=== PATIENT | female | born 1935 | race Caucasian/White ===

== ENCOUNTER 2023-03-06 16:57 | Emergency (ER) | payer MEDICARE, BC, SELFPAY ==
[2023-03-06 17:00] VITALS: BP 155/81; BMI 30.3
[2023-03-06 17:31] LABS: COVID-19 Antigen Negative (Negative)
--- NOTE | 2023-03-06 18:42 | EDRN ---
the pt called for this RN and this RN came to the pts bedside, the pt stated to this RN, 'I need a breathing treatment, i am due every 4 hours and it will help me breathe, also if i stay here i will need a CPAP machine', pt [id number] on 2L NC 98%, still
waiting for provider to see the pt, charge nurse made aware
[2023-03-06] MEDS: DECADRON 8 MG IV (19:23)
[2023-03-06] MEDS: DUONEB 3 ML INH (19:24)
[2023-03-06] MEDS: TYLENOL 1000 MG PO (20:30)
--- NOTE | 2023-03-06 21:29 | ED.GENMED ---
History of Present Illness
General
Chief Complaint: Fall
Time Seen by Provider: 03/06/23 18:43
Travel History
Have you had any contact with someone who has COVID-19?: No
Do you have any symptoms of coronavirus? Fever > 100 degrees, chills, cough, shortness of breath, sore throat, loss of taste or smell, muscle aches, or headache?: No
History of Present Illness
History of Present Illness:
88-year-old female with history of asthma, COPD, chronic oxygen dependence, A-fib, hypertension, hyperlipidemia, and laryngeal dysmotility presents to the emergency department for multiple complaints. She was apparently and route to urgent care due
to shortness of breath when she had a fall in the vestibule of the urgent care prompting her to call 911. She arrives complaining of bilateral knee pain. She is not currently on any anticoagulants. She notes she is felt short of breath for the
past week. She is requesting viral panel swabs.
Past History
Past History
ED Past Medical History: Arrthythmia (Atrial fib), Asthma, COPD, GERD, HTN, Hypercholesterolemia, IDDM, Psychiatric (Anxiety) and Other (Chronic back pain, Diverticulitis, Hiatal hernia,, carotid stenosis,sleep apnea , dysphagia, glaucoma,
cataracts,Vertigo, PNA, esophageal restrictions)
ED Past Surgical History: Appendectomy, Cardiac (Left carotid stent), Gynecological (hysterectomy), Orthopedic (Right carpal tunnel surgery), Urological (Bladder surgery) and Other (Cyst on Pancreas with fluid removed, bladder repair, Breast cyst
removed)
Social History
Tobacco: Non-smoker
Alcohol: None
Drug: None
Personal:
Living: with family
Employment: Retired
Family History
Family History: Other (Brother with a stroke, sister with ovarian cancer, sister with colon cancer)
Review of Systems
Review of Systems
Allergies reviewed?: Yes
All Other Systems: ROS reviewed and negative except as documented in HPI and ROS
Phy Exam
Physical Exam
Physical Exam:
GEN: Well appearing, NAD, WDWN
Eyes: PERRLA, EOMs intact, no scleral icterus
HENT: NCAT, oral mucosa moist, no JVD, no cervical adenopathy.
Lungs: Normal respiratory effort however audible expiratory wheezes heard throughout all lung herron, no conversational dyspnea
Cardiac: RRR
Neuro: AO x 3, no focal deficits to BUE/BLE, normal sensation throughout
MSK: No gross deformity or ecchymosis. Bilateral knees appear atraumatic with no ecchymosis or swelling
Skin: No rashes, petechiae. Normal color, no pallor or jaundice.
Psych: Calm, cooperative, proper hygiene
Course
Orders/Labs/Results
Orders:
Orders
03/06/23 16:59
CXR2 [CR Chest - 2 Views ] Urgent
Comment:
Reason For Exam: cough
03/06/23 17:09
COVID-19 Antigen Urgent
Source: Nasal Swab
Influenza A+B Rapid Molecular Urgent
MIKI Source: Nasal Swab
Specimen Description:
RSV [Respiratory Syncytial Virus] Urgent
MIKI Source: Nasal Swab
Specimen Description:
Date Specimen was Collected: 03/06/23
Time Specimen was Collected: 17:08
03/06/23 18:52
Dexamethasone Sod Phosphate [Decadron] 8 mg IV NOW STA
Ipratropium/Albuterol Sulfate [Duoneb] 3 ml INH R NOW ONE
CR Knee - Left 4 Or More View* Urgent
Comment:
Reason For Exam: fall
CR Knee- Right 4 Or More View* Urgent
Comment:
Reason For Exam: fall
03/06/23 20:26
Acetaminophen [Tylenol] 1,000 mg .ROUTE .STK-MED ONE
03/06/23 20:30
Acetaminophen [Tylenol] 1,000 mg PO NOW STA
Vital Signs
Initial and Last Documented VS:
Initial Vital Signs
Temp Pulse Resp BP Pulse Ox
97.7 F 71 16 155/81 100
03/06/23 17:00 03/06/23 17:00 03/06/23 17:00 03/06/23 17:00 03/06/23 17:00
Last Documented Vital Signs
Temp Pulse Resp BP Pulse Ox
97.7 F 71 16 155/81 100
03/06/23 17:00 03/06/23 17:00 03/06/23 17:00 03/06/23 17:00 03/06/23 17:00
MDM/Problems Addressed
MDM/Problems Addressed:
Patient's symptoms of shortness of breath resolved after a DuoNeb treatment. X-rays of bilateral knees are negative for acute fracture. The patient reporting severe pain and being unable to walk, given Tylenol and eventually Toradol. I did offer
her admission for consideration of inpatient rehab however she declines that she has adequate outpatient therapy services and the ability to live in first-floor living as well as assistive ambulatory devices. Will be discharged to the care of her
*Critical Care Note
Total Time (30-74mins, 75-104mins- exclusive of procedures): Not Applicable
ED Attending Note
-
Portions of this chart may have been created with voice recognition software.� Occasional wrong word or��sound alike� substitutions may have occurred due to the inherent limitations of voice recognition software.
Discharge Plan
Departure
Patient Disposition: Home (Routine Discharge)
Date of Disposition: 03/06/23
Time of Disposition: 21:37
Patient with high blood pressure during this ER visit?: No
Discharge Problem:
Bilateral wheezing, Contusion of knee, right, Contusion of left knee
Instructions: Wheezing
Prescriptions:
New
methylprednisolone [Medrol ([place])] 4 mg tablets,dose pack
See Rx Instructions .ROUTE .COMPLEX Qty: 21 0RF
Rx Instructions:
orally per package directions
No Action
torsemide 20 MG tablet
20 mg PO MOFR
clopidogrel 75 MG tablet
75 mg PO DAILY 30 Days Qty: 30 0RF
citalopram 20 MG tablet
20 mg PO HS
montelukast 10 MG tablet
10 mg PO HS
cholecalciferol (vitamin D3) 2,000 UNITS tablet
2,000 units PO DAILY
primidone 50 MG tablet
50 mg PO DAILY
pantoprazole 40 MG tablet,delayed release (DR/EC)
40 mg PO DAILY
rosuvastatin 5 mg Tablet
5 mg PO Q48H
travoprost [Travatan Z] 0.004 % Drops
1 drp RIGHT EYE HS
diltiazem HCl 120 mg Capsule,Extended Release 24 Hr
120 mg PO Q48H
gabapentin 100 mg capsule
200 mg PO HS
Refresh Classic (PF) 1.4-0.6 % Dropperette
1 drp LEFT EYE QIDPRN PRN (Reason: DRY EYES)
acetaminophen [Tylenol] 325 mg Tablet
650 mg PO Q4HPRN PRN (Reason: mild pain)
polyethylene glycol 3350 [Miralax] 17 gram Powder In Packet
17 g PO DAILY
nystatin 100,000 unit/gram Cream
1 applic topical DAILYPRN PRN (Reason: ext vaginal)
cinnamon bark [Cinnamon] 500 mg Capsule
500 mg PO DAILY
guaifenesin 600 mg Tablet Extended Release 12hr
1,200 mg PO [id number] PRN (Reason: cough) Qty: 30 0RF
benzonatate 100 mg Capsule
100 mg PO TIDPRN PRN (Reason: Cough) Qty: 20 0RF
ipratropium-albuterol 0.5 mg-3 mg(2.5 mg base)/3 mL Solution For Nebulization
3 ml INHALATION R Q4HPRN PRN (Reason: sob)
Rx Instructions:
10/25/22 patient that her solution has two drugs in it but patient recently picked up the levalbuterol 1.25 solution
potassium chloride 20 mEq Packet
20 meq PO MOFR
lidocaine 5 % Adhesive Patch,Medicated
1 patch TOPICAL DAILYPRN PRN (Reason: right shoulder and right hip)
estradiol 0.01 % (0.1 mg/gram) Cream
1 applic VAGINAL DAILY
coQ10 (ubiquinol) 100 mg Capsule
100 mg PO DAILY
levalbuterol tartrate 45 mcg/actuation HFA aerosol inhaler
2 inh inhalation R Q6HPRN PRN (Reason: shortness of breath or wheezing)
benzonatate 100 mg capsule
100 mg PO BID PRN (Reason: Cough) Qty: 20 0RF
Referrals:
Carrie Nuñez, [Family Provider] -
Activity Restrictions/Additional Instructions:
Continue to use your albuterol nebulizer every 4 hours as needed for wheezing. I prescribed the steroids which you may start tomorrow
In regards to your knee pain take Tylenol 1000 mg every 6-8 hours and ice the knees often. Discussed the specific therapy exercises with your physical therapist tomorrow
Interventions
Interventions:
*Risk Screen - Suicide Last Done: 03/06/23 17:00
*General Assessment Last Done: 03/06/23 17:00
*Neglect/Abuse Screening Last Done: 03/06/23 17:00
ED- Fall Risk Assessment Last Done: 03/06/23 17:00
*ED COVID-19 Vaccine History Last Done: 03/06/23 17:00
ED-Musculoskeletal Assessment Last Done: 03/06/23 17:00
ED- Neurological Assessment Last Done: 03/06/23 17:00
ED-Skin Assessment Last Done: 03/06/23 17:00
[2023-03-06] MEDS: TORADOL 15 MG IV (22:04)
[2023-03-06 22:27] VITALS: BP 141/66
[2023-03-06 22:29] VITALS: BP 141/66
== END 2023-03-06 22:30 | disposition home or self-care (01) ==
LOC: EMR 16:57
PROVIDERS: Emergency Medicine; EMERGENCY PHYSICIAN Emergency Medicine; FAMILY PHYSICIAN Family Medicine
DX: S80.01XA Contusion of right knee, initial encounter (principal); S80.02XA Contusion of left knee, initial encounter; W19.XXXA Unspecified fall, initial encounter; R06.2 Wheezing; J44.89 Other specified chronic obstructive pulmonary disease; I48.91 Unspecified atrial fibrillation; I10 Essential (primary) hypertension; E78.00 Pure hypercholesterolemia, unspecified
CPT/HCPCS: 99284; 96374; 96375; 94640; 71046; 73564; 87502; 87807; 87811

== ENCOUNTER → 2023-05-24 11:07 | Outpatient (REF) | payer MEDICARE, BC, SELFPAY ==
[2023-05-24 16:13] LABS: % Basophils 0.4 % (0-2); % Eosinophils 3.4 % (0-6); % Immature Granulocytes 0.3 % (0-0.5); % Lymphocytes 19.6 % (20.5-51.1); % Monocytes 11.5 % (1.7-9.3); % Neutrophils 64.8 % (42.2-75.2); Absolute Eosinophils 0.2 10^3/uL (0-0.7); Absolute Lymphocytes 1.4 10^3/uL (1.2-3.4); Absolute Monocytes 0.8 10^3/uL (0.1-0.6); Absolute Neutrophils 4.6 10^3/uL (1.4-6.5); Hemoglobin 10.5 g/dL (12.0-16.0); Mean Corp Hgb Conc. 31.8 g/dL (33.0-37.0); Mean Corpuscular Hgb 28.8 pg (27.0-31.0); Mean Corpuscular Volume 90.4 fL (81.0-99.0); Nucleated Red Blood Cells % 0 %; Platelet Count 200 10^3/uL (130-400); Red Blood Cell Count 3.65 10^6/uL (4.20-5.40); Red Cell Dist. Width 14.4 % (11.5-14.5)
[2023-05-24 16:19] LABS: HDL Cholesterol 78 mg/dl; Iron 69 ug/dl (37-170); LDL Cholesterol, Calculated 59 mg/dl; Total Cholesterol 154 mg/dl (50-199); Triglyceride 86 mg/dl (10-149); Very Low Density Lipoprotein 17 mg/dl (0-30)
[2023-05-24 16:27] LABS: Percent Saturation 17 % (20-50); Total Iron Binding Capacity 388 ug/dl (265-497)
[2023-05-24 16:47] LABS: Microalbumin, Random Urine 1.1 mg/dl (0.6-1.7); Microalbumin/creatinine Ratio 10.3 mg/g
[2023-05-24 16:55] LABS: Ferritin 8.6 ng/ml (11.1-264.0)
[2023-05-25 08:37] LABS: Glycohemoglobin (HgbA1c) 7.3 % (4.0-5.6)
== END ==
LOC: HWLAB 11:07
PROVIDERS: ATTENDING PHYSICIAN Family Medicine; REFERRING PHYSICIAN Internal Medicine Cardiovascular Disease
DX: I65.29 Occlusion and stenosis of unspecified carotid artery (principal); E11.40 Type 2 diabetes mellitus with diabetic neuropathy, unspecified; D50.9 Iron deficiency anemia, unspecified; L43.9 Lichen planus, unspecified
CPT/HCPCS: 36415; 80061; 82043; 82570; 82728; 83036; 83540; 83550; 85025

== ENCOUNTER → 2023-06-26 06:24 | Day surgery (SDC) | payer MEDICARE, BC, SELFPAY ==
[2023-06-26] MEDS: NEO-SYNEPHRINE 2.5% OPH SOL. 1 DROP OPHTH (07:31)
[2023-06-26] MEDS: PRED FORTE 1% EYE DROPS 1 DROP OPHTH (07:31)
[2023-06-26] MEDS: ALCAINE 0.5% EYE DROPS 1 DROP OPHTH (07:31)
[2023-06-26] MEDS: POLYTRIM OPHTHALMIC SOLUTION 1 DROP OPHTH (07:31)
[2023-06-26] MEDS: MYDRIACYL 1 DROP OPHTH (07:32)
[2023-06-26] MEDS: CYCLOGYL 1% EYE DROPS 1 DROP OPHTH (07:32)
[2023-06-26] MEDS: ACUVAIL 10 DROPS OPHTH (07:32)
[2023-06-26 07:34] VITALS: BMI 28.4
[2023-06-26 07:35] VITALS: BMI 28.4
[2023-06-26 07:38] VITALS: BP 144/77
[2023-06-26 07:56] LABS: Glucose - Point of Care 134 mg/dl (70-99)
[2023-06-26] MEDS: AKTEN OPHTHALMIC GEL 1 ML OPHTH (08:03)
[2023-06-26] MEDS: NORMOSOL-R 1000 IV (08:03)
[2023-06-26 09:03] VITALS: BP 141/59
[2023-06-26 09:18] VITALS: BP 133/65
== END ==
LOC: SDS 06:24
PROVIDERS: ATTENDING PHYSICIAN Ophthalmology
DX: [UNRECOGNIZED DIAGNOSIS CODE]
CPT/HCPCS: 66984; 82962

== ENCOUNTER 2023-06-26 17:46 | Inpatient (IN) | payer MEDICARE, BC, SELFPAY ==
[2023-06-26] VITALS (8 sets, daily range): BP systolic 107–138; BP diastolic 41–72; BMI 30.6; BMI 29.5
[2023-06-26 12:34] LABS: % Basophils 0.2 % (0-2); % Eosinophils 0.6 % (0-6); % Immature Granulocytes 1.3 % (0-0.5); % Lymphocytes 8.3 % (20.5-51.1); % Monocytes 8.2 % (1.7-9.3); % Neutrophils 81.4 % (42.2-75.2); Absolute Eosinophils 0.1 10^3/uL (0-0.7); Absolute Immature Granulocytes 0.1 10^3/uL (0-0.05); Absolute Lymphocytes 0.7 10^3/uL (1.2-3.4); Absolute Monocytes 0.7 10^3/uL (0.1-0.6); Absolute Neutrophils 6.9 10^3/uL (1.4-6.5); Hematocrit 31.8 % (37.0-47.0); Hemoglobin 10.2 g/dL (12.0-16.0); Mean Corp Hgb Conc. 32.1 g/dL (33.0-37.0); Mean Corpuscular Hgb 28.8 pg (27.0-31.0); Mean Corpuscular Volume 89.8 fL (81.0-99.0); Mean Platelet Volume 9.6 fL (7.4-10.4); Nucleated Red Blood Cells % 0 %; Platelet Count 186 10^3/uL (130-400); Red Blood Cell Count 3.54 10^6/uL (4.20-5.40); Red Cell Dist. Width 13.6 % (11.5-14.5); White Blood Cell Count 8.5 10^3/uL (4.8-10.8)
[2023-06-26 12:58] LABS: ALT (SGPT) 16 U/L (0-35); AST (SGOT) 27 U/L (14-36); Albumin 3.7 g/dl (3.5-5.0); Alkaline Phosphatase 61 U/L (38-126); Blood Urea Nitrogen 23 mg/dl (7-17); Calcium 9.3 mg/dl (8.4-10.2); Carbon Dioxide 28 mmol/L (22-30); Chloride 102 mmol/L (98-107); Estimated Creatinine Clearance 58 ml/min; Glucose 239 mg/dl (70-99); Potassium 4.5 mmol/L (3.5-5.1); Sodium 136 mmol/L (135-145); Total Bilirubin 0.4 mg/dl (0.2-1.3); Total Protein 6.1 g/dl (6.3-8.2); eGFR > 60.00
[2023-06-26] MEDS: MORPHINE SULFATE 2 MG IV ×2 (13:24→20:36)
--- NOTE | 2023-06-26 14:25 | ED.GENMED ---
History of Present Illness
General
Chief Complaint: Fall
Source: patient
Exam Limitations: none
Time Seen by Provider: 06/26/23 12:24
Nursing documentation reviewed up to this point in time: agreed with
Travel History
Have you had any contact with someone who has COVID-19?: No
Do you have any symptoms of coronavirus? Fever > 100 degrees, chills, cough, shortness of breath, sore throat, loss of taste or smell, muscle aches, or headache?: No
History of Present Illness
History of Present Illness:
pt is a 88 y/o F with h/o copd on o2
had cataract surgery this morning by dr. kline
she went home and was reaching for her 's hand to help her to the chair and she missed it, falling and landing backwards onto her buttocks and then hit her head
she is on plavix but it has been held for a few days pre-op
pt had no LOC
she has alump to back of scalp but also pain in her left hip and was unable to get up
her called 911
no change in mental status
has pain with any movement of her left hip
no weakness, numbness, cp, sob, headache, vomiting, confusion
Past History
Past History
ED Past Medical History: Arrthythmia (Atrial fib), Asthma, COPD, GERD, HTN, Hypercholesterolemia, IDDM, Psychiatric (Anxiety) and Other (Chronic back pain, Diverticulitis, Hiatal hernia,, carotid stenosis,sleep apnea , dysphagia, glaucoma,
cataracts,Vertigo, PNA, esophageal restrictions)
ED Past Surgical History: Appendectomy, Cardiac (Left carotid stent), Gynecological (hysterectomy), Orthopedic (Right carpal tunnel surgery), Urological (Bladder surgery) and Other (Cyst on Pancreas with fluid removed, bladder repair, Breast cyst
removed)
Social History
Tobacco: Non-smoker
Alcohol: None
Drug: None
Personal:
Living: with family
Employment: Retired
Family History
Family History: Other (Brother with a stroke, sister with ovarian cancer, sister with colon cancer)
Review of Systems
Review of Systems
Allergies reviewed?: Yes
All Other Systems: Not applicable
Phy Exam
Physical Exam
Physical Exam:
GENERAL: Alert , in no apparent distress
HEAD: hematoma posterior scalp, mild tendneress, no bleeding
NECK: no midline tenderness, active ROM intact, no paraspinal muscle tenderness;
EYE: pupils equal and reactive, EOMs intact.
ENT: o/p clr, mmm. no hemotympanum
CARDIAC: Regular rate and rhythm, no edema
LUNGS: Clear breath sounds bilaterally, no acute respiratory distress, no wheezes/rales/rhonchi
ABDOMEN: Soft, without focal tenderness, no r/g, no cvat
NEUROLOGICAL: Alert and oriented, no focal neuro deficits, CN intact, 5/5 strength, sensation intact
SKIN: Warm and dry, hematoma
MUSCULOSKELETAL:left hip normal inspection pain with any ROM, gabi flexion and rotation
PSIS tenderness
no dislocation
lower leg looks normal
mild lumbar spine tenderness sacrum
sensation intact
PSYCH: Normal and appropriate interaction.
Course
Orders/Labs/Results
Orders:
Orders
06/26/23 12:14
Hip, Left 2-3 Views [CR Hip - LT w/wo Pel 2-3 Vw*] Urgent
Comment:
Reason For Exam: fall
Include a pelvis x-ray?: Yes
06/26/23 12:25
Complete Blood Count/With Diff Urgent
Comprehensive Metabolic Panel Urgent
06/26/23 13:13
Morphine Sulfate 2 mg IV NOW STA
06/26/23 13:[address] Cervical Spine W/o Iv Contr Urgent
Comment:
Reason For Exam: fall backwards
CT Head W/o Iv Contrast Urgent
Comment:
Reason For Exam: fall backwards
CT Pelvis W/o Iv Contrast Urgent
Comment:
Reason For Exam: fall, confirm L hip fracture per ortho
06/26/23 14:35
Ipratropium/Albuterol Sulfate [Duoneb] 3 ml INH R NOW ONE
06/26/23 Dinner
IDDSI 5 - Minced & Moist
At Your Request: Limited Participation
06/26/23 16:40
Ipratropium/Albuterol Sulfate [Duoneb] 3 ml INH R NOW STA
06/26/23 16:41
Acetaminophen [Tylenol] 650 mg PO NOW STA
06/26/23 17:10
Admit/Transfer Patient As Directed
Co-Sign Provider:
Level of Care: Inpatient admission
Assign to:: Medical/Surgical
Physician / Group: sylvia
Diagnosis: hip fracture
Reason for Hospitalization: hip fracture
Expected length of stay greater than two midnights?: Yes
ELOS- Estimated Length of Stay in days: 2
I certify the patient meets the requirements for IP care: Yes
Code Status As Directed
Resuscitation Status: Full Code
06/26/23 17:12
CR Chest Portable - 1 View Urgent
Comment:
Reason For Exam: wheeezing,
Reason Study Needs to be Portable: Unable to Transport
06/26/23 17:21
ORTHOPEDIC CONSULT Routine
Consulting Provider: Zenon Blount
Was physician already notified: Yes
06/26/23 19:31
Acetaminophen [Tylenol] 650 mg PO Q4HPRN PRN
Artificial Tears (Pf) [Refresh Eye Drops (Pf)] 1 drops LEFT EYE QIDPRN PRN
Guaifenesin [Mucinex] 1,200 mg PO [id number] PRN
Morphine Sulfate 2 mg IV Q4HPRN PRN
06/26/23 19:31
EKG [Electrocardiogram (*1)] Routine
Reason for Study: PreOp
Activity As Directed
Activity Level: As Tolerated
Vital Signs As Directed
Frequency: Per unit guidelines
DX Deep Vein Thrombosis Video Routine
06/26/23 19:42
Lidocaine [Lidocaine 4% Patch] 1 patch TOPICAL DAILYPRN PRN
06/26/23 20:00
Budesonide [Pulmicort] 0.5 mg INH R TID
Dexamethasone Sod Phosphate [Decadron] 4 mg IV Q12H
Heparin 5,000 units SC Q12
Ipratropium/Albuterol Sulfate [Duoneb] 3 ml INH R QID
06/26/23 22:00
Gabapentin [Neurontin] 200 mg PO HS
Montelukast Sodium [Singulair] 10 mg PO HS
Nystatin Suspension [Mycostatin Oral Suspension] 5 ml PO QID
06/27/23 Breakfast
NPO
Allow oral meds: Yes
Allow clear liquids: Sips of Clears
Complete Blood Count/With Diff IN AM
Comprehensive Metabolic Panel IN AM
06/27/23 08:00
Cholecalciferol (Vitamin D3) [VITAMIN D3 (cholecalciferol)] 50 mcg PO DAILY
Cyanocobalamin [Vitamin B-12] 1,000 mcg PO DAILY
Diltiazem Extended Release [Cardizem Cd] 120 mg PO DAILY
Pantoprazole [Protonix] 40 mg PO DAILY
Polyethylene Glycol Powder [Miralax] 17 grams PO DAILY
Potassium Chloride Powder [Klor-Con] 20 meq PO TuFr@0800
Primidone [Mysoline] 50 mg PO DAILY
Rosuvastatin Calcium [Crestor] 5 mg PO DAILY
Torsemide [Demadex] 10 mg PO TuFr@0800
Abnormal Lab Results
06/26/23
12:25
RBC 3.54 L 10^6/uL
(4.20-5.40)
Hgb 10.2 L g/dL
(12.0-16.0)
Hct 31.8 L %
(37.0-47.0)
MCHC 32.1 L g/dL
(33.0-37.0)
Abs Immat Gran (auto) 0.1 H 10^3/uL
(0-0.05)
Absolute Neuts (auto) 6.9 H 10^3/uL
(1.4-6.5)
Absolute Lymphs (auto) 0.7 L 10^3/uL
(1.2-3.4)
Absolute Monos (auto) 0.7 H 10^3/uL
(0.1-0.6)
Immature Gran % 1.3 H %
(0-0.5)
Neutrophils % 81.4 H %
(42.2-75.2)
Lymphocytes % 8.3 L %
(20.5-51.1)
BUN 23 H mg/dl
(7-17)
Glucose 239 H mg/dl
(70-99)
Total Protein 6.1 L g/dl
(6.3-8.2)
06/26/23 12:25
06/26/23 12:25
Vital Signs
Initial and Last Documented VS:
Initial Vital Signs
Temp Pulse Resp BP Pulse Ox
97.6 F 74 16 107/65 93
06/26/23 11:52 06/26/23 11:52 06/26/23 11:52 06/26/23 11:52 06/26/23 11:52
Last Documented Vital Signs
Temp Pulse Resp BP Pulse Ox
98.1 F 80 13 114/47 96
06/26/23 19:27 06/26/23 20:01 06/26/23 20:01 06/26/23 19:27 06/26/23 20:01
MDM/Problems Addressed
Differential Diagnosis Includes:
hip fracture, hip contusion, pelvic fracture, lumbar fracutre, head injury
MDM/Problems Addressed:
88 y/o F with recent eye surgery s/p fall backwards and htitting head and buttockst
unable to get up due to hip pain
no anticoagulants
on exam uncomfortable with any movement of L hip
not shortened or rotated
small posterior scalp hematoma
neuro intact
xrays indep reviewed, suspcious for fracture
ortho dr. blount would prefer ct for confirmation
ordered cts of head/neck/and pelvis
anticipate admission
ct confiemd fracture
initially intertrochanteric but revised after speakign with dr. blount from ortho
greater troch and will be nonop
doneb given for COPD exac
*Critical Care Note
Total Time (30-74mins, 75-104mins- exclusive of procedures): Not Applicable
ED Attending Note
-
Portions of this chart may have been created with voice recognition software.� Occasional wrong word or��sound alike� substitutions may have occurred due to the inherent limitations of voice recognition software.
Discharge Plan
Departure
Patient Disposition: Admit
Date of Disposition: 06/26/23
Time of Disposition: 16:12
Admit to: Med/Surg
Presentation/result/management discussed w/ accepting MD/DO: Hospitalist
Condition: Fair
Covid-19: Not Applicable
Discharge Problem:
Closed hip fracture
Interventions
Interventions:
*Risk Screen - Suicide Last Done: 06/26/23 11:52
*General Assessment Last Done: 06/26/23 11:52
*Neglect/Abuse Screening Last Done: 06/26/23 11:52
ED- Fall Risk Assessment Last Done: 06/26/23 19:27
*ED COVID-19 Vaccine History Last Done: 06/26/23 11:52
*Nursing Disposition Last Done: 06/26/23 19:27
ED-Musculoskeletal Assessment Last Done: 06/26/23 11:52
ED- Neurological Assessment Last Done: 06/26/23 11:52
ED-Skin Assessment Last Done: 06/26/23 11:52
Discharge Date and Time
Discharge Date/Time: 06/26/23 19:27
[2023-06-26] MEDS: DUONEB 3 ML INH ×3 (14:48→19:53)
[2023-06-26] MEDS: TYLENOL 650 MG PO (16:46)
--- NOTE | 2023-06-26 17:15 | HPS.HSE ---
Addendum entered and electronically signed by Ammy Odell MD 06/26/23 18:34:
Dr. Burciaga recommended eye drops which have been ordered.
Original Note:
Family Physician
-
Family Physician: Carrie Nuñez
Chief Complaint
-
fall
History of Present Illness
88-year-old female past medical history of asthma,, anxiety, vocal cord disease, chronic aspiration on 2 L baseline and CPAP at night, obstructive sleep apnea, chronic rhinitis, esophageal stricture, dysphagia, GERD, essential hypertension,
hyperlipidemia, type 2 diabetes, left carotid stent, cataracts, osteoporosis/compression fracture, pancreatic cyst, depression, obesity, presenting after a fall earlier this afternoon after right eye cataract surgery. She was at home and still felt
loopy after anesthesia fell backwards and struck her head. No loss of consciousness or dizziness.
She complains of pain on her posterior head and left hip pain.
She has also been having increased shortness of breath, cough and wheezing worsening over the past several weeks. She was started on prednisone by her office helper a month ago. Denies any fevers but complains of chills. Complains of chest pain
with breathing. Denies any nausea vomiting or diarrhea.
Denies current smoking or alcohol use.
Medical History
Past Medical History
Past Medical History: Reports Other (asthma,, anxiety, vocal cord disease, chronic aspiration on 2 L baseline and CPAP at night, obstructive sleep apnea, chronic rhinitis, esophageal stricture, dysphagia, GERD, essential hypertension,
hyperlipidemia, type 2 diabetes, left carotid stent, cataracts, osteoporosis/compression fracture, sin)
Past Surgical History: Reports Other (Appendectomy, Cardiac (Left carotid stent), Gynecological (hysterectomy), Orthopedic (Right carpal tunnel surgery), Urological (Bladder surgery) and Other (Cyst on Pancreas with fluid removed, bladder repair,
Breast cyst removed))
Social History
Tobacco: Non-smoker
Alcohol: None
Drug: None
Family History
Family History: Not pertinent
Allergies / Home Medications
Allergies reflects when Allergies were last updated in [employer].
Home Medications with original date entered in [employer]
Allergy/Medication List:
Allergies
Allergy/AdvReac Type Severity Reaction Status Date / Time
abacavir sulfate Allergy Unknown Verified 06/26/23 07:37
[From Ziagen]
amoxicillin [Amoxicillin] Allergy Rash, Verified 06/26/23 07:37
tolerates
cephalosporins
aspartame Allergy asthma Verified 06/26/23 07:37
attack -
artifical
sweeteners
banana Allergy ASTHMA Verified 06/26/23 07:37
ATTACK
Beta-Adrenergic Agents Allergy Unknown Verified 06/26/23 07:37
bimatoprost Allergy Palpitation Verified 06/26/23 07:37
s
bupropion Allergy STOMACH Verified 06/26/23 07:37
UPSET
cat dander Allergy CAN'T Verified 06/26/23 07:37
BREATHE
clavulanic acid Allergy unknown - Verified 06/26/23 07:37
beta
lactamase
inhibitors
colesevelam Allergy CRAMPS Verified 06/26/23 07:37
dog dander Allergy CAN'T Verified 06/26/23 07:37
BREATHE
house dust Allergy Unknown Verified 06/26/23 07:37
house dust mite Allergy Unknown Verified 06/26/23 07:37
latanoprost Allergy Palpitation Verified 06/26/23 07:37
s
metformin HCl Allergy spasms in Verified 06/26/23 07:37
[From Glucophage] back/HEART
PROBLEM
mold Allergy Unknown Verified 06/26/23 07:37
monosodium glutamate Allergy DIARRHEA Verified 06/26/23 07:37
pollen extracts Allergy Unknown Verified 06/26/23 07:37
quinapril HCl [From Accupril] Allergy UPSET Verified 06/26/23 07:37
STOMACH
ramipril Allergy Upset Verified 06/26/23 07:37
Stomach
simvastatin [Simvastatin] Allergy feet Verified 06/26/23 07:37
swelled/CAN'T
WALK
Sulfa (Sulfonamide Allergy EYE Verified 06/26/23 07:37
Antibiotics) Swelling
valsartan Allergy BACKACHE/ST Verified 06/26/23 07:37
OMACHACHE
Home Medications
clopidogrel 75 mg tablet 75 mg PO DAILY Blood clot prevention/tx 30 days #30 tabs 08/11/20
montelukast 10 mg tablet 10 mg PO HS Allergies 10/26/20
primidone 50 mg tablet 50 mg PO DAILY Neurological Condition 02/27/21
pantoprazole 40 mg tablet,delayed release 40 mg PO DAILY Gastrointestinal issue 05/27/21
rosuvastatin 5 mg tablet 5 mg PO DAILY High cholesterol 08/25/21
diltiazem HCl 120 mg capsule,24 hr,extended release 120 mg PO DAILY Arrhythmia 02/27/22
gabapentin 100 mg capsule 200 mg PO HS Neurological Condition 07/20/22
polyvinyl alcohol-povidone (PF) 1.4 %-0.6 % eye drops in a dropperette (Refresh Classic (PF)) 1 drp LEFT EYE QIDPRN PRN DRY EYES 07/20/22
acetaminophen 325 mg tablet (Tylenol) 650 mg PO Q4HPRN PRN mild pain 08/08/22
cinnamon bark 500 mg capsule (Cinnamon) 500 mg PO DAILY Supplement 08/08/22
polyethylene glycol 3350 17 gram oral powder packet (Miralax) 17 g PO DAILY Gastrointestinal Issue 08/08/22
guaifenesin 600 mg tablet, extended release 12 hr 1,200 mg (2 x 600 mg) PO [id number] PRN cough #30 tabs 09/11/22
coQ10 (ubiquinol) 100 mg capsule 100 mg PO DAILY 10/25/22
estradiol 0.01% (0.1 mg/gram) vaginal cream 1 applic vaginal BID 10/25/22
lidocaine 5 % topical patch 1 patch topical DAILYPRN PRN right shoulder and right hip 10/25/22
potassium chloride 20 mEq oral packet 20 meq PO TUFR 10/25/22
albuterol sulfate 90 mcg/actuation aerosol inhaler (ProAir HFA) 2 puff inhalation R Q4 PRN sob/wheezing 06/20/23
budesonide 0.5 mg/2 mL suspension for nebulization 0.5 mg inhalation R TID 06/20/23
mecobalamin (vitamin B12) 1,000 mcg chewable tablet (B12 Active) 1,000 mcg PO DAILY 06/20/23
nystatin 100,000 unit/mL oral suspension 100,000 unit PO PRN PRN thrush 06/20/23
prednisone 5 mg tablet 5 mg PO DAILY 06/20/23
torsemide 10 mg tablet 10 mg PO TUFR 06/20/23
cholecalciferol (vitamin D3) 50 mcg (2,000 unit) tablet (Vitamin D3) 50 mcg PO DAILY 06/26/23
ipratropium bromide 0.02 % solution for inhalation 1 ml inhalation R Q4 PRN sob/wheezing 06/26/23
Review of Systems
-
History Source: Patient
A 12 point ROS was completed and negative except as noted: Yes
Constitutional: Reports No Symptoms
EENT: Reports No Symptoms
Respiratory: Reports See HPI
Cardiac: Reports No Symptoms
Abdomen/GI: Reports No Symptoms
: Reports No Symptoms
Musculoskeletal: Reports No Symptoms
Skin: Reports No Symptoms
Neurological: Reports No Symptoms
Endocrine: Reports No Symptoms
Hematologic/Lymphatic: Reports No Symptoms
Psych: Reports No Symptoms
Physical Exam
Vital Signs
Vital Signs
Temp Pulse Resp BP Pulse Ox
97.6 F 77 20 107/71 96
06/26/23 11:52 06/26/23 16:30 06/26/23 16:30 06/26/23 15:00 06/26/23 15:00
Physical Exam
General: Well Developed, Well Nourished and No Apparent Distress
HEENT: NormoCephalic, Moist mucous membranes and Atraumatic
Respiratory: Wheezes
Cardiac: S1/S2 and Regular Rhythm; No Murmur or Rub
GI: Soft, Non Tender, Non Distended and Normal Bowel Sounds; No Organomegaly
Rectal: Deferred by Provider
Musculoskeletal: No Clubbing, No Cyanosis and No Edema
Skin: No Rash
Neuro: Nonfocal/grossly intact
Laboratory Results
-
06/26/23 12:25
06/26/23 12:25
Laboratory Results
Total Bilirubin 0.4 mg/dl (0.2-1.3) 06/26/23 12:25
AST 27 U/L (14-36) 06/26/23 12:25
ALT 16 U/L (0-35) 06/26/23 12:25
Alkaline Phosphatase 61 U/L (38-126) 06/26/23 12:25
Data Reviewed
-
Lab Data: Labs Reviewed by me
Old Records: Reviewed
Impression/Plan
-
IMPRESSION:
PLAN:
# Left intertrochanteric hip fracture
# Fall secondary to lethargy post anesthesia after right eye cataract surgery today
-CT head shows no acute abnormality
-Orthopedic consulted
-Tylenol, morphine for pain
-Optimize breathing prior to surgery
-N.p.o. postmidnight
# Possible asthma exacerbation/recurrent bronchitis, questionable asthma diagnosis history
-In the past pulmonary has apparently indicated the patient has without history of asthma or COPD
-Patient currently on 3 L, bilateral wheezing on examination,
-Check chest x-ray
-DuoNebs every 6 hours
-Dexamethasone 4 mg every 12
-Continue montelukast
History of chronic aspiration
History of vocal cord dysfunction
Obstructive sleep apnea
-On CPAP at night
Chronic rhinitis
Esophageal stricture
History of dysphagia
GERD
-Continue Protonix
Essential hypertension
-Continue diltiazem
Hyperlipidemia
Type 2 diabetes
History of left carotid artery stenosis
-Hold Plavix
-Continue statin
Cataracts
Osteoporosis/compression fracture
-Continue gabapentin
History of pancreatic cyst
Anxiety/depression
Obesity
History of tremor
-Continue primidone
History of lower extremity edema
-Continue torsemide twice weekly
Full code
DVT prophylaxis�heparin
dysphagia 2 diet, n.p.o. past midnight
[2023-06-26] MEDS: PULMICORT 0.5 MG INH (19:53)
[2023-06-26] MEDS: HEPARIN 5000 UNITS SC (20:36)
[2023-06-26] MEDS: DECADRON 4 MG IV (20:36)
[2023-06-26 22:14] LABS: Glucose - Point of Care 203 mg/dl (70-99)
[2023-06-26] MEDS: PRED FORTE 1% EYE DROPS 2 DROP OPHTH (22:52)
[2023-06-26] MEDS: MYCOSTATIN ORAL SUSPENSION 5 ML PO (22:52)
[2023-06-26] MEDS: NEURONTIN 200 MG PO (22:52)
[2023-06-26] MEDS: SINGULAIR 10 MG PO (22:52)
[2023-06-26] MEDS: POLYTRIM OPHTHALMIC SOLUTION 2 DROP OPHTH (23:02)
--- NOTE | 2023-06-27 00:46 | PTCARENOTE ---
Rec'd pt at 1930. transferred over to the bed by staff. Oriented pt to room. Right eye with shield as pt had cataract surgery earlier in the day. has abrasion to back of head. Pt on 2L02 which is baseline at home. Kalina ROSALES entered accu check
orders as pt states she checks her sugar at meals. She complained of pain in her left hip. Morphine given per prn orders. placed on contact precautions for hx of ESBL. call cali in reach.
[2023-06-27 06:00] VITALS: BMI 29.5
[2023-06-27 06:23] LABS: Glucose - Point of Care 211 mg/dl (70-99)
[2023-06-27 06:33] LABS: % Basophils 0.1 % (0-2); % Immature Granulocytes 0.5 % (0-0.5); % Lymphocytes 5.3 % (20.5-51.1); % Monocytes 3.3 % (1.7-9.3); % Neutrophils 90.8 % (42.2-75.2); Absolute Lymphocytes 0.4 10^3/uL (1.2-3.4); Absolute Monocytes 0.3 10^3/uL (0.1-0.6); Absolute Neutrophils 7.5 10^3/uL (1.4-6.5); Hematocrit 31.2 % (37.0-47.0); Hemoglobin 9.8 g/dL (12.0-16.0); Mean Corp Hgb Conc. 31.4 g/dL (33.0-37.0); Mean Corpuscular Hgb 28.8 pg (27.0-31.0); Mean Corpuscular Volume 91.8 fL (81.0-99.0); Mean Platelet Volume 10.3 fL (7.4-10.4); Nucleated Red Blood Cells % 0 %; Platelet Count 163 10^3/uL (130-400); Red Cell Dist. Width 13.7 % (11.5-14.5); White Blood Cell Count 8.3 10^3/uL (4.8-10.8)
[2023-06-27 06:56] LABS: ALT (SGPT) 15 U/L (0-35); AST (SGOT) 20 U/L (14-36); Albumin 3.6 g/dl (3.5-5.0); Alkaline Phosphatase 72 U/L (38-126); Blood Urea Nitrogen 20 mg/dl (7-17); Calcium 8.9 mg/dl (8.4-10.2); Carbon Dioxide 28 mmol/L (22-30); Chloride 100 mmol/L (98-107); Estimated Creatinine Clearance 57 ml/min; Glucose 211 mg/dl (70-99); Potassium 4.7 mmol/L (3.5-5.1); Sodium 136 mmol/L (135-145); Total Bilirubin 0.4 mg/dl (0.2-1.3); Total Protein 5.9 g/dl (6.3-8.2); eGFR > 60.00
[2023-06-27 07:35] VITALS: BP 125/64
[2023-06-27] MEDS: DUONEB 3 ML INH ×4 (07:44→20:20)
[2023-06-27] MEDS: PULMICORT 0.5 MG INH ×3 (07:44→20:20)
[2023-06-27 08:15] VITALS: BMI 29.5
--- NOTE | 2023-06-27 08:17 | CON.ORTHO ---
Consultation
-
Date/Time Consultation Requested: 06/26/23
Date/Time Consultation Performed: 06/27/23 @8:00am
Performing Provider: Debbie Da Silva PA-C for Timmy Blount MD
Reason for Consultation: left greater trochanter fracture
Consultation - Orthopedics
History
HPI: 88yo female admitted to [facility] following a fall yesterday. She states that she had eye surgery yesterday and after she got home, she was still feeling the effects of the anesthesia. Her was helping her to sit down and she
missed his hand, causing her to fall backwards, landing on her buttock. She was unable to get up following the fall. She states that she did bump her head. She called EMS to bring her to the ER for evaluation. Xrays performed showed possible hip
fracture. Ct Pelvis obtained revealed left greater trochanter fracture. This morning, she states that she does have pain in the left hip that improves with pain medications.
PAST MEDICAL HISTORY: asthma, anxiety, vocal cord disease, chronic aspiration on 2 L baseline and CPAP at night, obstructive sleep apnea, chronic rhinitis, esophageal stricture, dysphagia, GERD, essential hypertension, hyperlipidemia, type 2
diabetes, left carotid stent, cataracts, osteoporosis/compression fracture, pancreatic cyst, depression, obesity
PAST SURGICAL HISTORY: right eye cataract 06/26/23, Appendectomy, Left carotid stent, hysterectomy, Right carpal tunnel surgery, Bladder surgery, Cyst on Pancreas with fluid removed, bladder repair, Breast cyst removed
SOCIAL HISTORY: denies tobacco, alcohol
FAMILY HISTORY: Noncontributory
REVIEW OF SYSTEMS: 12 point review of systems obtained and negative except those mentioned in the HPI
Allergies / Home Medications
Allergy/AdvReac Type Severity Reaction Status Date / Time
abacavir sulfate Allergy Unknown Verified 06/26/23 07:37
[From Ziagen]
amoxicillin [Amoxicillin] Allergy Rash, Verified 06/26/23 07:37
tolerates
cephalosporins
aspartame Allergy asthma Verified 06/26/23 07:37
attack -
artifical
sweeteners
banana Allergy ASTHMA Verified 06/26/23 07:37
ATTACK
Beta-Adrenergic Agents Allergy Unknown Verified 06/26/23 07:37
bimatoprost Allergy Palpitation Verified 06/26/23 07:37
s
bupropion Allergy STOMACH Verified 06/26/23 07:37
UPSET
cat dander Allergy CAN'T Verified 06/26/23 07:37
BREATHE
clavulanic acid Allergy unknown - Verified 06/26/23 07:37
beta
lactamase
inhibitors
colesevelam Allergy CRAMPS Verified 06/26/23 07:37
dog dander Allergy CAN'T Verified 06/26/23 07:37
BREATHE
house dust Allergy Unknown Verified 06/26/23 07:37
house dust mite Allergy Unknown Verified 06/26/23 07:37
latanoprost Allergy Palpitation Verified 06/26/23 07:37
s
metformin HCl Allergy spasms in Verified 06/26/23 07:37
[From Glucophage] back/HEART
PROBLEM
mold Allergy Unknown Verified 06/26/23 07:37
monosodium glutamate Allergy DIARRHEA Verified 06/26/23 07:37
pollen extracts Allergy Unknown Verified 06/26/23 07:37
quinapril HCl [From Accupril] Allergy UPSET Verified 06/26/23 07:37
STOMACH
ramipril Allergy Upset Verified 06/26/23 07:37
Stomach
simvastatin [Simvastatin] Allergy feet Verified 06/26/23 07:37
swelled/CAN'T
WALK
Sulfa (Sulfonamide Allergy EYE Verified 06/26/23 07:37
Antibiotics) Swelling
valsartan Allergy BACKACHE/ST Verified 06/26/23 07:37
OMACHACHE
�Medication �Instructions �Recorded
clopidogrel 75 mg tablet 75 mg PO DAILY Blood clot 08/11/20
prevention/tx 30 days #30 tabs
montelukast 10 mg tablet 10 mg PO HS Allergies 10/26/20
primidone 50 mg tablet 50 mg PO DAILY Neurological 02/27/21
Condition
pantoprazole 40 mg tablet,delayed 40 mg PO DAILY Gastrointestinal 05/27/21
release issue
rosuvastatin 5 mg tablet 5 mg PO DAILY High cholesterol 08/25/21
diltiazem HCl 120 mg capsule,24 120 mg PO DAILY Arrhythmia 02/27/22
hr,extended release
gabapentin 100 mg capsule 200 mg PO HS Neurological Condition 07/20/22
polyvinyl alcohol-povidone (PF) 1 drp LEFT EYE QIDPRN PRN DRY EYES 07/20/22
1.4 %-0.6 % eye drops in a
dropperette (Refresh Classic (PF))
acetaminophen 325 mg tablet 650 mg PO Q4HPRN PRN mild pain 08/08/22
(Tylenol)
cinnamon bark 500 mg capsule 500 mg PO DAILY Supplement 08/08/22
(Cinnamon)
polyethylene glycol 3350 17 gram 17 g PO DAILY Gastrointestinal 08/08/22
oral powder packet (Miralax) Issue
guaifenesin 600 mg tablet, 1,200 mg (2 x 600 mg) PO [id number] 09/11/22
extended release 12 hr PRN cough #30 tabs
coQ10 (ubiquinol) 100 mg capsule 100 mg PO DAILY 10/25/22
estradiol 0.01% (0.1 mg/gram) 1 applic vaginal BID 10/25/22
vaginal cream
lidocaine 5 % topical patch 1 patch topical DAILYPRN PRN right 10/25/22
shoulder and right hip
potassium chloride 20 mEq oral 20 meq PO TUFR 10/25/22
packet
albuterol sulfate 90 mcg/actuation 2 puff inhalation R Q4 PRN 06/20/23
aerosol inhaler (ProAir HFA) sob/wheezing
budesonide 0.5 mg/2 mL suspension 0.5 mg inhalation R TID 06/20/23
for nebulization
mecobalamin (vitamin B12) 1,000 1,000 mcg PO DAILY 06/20/23
mcg chewable tablet (B12 Active)
nystatin 100,000 unit/mL oral 100,000 unit PO PRN PRN thrush 06/20/23
suspension
prednisone 5 mg tablet 5 mg PO DAILY 06/20/23
torsemide 10 mg tablet 10 mg PO TUFR 06/20/23
cholecalciferol (vitamin D3) 50 50 mcg PO DAILY 06/26/23
mcg (2,000 unit) tablet (Vitamin
D3)
ipratropium bromide 0.02 % 1 ml inhalation R Q4 PRN 06/26/23
solution for inhalation sob/wheezing
Vital Signs / Lab Results
Temp Pulse Resp BP Pulse Ox
97.5 F 76 16 127/65 96
06/26/23 23:00 06/27/23 07:51 06/27/23 07:51 06/26/23 23:00 06/27/23 07:51
06/27/23 05:42
06/27/23 05:42
RADIOGRAPHIC FINDINGS:
Xrays left hip findings suspicious for left hip intertrochanteric fracture.
CT Pelvis shows left trochanteric fracture is involving the greater trochanter only, extending posteriorly, and does not represent an intertrochanteric fracture. There is no cortical disruption of the lesser trochanter.
PHYSICAL EXAM:
General: AAOx3, well developed, well nourished female
HEENT: NCAT, sclera anicteric, dressing to right eye, normal hearing
Heart: No JVD
Lungs: Normal work of breathing. Currently receiving breathing treatment
MSK: Focused exam of left lower extremity reveals skin intact. +TTP over greater trochanter. ROM deferred due to pain. Able to flex/extend the knee, plantarflex/dorsiflex the ankle. Calf soft and nontender. NVI distally.
Assessment / Plan
ASSESSMENT: 88yo female admitted to [facility] following a fall resulting in left greater trochanter fracture
PLAN: Unfortunately, Mrs. Dukes sustained a left greater trochanter fracture following a mechanical fall at home yesterday. This fracture can be treated non-operatively. She is to be partial weight bearing to the left leg. Ambulate with a
walker at all times. Recommend PT/OT evaluation. Continue with pain management as needed. Can use ice to the hip to help with pain and swelling. Encourage range of motion of ankle and knee as tolerated. Follow up outpatient in 4 weeks for repeat
xrays. Orthopedics will sign off for now. Please reach out with any other questions or concerns.
[2023-06-27] MEDS: MYCOSTATIN ORAL SUSPENSION 5 ML PO ×4 (08:18→21:35)
[2023-06-27] MEDS: DEMADEX 10 MG PO (08:18)
[2023-06-27] MEDS: CRESTOR 5 MG PO (08:18)
[2023-06-27] MEDS: MYSOLINE 50 MG PO (08:19)
[2023-06-27] MEDS: PROTONIX 40 MG PO (08:19)
[2023-06-27] MEDS: VITAMIN D3 (cholecalciferol) 50 MCG PO (08:28)
[2023-06-27] MEDS: KLOR-CON 20 MEQ PO (08:28)
[2023-06-27] MEDS: CARDIZEM CD 120 MG PO (08:28)
[2023-06-27] MEDS: VITAMIN B-12 1000 MCG PO (08:28)
[2023-06-27] MEDS: HEPARIN 5000 UNITS SC ×2 (08:29→20:31)
[2023-06-27] MEDS: DECADRON 4 MG IV ×2 (08:31→20:30)
[2023-06-27] MEDS: MIRALAX PO (08:32)
[2023-06-27] MEDS: PRED FORTE 1% EYE DROPS 2 DROP OPHTH ×3 (08:33→21:35)
[2023-06-27] MEDS: POLYTRIM OPHTHALMIC SOLUTION 2 DROP OPHTH ×3 (08:34→21:35)
[2023-06-27 12:21] LABS: Glucose - Point of Care 226 mg/dl (70-99)
[2023-06-27 13:53] VITALS: BMI 29.5
[2023-06-27 15:16] VITALS: BP 110/62
--- NOTE | 2023-06-27 15:22 | W.PN.HOSP.TC ---
Today's Communication/Plan
-
DC planning after PT eval
Assessment / Plan
Assessment / Plan
# Left intertrochanteric hip fracture
# Fall secondary to lethargy post anesthesia after right eye cataract surgery today
-CT head shows no acute abnormality
-Orthopedic input noted-recommend nonoperative approach.
Weight-bear as tolerated with walker. Continue the pain medication. PT OT eval.
# Possible asthma exacerbation/recurrent bronchitis, questionable asthma diagnosis history
-In the past pulmonary has apparently indicated the patient has without history of asthma or COPD
-Patient currently on 3 L
-chest x-ray noted
-cw DuoNebs every 6 hours
-cw Dexamethasone 4 mg every 12
-Continue montelukast
History of chronic aspiration
History of vocal cord dysfunction
Obstructive sleep apnea
-On CPAP at night
Chronic rhinitis
Esophageal stricture
History of dysphagia
GERD
-Continue Protonix
Essential hypertension
-Continue diltiazem
Hyperlipidemia
Type 2 diabetes
History of left carotid artery stenosis
-Hold Plavix
-Continue statin
Cataracts
Osteoporosis/compression fracture
-Continue gabapentin
History of pancreatic cyst
Anxiety/depression
Obesity
History of tremor
-Continue primidone
History of lower extremity edema
-Continue torsemide twice weekly
Full code
DVT prophylaxis�heparin
Anticipated Discharge: Within 24 hours
Subjective/Interval History
-
Date of Service: June 27, 2023
Pain in the left hip with movement. No new symptoms.
Breathing is okay today. She wears oxygen chronically day and night.
Objective Data
-
Labs:
Laboratory Results
06/27/23
05:42
WBC 8.3
Hgb 9.8 L
Hct 31.2 L
Plt Count 163
Sodium 136
Potassium 4.7
Chloride 100
Carbon Dioxide 28
BUN 20 H
Creatinine 0.6
Glucose 211 H
Calcium 8.9
Total Bilirubin 0.4
AST 20
ALT 15
Alkaline Phosphatase 72
Vital Signs:
Vital Signs
Temp Pulse Resp BP Pulse Ox
97.8 F 83 16 125/64 98
06/27/23 07:35 06/27/23 11:45 06/27/23 11:45 06/27/23 07:35 06/27/23 11:45
I&O
06/26/23 06/27/23 06/28/23
06:59 06:59 06:59
Intake Total 240 / 240
Output Total 50 / 50
Balance 190 / 190
Review of Systems
-
Respiratory: Denies Trouble Breathing
Cardiac: Denies Chest Pain
Abdomen/GI: Denies Abdominal Pain, Nausea or Vomiting
Neuro: Denies Dizzy
Physical Exam
-
General: No Apparent Distress
HEENT: Moist Mucous Membranes
Respiratory: Clear to Auscultation
Cardiac: Regular Rhythm and S1/S2
GI: Soft
Neuro: AO x 3
Data Reviewed
-
Labs: Labs Reviewed by me
--- NOTE | 2023-06-27 16:37 | CM ---
Patient seen bedside with spouse.
Dx hip fx.
Patient independent with ADLs, spouse helps her get around however he had a recent hip fx.
Patient does not drive.
Has WC, walker and cane, stair glide.
Patient has been in skilled in the past. would prefe [facility] or [facility].
Patient had [facility] home care and [facility].
PT/OT (P).
patient would prefer home with services, however rfeferrals placed for skilled rehab.
PCP: Dr Solis
Pharmacy: [facility]
Plan: probable skilled rehab, referrals placed.
[2023-06-27] MEDS: NOVOLOG FLEXPEN-LOW RESISTANCE 4 UNITS SC (18:01)
[2023-06-27 18:03] LABS: Glucose - Point of Care 311 mg/dl (70-99)
[2023-06-27 21:24] LABS: Glucose - Point of Care 267 mg/dl (70-99)
[2023-06-27] MEDS: NEURONTIN 200 MG PO (21:35)
[2023-06-27] MEDS: SINGULAIR 10 MG PO (21:35)
[2023-06-27] MEDS: MORPHINE SULFATE 2 MG IV (21:36)
[2023-06-27] MEDS: REFRESH EYE DROPS (PF) 1 DROPS LEFT EYE (21:52)
[2023-06-27 23:26] VITALS: BP 126/59
[2023-06-27] MEDS: TYLENOL 650 MG PO (23:47)
[2023-06-27] MEDS: BENADRYL 25 MG PO (23:48)
[2023-06-28 07:30] VITALS: BP 126/58
[2023-06-28] MEDS: DUONEB 3 ML INH ×4 (07:33→19:04)
[2023-06-28] MEDS: PULMICORT 0.5 MG INH ×3 (07:33→19:04)
[2023-06-28 07:55] LABS: Glucose - Point of Care 239 mg/dl (70-99)
[2023-06-28] MEDS: NOVOLOG FLEXPEN-LOW RESISTANCE 2 UNITS SC ×2 (08:46→16:33)
[2023-06-28] MEDS: MYSOLINE 50 MG PO (08:47)
[2023-06-28] MEDS: MYCOSTATIN ORAL SUSPENSION 5 ML PO ×4 (08:47→21:55)
[2023-06-28] MEDS: CARDIZEM CD 120 MG PO (08:47)
[2023-06-28] MEDS: DECADRON 4 MG IV ×2 (08:47→19:26)
[2023-06-28] MEDS: VITAMIN B-12 1000 MCG PO (08:47)
[2023-06-28] MEDS: VITAMIN D3 (cholecalciferol) 50 MCG PO (08:47)
[2023-06-28] MEDS: POLYTRIM OPHTHALMIC SOLUTION 2 DROP OPHTH ×3 (08:48→21:56)
[2023-06-28] MEDS: PRED FORTE 1% EYE DROPS 2 DROP OPHTH ×3 (08:49→21:56)
[2023-06-28] MEDS: MIRALAX 17 GRAMS PO (08:50)
[2023-06-28] MEDS: PROTONIX 40 MG PO (08:53)
[2023-06-28] MEDS: CRESTOR 5 MG PO (08:53)
[2023-06-28] MEDS: TYLENOL 650 MG PO ×2 (08:54→21:57)
[2023-06-28] MEDS: HEPARIN 5000 UNITS SC ×2 (08:54→19:26)
--- NOTE | 2023-06-28 09:05 | PN.CDI ---
CDI
- -
CDI:
Physician Documentation Request
Admit Date: 06/26/23 17:46
Dear Doctor Ken,
Clinical Indicators:
Patient admitted with left intertrochanteric hip fracture.
PMH includes osteoporosis.
06/25 ED report, 'she went home and was reaching for her 's hand to help her to the chair and she missed it, falling and landing backwards onto her buttocks'.
Please clarify the etiology of the left intertrochanteric hip fracture:
Due to fall and osteoporosis
Due to fall only
Other, please specify
Use of terms such as suspected, likely, concern for, or probable (associated with a specific diagnosis that is being evaluated, monitored, or treated as if it exists) are acceptable and can be coded in the inpatient setting, when documented at the
time of discharge.
Thank you,
MILAD Roman RN
CDI Specialist
available via tiger text
Please use your independent medical judgment in providing your response.
--- NOTE | 2023-06-28 09:12 | PN.CDI ---
CDI
- -
CDI:
Physician Documentation Request
Admit Date: 06/26/23 17:46
Dear Doctor Ken,
Clinical Indicators:
Patient admitted with left intertrochanteric hip fracture.
O2 requirements: 2 L NC
06/26 PN, 'She wears oxygen chronically day and night.'
Please clarify which accurately represents the patient's respiratory status:
Chronic hypoxic respiratory failure requiring continuous home 02 use
Chronic hypoxic respiratory insufficiency requiring intermittent home 02 use
Other, please specify
Use of terms such as suspected, likely, concern for, or probable (associated with a specific diagnosis that is being evaluated, monitored, or treated as if it exists) are acceptable and can be coded in the inpatient setting, when documented at the
time of discharge.
Thank you,
MILAD Roman RN
CDI Specialist
available via tiger text
Please use your independent medical judgment in providing your response.
[2023-06-28 09:36] LABS: Glycohemoglobin (HgbA1c) 7.2 % (4.0-5.6)
[2023-06-28 11:45] LABS: Glucose - Point of Care 267 mg/dl (70-99)
[2023-06-28] MEDS: NOVOLOG FLEXPEN-LOW RESISTANCE 3 UNITS SC (11:56)
[2023-06-28] MEDS: REFRESH EYE DROPS (PF) 1 DROPS LEFT EYE ×2 (11:59→21:57)
[2023-06-28 12:05] VITALS: BMI 29.3
[2023-06-28 14:43] LABS: Glucose - Point of Care 221 mg/dl (70-99)
--- NOTE | 2023-06-28 14:45 | W.PN.HOSP.TC ---
Addendum entered and electronically signed by Adrien Rogers MD 06/30/23 16:01:
Chronic hypoxic respiratory failure requiring continuous home 02 use
Left hip greater trochanteric fracture sec to fall only
Original Note:
Today's Communication/Plan
-
PT eval
Add doxycycline
CW steroids IV today
Speech eval
Assessment / Plan
Assessment / Plan
# Left intertrochanteric hip fracture
# Fall secondary to lethargy post anesthesia after right eye cataract surgery 06/25
-CT head shows no acute abnormality
-Orthopedic input noted-recommend nonoperative approach.
Weight-bear as tolerated with walker. Continue the pain medication.CW PT OT eval.
# Possible asthma exacerbation/recurrent bronchitis, questionable asthma diagnosis history
-In the past pulmonary has apparently indicated the patient has without history of asthma or COPD
-Patient currently on 3 L
-chest x-ray noted
-cw DuoNebs every 6 hours
-cw Dexamethasone 4 mg every 12
- Add doxycycline
-Continue montelukast
History of chronic aspiration
speech eval
History of vocal cord dysfunction
Obstructive sleep apnea
-On CPAP at night
Chronic rhinitis
Esophageal stricture
History of dysphagia
GERD
-Continue Protonix
Essential hypertension
-Continue diltiazem
Hyperlipidemia
Type 2 diabetes
History of left carotid artery stenosis
-Hold Plavix
-Continue statin
Cataracts
Osteoporosis/compression fracture
-Continue gabapentin
History of pancreatic cyst
Anxiety/depression
Obesity
History of tremor
-Continue primidone
History of lower extremity edema
-Continue torsemide twice weekly
Full code
DVT prophylaxis�heparin
Anticipated Discharge: Within 24 hours
Subjective/Interval History
-
Date of Service: June 28, 2023
Pain from left hip is ok
Breathing is ok but has cough and phlegm.
Pt says she has hx of dysphagia and on modified diet . Denies aspirating recent but prior coming into hospital she choked a bit on water.
Objective Data
-
Vital Signs:
Vital Signs
Temp Pulse Resp BP Pulse Ox
97.4 F 74 16 126/58 94
06/28/23 07:30 06/28/23 11:24 06/28/23 11:24 06/28/23 07:30 06/28/23 11:24
I&O
06/27/23 06/28/23 06/29/23
06:59 06:59 06:59
Intake Total 240 / 240 890 / 890
Output Total 50 / 50 100 / 100
Balance 190 / 190 790 / 790
Review of Systems
-
Respiratory: Denies Trouble Breathing
Cardiac: Denies Chest Pain
Abdomen/GI: Denies Abdominal Pain, Nausea or Vomiting
Neuro: Denies Dizzy
Physical Exam
-
General: No Apparent Distress
HEENT: Moist Mucous Membranes
Respiratory: Wheezes (bl) and Non Labored Respirations; Negative Accessory Resp Muscle Use
Cardiac: Regular Rhythm and S1/S2
Neuro: AO x 3
Data Reviewed
-
Labs: Labs Reviewed by me
[2023-06-28 15:34] VITALS: BP 112/62; PULSE 78; O2SAT 94
[2023-06-28 15:35] VITALS: BP 112/52; BP 132/57; O2SAT 93
[2023-06-28] MEDS: LIDOCAINE 4% PATCH 1 PATCH TOPICAL (16:28)
--- NOTE | 2023-06-28 17:50 | PTCARENOTE ---
Patient with repetitive questions and requests, is forgetful . Able to make her known.
[2023-06-28] MEDS: VIBRAMYCIN 100 MG PO (19:27)
[2023-06-28 21:18] LABS: Glucose - Point of Care 249 mg/dl (70-99)
[2023-06-28] MEDS: NEURONTIN 200 MG PO (21:56)
[2023-06-28] MEDS: MORPHINE SULFATE 2 MG IV (21:57)
[2023-06-28] MEDS: SINGULAIR 10 MG PO (21:57)
[2023-06-28 23:15] VITALS: BP 142/54
[2023-06-29 07:30] VITALS: BP 127/60
[2023-06-29 07:36] LABS: Glucose - Point of Care 213 mg/dl (70-99)
[2023-06-29] MEDS: PULMICORT 0.5 MG INH ×2 (08:34→15:35)
[2023-06-29] MEDS: DUONEB 3 ML INH ×3 (08:34→15:35)
--- NOTE | 2023-06-29 09:51 | PTOTSP ---
ST Acute Care Evaluation
Pt with known mild oropharyngeal and esophageal dysphagia as confirmed by multiple previous VFSS. Pt presents with functional oral, pharyngeal, and esophageal phases for her baseline diet consistencies of mildly thick liquids and minced and moist
solids.
Recommendations:
- DOWNGRADE liquids back to her baseline of MILDLY THICK LIQUIDS and CONTINUE with minced and moist solids.
- Continue with meds in applesauce.
- ARHP - Ice and small sips of water, sparingly with supervision.
- Continue with general aspiration precautions: HOB upright for all PO intake and for at least 60 minutes afterwards; small bites/sips; alternate bites/sips; eat/drink slowly; no straws.
- DIRECTOR OF [employer] will continue to follow while inhouse.
[2023-06-29] MEDS: NOVOLOG FLEXPEN-LOW RESISTANCE 2 UNITS SC ×2 (10:03→13:58)
[2023-06-29] MEDS: LIDOCAINE 4% PATCH 1 PATCH TOPICAL ×2 (10:04)
[2023-06-29] MEDS: CRESTOR 5 MG PO (10:05)
[2023-06-29] MEDS: HEPARIN 5000 UNITS SC (10:05)
[2023-06-29] MEDS: CARDIZEM CD 120 MG PO (10:05)
[2023-06-29] MEDS: DECADRON 4 MG IV (10:05)
[2023-06-29] MEDS: VIBRAMYCIN 100 MG PO (10:05)
[2023-06-29] MEDS: PROTONIX 40 MG PO (10:06)
[2023-06-29] MEDS: MYSOLINE 50 MG PO (10:06)
[2023-06-29] MEDS: MIRALAX 17 GRAMS PO (10:06)
[2023-06-29] MEDS: VITAMIN B-12 1000 MCG PO (10:06)
[2023-06-29] MEDS: VITAMIN D3 (cholecalciferol) 50 MCG PO (10:06)
[2023-06-29] MEDS: MYCOSTATIN ORAL SUSPENSION 5 ML PO ×3 (10:06→15:52)
[2023-06-29] MEDS: POLYTRIM OPHTHALMIC SOLUTION 2 DROP OPHTH ×2 (10:07→15:51)
[2023-06-29] MEDS: PRED FORTE 1% EYE DROPS 2 DROP OPHTH ×2 (10:07→15:51)
[2023-06-29] MEDS: TYLENOL 650 MG PO ×2 (10:12→15:53)
[2023-06-29] MEDS: MORPHINE SULFATE 2 MG IV (11:56)
[2023-06-29 12:03] LABS: COVID-19 Antigen Negative (Negative)
--- NOTE | 2023-06-29 12:24 | CM ---
Addendum entered by Nadira Brooke 06/29/23 15:04:
Daughter and spouse updated that CPAP will need to be brought in.
IMM compeleted.
[facility]
report# [phone]
fax# [phone]
Addendum entered by Nadira Brooke 06/29/23 14:21:
Ambulance transport 5 pm.
Addendum entered by Nadira Brooke 06/29/23 12:26:
Daughter updated bedside.
Original Note:
Patient seen bedside.
IMM given to patient and reviewed.
Oxygen via [place].
Per MD medically cleared for d/c.
Covid test completed.
[facility] has bed today, will call back with report numbers.
Patient will require ambulance transport.
Plan: [facility] today via ambulance.
[2023-06-29 12:39] VITALS: BP 136/62; PULSE 98; O2SAT 97
[2023-06-29 12:41] VITALS: BP 136/62; PULSE 98; O2SAT 97
[2023-06-29 12:54] LABS: Glucose - Point of Care 233 mg/dl (70-99)
--- NOTE | 2023-06-29 13:03 | W.PN.HOSP.TC ---
Today's Communication/Plan
-
Discharge today
Assessment / Plan
Assessment / Plan
Physical Exam
General: No Apparent Distress
HEENT: Moist Mucous Membranes
Respiratory: Wheezes (bl - expiratory) and Non Labored Respirations; Negative Accessory Resp Muscle Use
Cardiac: Regular Rhythm and S1/S2
Neuro: AO x 3

Assessment/Plan
# Left intertrochanteric hip fracture
# Fall secondary to lethargy post anesthesia after right eye cataract surgery 06/25
-CT head showed no acute abnormality
-Orthopedic input noted-recommend nonoperative approach.
Partial weight bearing to the left leg. Ambulate with a walker at all times. Encourage range of motion of ankle and knee as tolerated. Can use ice to the hip to help with pain and swelling. Continue the pain medication. CW PT OT eval. Follow up
outpatient in 4 weeks (with Dr. Blount ortho office) for repeat xrays.
# Possible asthma exacerbation/recurrent bronchitis, questionable asthma diagnosis history
-In the past pulmonary has apparently indicated the patient has without history of asthma or COPD
-Patient currently on 2 L
-chest x-ray noted
-cw DuoNebs every 6 hours
-cw prednisone taper
-Continue doxycycline for another 8 doses.
-Continue montelukast
History of chronic aspiration
speech eval
History of vocal cord dysfunction
Obstructive sleep apnea
-On CPAP at night
Chronic rhinitis
Esophageal stricture
History of dysphagia
GERD
-Continue Protonix
Essential hypertension
-Continue diltiazem
Hyperlipidemia
Type 2 diabetes
History of left carotid artery stenosis
-Continue Plavix
-Continue statin
Cataracts
Osteoporosis/compression fracture
-Continue gabapentin
History of pancreatic cyst
Anxiety/depression
Obesity
History of tremor
-Continue primidone
History of lower extremity edema
-Continue torsemide twice weekly
Full code
DVT prophylaxis�heparin
More than 30 minutes spent in discharge including
Final examination of the patient
Summarizing hospital stay
Instructions for continuing care to all relevant caregivers
Preparation of discharge records, prescriptions, and referral forms
Total time spent (in minutes): 38
Anticipated Discharge: Today
Subjective/Interval History
-
Date of Service: June 29, 2023
Patient was seen and examined. She reported some expiratory wheezing but otherwise denied any other new significant symptoms or complaints.
Objective Data
-
Vital Signs:
Vital Signs
Temp Pulse Resp BP Pulse Ox
97.5 F 73 16 127/60 99
06/29/23 07:30 06/29/23 11:55 06/29/23 11:55 06/29/23 07:30 06/29/23 11:55
I&O
06/28/23 06/29/23 06/30/23
06:59 06:59 06:59
Intake Total 890 / 890 660 / 660
Output Total 100 / 100 500 / 500
Balance 790 / 790 160 / 160
[2023-06-29] MEDS: DELTASONE 50 MG PO (13:58)
[2023-06-29] MEDS: MYCOSTATIN ORAL SUSPENSION PO (14:13)
--- NOTE | 2023-06-29 14:14 | W.DS.TRANS ---
DC Summary - Mat Maker
-
Discharge Instructions:
Discharge Diagnosis/Procedures #Left intertrochanteric hip fracture
#Fall secondary to lethargy post anesthesia
after right eye cataract surgery 06/26/23
#Possible asthma exacerbation/recurrent
bronchitis, questionable asthma diagnosis
history
#History of chronic aspiration
#History of vocal cord dysfunction
#Obstructive sleep apnea
#Chronic rhinitis
#Esophageal stricture
#History of dysphagia
#GERD
#Essential hypertension
#Hyperlipidemia
#Type 2 diabetes
#History of left carotid artery stenosis
#Cataracts
#Osteoporosis/compression fracture
#History of pancreatic cyst
#Anxiety/depression
#Obesity
#History of tremor
#History of lower extremity edema
Diet Other diet
Additional Diets - Continue MILDLY THICK LIQUIDS and CONTINUE
with minced and moist solids.
- Continue with meds in applesauce.
- ARHP - Ice and small sips of water, sparingly
with supervision.
- Continue with general aspiration precautions:
head of bed upright for all PO intake and for at
least 60 minutes afterwards; small bites/sips;
alternate bites/sips; eat/drink slowly; no
straws.
Activity As tolerated
Driving Restrictions No driving
Other Services PT,OT
Instructions:
Stand-Alone Forms:
Changes to Home Medications: Yes
Discharge Medications:
DC Medications w/original date entered in [facility]
clopidogrel 75 mg tablet 75 mg PO DAILY Blood clot prevention/tx 30 days #30 tabs 08/11/20
montelukast 10 mg tablet 10 mg PO HS Allergies 10/26/20
primidone 50 mg tablet 50 mg PO DAILY Neurological Condition 02/27/21
pantoprazole 40 mg tablet,delayed release 40 mg PO DAILY Gastrointestinal issue 05/27/21
rosuvastatin 5 mg tablet 5 mg PO DAILY High cholesterol 08/25/21
diltiazem HCl 120 mg capsule,24 hr,extended release 120 mg PO DAILY Arrhythmia 02/27/22
gabapentin 100 mg capsule 200 mg PO HS Neurological Condition 07/20/22
polyvinyl alcohol-povidone (PF) 1.4 %-0.6 % eye drops in a dropperette (Refresh Classic (PF)) 1 drp LEFT EYE QIDPRN PRN DRY EYES 07/20/22
acetaminophen 325 mg tablet (Tylenol) 650 mg PO Q4HPRN PRN mild pain 08/08/22
cinnamon bark 500 mg capsule (Cinnamon) 500 mg PO DAILY Supplement 08/08/22
polyethylene glycol 3350 17 gram oral powder packet (Miralax) 17 g PO DAILY Gastrointestinal Issue 08/08/22
guaifenesin 600 mg tablet, extended release 12 hr 1,200 mg (2 x 600 mg) PO [id number] PRN cough #30 tabs 09/11/22
coQ10 (ubiquinol) 100 mg capsule 100 mg PO DAILY Supplement 10/25/22
estradiol 0.01% (0.1 mg/gram) vaginal cream 1 applic vaginal BID Hormonal Agent 10/25/22
lidocaine 5 % topical patch 1 patch topical DAILYPRN PRN right shoulder and right hip 10/25/22
potassium chloride 20 mEq oral packet 20 meq PO TUFR Electrolyte Repletion 10/25/22
albuterol sulfate 90 mcg/actuation aerosol inhaler (ProAir HFA) 2 puff inhalation R Q4 PRN sob/wheezing 06/20/23
budesonide 0.5 mg/2 mL suspension for nebulization 0.5 mg inhalation R TID Lung/Breathing Issues 06/20/23
mecobalamin (vitamin B12) 1,000 mcg chewable tablet (B12 Active) 1,000 mcg PO DAILY Supplement 06/20/23
nystatin 100,000 unit/mL oral suspension 100,000 unit PO PRN PRN thrush 06/20/23
prednisone 5 mg tablet 5 mg PO DAILY Anti-Inflammatory 06/20/23
torsemide 10 mg tablet 10 mg PO TUFR Fluid Retention/Swelling 06/20/23
cholecalciferol (vitamin D3) 50 mcg (2,000 unit) tablet (Vitamin D3) 50 mcg PO DAILY Supplement 06/26/23
ipratropium bromide 0.02 % solution for inhalation 1 ml inhalation R Q4 PRN sob/wheezing 06/26/23
doxycycline hyclate 100 mg capsule 100 mg PO Q12 4 days #8 caps 06/29/23
polymyxin B sulfate 10,000 unit-trimethoprim 1 mg/mL eye drops 1 drp ophthalmic (eye) TID #10 mL 06/29/23
prednisolone acetate 1 % eye drops,suspension 1 drp ophthalmic (eye) TID #15 mL 06/29/23
prednisone 10 mg tablet 10 mg PO DIRECTED #40 tabs 06/29/23
Home Medication Changes
Doxycycline and Tapering Dose of Prednisone are new.
Continue Polymyxin and Prednisolone eyedrops.
Pending Results: No
Total time spent discharging patient (in min): 38
--- NOTE | 2023-06-29 14:16 | W.PN.UPDATE ---
Update Note
Progress Note Update
Patient seen with family at bedside. Explained that CT scan revealed a greater trochanteric fracture which does not require surgical fixation. have recommended PWB for ambulation and WBAT for transfers. Will follow in office. I did let the
patient and her family know that these fractures can propagate to become an IT fracture which may require surgery in the future but no surgical indications at this time.
[2023-06-29 15:30] VITALS: BP 130/63
[2023-06-29 15:47] LABS: Glucose - Point of Care 252 mg/dl (70-99)
[2023-06-29] MEDS: NOVOLOG FLEXPEN-LOW RESISTANCE 3 UNITS SC (15:51)
== END 2023-06-29 17:37 | DRG 536 ==
LOC: 4 WEST ACU 17:46
PROVIDERS: Internal Medicine; ADMITTING PHYSICIAN Hospitalist; ATTENDING PHYSICIAN Hospitalist; CONSULT PHYSICIAN Orthopaedic Surgery; EMERGENCY PHYSICIAN Emergency Medicine; FAMILY PHYSICIAN Family Medicine
DX: S72.112A Displaced fracture of greater trochanter of left femur, initial encounter for closed fracture (principal); J96.11 Chronic respiratory failure with hypoxia; G47.33 Obstructive sleep apnea (adult) (pediatric); J31.0 Chronic rhinitis; K22.2 Esophageal obstruction; K21.9 Gastro-esophageal reflux disease without esophagitis; I10 Essential (primary) hypertension; E78.00 Pure hypercholesterolemia, unspecified; E11.36 Type 2 diabetes mellitus with diabetic cataract; M81.0 Age-related osteoporosis without current pathological fracture; F41.9 Anxiety disorder, unspecified; F32.A Depression, unspecified; E66.9 Obesity, unspecified; Z79.02 Long term (current) use of antithrombotics/antiplatelets; Z68.29 Body mass index [BMI] 29.0-29.9, adult; Z11.52 Encounter for screening for COVID-19
CPT/HCPCS: 70450; 71045; 72125; 72192; 73502; 80053; 82962; 83036; 85025; 87811; 92610; 94640; 96374; 97163; 97167; 97530; 97535; 99285

== ENCOUNTER 2023-09-06 18:38 | Inpatient (IN) | payer MEDICARE, BC, SELFPAY ==
[2023-09-05] VITALS (10 sets, daily range): BP systolic 116–135; BP diastolic 53–102; PULSE 74–77; O2SAT 93; BMI 27.5
--- NOTE | 2023-09-05 14:06 | ED.MUSCINJ ---
HPI-Injury
General
Chief Complaint: Fall
Source: patient
Exam Limitations: none
Time Seen by Provider: 09/05/23 12:52
History of Present Illness-Injury
Initial Injury comments:
88-year-old female on Pradip presents after a fall. She fell backwards landing on her back her left hip and complains of right knee right shoulder neck and headache. This happened at home after she got home from the doctor's office. She lives
independently with her . No other complaints at this time
Past History
Past History
ED Past Medical History: Arrthythmia (Atrial fib), Asthma, COPD, GERD, HTN, Hypercholesterolemia, IDDM, Psychiatric (Anxiety) and Other (Chronic back pain, Diverticulitis, Hiatal hernia,, carotid stenosis,sleep apnea , dysphagia, glaucoma,
cataracts,Vertigo, PNA, esophageal restrictions)
ED Past Surgical History: Appendectomy, Cardiac (Left carotid stent), Gynecological (hysterectomy), Orthopedic (Right carpal tunnel surgery), Urological (Bladder surgery) and Other (Cyst on Pancreas with fluid removed, bladder repair, Breast cyst
removed)
Social History
Tobacco: Non-smoker
Alcohol: None
Drug: None
Personal:
Living: with family
Employment: Retired
Family History
Family History: Other (Brother with a stroke, sister with ovarian cancer, sister with colon cancer)
Phy Exam
Physical Exam
Physical Exam:
General: Well-appearing female no acute respiratory distress
HEENT: Normocephalic atraumatic neck is supple
Heart: Regular rate and rhythm no murmurs
Lungs: Clear no wheeze or rales
Musculoskeletal exam: The lower lumbar spine is slightly tender. She is mildly tender about paraspinous area of the cervical spine. Left hip is tender laterally no deformities. Right knee is tender anteriorly. Right shoulder is tender.
Neurologic: Alert and oriented no facial asymmetry
Injury Course
Orders/Labs/Results
Orders:
Orders
09/05/23 13:15
CT Cervical Spine W/o Iv Contr Urgent
Comment:
Reason For Exam: fall
CT Head W/o Iv Contrast Urgent
Comment:
Reason For Exam: fall
CR Hip - LT w/wo Pel 2-3 Vw* Urgent
Comment:
Reason For Exam: fall
Include a pelvis x-ray?: Yes
CR Knee- Right 4 Or More View* Urgent
Comment:
Reason For Exam: fall
CR Lumbar Spine 2 Or 3 Views Urgent
Comment:
Reason For Exam: fall
09/05/23 13:50
CR Shoulder, Trauma - Right Urgent
Comment:
Reason For Exam: fall
MDM/Problems Addressed
Differential Diagnosis Includes:
Mechanical fall. Multiple areas of tenderness will order x-rays of the left hip right knee right shoulder and lumbar spine. CT of the head and cervical spine pending given her advanced age and anticoagulated state
*Critical Care Note
Total Time (30-74mins, 75-104mins- exclusive of procedures): Not Applicable
Update Note
Update Note:
X-rays right knee negative left hip show subacute fracture of the greater trochanteric flare. There is also healing fracture of the right greater tuberosity of the shoulder. Cervical spine and head negative. X-ray lumbar spine shows
age-indeterminate compression fracture. Spoke with the patient's , Carrie over the phone who states that these are old findings. Patient and family comfortable with patient going home. Stable for discharge
ED Attending Note
-
Portions of this chart may have been created with voice recognition software.� Occasional wrong word or��sound alike� substitutions may have occurred due to the inherent limitations of voice recognition software.
Discharge Plan
Departure
Patient Disposition: Home (Routine Discharge)
Date of Disposition: 09/05/23
Time of Disposition: 15:41
Patient with high blood pressure during this ER visit?: No
Discharge Problem:
Fall
Instructions: Preventing falls in adults
Prescriptions:
No Action
clopidogrel 75 MG tablet
75 mg PO DAILY 30 Days Qty: 30 0RF
montelukast 10 MG tablet
10 mg PO HS
primidone 50 MG tablet
50 mg PO DAILY
pantoprazole 40 MG tablet,delayed release (DR/EC)
40 mg PO DAILY
rosuvastatin 5 mg Tablet
5 mg PO DAILY
diltiazem HCl 120 mg Capsule,Extended Release 24 Hr
120 mg PO DAILY
gabapentin 100 mg capsule
200 mg PO HS
Refresh Classic (PF) 1.4-0.6 % Dropperette
1 drp LEFT EYE QIDPRN PRN (Reason: DRY EYES)
acetaminophen [Tylenol] 325 mg Tablet
650 mg PO Q4HPRN PRN (Reason: mild pain)
polyethylene glycol 3350 [Miralax] 17 gram Powder In Packet
17 g PO DAILY
cinnamon bark [Cinnamon] 500 mg Capsule
500 mg PO DAILY
guaifenesin 600 mg Tablet Extended Release 12hr
1,200 mg PO [id number] PRN (Reason: cough) Qty: 30 0RF
potassium chloride 20 mEq Packet
20 meq PO TUFR
lidocaine 5 % Adhesive Patch,Medicated
1 patch TOPICAL DAILYPRN PRN (Reason: right shoulder and right hip)
estradiol 0.01 % (0.1 mg/gram) Cream
1 applic VAGINAL BID
coQ10 (ubiquinol) 100 mg Capsule
100 mg PO DAILY
nystatin 100,000 unit/mL Suspension
100,000 unit PO PRN PRN (Reason: thrush)
prednisone 5 mg Tablet
5 mg PO DAILY
torsemide 10 mg Tablet
10 mg PO TUFR
budesonide 0.5 mg/2 mL Suspension For Nebulization
0.5 mg INHALATION R TID
albuterol sulfate [ProAir HFA] 90 mcg/actuation Hfa Aerosol Inhaler
2 puff INHALATION R Q4 PRN (Reason: sob/wheezing)
mecobalamin (vitamin B12) [B12 Active] 1,000 mcg Tablet,Chewable
1,000 mcg PO DAILY
ipratropium bromide 0.02 % solution
1 ml inhalation R Q4 PRN (Reason: sob/wheezing)
cholecalciferol (vitamin D3) [Vitamin D3] 50 mcg (2,000 unit) Tablet
50 mcg PO DAILY
prednisone 10 mg tablet
10 mg PO DIRECTED Qty: 40 0RF
Rx Instructions:
50 mg/day x4 days; then 40 mg/day x4 days; then 30 mg/day x4 days; then 20 mg/day x4 days; then 10 mg/day x4 days
polymyxin B sulf-trimethoprim 10,000 unit- 1 mg/mL Drops
1 drp ophthalmic (eye) TID Qty: 10 2RF
prednisolone acetate 1 % Drops,Suspension
1 drp ophthalmic (eye) TID Qty: 15 2RF
doxycycline hyclate 100 mg Capsule
100 mg PO Q12 4 Days Qty: 8 0RF
Referrals:
Carrie Nuñez DO [Family Provider] -
Activity Restrictions/Additional Instructions:
As discussed, there is a compression fracture in your lumbar spine but this may be an old injury. Continue with Tylenol for pain. Use your walker. Continue to exercise. Return if needed otherwise follow-up with your family doctor
Interventions
Interventions:
*Risk Screen - Suicide Last Done: 09/05/23 12:33
*Neglect/Abuse Screening Last Done: 09/05/23 12:33
ED- Fall Risk Assessment Last Done: 09/05/23 12:57
*ED COVID-19 Vaccine History Last Done: 09/05/23 12:33
ED-Musculoskeletal Assessment Last Done: 09/05/23 13:04
ED- Neurological Assessment Last Done: 09/05/23 12:57
ED-Skin Assessment Last Done: 09/05/23 13:05
Discharge Date and Time
Print Language: SPANISH
[2023-09-05 17:58] LABS: % Basophils 0.4 % (0-2); % Eosinophils 6.9 % (0-6); % Immature Granulocytes 0.2 % (0-0.5); % Monocytes 12.6 % (1.7-9.3); % Neutrophils 61.9 % (42.2-75.2); Absolute Eosinophils 0.6 10^3/uL (0-0.7); Absolute Lymphocytes 1.5 10^3/uL (1.2-3.4); Absolute Neutrophils 5.1 10^3/uL (1.4-6.5); Hemoglobin 10.5 g/dL (12.0-16.0); Mean Corp Hgb Conc. 32.8 g/dL (33.0-37.0); Mean Corpuscular Hgb 29.3 pg (27.0-31.0); Mean Corpuscular Volume 89.4 fL (81.0-99.0); Mean Platelet Volume 9.5 fL (7.4-10.4); Nucleated Red Blood Cells % 0 %; Platelet Count 214 10^3/uL (130-400); Red Blood Cell Count 3.58 10^6/uL (4.20-5.40); White Blood Cell Count 8.3 10^3/uL (4.8-10.8)
[2023-09-05 18:20] LABS: ALT (SGPT) < 10 U/L (0-35); AST (SGOT) 21 U/L (14-36); Albumin 3.6 g/dl (3.5-5.0); Alkaline Phosphatase 80 U/L (38-126); Blood Urea Nitrogen 18 mg/dl (7-17); Calcium 9.3 mg/dl (8.4-10.2); Carbon Dioxide 31 mmol/L (22-30); Chloride 102 mmol/L (98-107); Glucose 110 mg/dl (70-99); Potassium 4.1 mmol/L (3.5-5.1); Sodium 136 mmol/L (135-145); Total Bilirubin 0.4 mg/dl (0.2-1.3); Total Protein 5.8 g/dl (6.3-8.2); eGFR > 60.00
--- NOTE | 2023-09-05 20:01 | HPS.HSE ---
Family Physician
-
Family Physician: Carrie Nuñez
Chief Complaint
-
Back Pain s/p Fall
History of Present Illness
Patient is an 88y F with PMH significant for asthma, DM-II, TANI on CPAP and GERD / esophageal stricture who presents to ED complaining of back pain s/p fall. Patient states that she was transferring to chair today when she fell backwards and
landed on her backside. She fell onto her buttocks, R side and then struck her head. She did not lose consciousness. Patient denies any prodrome of lightheadedness, dizziness, chest pain, etc.
Patient has baseline ambulatory dysfunction. She primarily uses a wheelchair / transport chair for locomotion. She walks short distances / transfers at home with a walker and assistance from her family.
Patient denies any recent illness / complaints including cough, fevers / chills, dyspnea, GI or symptoms.
Patient presented to the ED complaining primarily of low back pain. Work-up done in the ED reveals new L2 compression fracture. Patient is unable to stand / ambulate without significant pain.
Medical History
Past Medical History
Past Medical History: Reports Other
Additional Past Medical History:
COPD / Asthma
Vocal Cord Spasm
Esophageal Spasm
GERD
Hypertension
DM-II
TANI on CPAP
ASCVD / Carotid Stenosis
Osteoporosis
Past Surgical History: Reports Other
Additional Past Surgical History:
Appendectomy
Left Carotid Stent
JOSE MARTIN
Carpal Tunnel Surgery
Bladder Repair
Lumpectomy (Benign)
Social History
Tobacco: Non-smoker
Alcohol: None
Drug: None
Living: With Family
Family History
Family History: Other (Mother: Asthma / COPD)
Allergies / Home Medications
Allergies reflects when Allergies were last updated in [employer].
Home Medications with original date entered in [employer]
Allergy/Medication List:
Allergies
Allergy/AdvReac Type Severity Reaction Status Date / Time
abacavir sulfate Allergy Unknown Verified 09/05/23 12:33
[From Ziagen]
amoxicillin [Amoxicillin] Allergy Rash, Verified 09/05/23 12:33
tolerates
cephalosporins
aspartame Allergy asthma Verified 09/05/23 12:33
attack -
artifical
sweeteners
banana Allergy ASTHMA Verified 09/05/23 12:33
ATTACK
Beta-Adrenergic Agents Allergy Unknown Verified 09/05/23 12:33
bimatoprost Allergy Palpitation Verified 09/05/23 12:33
s
bupropion Allergy STOMACH Verified 09/05/23 12:33
UPSET
cat dander Allergy CAN'T Verified 09/05/23 12:33
BREATHE
clavulanic acid Allergy unknown - Verified 09/05/23 12:33
beta
lactamase
inhibitors
colesevelam Allergy CRAMPS Verified 09/05/23 12:33
dog dander Allergy CAN'T Verified 09/05/23 12:33
BREATHE
house dust Allergy Unknown Verified 09/05/23 12:33
house dust mite Allergy Unknown Verified 09/05/23 12:33
latanoprost Allergy Palpitation Verified 09/05/23 12:33
s
metformin HCl Allergy spasms in Verified 09/05/23 12:33
[From Glucophage] back/HEART
PROBLEM
mold Allergy Unknown Verified 09/05/23 12:33
monosodium glutamate Allergy DIARRHEA Verified 09/05/23 12:33
pollen extracts Allergy Unknown Verified 09/05/23 12:33
quinapril HCl [From Accupril] Allergy UPSET Verified 09/05/23 12:33
STOMACH
ramipril Allergy Upset Verified 09/05/23 12:33
Stomach
simvastatin [Simvastatin] Allergy feet Verified 09/05/23 12:33
swelled/CAN'T
WALK
Sulfa (Sulfonamide Allergy EYE Verified 09/05/23 12:33
Antibiotics) Swelling
valsartan Allergy BACKACHE/ST Verified 09/05/23 12:33
OMACHACHE
Home Medications
clopidogrel 75 mg tablet 75 mg PO DAILY Blood clot prevention/tx 30 days #30 tabs 08/11/20
montelukast 10 mg tablet 10 mg PO HS Allergies 10/26/20
primidone 50 mg tablet 50 mg PO DAILY Neurological Condition 02/27/21
pantoprazole 40 mg tablet,delayed release 40 mg PO DAILY Gastrointestinal issue 05/27/21
rosuvastatin 5 mg tablet 5 mg PO DAILY High cholesterol 08/25/21
diltiazem HCl 120 mg capsule,24 hr,extended release 120 mg PO DAILY Arrhythmia 02/27/22
gabapentin 100 mg capsule 200 mg PO HS Neurological Condition 07/20/22
polyvinyl alcohol-povidone (PF) 1.4 %-0.6 % eye drops in a dropperette (Refresh Classic (PF)) 1 drp LEFT EYE QIDPRN PRN DRY EYES 07/20/22
cinnamon bark 500 mg capsule (Cinnamon) 500 mg PO DAILY Supplement 08/08/22
polyethylene glycol 3350 17 gram oral powder packet (Miralax) 17 g PO DAILY Gastrointestinal Issue 08/08/22
guaifenesin 600 mg tablet, extended release 12 hr 1,200 mg (2 x 600 mg) PO [id number] PRN cough #30 tabs 09/11/22
coQ10 (ubiquinol) 100 mg capsule 100 mg PO DAILY Supplement 10/25/22
lidocaine 5 % topical patch 1 patch topical DAILYPRN PRN back, right shoulder and right hip 10/25/22
potassium chloride 20 mEq oral packet 20 meq PO TUFR Electrolyte Repletion 10/25/22
mecobalamin (vitamin B12) 1,000 mcg chewable tablet (B12 Active) 1,000 mcg PO DAILY Supplement 06/20/23
prednisone 5 mg tablet 5 mg PO DAILY Anti-Inflammatory 06/20/23
torsemide 10 mg tablet 10 mg PO TUFR Fluid Retention/Swelling 06/20/23
cholecalciferol (vitamin D3) 50 mcg (2,000 unit) tablet (Vitamin D3) 50 mcg PO DAILY Supplement 06/26/23
ipratropium bromide 0.02 % solution for inhalation 2.5 ml inhalation R Q4HPRN PRN sob/wheezing 06/26/23
albuterol sulfate 90 mcg/actuation aerosol inhaler 1 puff inhalation R Q4HPRN PRN sob/wheezing 09/05/23
insulin aspart U-100 100 unit/mL (3 mL) subcutaneous pen (Novolog FlexPen U-100 Insulin aspart) 0 sliding scale dose SC AC 09/05/23
Review of Systems
-
History Source: Patient
A 12 point ROS was completed and negative except as noted: Yes
Constitutional: Denies Fever or Chills
Respiratory: Denies Cough or Trouble Breathing
Cardiac: Denies Chest Pain or Palpitations
Abdomen/GI: Denies Abdominal Pain, Nausea, Vomiting or Diarrhea
: Denies Dysuria, Frequency or Flank Pain
Musculoskeletal: Reports Edema and Other (Low Back pain); Denies Joint Pain
Neurological: Denies Dizzy or Headache
Psych: Denies Depression or Anxiety
Physical Exam
Vital Signs
Vital Signs
Temp Pulse Resp BP Pulse Ox
98.3 F 84 19 127/53 93
09/05/23 12:32 09/05/23 15:44 09/05/23 15:44 09/05/23 16:30 09/05/23 16:31
Physical Exam
General: Other (88y F in no acute distress.)
HEENT: Moist mucous membranes and PERRLA
Respiratory: Other (Scattered expiratory wheezing. Decreased BS throughout.)
Cardiac: S1/S2 and Regular Rhythm; No Murmur
GI: Soft, Non Tender, Non Distended and Normal Bowel Sounds
Musculoskeletal: No Clubbing, No Cyanosis and Other (Trace - 1+ edema at the ankles bilaterally.)
Neuro: AO x 3 and Nonfocal/grossly intact
Psych: No Anxious or Depressed
Laboratory Results
-
09/05/23 17:51
09/05/23 17:51
Laboratory Results
Total Bilirubin 0.4 mg/dl (0.2-1.3) 09/05/23 17:51
AST 21 U/L (14-36) 09/05/23 17:51
ALT < 10 U/L (0-35) 09/05/23 17:51
Alkaline Phosphatase 80 U/L (38-126) 09/05/23 17:51
Impression/Plan
-
A/P: Patient is an 88y F with PMH significant for COPD, HTN and DM-II who presents to ED complaining of low back pain s/p fall.
L2 Compression Fracture
Fall at Home
Chronic Ambulatory Dysfunction
- Monitor overnight for symptom control.
- Pain control efforts and adjust med regimen as needed.
- PT / OT evaluations.
- Consider MRI / IR eval for possible vertebroplasty if pain cannot be well controlled.
- Patient is very limited in mobility at baseline - ambulating with assistance only as a means of transfer.
COPD without Acute Exacerbation
- Some mild wheezing noted on exam, but no hypoxemia and no complaints of dyspnea.
- Continue daily prednisone - increase to 10mg daily for a few days.
- Continue Singulair.
- Continue nebs ATC and PRN.
- Follow for any new / worsening symptoms.
GERD
Vocal Cord Dysfunction
Esophageal Spasm
- Stable. Continue PPI daily.
Benign Hypertension
- Stable. Continue Cardizem with holding parameters.
DM-II
- Stable. Follow glucose and cover with SSI as needed.
- Update A1C.
LE Edema
- On twice weekly torsemide at home for control of edema.
- Hold diuretics for now. Patient in general appears to have some polypharmacy going on.
- TEDs stockings / compression and elevation.
- Follow for any changes.
ASCVD / Carotid Stenosis
- Stable. No chest pain or focal neurologic symptoms.
- Continue daily Plavix, statin, etc.
DVT Prophylaxis: Subcut Heparin
Code Status: Full
[2023-09-05] MEDS: DUONEB 3 ML INH (22:07)
[2023-09-05] MEDS: SINGULAIR 10 MG PO (22:08)
[2023-09-05] MEDS: SENOKOT 17.2 MG PO (22:08)
[2023-09-05] MEDS: HEPARIN 5000 UNITS SC (22:08)
[2023-09-05] MEDS: NEURONTIN 200 MG PO (22:08)
[2023-09-05] MEDS: TYLENOL 650 MG PO (22:15)
[2023-09-05] MEDS: TYLENOL PO (22:29)
[2023-09-06 07:12] LABS: Blood Urea Nitrogen 18 mg/dl (7-17); Calcium 8.7 mg/dl (8.4-10.2); Carbon Dioxide 28 mmol/L (22-30); Chloride 107 mmol/L (98-107); Estimated Creatinine Clearance 49 ml/min; Glucose 131 mg/dl (70-99); Potassium 3.8 mmol/L (3.5-5.1); Sodium 137 mmol/L (135-145); eGFR > 60.00
[2023-09-06] MEDS: DUONEB 3 ML INH ×2 (07:16→10:54)
[2023-09-06 09:00] LABS: Glycohemoglobin (HgbA1c) 7.4 % (4.0-5.6)
[2023-09-06 09:05] VITALS: BP 115/63
[2023-09-06 09:25] LABS: Glucose - Point of Care 151 mg/dl (70-99)
[2023-09-06] MEDS: MIRALAX 17 GRAMS PO (09:31)
[2023-09-06] MEDS: NOVOLOG FLEXPEN-LOW RESISTANCE 1 UNITS SC (09:31)
[2023-09-06] MEDS: PROTONIX 40 MG PO (09:34)
[2023-09-06] MEDS: MYSOLINE 50 MG PO (09:42)
[2023-09-06] MEDS: TYLENOL 1000 MG PO ×3 (09:43→22:03)
[2023-09-06] MEDS: PLAVIX 75 MG PO (09:43)
[2023-09-06] MEDS: CRESTOR 5 MG PO (09:44)
[2023-09-06] MEDS: CARDIZEM CD 120 MG PO (09:44)
[2023-09-06] MEDS: DELTASONE 10 MG PO (09:44)
[2023-09-06] MEDS: HEPARIN 5000 UNITS SC ×2 (09:46→20:51)
[2023-09-06] MEDS: LIDOCAINE 4% PATCH 3 PATCH TOPICAL (09:49)
--- NOTE | 2023-09-06 10:12 | CM ---
Addendum entered by Aide Dietrich 09/06/23 14:12:
Referrals for STR sent to 9 facilities in the area:
[facility] [place]
[facility] [place].
Also awaiting for Clau from [facility] to confirm whether patient is/is not a [facility] patient.
Attending physician made aware.
Addendum entered by Aide Dietrich 09/06/23 11:33:
Patient shared that currently has [facility] on home. CM sent a referral to [facility] today to notify them patient is in the hospital.
Original Note:
CM reviewed patient's chart. CM introduced self and role. Spoke with patient at bedside.
CM explained to patient that she is Observation status and had her sign BERUMEN. Copy given to patient.
Lesly lives at home with her and son. She enters her home through the garage so that she does not have to walk up steps.
She shared she lives in a 2L home. She also shared that when she walks, her son is in front of her and her is behind her, while she uses the walker. She needs assistance with ambulation.
Her is 89 years old. They have been for 62 years.
DME: Walker, cane, wheelchair and stairglide
She is able to afford her monthly expenses.
She does not drive. Her or son provide Lesly with transportation.
PCP: Dr. Solis
Pharmacy: [facility] in [place]
TENTATIVE DISCHARGE DISPOSITION:
Home with VN or SNF, depending on PT/OT evaluation.
--- NOTE | 2023-09-06 11:28 | W.PN.HOSP.TC ---
Today's Communication/Plan
-
Pain control
Assess mobility
Rehab evaluation
Monitor oxygenation and respiratory status
Assessment / Plan
Assessment / Plan
A/P: Patient is an 88y F with PMH significant for COPD, HTN and DM-II who presents to ED complaining of low back pain s/p fall.
L2 Compression Fracture
Fall at Home
Chronic Ambulatory Dysfunction
- Monitor overnight for symptom control.
- Pain control efforts and adjust med regimen as needed.
- PT / OT evaluations.
- Patient is very limited in mobility at baseline - ambulating with assistance only as a means of transfer.
COPD without Acute Exacerbation
Chronic hypoxic respiratory insufficiency on 2 L at baseline
TANI on CPAP
- Some mild wheezing noted on exam, but no hypoxemia and no complaints of dyspnea.
- Continue daily prednisone - increase to 10mg daily for a few days.
- Continue Singulair.
- Continue nebs ATC and PRN.
- Follow for any new / worsening symptoms.
GERD
Vocal Cord Dysfunction
Esophageal Spasm
- Stable. Continue PPI daily.
Benign Hypertension
- Stable. Continue Cardizem with holding parameters.
DM-II
- Stable. Follow glucose and cover with SSI as needed.
- Update A1C.
LE Edema
- On twice weekly torsemide at home for control of edema.
- Hold diuretics for now. Patient in general appears to have some polypharmacy going on.
- TEDs stockings / compression and elevation.
- Follow for any changes.
ASCVD / Carotid Stenosis
- Stable. No chest pain or focal neurologic symptoms.
- Continue daily Plavix, statin, etc.
A-fib unknown chronicity
-Per patient she has history of A-fib and intermittently goes back and forth into atrial fibrillation.
DVT Prophylaxis: Subcut Heparin
Code Status: Full
Anticipated Discharge: 24 - 48 hours
Subjective/Interval History
-
Date of Service: September 06, 2023
states of severe back pain
states lido patch helping
Objective Data
-
Labs:
Laboratory Results
09/06/23
06:52
WBC Pending
Hgb Pending
Hct Pending
Plt Count Pending
Sodium 137
Potassium 3.8
Chloride 107
Carbon Dioxide 28
BUN 18 H
Creatinine 0.7
Glucose 131 H
Calcium 8.7
Vital Signs:
Vital Signs
Temp Pulse Resp BP Pulse Ox
98.3 F 68 14 115/63 96
09/05/23 12:32 09/06/23 10:58 09/06/23 10:58 09/06/23 09:44 09/06/23 10:58
Physical Exam
-
General: Well Developed and No Apparent Distress
HEENT: Normocephalic, Atraumatic, Moist Mucous Membranes and Oxygen (2L )
Respiratory: Wheezes (mild )
Cardiac: Regular Rhythm and S1/S2; Negative Murmur, Rub or Gallop
GI: Soft, Nontender, Nondistended and Normal Bowel Sounds; Negative Organomegaly
Rectal: Deferred by Provider
Musculoskeletal: No Clubbing, No Cyanosis and No Edema
Skin: Negative Rash
Neuro: Awake and Nonfocal/Grossly Intact
Data Reviewed
-
Total Time Spent with Patient (in minutes): 56
--- NOTE | 2023-09-06 11:38 | EDRN ---
Medicated per APR. Provided menu to order lunch. Transferred to hospital bed. Sheets and depend changed. No complaints offered at this time. Does not appear in any acute distress.
[2023-09-06 11:49] LABS: Hematocrit 29.5 % (37.0-47.0); Hemoglobin 9.6 g/dL (12.0-16.0); Mean Corp Hgb Conc. 32.5 g/dL (33.0-37.0); Mean Corpuscular Hgb 29.6 pg (27.0-31.0); Mean Platelet Volume 10.1 fL (7.4-10.4); Platelet Count 190 10^3/uL (130-400); Red Blood Cell Count 3.24 10^6/uL (4.20-5.40); Red Cell Dist. Width 14.5 % (11.5-14.5); White Blood Cell Count 6.4 10^3/uL (4.8-10.8)
[2023-09-06] MEDS: VENTOLIN NEBULES INH (12:34)
[2023-09-06 13:57] LABS: Glucose - Point of Care 230 mg/dl (70-99)
[2023-09-06] MEDS: NOVOLOG FLEXPEN-LOW RESISTANCE 2 UNITS SC (13:57)
[2023-09-06 14:52] VITALS: BP 127/53; PULSE 77; O2SAT 93
[2023-09-06] MEDS: VENTOLIN NEBULES 2.5 MG INH ×2 (15:06→21:03)
--- NOTE | 2023-09-06 15:16 | CM ---
Addendum entered by Yumiko Red RN 09/06/23 15:55:
CM confirmed that patient is now inpatient. CM spoke with patient's who stated that they now do not want her going to SNF despite it being funded by Medicare. CM will continue to follow.
Patient's is agreeable to [facility] for home services . CM sent referral to [facility].
Original Note:
Cm spoke with Clau at [facility]. Patient is [facility] eligible; however, [facility] Clau will call PCP and see if they can offer assistance with placement. CM will continue to follow.
[2023-09-06 16:13] VITALS: BMI 27.5
[2023-09-06 16:20] VITALS: BP 131/65; BMI 27.2
[2023-09-06 16:24] LABS: Glucose - Point of Care 350 mg/dl (70-99)
--- NOTE | 2023-09-06 18:10 | PTCARENOTE ---
Received call from son Emigdio, upset that they were told to wait for a call as patient would be discharged today. Reviewed chart and discussed that patient was not for discharge today and that per MD note it would be 24-48 hours. Son states that
patient is adamant that she will not go to [facility] as she had a bad experience there before. She wants to come home with home rehab. Reviewed PT notes with son and discussed that she was max assist of 2 to get OOB and was only able to go 3
feet. Discussed at home that this means that she could go from bed to a BSC and she would need someone to be with her 24/7 and 2 people to get up. We also discussed that home therapy through VN services may only be 3 times a wk vs a skilled
facility where she would get therapy almost everyday. Son stated that he and his father are worn out from caring for the patient at home. We discussed that it can be difficult to make hard decisions to have his mother go to a facility for rehab
but that they also need to take care of themselves so they don't get injured. The son asked if there were other facilities where his mother could go for rehab. I reviewed the caseworker protective services notes and read the list of facilities that they had sent
referrals to. We also discussed 24/7 caregivers in the home setting but the son relayed that they do not have the finances for that. Will ask the case management social worker and physician to call the son tomorrow as he is the POA for the patient. His cell phone
is [phone].
[2023-09-06 18:20] LABS: Glucose - Point of Care 310 mg/dl (70-99)
[2023-09-06 18:24] VITALS: BMI 27.2
[2023-09-06] MEDS: NOVOLOG FLEXPEN-LOW RESISTANCE 4 UNITS SC (18:31)
[2023-09-06 19:40] VITALS: BP 121/58
[2023-09-06 21:39] LABS: Glucose - Point of Care 212 mg/dl (70-99)
[2023-09-06] MEDS: SENOKOT 17.2 MG PO (22:02)
[2023-09-06] MEDS: SINGULAIR 10 MG PO (22:03)
[2023-09-06] MEDS: NEURONTIN 200 MG PO (22:03)
[2023-09-06 22:48] VITALS: PULSE 76
[2023-09-06 23:21] VITALS: BP 107/62
[2023-09-07 03:06] VITALS: BP 117/54
[2023-09-07 07:29] LABS: Glucose - Point of Care 128 mg/dl (70-99)
[2023-09-07 07:40] VITALS: BP 124/54
[2023-09-07] MEDS: VENTOLIN NEBULES 2.5 MG INH ×4 (08:13→20:21)
[2023-09-07 09:33] VITALS: BMI 27.2
[2023-09-07] MEDS: MIRALAX 17 GRAMS PO (09:45)
[2023-09-07] MEDS: DELTASONE 10 MG PO (09:45)
[2023-09-07] MEDS: CARDIZEM CD 120 MG PO (09:45)
[2023-09-07] MEDS: TYLENOL 1000 MG PO ×3 (09:45→21:59)
[2023-09-07] MEDS: HEPARIN 5000 UNITS SC ×2 (09:45→19:40)
[2023-09-07] MEDS: CRESTOR 5 MG PO (09:45)
[2023-09-07] MEDS: MYSOLINE 50 MG PO (09:45)
[2023-09-07] MEDS: PROTONIX 40 MG PO (09:45)
[2023-09-07] MEDS: PLAVIX 75 MG PO (09:45)
[2023-09-07] MEDS: NOVOLOG FLEXPEN-LOW RESISTANCE SC (10:08)
[2023-09-07] MEDS: LIDOCAINE 4% PATCH 3 PATCH TOPICAL (10:14)
[2023-09-07 11:15] VITALS: BP 125/52
[2023-09-07 12:05] VITALS: BP 125/52; PULSE 70; O2SAT 100
--- NOTE | 2023-09-07 12:12 | W.PN.HOSP.TC ---
Today's Communication/Plan
-
oob/pt
home in am
Assessment / Plan
Assessment / Plan
A/P: Patient is an 88y F with PMH significant for COPD, HTN and DM-II who presents to ED complaining of low back pain s/p fall.
L2 Compression Fracture
Fall at Home
Chronic Ambulatory Dysfunction
- Pain control efforts and adjust med regimen as needed.
- PT / OT evaluations -SNF. Patient refusing. This was discussed with patient and family who agreed with patient choice and would like patient to come home and would like to continue with home visiting therapy.
- Patient is very limited in mobility at baseline - ambulating with assistance only as a means of transfer.
COPD without Acute Exacerbation
Chronic hypoxic respiratory insufficiency on 2 L at baseline
TANI on CPAP
- Continue daily prednisone - increase to 10mg daily for a few days and transition back to 5 mg on discharge.
- Continue Singulair.
- Continue nebs ATC and PRN.
- Follow for any new / worsening symptoms.
GERD
Vocal Cord Dysfunction
Esophageal Spasm
- Stable. Continue PPI daily.
Benign Hypertension
- Stable. Continue Cardizem with holding parameters.
DM-II
- Stable. Follow glucose and cover with SSI as needed.
- Update A1C.
LE Edema
- On twice weekly torsemide at home for control of edema.
- Restart diuretics. Patient in general appears to have some polypharmacy going on.
- TEDs stockings / compression and elevation.
- Follow for any changes.
ASCVD / Carotid Stenosis
- Stable. No chest pain or focal neurologic symptoms.
- Continue daily Plavix, statin, etc.
A-fib unknown chronicity
-Per patient she has history of A-fib and intermittently goes back and forth into atrial fibrillation.
DVT Prophylaxis: Subcut Heparin
Code Status: Full
PT OT/SNF. Patient refusing. Home VN tomorrow. OOB/PT eval if possible today
Anticipated Discharge: Within 24 hours
Subjective/Interval History
-
Date of Service: September 07, 2023
Patient continues to refuse for SNF
Also worked with PT
Tolerating diet
Objective Data
-
Vital Signs:
Vital Signs
Temp Pulse Resp BP Pulse Ox
97.9 F 77 16 124/54 95
09/07/23 07:40 09/07/23 09:45 09/07/23 08:16 09/07/23 09:45 09/07/23 08:16
I&O
09/06/23 09/07/23 09/08/23
06:59 06:59 06:59
Intake Total 480 / 480
Balance 480 / 480
[2023-09-07 12:35] LABS: Glucose - Point of Care 153 mg/dl (70-99)
[2023-09-07] MEDS: NOVOLOG FLEXPEN-LOW RESISTANCE 1 UNITS SC (13:00)
--- NOTE | 2023-09-07 13:58 | PN.CDI ---
CDI
- -
CDI:
Physician Documentation Request
Admit Date: 09/06/23 18:38
Dear Doctor Karly,
Please review the following and provide your response in the progress notes.
Clinical Indicators:
Pt admitted with fall and L2 compression fracture.
09/06 progress notes: 'COPD without Acute Exacerbation...Chronic hypoxic respiratory insufficiency on 2 L at baseline..TANI on CPAP'
Clarify which of the following accurately represents the patient's respiratory status:
Chronic hypoxic respiratory failure
Hypoxia only
Other
Use of terms such as suspected, likely, concern for, or probable (associated with a specific diagnosis that is being evaluated, monitored, or treated as if it exists) are acceptable and can be coded in the inpatient setting, when documented at the
time of discharge.
Thank you,
Magalis Gutierrez RN, BSN
CDI Specialist
Available via [employer]
Please use your independent medical judgment in providing your response.
--- NOTE | 2023-09-07 15:08 | CM ---
Reviewed the chart notes and spoke with the patient at the bedside. IMM reviewed. The patient anticipates going home with [facility]. CM continues to be available to patient/family and is monitoring medical plan for needs at discharge.
Plan: Discharge to home on [facility]. Fax is [phone]
[2023-09-07 15:25] VITALS: BP 128/65
[2023-09-07 16:58] LABS: Glucose - Point of Care 243 mg/dl (70-99)
[2023-09-07] MEDS: NOVOLOG FLEXPEN-LOW RESISTANCE 2 UNITS SC (17:04)
[2023-09-07] MEDS: SENOKOT PO (19:54)
[2023-09-07 21:30] LABS: Glucose - Point of Care 205 mg/dl (70-99)
[2023-09-07] MEDS: REFRESH EYE DROPS (PF) 1 DROPS LEFT EYE (21:59)
[2023-09-07] MEDS: SINGULAIR 10 MG PO (21:59)
[2023-09-07] MEDS: NEURONTIN 200 MG PO (21:59)
[2023-09-07] MEDS: DESENEX/MITRAZOL/ZEASORB 1 APPLIC TOPICAL (21:59)
[2023-09-07 23:03] VITALS: BP 120/67
[2023-09-08 00:08] VITALS: PULSE 76
[2023-09-08 03:33] VITALS: BP 131/56
[2023-09-08] MEDS: VENTOLIN NEBULES 2.5 MG INH ×3 (07:18→15:15)
[2023-09-08 07:38] LABS: Glucose - Point of Care 107 mg/dl (70-99)
[2023-09-08 07:39] VITALS: BP 123/60
[2023-09-08] MEDS: NOVOLOG FLEXPEN-LOW RESISTANCE SC (07:57)
[2023-09-08] MEDS: PLAVIX 75 MG PO (08:40)
[2023-09-08] MEDS: DELTASONE 10 MG PO (08:40)
[2023-09-08] MEDS: MYSOLINE 50 MG PO (08:40)
[2023-09-08] MEDS: TYLENOL 1000 MG PO (08:40)
[2023-09-08] MEDS: CRESTOR 5 MG PO (08:40)
[2023-09-08] MEDS: MIRALAX 17 GRAMS PO (08:41)
[2023-09-08] MEDS: LIDOCAINE 4% PATCH 3 PATCH TOPICAL (08:41)
[2023-09-08] MEDS: CARDIZEM CD 120 MG PO (08:41)
[2023-09-08] MEDS: HEPARIN 5000 UNITS SC (08:42)
[2023-09-08] MEDS: PROTONIX 40 MG PO (08:43)
[2023-09-08] MEDS: DESENEX/MITRAZOL/ZEASORB 1 APPLIC TOPICAL (08:43)
[2023-09-08] MEDS: REFRESH EYE DROPS (PF) 1 DROPS LEFT EYE (08:50)
--- NOTE | 2023-09-08 10:33 | W.PN.HOSP.TC ---
Today's Communication/Plan
-
DC home
Assessment / Plan
Assessment / Plan
A/P: Patient is an 88y F with PMH significant for COPD, HTN and DM-II who presents to ED complaining of low back pain s/p fall.
L2 Compression Fracture
Fall at Home
Chronic Ambulatory Dysfunction
- Pain control efforts and adjust med regimen as needed.
- PT / OT evaluations -SNF. Patient refusing. This was discussed with patient and family who agreed with patient choice and would like patient to come home and would like to continue with home visiting therapy.
- Patient is very limited in mobility at baseline - ambulating with assistance only as a means of transfer.
COPD with mild Acute Exacerbation
Chronic hypoxic respiratory insufficiency on 2 L at baseline at home
TANI on CPAP
- Continue daily prednisone - increase to 10mg daily for a few days and transition back to 5 mg on discharge.
- Continue Singulair.
- Continue nebs ATC and PRN.
- Follow for any new / worsening symptoms.
GERD
Vocal Cord Dysfunction
Esophageal Spasm
- Stable. Continue PPI daily.
Benign Hypertension
- Stable. Continue Cardizem with holding parameters.
DM-II
- Stable. Follow glucose and cover with SSI as needed.
LE Edema
- On twice weekly torsemide at home for control of edema.
- Restart diuretics.
- TEDs stockings / compression and elevation.
- Follow for any changes.
ASCVD / Carotid Stenosis
- Stable. No chest pain or focal neurologic symptoms.
- Continue daily Plavix, statin, etc.
A-fib unknown chronicity
-Per patient she has history of A-fib and intermittently goes back and forth into atrial fibrillation.
DVT Prophylaxis: Subcut Heparin
Code Status: Full
d/w with son on 09/06-agreed with DC planning to home with VN.
PT OT/SNF. Patient refusing SNF-d/w on daily basis. Home VN today.
More than 30 minutes spent in discharge including
Final examination of the patient
Summarizing hospital stay
Instructions for continuing care to all relevant caregivers
Preparation of discharge records, prescriptions, and referral forms
Total time spent (in minutes): 52
Anticipated Discharge: Today
Subjective/Interval History
-
Date of Service: September 08, 2023
feeling better
pain is controlled
wants to go home
refusing rehab
Objective Data
-
Vital Signs:
Vital Signs
Temp Pulse Resp BP Pulse Ox
97.9 F 66 18 123/60 98
09/08/23 07:39 09/08/23 08:41 09/08/23 07:39 09/08/23 08:41 09/08/23 07:39
I&O
09/07/23 09/08/23 09/09/23
06:59 06:59 06:59
Intake Total 480 / 480 1680 / 1680
Balance 480 / 480 1680 / 1680
Physical Exam
-
General: Well Developed and No Apparent Distress
HEENT: Normocephalic, Atraumatic, Moist Mucous Membranes and Oxygen (2L )
Respiratory: Clear to Auscultation
Cardiac: Regular Rhythm and S1/S2; Negative Murmur, Rub or Gallop
GI: Soft, Nontender, Nondistended and Normal Bowel Sounds; Negative Organomegaly
Rectal: Deferred by Provider
Musculoskeletal: No Clubbing, No Cyanosis, Edema, Right Lower Extrem (chronic ) and Edema, Left Lower Extrem (chronic )
Skin: Negative Rash
Neuro: Awake and Nonfocal/Grossly Intact
Psych: Calm
--- NOTE | 2023-09-08 10:37 | W.DCSUMMARY ---
Discharge Summary
Discharge Data
Date of Admission: 09/06/23
Date of Discharge: 09/08/23
-
Pending Results: No
Hospital Course
88-year-old female past medical history of COPD, prior hypertension, diabetes mellitus, GERD, chronic lower extremity edema, carotid stenosis presenting from home with low back pain after having a mechanical fall. Patient was found to have L2
compression fracture. Patient was also found to be in mild acute COPD exacerbation. Prednisone briefly was increased to 10 mg compared to 5 mg chronic dose. Patient wheezing and shortness of breath significantly improved and further prednisone
was down titrated to home dose. Patient at baseline uses 2 L of oxygen. Patient was eval by PT and OT recommend [facility] facility. Patient refused to go to rehab. This was also discussed with patient son who agreed with patient wishes and
want patient to return home with visiting nurses. Patient be discharged home with VNA.
Discharge Plan
-
Patient Disposition: Home with Home Care
Discharge Diagnosis/Procedures: Mechanical fall
L2 compression fracture
Mild acute on chronic COPD exacerbation
Condition: Fair
Diet: As tolerated
Activity: With assistance and As tolerated
Driving Restrictions: Not until seen by your Dr
Referrals:
Carrie Nuñez, [Family Provider] - in less than 1 week
Prescriptions:
Continued
clopidogrel 75 MG tablet
75 mg PO DAILY 30 Days Qty: 30 0RF
montelukast 10 MG tablet
10 mg PO HS
primidone 50 MG tablet
50 mg PO DAILY
pantoprazole 40 MG tablet,delayed release (DR/EC)
40 mg PO DAILY
rosuvastatin 5 mg Tablet
5 mg PO DAILY
diltiazem HCl 120 mg Capsule,Extended Release 24 Hr
120 mg PO DAILY
gabapentin 100 mg capsule
200 mg PO HS
Refresh Classic (PF) 1.4-0.6 % Dropperette
1 drp LEFT EYE QIDPRN PRN (Reason: DRY EYES)
polyethylene glycol 3350 [Miralax] 17 gram Powder In Packet
17 g PO DAILY
cinnamon bark [Cinnamon] 500 mg Capsule
500 mg PO DAILY
guaifenesin 600 mg Tablet Extended Release 12hr
1,200 mg PO [id number] PRN (Reason: cough) Qty: 30 0RF
potassium chloride 20 mEq Packet
20 meq PO TUFR
lidocaine 5 % Adhesive Patch,Medicated
1 patch TOPICAL DAILYPRN PRN (Reason: back, right shoulder and right hip)
coQ10 (ubiquinol) 100 mg Capsule
100 mg PO DAILY
prednisone 5 mg Tablet
5 mg PO DAILY
torsemide 10 mg Tablet
10 mg PO TUFR
mecobalamin (vitamin B12) [B12 Active] 1,000 mcg Tablet,Chewable
1,000 mcg PO DAILY
ipratropium bromide 0.02 % solution
2.5 ml inhalation R Q4HPRN PRN (Reason: sob/wheezing)
cholecalciferol (vitamin D3) [Vitamin D3] 50 mcg (2,000 unit) Tablet
50 mcg PO DAILY
albuterol sulfate 90 mcg/actuation Hfa Aerosol Inhaler
1 puff INHALATION R Q4HPRN PRN (Reason: sob/wheezing)
insulin aspart U-100 [Novolog FlexPen U-100 Insulin] 100 unit/mL (3 mL) insulin pen
0 sliding scale dose SC AC
Discharge Orders:
Discharge Patient (As Directed); Ordered 09/08/23
Ordered By: Ed Brandt
Discharge Date and Time
Print Language: SENEGALESE
[2023-09-08 11:35] VITALS: BP 116/53
[2023-09-08 11:47] LABS: Glucose - Point of Care 203 mg/dl (70-99)
[2023-09-08] MEDS: NOVOLOG FLEXPEN-LOW RESISTANCE 2 UNITS SC (12:54)
--- NOTE | 2023-09-08 12:56 | CM ---
Reviewed chart. Received notification from patient's RN that patient is being discharged. Placed a call to [facility] and spoke with a administrative representative named, [place] in intake, who confirmed that they have patient's updated information and will be
able to reach out to patient when she returns home.
Spoke with patient who is agreeable to VN services and will await their outreach to schedule a visit. She was current with them.
IMM reviewed.
RN updated.
Plan: Case management will continue to follow and assist with discharge planning. Home with VN services.
[2023-09-08 14:50] VITALS: PULSE 77; O2SAT 97
[2023-09-08 15:33] VITALS: BP 115/68
== END 2023-09-08 16:23 | disposition home health service (06) | DRG 552 ==
LOC: 2 NORTH 18:38
PROVIDERS: Physician Assistant; ADMITTING PHYSICIAN Hospitalist; ATTENDING PHYSICIAN Hospitalist; EMERGENCY PHYSICIAN Emergency Medicine; FAMILY PHYSICIAN Family Medicine
PROC: 5A09357 Assistance with Respiratory Ventilation, Less than 24 Consecutive Hours, Continuous Positive Airway Pressure (ICD-10-PCS; 2023-09-06)
DX: S32.020A Wedge compression fracture of second lumbar vertebra, initial encounter for closed fracture (principal); J44.1 Chronic obstructive pulmonary disease with (acute) exacerbation; I10 Essential (primary) hypertension; E11.9 Type 2 diabetes mellitus without complications; I65.22 Occlusion and stenosis of left carotid artery; Z95.828 Presence of other vascular implants and grafts; K22.2 Esophageal obstruction; Z99.81 Dependence on supplemental oxygen; K21.9 Gastro-esophageal reflux disease without esophagitis; W07.XXXA Fall from chair, initial encounter; Y92.009 Unspecified place in unspecified non-institutional (private) residence as the place of occurrence of the external cause; K22.4 Dyskinesia of esophagus; J38.3 Other diseases of vocal cords; R60.0 Localized edema; I25.10 Atherosclerotic heart disease of native coronary artery without angina pectoris; E78.00 Pure hypercholesterolemia, unspecified; M81.0 Age-related osteoporosis without current pathological fracture; F41.9 Anxiety disorder, unspecified; I48.91 Unspecified atrial fibrillation; G47.33 Obstructive sleep apnea (adult) (pediatric); R26.89 Other abnormalities of gait and mobility; Z99.3 Dependence on wheelchair; Z99.89 Dependence on other enabling machines and devices; Z79.02 Long term (current) use of antithrombotics/antiplatelets; Z79.4 Long term (current) use of insulin; Z79.52 Long term (current) use of systemic steroids; Z79.899 Other long term (current) drug therapy; Z88.0 Allergy status to penicillin; Z88.2 Allergy status to sulfonamides; Z88.8 Allergy status to other drugs, medicaments and biological substances; Z87.19 Personal history of other diseases of the digestive system; Z90.89 Acquired absence of other organs; Z90.710 Acquired absence of both cervix and uterus
CPT/HCPCS: 70450; 72100; 72125; 73030; 73502; 73564; 80048; 80053; 82962; 83036; 85025; 85027; 94640; 94660; 97167; 97530; 97535

== ENCOUNTER 2024-03-30 00:41 | Inpatient (IN) | payer MEDICARE, BC, SELFPAY ==
[2024-03-29] VITALS (7 sets, daily range): BP systolic 98–150; BP diastolic 49–126
[2024-03-29 20:08] LABS: % Basophils 0.3 % (0-2); % Immature Granulocytes 0.3 % (0-0.5); % Lymphocytes 17.9 % (20.5-51.1); % Monocytes 13.4 % (1.7-9.3); % Neutrophils 65.1 % (42.2-75.2); Absolute Eosinophils 0.2 10^3/uL (0-0.7); Absolute Lymphocytes 1.4 10^3/uL (1.2-3.4); Hematocrit 39.1 % (37.0-47.0); Hemoglobin 12.5 g/dL (12.0-16.0); Mean Corpuscular Hgb 30.1 pg (27.0-31.0); Mean Corpuscular Volume 94.2 fL (81.0-99.0); Mean Platelet Volume 9.3 fL (7.4-10.4); Nucleated Red Blood Cells % 0 %; Platelet Count 180 10^3/uL (130-400); Red Blood Cell Count 4.15 10^6/uL (4.20-5.40); Red Cell Dist. Width 13.4 % (11.5-14.5); Urine Albumin Negative (Neg - Trace); Urine Bilirubin Negative (Negative); Urine Character Clear (Clear); Urine Color Yellow; Urine Glucose Negative (Negative); Urine Ketone Negative (Negative); Urine Leukocyte Negative (Negative); Urine Nitrite Negative (Negative); Urine Occult Blood Negative (Negative); Urine Urobilinogen Negative (Neg - 1+); White Blood Cell Count 7.6 10^3/uL (4.8-10.8)
[2024-03-29 20:18] LABS: Lactic Acid 0.9 mmol/L (0.7-2.0)
--- NOTE | 2024-03-29 20:22 | ED.GENMED ---
History of Present Illness
General
Chief Complaint: Urinary Symptoms
Source: patient and records
Time Seen by Provider: 03/29/24 20:06
History of Present Illness
History of Present Illness:
This patient is an 89-year-old female presents emergency department after suffering an episode of shaking uncontrollably/rigors associated with pain in the suprapubic area described as 'bladder pain', and incontinence. This happened just prior to
presentation. Symptoms are markedly better at this time. Patient denies recent fever, chest pain, new shortness of breath, abdominal pain, new back pain, headache, dizziness, leg swelling, dysuria, hematuria, flank pain. Of note, patient states
that she fell out of her chair 2 days ago onto her knees and was on the ground for about 20 minutes before her son was able to boost her back up into the wheelchair. She says her knees were little sore but no other complaints after that event.
Today she does feel like her neck is uncomfortable in the posterior aspect, no associated numbness, tingling, new weakness.
Past History
Past History
ED Past Medical History: Arrthythmia (Atrial fib), Asthma, COPD, GERD, HTN, Hypercholesterolemia, IDDM, Psychiatric (Anxiety) and Other (Chronic back pain, Diverticulitis, Hiatal hernia,, carotid stenosis,sleep apnea , dysphagia, glaucoma,
cataracts,Vertigo, PNA, esophageal restrictions)
ED Past Surgical History: Appendectomy, Cardiac (Left carotid stent), Gynecological (hysterectomy), Orthopedic (Right carpal tunnel surgery), Urological (Bladder surgery) and Other (Cyst on Pancreas with fluid removed, bladder repair, Breast cyst
removed)
Social History
Tobacco: Non-smoker
Alcohol: None
Drug: None
Personal:
Living: with family
Employment: Retired
Family History
Family History: Other (Brother with a stroke, sister with ovarian cancer, sister with colon cancer)
Phy Exam
Physical Exam
Physical Exam:
GENERAL: Alert , in no apparent distress
EYE: pupils equal and reactive
NECK: Supple, no significant adenopathy. trachea midline, no redness/trauma noted. no ttp noted post cervical spine.
ENT: o/p clr, mmm.
CARDIAC: Regular rate and rhythm, systolic murmur noted.
LUNGS: Equal breath sounds bilaterally, no acute respiratory distress, no rales or rhonchi, slight wheezing noted
ABDOMEN: Soft, without focal tenderness, no r/g
NEUROLOGICAL: Alert and oriented, no focal neuro deficits
SKIN: Warm and dry, skin intact.
MUSCULOSKELETAL: Trace bilateral lower extremity edema, well perfused.
PSYCH: Normal and appropriate interaction.
Course
Orders/Labs/Results
Orders:
Orders
03/29/24 19:44
Electrocardiogram (*1) Urgent
Reason for Study: Other
Other Reason for Exam: Possible Sepsis
Cardiac Monitoring- Treatment ONCE
EKG- Treatment ONCE
Straight cath- Treatment ONCE
CR Chest - 2 Views Urgent
Comment:
Reason For Exam: suspected infection
O2 Therapy [RESP] Urgent
Titrate/Wean O2 to maintain O2 sat greater than (%): 93
Special Instructions: TO MAINTAIN CONTINUOUS O2 SATS > OR = 93%
Pulse Ox/cont/shift [RESP] Urgent
Quantity: 1
Special Instructions: CONTINUOUS
03/29/24 19:58
Complete Blood Count/With Diff Urgent
Comprehensive Metabolic Panel Urgent
Lactic Acid Q4H
Comment: ON ICE, CANCEL 2ND ORDER IF FIRST LACTIC ACID LEVEL <2
Urinalysis Reflex To Culture Urgent
Date Specimen was Collected: 03/29/24
Time Specimen was Collected: 19:44
03/29/24 20:19
CT Cervical Spine W/o Iv Contr Urgent
Comment:
Reason For Exam: fall, neck pain
Cervical Collar- Treatment ONCE
Collar Type: Hard Cervical Collar
03/29/24 20:26
Levalbuterol [Xopenex 1.25 mg Inhalant Solution] 1.25 mg INH R NOW STA
03/29/24 21:09
CT Head W/o Iv Contrast Urgent
Comment:
Reason For Exam: shaking episode
Abnormal Lab Results
03/29/24
19:58
RBC 4.15 L 10^6/uL
(4.20-5.40)
MCHC 32.0 L g/dL
(33.0-37.0)
Absolute Monos (auto) 1.0 H 10^3/uL
(0.1-0.6)
Lymphocytes % 17.9 L %
(20.5-51.1)
Monocytes % 13.4 H %
(1.7-9.3)
Chloride 97 L mmol/L
(98-107)
Carbon Dioxide 35 H mmol/L
(22-30)
BUN 24 H mg/dl
(7-17)
Glucose 124 H mg/dl
(70-99)
03/29/24 19:58
03/29/24 19:58
Vital Signs
Initial and Last Documented VS:
Initial Vital Signs
Temp Pulse Resp BP Pulse Ox
98.3 F 89 17 118/61 98
03/29/24 19:20 03/29/24 19:20 03/29/24 19:20 03/29/24 19:20 03/29/24 19:20
Last Documented Vital Signs
Temp Pulse Resp BP Pulse Ox
98.3 F 86 17 122/81 95
03/29/24 19:20 03/29/24 22:05 03/29/24 22:05 03/29/24 21:15 03/29/24 21:30
Update Note
Update Note:
patient presents to the Emergency Department with rigors and bladder pain
Number and Complexity of Problems Addressed at the Encounter
� Chronic conditions affecting care:
� Acute Exacerbation and/or Progression of Chronic Illness:
� Differential Diagnosis includes: But not limited to bladder spasticity, UTI, bacteremia, etc. etc.
Amount and/or Complexity of Data to be Reviewed and Analyzed
� I performed an independent evaluation of and my interpretation is:
EKG:
CT:No CT evidence for acute intracranial hemorrhage or transcortical infarct.
2. Mild to moderate bilateral frontal and parietal lobe volume loss.
3. Moderate white matter leukoaraiosis in the frontal and parietal lobes.
4. Severe bilateral hyperostosis frontalis interna.
5. Severe diffuse calvarial thickening (possibly a chronic myeloproliferative disease).
6. Moderate right sphenoid sinusitis.
New superior endplate fracture of C7 with mild loss of vertebral body height and mild sclerosis in the superior endplate which is new from 09/05/2023 (most likely an acute to subacute fracture - more likely subacute given the absence of prevertebral
soft tissue swelling).
2. Large disc-osteophyte complexes at C5/C6 and C6/C7 causing mild spinal cord compression and central canal stenosis.
3. Severe discogenic degenerative disease at C5/C6.
4. Moderate discogenic degenerative disease at C6/C7.
5. Severe right-sided facet joint arthrosis and severe right neural foraminal narrowing at C3/C4.
6. Mild spinal cord compression at C1/C2 and C3/C4.
Xrays:No radiographic evidence for pneumonia.
2. Mildly decreased bilateral lung volumes.
3. Multilevel chronic vertebral body endplate osteoporotic insufficiency fractures in the thoracic spine. Severe multilevel thoracic discogenic degenerative disease.
Laboratory Studies:
Other:
� Review of other/old records reveals: Multiple admissions noted including COPD exacerbation, her diagnosis of asthma is questionable
� Clinical information was obtained by an independent historian:case d/w via phone...vn did some med changes...he went to call her for dinner, she is shaking and c/o bladder hurting her (not sz like--able to talk
'normal' during the shaking), couldn't get her off the chair...she couldn't move her feet to get up even though him and son were holding her on each side. Temp was 97.6. She was able to respond to questions properly, but just didn't have any
strength to move. He suspects related to medication changes. At baseline, has bowel incont, needs help with adl's re:change clothes, feed her, etc.
� Prescriptions/Medications Considered but not given:
� Further testing considered but not performed:
Risk of Complications and/or Morbidity or Mortality of Patient Management
� Social determinants of health affecting care:
� Discussion with other providers (PCP, Hospitalists, Consultants, etc):
� Escalation of care including admission/observation vs risk of discharge considered:C7 fx noted, case d/w Dr Dewitt (NS), I reported hx, physical, ct report and she in turn reviewed case...recommends soft cervical collar. Son
pudated regarding. Pt unable to stand/walk, lives at home with /son, will need PT/case management/possible placement.
ED Attending Note
-
Portions of this chart may have been created with voice recognition software.� Occasional wrong word or��sound alike� substitutions may have occurred due to the inherent limitations of voice recognition software.
Discharge Plan
Departure
Patient Disposition: Admit
Date of Disposition: 03/29/24
Time of Disposition: 23:33
Admit to: Med/Surg
Admit to doctor: [email or web address]
Presentation/result/management discussed w/ accepting MD/DO: Hospitalist
Condition: Good
Discharge Problem:
C7 cervical fracture, Ambulatory dysfunction
Prescriptions:
No Action
clopidogrel 75 MG tablet
75 mg PO DAILY 30 Days Qty: 30 0RF
montelukast 10 MG tablet
10 mg PO HS
primidone 50 MG tablet
50 mg PO DAILY
pantoprazole 40 MG tablet,delayed release (DR/EC)
40 mg PO DAILY
rosuvastatin 5 mg Tablet
5 mg PO DAILY
diltiazem HCl 120 mg Capsule,Extended Release 24 Hr
120 mg PO DAILY
gabapentin 100 mg capsule
200 mg PO HS
Refresh Classic (PF) 1.4-0.6 % Dropperette
1 drp LEFT EYE QIDPRN PRN (Reason: DRY EYES)
polyethylene glycol 3350 [Miralax] 17 gram Powder In Packet
17 g PO DAILY
cinnamon bark [Cinnamon] 500 mg Capsule
500 mg PO DAILY
guaifenesin 600 mg Tablet Extended Release 12hr
1,200 mg PO [id number] PRN (Reason: cough) Qty: 30 0RF
potassium chloride 20 mEq Packet
20 meq PO TUFR
lidocaine 5 % Adhesive Patch,Medicated
1 patch TOPICAL DAILYPRN PRN (Reason: back, right shoulder and right hip)
coQ10 (ubiquinol) 100 mg Capsule
100 mg PO DAILY
prednisone 5 mg Tablet
5 mg PO DAILY
torsemide 10 mg Tablet
10 mg PO TUFR
mecobalamin (vitamin B12) [B12 Active] 1,000 mcg Tablet,Chewable
1,000 mcg PO DAILY
ipratropium bromide 0.02 % solution
2.5 ml inhalation R Q4HPRN PRN (Reason: sob/wheezing)
cholecalciferol (vitamin D3) [Vitamin D3] 50 mcg (2,000 unit) Tablet
50 mcg PO DAILY
albuterol sulfate 90 mcg/actuation Hfa Aerosol Inhaler
1 puff INHALATION R Q4HPRN PRN (Reason: sob/wheezing)
insulin aspart U-100 [Novolog FlexPen U-100 Insulin] 100 unit/mL (3 mL) insulin pen
0 sliding scale dose SC AC
Referrals:
UNKNOWN - PT DOES,NOT KNOW [Family Provider] -
Interventions
Interventions:
*Risk Screen - Suicide Last Done: 03/29/24 19:20
*General Assessment Last Done: 03/29/24 19:20
*Neglect/Abuse Screening Last Done: 03/29/24 19:20
ED- Fall Risk Assessment Last Done: 03/29/24 20:31
*ED COVID-19 Vaccine History Last Done: 03/29/24 19:20
ED-Female Genitourinary Assessment Last Done: 03/29/24 19:20
Discharge Date and Time
Print Language: CHINESE
[2024-03-29 20:23] LABS: ALT (SGPT) 16 U/L (0-35); AST (SGOT) 34 U/L (14-36); Albumin 4.4 g/dl (3.5-5.0); Alkaline Phosphatase 66 U/L (38-126); Blood Urea Nitrogen 24 mg/dl (7-17); Calcium 9.1 mg/dl (8.4-10.2); Carbon Dioxide 35 mmol/L (22-30); Chloride 97 mmol/L (98-107); Estimated Creatinine Clearance 47 ml/min; Glucose 124 mg/dl (70-99); Potassium 4.7 mmol/L (3.5-5.1); Sodium 136 mmol/L (135-145); Total Bilirubin 0.7 mg/dl (0.2-1.3); Total Protein 6.8 g/dl (6.3-8.2); eGFR > 60.00
[2024-03-29] MEDS: XOPENEX 1.25 MG INHALANT SOLUTION INH (21:16)
[2024-03-30] VITALS (16 sets, daily range): BP systolic 100–136; BP diastolic 41–108; PULSE 70–85; O2SAT 99
--- NOTE | 2024-03-30 00:27 | HPS.HSE ---
Family Physician
-
Family Physician: NOT KNOW UNKNOWN - PT DOES
Chief Complaint
-
Weakness
History of Present Illness
Patient is an 89y F with PMH significant for asthma, DM-II, TANI on CPAP and GERD / esophageal stricture who presents to ED complaining of weakness and 'shakes'. History obtained from patient and family at the bedside. Patient states that she
woke from a nap this afternoon / evening. She was extremely weak and unable to get up. She began 'shaking uncontrollably' and reports pain 'in my bladder'. She was unable to stand or ambulate - even with assistance from family.
Patient denies any fevers, cough, dyspnea, etc. She denies any recent N/V/D. She complains of urinary frequency and occasional dysuria.
Family reports incontinence - mostly due to gait dysfunction / weakness making it difficult for her to get to the bathroom in time.
Patient has apparent waxing and waning LE weakness and gait dysfunction. Symptoms have been ongoing for many months - but seem worse of late.
Patient notes that she fell forward from her wheelchair 2 days ago. She landed on her knees and denies any head injury / trauma. She was unable to get up unassisted and remained on the floor for 10-15 minutes before help arrived.
She states that she has had some neck pain since that fall.
In the ED, patient states that the bladder pain and shaking has resolved.
She complains of very dry mouth - which is a chronic complaint - and LE weakness.
Medical History
Past Medical History
Past Medical History: Reports Other
Additional Past Medical History:
COPD / Asthma
Vocal Cord Spasm
Esophageal Spasm
GERD
Hypertension
DM-II
TANI on CPAP
ASCVD / Carotid Stenosis
Osteoporosis
Past Surgical History: Reports Other
Additional Past Surgical History:
Appendectomy
Left Carotid Stent
JOSE MARTIN
Carpal Tunnel Surgery
Bladder Repair
Lumpectomy (Benign)
Social History
Tobacco: Non-smoker
Alcohol: None
Drug: None
Living: With Family
Family History
Family History: Other (Mother: Asthma / COPD)
Allergies / Home Medications
Allergies reflects when Allergies were last updated in [facility].
Home Medications with original date entered in [facility]
Allergy/Medication List:
Allergies
Allergy/AdvReac Type Severity Reaction Status Date / Time
abacavir sulfate Allergy Unknown Verified 09/05/23 12:33
[From [facility]]
amoxicillin [Amoxicillin] Allergy Rash, Verified 09/05/23 12:33
tolerates
cephalosporins
aspartame Allergy asthma Verified 09/05/23 12:33
attack -
artifical
sweeteners
banana Allergy ASTHMA Verified 09/05/23 12:33
ATTACK
Beta-Adrenergic Agents Allergy Unknown Verified 09/05/23 12:33
bimatoprost Allergy Palpitation Verified 09/05/23 12:33
s
bupropion Allergy STOMACH Verified 09/05/23 12:33
UPSET
cat dander Allergy CAN'T Verified 09/05/23 12:33
BREATHE
clavulanic acid Allergy unknown - Verified 09/05/23 12:33
beta
lactamase
inhibitors
colesevelam Allergy CRAMPS Verified 09/05/23 12:33
dog dander Allergy CAN'T Verified 09/05/23 12:33
BREATHE
house dust Allergy Unknown Verified 09/05/23 12:33
house dust mite Allergy Unknown Verified 09/05/23 12:33
latanoprost Allergy Palpitation Verified 09/05/23 12:33
s
metformin HCl Allergy spasms in Verified 09/05/23 12:33
[From Glucophage] back/HEART
PROBLEM
mold Allergy Unknown Verified 09/05/23 12:33
monosodium glutamate Allergy DIARRHEA Verified 09/05/23 12:33
pollen extracts Allergy Unknown Verified 09/05/23 12:33
quinapril HCl [From Accupril] Allergy UPSET Verified 09/05/23 12:33
STOMACH
ramipril Allergy Upset Verified 09/05/23 12:33
Stomach
simvastatin [Simvastatin] Allergy feet Verified 09/05/23 12:33
swelled/CAN'T
WALK
Sulfa (Sulfonamide Allergy EYE Verified 09/05/23 12:33
Antibiotics) Swelling
valsartan Allergy BACKACHE/ST Verified 09/05/23 12:33
OMACHACHE
Home Medications
clopidogrel 75 mg tablet 75 mg PO DAILY Blood clot prevention/tx 30 days #30 tabs 08/11/20
montelukast 10 mg tablet 10 mg PO HS Allergies 10/26/20
primidone 50 mg tablet 50 mg PO DAILY Neurological Condition 02/27/21
pantoprazole 40 mg tablet,delayed release 40 mg PO DAILY Gastrointestinal issue 05/27/21
rosuvastatin 5 mg tablet 5 mg PO DAILY High cholesterol 08/25/21
diltiazem HCl 120 mg capsule,24 hr,extended release 120 mg PO DAILY Arrhythmia 02/27/22
gabapentin 100 mg capsule 200 mg PO HS Neurological Condition 07/20/22
polyvinyl alcohol-povidone (PF) 1.4 %-0.6 % eye drops in a dropperette (Refresh Classic (PF)) 1 drp LEFT EYE QIDPRN PRN DRY EYES 07/20/22
cinnamon bark 500 mg capsule (Cinnamon) 500 mg PO DAILY Supplement 08/08/22
polyethylene glycol 3350 17 gram oral powder packet (Miralax) 17 g PO DAILY Gastrointestinal Issue 08/08/22
guaifenesin 600 mg tablet, extended release 12 hr 1,200 mg (2 x 600 mg) PO [id number] PRN cough #30 tabs 09/11/22
coQ10 (ubiquinol) 100 mg capsule 100 mg PO DAILY Supplement 10/25/22
lidocaine 5 % topical patch 1 patch topical DAILYPRN PRN back, right shoulder and right hip 10/25/22
potassium chloride 20 mEq oral packet 20 meq PO TUFR Electrolyte Repletion 10/25/22
mecobalamin (vitamin B12) 1,000 mcg chewable tablet (B12 Active) 1,000 mcg PO DAILY Supplement 06/20/23
prednisone 5 mg tablet 5 mg PO DAILY Anti-Inflammatory 06/20/23
torsemide 10 mg tablet 10 mg PO TUFR Fluid Retention/Swelling 06/20/23
cholecalciferol (vitamin D3) 50 mcg (2,000 unit) tablet (Vitamin D3) 50 mcg PO DAILY Supplement 06/26/23
ipratropium bromide 0.02 % solution for inhalation 2.5 ml inhalation R Q4HPRN PRN sob/wheezing 06/26/23
albuterol sulfate 90 mcg/actuation aerosol inhaler 1 puff inhalation R Q4HPRN PRN sob/wheezing 09/05/23
insulin aspart U-100 100 unit/mL (3 mL) subcutaneous pen (Novolog FlexPen U-100 Insulin aspart) 0 sliding scale dose SC AC Diabetes 09/05/23
Review of Systems
-
History Source: Patient
A 12 point ROS was completed and negative except as noted: Yes
Constitutional: Reports Fatigue and Chills; Denies Fever
EENT: Reports Other (Dry mouth)
Respiratory: Denies Cough or Trouble Breathing
Cardiac: Denies Chest Pain or Palpitations
Abdomen/GI: Denies Abdominal Pain, Nausea, Vomiting or Diarrhea
: Reports Frequency and Incontinence; Denies Dysuria, Flank Pain or Bleeding
Musculoskeletal: Reports Joint Pain (knees (chronic)) and Edema
Neurological: Reports Weakness; Denies Dizzy or Headache
Psych: Denies Depression or Anxiety
Physical Exam
Vital Signs
Vital Signs
Temp Pulse Resp BP Pulse Ox
98.3 F 90 14 98/49 98
03/29/24 19:20 03/29/24 23:30 03/29/24 23:30 03/29/24 23:00 03/29/24 23:30
Physical Exam
General: Other (89y F in no acute distress.)
HEENT: Other (Dry MM. No tongue coating / thrush. Neck supple.)
Respiratory: Clear; No Wheezes, Rales or Rhonchi
Cardiac: S1/S2, Regular Rhythm and Murmur (II/ DIETER)
GI: Soft, Non Tender, Non Distended and Normal Bowel Sounds
Musculoskeletal: No Clubbing, No Cyanosis and Other (2+ pitting edema at the ankles bilaterally.)
Neuro: AO x 3 and Other (Weakness in the LE > UE. Symmetric / bilateral. No evident sensory deficits.)
Laboratory Results
-
03/29/24 19:58
03/29/24 19:58
Laboratory Results
Lactic Acid Cancelled 03/29/24 23:45
Total Bilirubin 0.7 mg/dl (0.2-1.3) 03/29/24 19:58
AST 34 U/L (14-36) 03/29/24 19:58
ALT 16 U/L (0-35) 03/29/24 19:58
Alkaline Phosphatase 66 U/L (38-126) 03/29/24 19:58
Impression/Plan
-
A/P: Patient is an 89y F with PMH significant for COPD, hypertension and DM-II who presents to ED complaining of shaking, bladder pain and weakness.
Fall at Home
C7 Compression Fracture
Cervical DDD
Ambulatory Dysfunction
Lower Extremity Weakness
- Admit for further evaluation and treatment.
- CT done in the ED shows C7 compression fracture - new from 08/2023 - suspect occurred during recent fall (2 days ago).
- Multilevel disc changes with areas of cord compression - most notable at C5-6 and C6-7.
- Check MRI for further evaluation.
- Soft cervical collar for now.
- PT / OT evaluations.
- Follow for any new neurologic changes / symptoms.
- Consider further spinal imaging if no culprit lesion noted in C-spine. Patient with multiple prior compression fractures / multilevel degeneration.
- That said, weakness / gait issues seem rather longstanding and doubt that any spinal involvement - if present - would be reversible at this point.
Rigors
- Unclear etiology of shaking / bladder pain.
- UA with no evidence of active infection.
- Bladder scan now to rule out retention - straight cath if necessary.
- Follow temperature curve, monitor for any new symptoms, etc.
- Observe off of any abx for now.
GERD
Vocal Cord Dysfunction
Esophageal Spasm
- Stable. Continue daily PPI.
Benign Hypertension
- BP on the lower side in the ED.
- Hold diltiazem for now. Monitor BP and resume if needed.
DM-II
- Stable. Follow glucose and cover with SSI as needed.
- Update A1C.
ASCVD
Carotid Stenosis
- Stable. No prior ID, CVA, etc.
- Continue Plavix, statin, etc.
LE Edema
Chronic HFpEF
- Stable. LE edema - likely due to immobility - but markedly dry MM, low BP, etc.
- Hold / discontinue diuretic regimen.
- Follow I/Os, daily weights, etc.
Dry Mouth
Polypharmacy
- Stop non-essential medications / try to minimize med burden overall.
- Holding diuretic as noted above.
DVT Prophylaxis: SCDs
Code Status: Full
[2024-03-30 05:25] LABS: Hemoglobin 11.7 g/dL (12.0-16.0); Mean Corp Hgb Conc. 31.6 g/dL (33.0-37.0); Mean Corpuscular Hgb 29.9 pg (27.0-31.0); Mean Corpuscular Volume 94.6 fL (81.0-99.0); Mean Platelet Volume 9.4 fL (7.4-10.4); Platelet Count 163 10^3/uL (130-400); Red Blood Cell Count 3.91 10^6/uL (4.20-5.40); Red Cell Dist. Width 13.2 % (11.5-14.5); White Blood Cell Count 6.9 10^3/uL (4.8-10.8)
[2024-03-30 05:45] LABS: Blood Urea Nitrogen 23 mg/dl (7-17); Calcium 8.8 mg/dl (8.4-10.2); Carbon Dioxide 36 mmol/L (22-30); Chloride 99 mmol/L (98-107); Estimated Creatinine Clearance 47 ml/min; Glucose 118 mg/dl (70-99); Potassium 3.9 mmol/L (3.5-5.1); Sodium 138 mmol/L (135-145); eGFR > 60.00
[2024-03-30 08:06] LABS: Glucose - Point of Care 110 mg/dl (70-99)
--- NOTE | 2024-03-30 08:08 | W.PN.HOSP.TC ---
Today's Communication/Plan
-
MRI c-spine
CT abd
Ceftriaxone empiric
hematology consult
PT/OT
Assessment / Plan
Assessment / Plan
89yo F with neuropathy, asthma on daily prednisone and chronic hypoxic respiratory failure on 2L home O2, DM, HTN, GERD, chronic LE edema, carotid stenosis s/p stent, Hx of falls with L2 compression Fx brought to the hospital with episode of shaking
uncontrollably and lower abdominal pain, more pronounced on urination. UA negative. Also found new C7 compression Fx and mild spinal cord compression at the levels C5-C6, C6-C7, C1-C2, C2-C3 due to osteophyte complexes and disk herniation
A/P:
#Tremors, urinary bladder pain - dysuria
UA neg for UTI
CT and/pelvis
Ceftriaxone and cefuroxime empiric (sulfa allergy - no Bactrim, 89yo - nitrofuranoin not recommended as per warning in EMR)
#mild spinal cord compression at the levels C5-C6, C6-C7, C1-C2, C2-C3
#Hx of L2 compression Fx
#C7 compression Fx without propultion of fragments
#Frequent falls without LOC
Chronic b/l LE weakness
2/2 osteoporosis - outpatient treatment advised
due to osteophyte complexes and disk herniation - therefore chronic
MRI cervical spine
PT/OT
#DM type 2 with neuropathy
Accuchekcs
#TANI
#HLD
#Asthma/COPD not in exacerbation
#HLD
#CAD
#Essential HTN
#Chronic b/l LE swelling
#Carotid stenosis s/p stent
#Hx of vocal cord dysfunction
#Anxiety/depression d/o
cont home meds
cont CPAP
#Severe diffuse calvarial thickening
radiologist concerned for chronic myeloproliferative disease
get Hematology eval
DVT ppx lovenox
FUll code
I have spent at least 55min reviewing chart, test results and providing direct patient care
Anticipated Discharge: 24 - 48 hours
Subjective/Interval History
-
Date of Service: March 30, 2024
Objective Data
-
Labs:
Laboratory Results
03/29/24 03/30/24
19:58 05:03
WBC 7.6 6.9
Hgb 12.5 11.7 L
Hct 39.1 37.0
Plt Count 180 163
Sodium 136 138
Potassium 4.7 3.9
Chloride 97 L 99
Carbon Dioxide 35 H 36 H
BUN 24 H 23 H
Creatinine 0.7 0.7
Glucose 124 H 118 H
Calcium 9.1 8.8
Total Bilirubin 0.7
AST 34
ALT 16
Alkaline Phosphatase 66
Vital Signs:
Vital Signs
Temp Pulse Resp BP Pulse Ox
98.3 F 85 14 124/51 98
03/29/24 19:20 03/30/24 07:00 03/30/24 07:00 03/30/24 07:00 03/30/24 07:35
Review of Systems
-
History Source: Patient
All other systems: Reviewed and negative
Abdomen/GI: Reports Abdominal Pain (RLQ)
Genitourinary: Reports Dysuria
Physical Exam
-
General: No Apparent Distress
HEENT: Normocephalic
Respiratory: Clear to Auscultation
Cardiac: Regular Rhythm
GI: Soft, Nondistended and Tender (RLQ)
Musculoskeletal: No Clubbing, No Cyanosis and No Edema
Neuro: Awake, Alert, Oriented and AO x 3
Psych: Calm
[2024-03-30] MEDS: NOVOLOG FLEXPEN-LOW RESISTANCE SC ×2 (08:12→12:37)
[2024-03-30] MEDS: NSS 1000 IV ×2 (08:13→20:36)
[2024-03-30] MEDS: PROTONIX 40 MG PO (08:13)
[2024-03-30] MEDS: NSS 500 IV (08:13)
[2024-03-30] MEDS: CRESTOR 5 MG PO (08:14)
[2024-03-30] MEDS: PLAVIX 75 MG PO (08:14)
[2024-03-30] MEDS: DELTASONE 5 MG PO (08:14)
[2024-03-30] MEDS: CARDIZEM CD 120 MG PO (08:14)
[2024-03-30 08:21] LABS: COVID-19 Antigen Negative (Negative)
[2024-03-30] MEDS: OMNIPAQUE 50 ML PO (08:26)
[2024-03-30 08:56] LABS: TSH Reflex To Free T4 1.36 uIU/ml (0.47-4.68)
[2024-03-30 08:59] LABS: Glycohemoglobin (HgbA1c) 7.1 % (4.0-5.6)
--- NOTE | 2024-03-30 09:04 | CON.ONC ---
Impression
Impression
Calvarial thickening of unclear significance
C7 fracture
COPD / Asthma
Vocal Cord Spasm
Esophageal Spasm
GERD
Hypertension
DM-II
TANI on CPAP
ASCVD / Carotid Stenosis
Osteoporosis
Plan
Plan
No evidence of marked hematologic abnormalities on CBC would refute typical MPN
Obtain serum protein electrophoresis and kappa lambda light chain
History of chronic IgE elevation
Monitor CBC
Patient History
History of Present Illness
89yo F with neuropathy, asthma on daily prednisone and chronic hypoxic respiratory failure on 2L home O2, DM, HTN, GERD, chronic LE edema, carotid stenosis s/p stent, Hx of falls with L2 compression Fx brought to the hospital with episode of shaking
uncontrollably and lower abdominal pain, more pronounced on urination. UA negative. Also found new C7 compression Fx and mild spinal cord compression at the levels C5-C6, C6-C7, C1-C2, C2-C3 due to osteophyte complexes and disk herniation. Patient
inadvertently noted to have diffuse calvarial thickening with a differential diagnosis of myeloproliferative disease Comparison CTs dating back available for review previously showing normal skull.
Past-Medical/Surgical History
Past Medical History:
COPD / Asthma
Vocal Cord Spasm
Esophageal Spasm
GERD
Hypertension
DM-II
TANI on CPAP
ASCVD / Carotid Stenosis
Osteoporosis
Surgical History:
Appendectomy
Left Carotid Stent
JOSE MARTIN
Carpal Tunnel Surgery
Bladder Repair
Lumpectomy (Benign)
Social History
Tobacco: Non-smoker
Alcohol: None
Drug: None
Living: With Family
Family History
Family History: Other (Mother: Asthma / COPD)
Patient Medication
�Medication �Instructions �Recorded �Confirmed �Last Taken �Type
clopidogrel 75 mg tablet 75 mg PO DAILY Blood clot 08/11/20 09/05/23 09/05/23 Rx
prevention/tx 30 days #30 tabs
montelukast 10 mg tablet 10 mg PO HS Allergies 10/26/20 09/05/23 09/04/23 History
primidone 50 mg tablet 50 mg PO DAILY Neurological 02/27/21 09/05/23 09/05/23 History
Condition
pantoprazole 40 mg tablet,delayed 40 mg PO DAILY Gastrointestinal 05/27/21 09/05/23 09/05/23 History
release issue
rosuvastatin 5 mg tablet 5 mg PO DAILY High cholesterol 08/25/21 09/05/23 09/05/23 History
diltiazem HCl 120 mg capsule,24 120 mg PO DAILY Arrhythmia 02/27/22 09/05/23 09/05/23 History
hr,extended release
gabapentin 100 mg capsule 200 mg PO HS Neurological Condition 07/20/22 09/05/23 09/04/23 History
polyvinyl alcohol-povidone (PF) 1 drp LEFT EYE QIDPRN PRN DRY EYES 07/20/22 09/05/23 01/23/23 History
1.4 %-0.6 % eye drops in a
dropperette (Refresh Classic (PF))
cinnamon bark 500 mg capsule 500 mg PO DAILY Supplement 08/08/22 09/05/23 09/05/23 History
(Cinnamon)
polyethylene glycol 3350 17 gram 17 g PO DAILY Gastrointestinal 08/08/22 09/05/23 09/05/23 History
oral powder packet (Miralax) Issue
guaifenesin 600 mg tablet, 1,200 mg (2 x 600 mg) PO [id number] 09/11/22 09/05/23 01/23/23 Rx
extended release 12 hr PRN cough #30 tabs
coQ10 (ubiquinol) 100 mg capsule 100 mg PO DAILY Supplement 10/25/22 09/05/23 09/05/23 History
lidocaine 5 % topical patch 1 patch topical DAILYPRN PRN back, 10/25/22 09/05/23 06/25/23 History
right shoulder and right hip
potassium chloride 20 mEq oral 20 meq PO TUFR Electrolyte 10/25/22 09/05/23 09/05/23 History
packet Repletion
mecobalamin (vitamin B12) 1,000 1,000 mcg PO DAILY Supplement 06/20/23 09/05/23 09/05/23 History
mcg chewable tablet (B12 Active)
prednisone 5 mg tablet 5 mg PO DAILY Anti-Inflammatory 06/20/23 09/05/23 09/05/23 History
torsemide 10 mg tablet 10 mg PO TUFR Fluid 06/20/23 09/05/23 09/05/23 History
Retention/Swelling
cholecalciferol (vitamin D3) 50 50 mcg PO DAILY Supplement 06/26/23 09/05/23 09/05/23 History
mcg (2,000 unit) tablet (Vitamin
D3)
ipratropium bromide 0.02 % 2.5 ml inhalation R Q4HPRN PRN 06/26/23 09/05/23 Unknown History
solution for inhalation sob/wheezing
albuterol sulfate 90 mcg/actuation 1 puff inhalation R Q4HPRN PRN 09/05/23 09/05/23 Unknown History
aerosol inhaler sob/wheezing
insulin aspart U-100 100 unit/mL 0 sliding scale dose SC AC Diabetes 09/05/23 09/05/23 Unknown History
(3 mL) subcutaneous pen (Novolog
FlexPen U-100 Insulin aspart)
Active Medications
Generic Name Dose Route Start Last Admin
Trade Name Freq PRN Reason Stop Dose Admin
Acetaminophen 650 mg 03/30/24 04:22
Acetaminophen 325 Mg Tablet PO 04/27/24 04:21
Q4HPRN PRN
Mild Pain / Temp > 101
Ceftriaxone Sodium 1,000 mg 03/30/24 10:00
Ceftriaxone 1000 Mg / 10 Ml Vial IV
Q24H SLAVA
Clopidogrel Bisulfate 75 mg 03/30/24 08:00 03/30/24 08:14
Clopidogrel 75 Mg Tablet PO 04/27/24 07:59 75 mg
DAILY SLAVA Administration
Dextrose 12.5 grams 03/30/24 06:49
Dextrose 50% (0.5 Grams/Ml) 50 Ml Syringe IV 04/27/24 06:48
[id number] PRN
hypoglycemia
Protocol
Diltiazem HCl 120 mg 03/30/24 08:00 03/30/24 08:14
Diltiazem 120 Mg Extended Release (24 H) Capsule PO 04/27/24 07:59 120 mg
DAILY SLAVA Administration
Enoxaparin Sodium 40 mg 03/30/24 18:00
Enoxaparin Sodium 40 Mg/0.4 Ml Syringe SC 04/27/24 17:59
QPM SLAVA
Gabapentin 100 mg 03/30/24 22:00
Gabapentin 100 Mg Capsule PO 04/27/24 21:59
HS SLAVA
Glucagon 1 mg 03/30/24 06:49
Glucagon 1 Mg Vial IM 04/27/24 06:48
PRN PRN
hypoglycemia
Protocol
Sodium Chloride 1,000 mls @ 80 mls/hr 03/30/24 06:49 03/30/24 08:13
Nss IV 1,000 mls
[id number] SLAVA Administration
Sodium Chloride 500 mls @ 100 mls/hr 03/30/24 07:49 03/30/24 08:13
Nss IV 03/30/24 12:48 500 mls
BOLUS ONE Administration
Insulin Aspart 0 units 03/30/24 07:30 03/30/24 08:12
Insulin Aspart Low Resistance 300 Units/3 Ml Pen.Injctr SC 04/27/24 07:29 Not Given
AC SLAVA
Protocol
Levalbuterol HCl 0.63 mg 03/30/24 06:49
Levalbuterol 0.63 Mg/3 Ml Ampul INH
R Q6HPRN PRN
SOB
Protocol
Montelukast Sodium 10 mg 03/30/24 22:00
Montelukast Sodium 10 Mg Tablet PO 04/27/24 21:59
HS SLAVA
Pantoprazole Sodium 40 mg 03/30/24 08:00 03/30/24 08:13
Pantoprazole 40 Mg Delayed Release Tablet PO 04/27/24 07:59 40 mg
DAILY SLAVA Administration
Prednisone 5 mg 03/30/24 08:00 03/30/24 08:14
Prednisone 5 Mg Tablet PO 04/27/24 07:59 5 mg
DAILY SLAVA Administration
Rosuvastatin Calcium 5 mg 03/30/24 08:00 03/30/24 08:14
Rosuvastatin (Crestor) 5 Mg Tablet PO 04/27/24 07:59 5 mg
DAILY SLAVA Administration
Sodium Chloride 0 flush 03/30/24 07:00
Sodium Chloride 0.9% (Flush) Syringe IV 04/27/24 06:59
PER PROTOCOL SLAVA
Sterile Water 10 ml 03/30/24 10:00
Sterile Water For Injection 10 Ml Vial IV 04/27/24 09:59
Q24H SLAVA
Physical Exam
-
Physical Exam
General: In a cervical collar no distress
HEENT: EOMI no scleral icterus
Respiratory: Clear; No Wheezes, Rales or Rhonchi
Cardiac: S1/S2, Regular Rhythm and Murmur (II/ DIETER)
GI: Soft, Non Tender, Non Distended and Normal Bowel Sounds
Musculoskeletal: No Clubbing, No Cyanosis and Other (2+ pitting edema at the ankles bilaterally.)
Neuro: AO x 3 and Other (Weakness in the LE > UE. Symmetric / bilateral. No evident sensory deficits.)
Labs
Lab Results
WBC 6.9 10^3/uL (4.8-10.8) 03/30/24 05:03
RBC 3.91 10^6/uL (4.20-5.40) L 03/30/24 05:03
Hgb 11.7 g/dL (12.0-16.0) L 03/30/24 05:03
Hct 37.0 % (37.0-47.0) 03/30/24 05:03
MCV 94.6 fL (81.0-99.0) 03/30/24 05:03
MCH 29.9 pg (27.0-31.0) 03/30/24 05:03
MCHC 31.6 g/dL (33.0-37.0) L 03/30/24 05:03
RDW 13.2 % (11.5-14.5) 03/30/24 05:03
Plt Count 163 10^3/uL (130-400) 03/30/24 05:03
MPV 9.4 fL (7.4-10.4) 03/30/24 05:03
Abs Immat Gran (auto) 0.0 10^3/uL (0-0.05) 03/29/24 19:58
Absolute Neuts (auto) 5.0 10^3/uL (1.4-6.5) 03/29/24 19:58
Absolute Lymphs (auto) 1.4 10^3/uL (1.2-3.4) 03/29/24 19:58
Absolute Monos (auto) 1.0 10^3/uL (0.1-0.6) H 03/29/24 19:58
Absolute Eos (auto) 0.2 10^3/uL (0-0.7) 03/29/24 19:58
Absolute Basos (auto) 0.0 10^3/uL (0-0.2) 03/29/24 19:58
Immature Gran % 0.3 % (0-0.5) 03/29/24:58
Neutrophils % 65.1 % (42.2-75.2) 03/29/24 19:58
Lymphocytes % 17.9 % (20.5-51.1) L 03/29/24 19:58
Monocytes % 13.4 % (1.7-9.3) H 03/29/24 19:58
Eosinophils % 3.0 % (0-6) 03/29/24 19:58
Basophils % 0.3 % (0-2) 03/29/24 19:
Creatinine 0.7 mg/dL (0.6-1.0) 03/30/24 05:03
Vital Signs
Vital Signs
Temp Pulse Resp BP Pulse Ox
98.3 F 80 14 105/60 98
03/29/24 19:20 03/30/24 08:14 03/30/24 07:00 03/30/24 08:14 03/30/24 08:40
[2024-03-30] MEDS: XOPENEX 0.63 MG INHALANT SOLUTION INH ×2 (09:10→22:20)
[2024-03-30] MEDS: STERILE WATER FOR INJECTION 10 ML IV (09:24)
[2024-03-30] MEDS: ROCEPHIN 1000 MG IV (09:24)
[2024-03-30 12:37] LABS: Glucose - Point of Care 105 mg/dl (70-99)
[2024-03-30] MEDS: REFRESH EYE DROPS (PF) 1 DROPS OPHTH (12:53)
--- NOTE | 2024-03-30 13:23 | PTOTSP ---
SPEECH THERAPY SWALLOW EVALUATION:
Patient exhibits clinical signs of mild oropharyngeal dysphagia, in patient with known chronic oropharyngeal dysphagia and esophageal dysphagia and documented on multiple prior VSEs. CXR currently clear for signs of pneumonia. WBC WNL. Patient
tolerating soft/chopped diet and Mildly-thick liquids at home. Recommend continue baseline diet of IDDSI Level 5 Minced/Moist diet, Mildly-thick liquids. Medications crushed in puree. Aspiration precautions: Upright positioning; Small single
sips/bites; Slow rate of intake; Remain upright 30-60 minutes after eating/drinking; Intersperse liquids and alternate textures; 100% supervision and partial assistance as needed with meals; Oral care 3x/day; Monitor for signs of aspiration and d/c
oral diet if any decline in mental/respiratory status. Consider repeat VSE should patient exhibit any signs concerning for aspiration or change in baseline dysphagia. ST to follow at the acute care level to assess diet tolerance, modify as
appropriate, and determine indication for VSE as appropriate.
RECOMMEND:
1) IDDSI Level 5 Minced/Moist diet, Mildly-thick liquids
2) Medications crushed in puree
3) Aspiration precautions: Upright positioning; Small single sips/bites; Slow rate of intake; Remain upright 30-60 minutes after eating/drinking; Intersperse liquids and alternate textures; 100% supervision and partial assistance as needed with
meals; Oral care 3x/day; Monitor for signs of aspiration and d/c oral diet if any decline in mental/respiratory status
4) Consider repeat VSE should patient exhibit any signs concerning for aspiration or change in baseline dysphagia
5) ST to follow
--- NOTE | 2024-03-30 16:47 | CON.NS ---
Consultation
-
Date/Time Consultation Performed: 03/30/2024; 1650
Performing Provider: Esdras
Chief Complaint
History of Present Illness
This is a neurosurgical consultation or an 89-year-old female with active medical issues including asthma, diabetes type 2, GERD, who presented with weakness and shakes. It was reported from the family, the patient was extremely weak and unable to
get up, shaking control be, and dysuria. It is reported the patient has had waxing waning lower extremity and gait dysfunction for many months but has been progressively worse, recently. Patient also endorsed neck pain, which prompted CT of the
cervical spine P CT of the cervical spine demonstrates C7 compression deformity, new from August 2023. MRI of the cervical spine was performed, which demonstrated STIR signal hyperintensity within the C7 vertebral body, suspicious for acute
compression fracture.
Review of Systems
-
10 point review of systems was performed, including constitutional, ENT, cardiovascular, respiratory, GI, , hematologic, neurologic, musculoskeletal, neurologic, and was negative except for as stated in HPI.
Medication and Allergies
Home Medications
Home Medications
�Medication �Instructions �Recorded
clopidogrel 75 mg tablet 75 mg PO DAILY Blood clot 08/11/20
prevention/tx 30 days #30 tabs
montelukast 10 mg tablet 10 mg PO HS Allergies 10/26/20
primidone 50 mg tablet 50 mg PO DAILY Neurological 02/27/21
Condition
pantoprazole 40 mg tablet,delayed 40 mg PO DAILY Gastrointestinal 05/27/21
release issue
rosuvastatin 5 mg tablet 5 mg PO DAILY High cholesterol 08/25/21
diltiazem HCl 120 mg capsule,24 120 mg PO DAILY Arrhythmia 02/27/22
hr,extended release
gabapentin 100 mg capsule 200 mg PO HS Neurological Condition 07/20/22
polyvinyl alcohol-povidone (PF) 1 drp LEFT EYE QIDPRN PRN DRY EYES 07/20/22
1.4 %-0.6 % eye drops in a
dropperette (Refresh Classic (PF))
cinnamon bark 500 mg capsule 500 mg PO DAILY Supplement 08/08/22
(Cinnamon)
polyethylene glycol 3350 17 gram 17 g PO DAILY Gastrointestinal 08/08/22
oral powder packet (Miralax) Issue
guaifenesin 600 mg tablet, 1,200 mg (2 x 600 mg) PO [id number] 09/11/22
extended release 12 hr PRN cough #30 tabs
coQ10 (ubiquinol) 100 mg capsule 100 mg PO DAILY Supplement 10/25/22
lidocaine 5 % topical patch 1 patch topical DAILYPRN PRN back, 10/25/22
right shoulder and right hip
potassium chloride 20 mEq oral 20 meq PO TUFR Electrolyte 10/25/22
packet Repletion
mecobalamin (vitamin B12) 1,000 1,000 mcg PO DAILY Supplement 06/20/23
mcg chewable tablet (B12 Active)
prednisone 5 mg tablet 5 mg PO DAILY Anti-Inflammatory 06/20/23
torsemide 10 mg tablet 10 mg PO TUFR Fluid 06/20/23
Retention/Swelling
cholecalciferol (vitamin D3) 50 50 mcg PO DAILY Supplement 06/26/23
mcg (2,000 unit) tablet (Vitamin
D3)
ipratropium bromide 0.02 % 2.5 ml inhalation R Q4HPRN PRN 06/26/23
solution for inhalation sob/wheezing
albuterol sulfate 90 mcg/actuation 1 puff inhalation R Q4HPRN PRN 09/05/23
aerosol inhaler sob/wheezing
insulin aspart U-100 100 unit/mL 0 sliding scale dose SC AC Diabetes 09/05/23
(3 mL) subcutaneous pen (Novolog
FlexPen U-100 Insulin aspart)
Allergies
Allergies
Allergy/AdvReac Type Severity Reaction Status Date / Time
abacavir sulfate Allergy Unknown Verified 09/05/23 12:33
[From Ziagen]
amoxicillin [Amoxicillin] Allergy Rash, Verified 09/05/23 12:33
tolerates
cephalosporins
aspartame Allergy asthma Verified 09/05/23 12:33
attack -
artifical
sweeteners
banana Allergy ASTHMA Verified 09/05/23 12:33
ATTACK
Beta-Adrenergic Agents Allergy Unknown Verified 09/05/23 12:33
bimatoprost Allergy Palpitation Verified 09/05/23 12:33
s
bupropion Allergy STOMACH Verified 09/05/23 12:33
UPSET
cat dander Allergy CAN'T Verified 09/05/23 12:33
BREATHE
clavulanic acid Allergy unknown - Verified 09/05/23 12:33
beta
lactamase
inhibitors
colesevelam Allergy CRAMPS Verified 09/05/23 12:33
dog dander Allergy CAN'T Verified 09/05/23 12:33
BREATHE
house dust Allergy Unknown Verified 09/05/23 12:33
house dust mite Allergy Unknown Verified 09/05/23 12:33
latanoprost Allergy Palpitation Verified 09/05/23 12:33
s
metformin HCl Allergy spasms in Verified 09/05/23 12:33
[From Glucophage] back/HEART
PROBLEM
mold Allergy Unknown Verified 09/05/23 12:33
monosodium glutamate Allergy DIARRHEA Verified 09/05/23 12:33
pollen extracts Allergy Unknown Verified 09/05/23 12:33
quinapril HCl [From Accupril] Allergy UPSET Verified 09/05/23 12:33
STOMACH
ramipril Allergy Upset Verified 09/05/23 12:33
Stomach
simvastatin [Simvastatin] Allergy feet Verified 09/05/23 12:33
swelled/CAN'T
WALK
Sulfa (Sulfonamide Allergy EYE Verified 09/05/23 12:33
Antibiotics) Swelling
valsartan Allergy BACKACHE/ST Verified 09/05/23 12:33
OMACHACHE
Physical Exam
-
Exam:
Awake, alert, no apparent distress.
Family is at bedside.
Cranial nerves II through XII are grossly intact.
Motor: 5/5 strength bilaterally in upper extremities. Lower extremities, able to lift bilateral lower extremities antigravity.
Sensation to light touch is intact bilaterally in upper and lower extremities
Bilateral upper extremity tremors.
Head is normocephalic atraumatic
Neck is supple
Abdomen is soft
Cardiac regular rate
Extremities are warm
Breathing nonlabored
MRI of the cervical spine performed on 03/30/2024 at approximately 11:14 AM demonstrates multilevel cervical spondylosis. There is very subtle STIR signal hyperintensity within the anterior superior endplate of C7, suspicious for likely acute
compression fracture. There is no obvious evidence of severe cord compression, or cord signal change noted. There is expected, age-appropriate degenerative changes noted throughout the subaxial cervical spine.
CT of the abdomen/pelvis was also reviewed. Imaging is available for review to T9, inferior aspect. I see no obvious evidence of retropulsion to suggest spinal canal compromise.
Problems
-
Problem Status Onset Code
Ambulatory dysfunction R26.2
C7 cervical fracture S12.600A
Assessment / Plan
-
This is an 89-year-old female who has had progressive gait dysfunction, with increased falls. She sustained a fall 2 days prior to admission. She had complaints of neck pain, and therefore underwent a CT, as well as MRI of the cervical spine,
which confirms subtle anterior superior endplate fracture at C7.
Given that this fracture does not extend through all 3 columns, and I see no obvious evidence of ligamentous injury on MRI, okay to treat this, with a soft collar as needed.
Should the patient develop increased neck pain, please call back neurosurgery.
Continue workup per medicine.
Patient can go home per my specialty: Today
[2024-03-30 17:27] LABS: Glucose - Point of Care 229 mg/dl (70-99)
[2024-03-30] MEDS: LOVENOX 40 MG SC (18:00)
[2024-03-30] MEDS: NOVOLOG FLEXPEN-LOW RESISTANCE 2 UNITS SC (18:01)
[2024-03-30] MEDS: NEURONTIN 100 MG PO (20:34)
[2024-03-30] MEDS: SINGULAIR 10 MG PO (20:34)
[2024-03-30 21:23] LABS: Glucose - Point of Care 153 mg/dl (70-99)
[2024-03-30] MEDS: ATROVENT NEBULES 0.5 MG INH (22:20)
[2024-03-30] MEDS: TYLENOL 650 MG PO (22:49)
[2024-03-31 07:30] VITALS: BP 120/53; BP 121/49; PULSE 63; PULSE 68
[2024-03-31 07:37] LABS: Glucose - Point of Care 124 mg/dl (70-99)
[2024-03-31] MEDS: NOVOLOG FLEXPEN-LOW RESISTANCE SC (08:55)
[2024-03-31] MEDS: DELTASONE 5 MG PO (08:58)
[2024-03-31] MEDS: PROTONIX 40 MG PO (08:58)
[2024-03-31] MEDS: PLAVIX 75 MG PO (08:58)
[2024-03-31] MEDS: NSS 1000 IV (09:00)
[2024-03-31] MEDS: CARDIZEM CD 120 MG PO (09:08)
[2024-03-31] MEDS: CRESTOR 5 MG PO (09:09)
[2024-03-31] MEDS: STERILE WATER FOR INJECTION 10 ML IV (09:09)
[2024-03-31] MEDS: XOPENEX 0.63 MG INHALANT SOLUTION INH (09:09)
[2024-03-31] MEDS: ATROVENT NEBULES 0.5 MG INH (09:09)
[2024-03-31] MEDS: ROCEPHIN 1000 MG IV (09:09)
[2024-03-31] MEDS: TYLENOL 650 MG PO ×2 (09:10→20:22)
--- NOTE | 2024-03-31 11:50 | W.PN.HOSP.TC ---
Today's Communication/Plan
-
MRI thoracic and lumbar since progressive LE weakness
NeuroSx consult pending
Stop Ceftriaxone after 3 doses for empiric treatment
Prednisone taper since patient wheezing today
Assessment / Plan
Assessment / Plan
89yo F with neuropathy, asthma on daily prednisone and chronic hypoxic respiratory failure on 2L home O2, DM, HTN, GERD, chronic LE edema, carotid stenosis s/p stent, Hx of falls with L2 compression Fx brought to the hospital with episode of shaking
uncontrollably and lower abdominal pain, more pronounced on urination. UA negative. Also found new C7 compression Fx and mild spinal cord compression at the levels C5-C6, C6-C7, C1-C2, C2-C3 due to osteophyte complexes and disk herniation
A/P:
#Tremors, urinary bladder pain - dysuria
UA neg for UTI
CT and/pelvis: without acute intraabd pathology
Ceftriaxone and cefuroxime empiric (sulfa allergy - no Bactrim, 89yo - nitrofurantoin not recommended as per warning in EMR)
#Chronic ambulatory deficiency
#mild spinal cord compression at the levels C5-C6, C6-C7, C1-C2, C2-C3
#Compression Fx T10, T11, T12, L1, L2
#Hx of L2 compression Fx
#C7 compression Fx without propulsion of fragments
#Frequent falls without LOC
Chronic b/l LE weakness
2/2 osteoporosis - outpatient treatment advised
due to osteophyte complexes and disk herniation - therefore chronic
MRI cervical spine done. Reviewed with neuroSx - soft collar recommended
MRI Thoracic and Lumbar pending
PT/OT: will need rehab
#Asthma/COPD with mild exacerbation with chronic hypoxic respiratory failure on 2L home O2
COnt bronchodilators
Taper steroids
Patient steroid-dependent on 5mg daily at home
#DM type 2 with neuropathy
Accuchekcs
#Stable pancreatic cysts
#Small hepatic cyst
seen on MRI abd in 2020 and stable
#TANI
#HLD
#HLD
#CAD
#Essential HTN
#Chronic b/l LE swelling
#Carotid stenosis s/p stent
#Hx of vocal cord dysfunction
#Anxiety/depression d/o
cont home meds
cont CPAP
#Severe diffuse calvarial thickening
radiologist concerned for chronic myeloproliferative disease
Hematology eval - added SPAP workup, will need outpatient referral
DVT ppx lovenox
FUll code
I have spent at least 35min reviewing chart, test results and providing direct patient care. DIscussed with son over the phone in details
Anticipated Discharge: 24 - 48 hours
Subjective/Interval History
-
Date of Service: March 31, 2024
Objective Data
-
Vital Signs:
Vital Signs
Temp Pulse Resp BP Pulse Ox
97.5 F 75 14 121/49 98
03/31/24 07:30 03/31/24 09:18 03/31/24 09:18 03/31/24 07:30 03/31/24 09:18
I&O
03/30/24 03/31/24 04/01/24
06:59 06:59 06:59
Output Total 700 / 700
Balance -700 / -700
Review of Systems
-
History Source: Patient
All other systems: Reviewed and negative
Physical Exam
-
General: No Apparent Distress
HEENT: Normocephalic
Respiratory: Wheezes
Cardiac: Regular Rhythm
GI: Soft, Nontender and Nondistended
Skin: Warm
Neuro: Awake, Alert and Oriented
[2024-03-31 11:58] LABS: Glucose - Point of Care 245 mg/dl (70-99)
[2024-03-31] MEDS: DELTASONE 60 MG PO (12:23)
--- NOTE | 2024-03-31 12:30 | W.PN.UPDATE ---
Update Note
Progress Note Update
As per son: long Hx of recurrent episodes of�inability to move her legs, that are transient
[2024-03-31] MEDS: NOVOLOG FLEXPEN-LOW RESISTANCE 2 UNITS SC ×2 (13:02→17:26)
--- NOTE | 2024-03-31 14:39 | CM ---
Initial assessment completed
IMM benefit explained to son/caregiver; form signed @ 1415
Pharmacy verified: [facility] @ [address] [facility]
Primary contact and caregiver is sonEmgidio #[phone]
Patient lives in a multilevel home with and son; per son mother sleeps in recliner in the living room; bathroom with tub/hand held shower, shower chair on 2nd floor; home has stair glides
Patient ambulates with Rollator or Wheelchair; unable to manage personal care without assistance; ADLs supported by and son
SNF stay at [facility] 2; states that she is receiving home health VN, PT from [facility]; referral sent to confirm
and son will transport home
PT recommended SNF; and patient not agreeable with that DC plan
Plan: Discharge to home with resumption of home health
[2024-03-31 15:55] VITALS: BP 139/61
[2024-03-31 16:57] LABS: Glucose - Point of Care 248 mg/dl (70-99)
[2024-03-31] MEDS: LOVENOX 40 MG SC (17:27)
[2024-03-31] MEDS: SINGULAIR 10 MG PO (20:22)
[2024-03-31] MEDS: NEURONTIN 100 MG PO (20:22)
[2024-03-31 20:59] LABS: Glucose - Point of Care 257 mg/dl (70-99)
[2024-03-31 23:40] VITALS: BP 124/87
[2024-04-01 07:28] LABS: Glucose - Point of Care 116 mg/dl (70-99)
[2024-04-01 07:41] VITALS: BP 144/84
[2024-04-01 08:11] VITALS: BP 119/55; BP 129/60; PULSE 77; PULSE 79
[2024-04-01] MEDS: NOVOLOG FLEXPEN-LOW RESISTANCE SC (08:33)
[2024-04-01] MEDS: CRESTOR 5 MG PO (08:38)
[2024-04-01] MEDS: DELTASONE 60 MG PO (08:38)
[2024-04-01] MEDS: PROTONIX 40 MG PO (08:39)
[2024-04-01] MEDS: CARDIZEM CD 120 MG PO (08:39)
[2024-04-01] MEDS: PLAVIX 75 MG PO (08:39)
[2024-04-01] MEDS: REFRESH EYE DROPS (PF) 1 DROPS OPHTH (08:40)
--- NOTE | 2024-04-01 10:19 | W.PN.HOSP.TC ---
Addendum entered and electronically signed by Chuck Reich MD 04/04/24 17:35:
Compression fracture, unclear as to etilogy
Original Note:
Today's Communication/Plan
-
cxr ordered
speech consutl
mri t/l spine pending
Assessment / Plan
Assessment / Plan
NAD, clearing her throat
Scleral Anicteric
MMM
No JVD
CTABL
RRR, S1/S2
Soft, NT, ND, BS+
Warm, Dry
C7 compression fracture
Evaluated by neurosurgery. Recommended soft collar as does not extend through all 3 columns and there is no obvious evidence of ligamentous injury
Ambulatory dysfunction with frequent falls MRI thoracic and lumbar spine pending
PT OT recommending SNF
Asthma COPD with mild exacerbation now improved continue bronchodilators Taper steroids to 5 mg daily for which she takes chronically, continue montelukast
Diabetes type 2 with neuropathy A1c 7.1. Continue Accu-Chek sliding scale
TANI continue cpap
HLD continue statin
Severe diffuse calvarial thickening
radiologist concerned for chronic myeloproliferative disease
Hematology eval - added SPAP workup, will need outpatient referral
Anticipated Discharge: 24 - 48 hours
Subjective/Interval History
-
Date of Service: April 01, 2024
seen and examnied
clearing thrat, coughing after eating, diet is mashed/pureed
Objective Data
-
Vital Signs:
Vital Signs
Temp Pulse Resp BP Pulse Ox
97.6 F 75 18 144/84 96
04/01/24 07:41 04/01/24 07:41 04/01/24 07:41 04/01/24 07:41 04/01/24 07:41
I&O
03/31/24 04/01/24 04/02/24
06:59 06:59 06:59
Intake Total 1800 / 1800
Output Total 700 / 700 825 / 825
Balance -700 / -700 975 / 975
[2024-04-01] MEDS: STERILE WATER FOR INJECTION 10 ML IV (10:59)
[2024-04-01] MEDS: ROCEPHIN 1000 MG IV (10:59)
[2024-04-01 11:28] LABS: Glucose - Point of Care 155 mg/dl (70-99)
--- NOTE | 2024-04-01 11:33 | CM ---
CM reviewed chart, patient seen bedside, discussed PT recommendation of SNF. Patient reports she is current with [facility], her is 89 years old but her son Emigdio is in the home and provides care. Patient reports she does have a stair
glide, walker, and wheel chair, has had a few falls within the past two months. Patient agreeable to call to son Emigdio. CM spoke with son, Emigdio reports now patient is agreeable to go to [facility]. Son reports patient has been there in the past.
CM discussed sending additional referrals ask back up option, patient only agreeable to [facility]. CM discussed if no beds at [facility] will need to explore other options. CM will continue to follow for all discharge planning needs.
Plan; referral to [facility], no auth needed.
[2024-04-01] MEDS: NOVOLOG FLEXPEN-LOW RESISTANCE 1 UNITS SC (12:19)
[2024-04-01 16:16] VITALS: BP 91/54
[2024-04-01 16:22] LABS: Glucose - Point of Care 243 mg/dl (70-99)
[2024-04-01] MEDS: NOVOLOG FLEXPEN-LOW RESISTANCE 2 UNITS SC (17:32)
[2024-04-01] MEDS: LOVENOX 40 MG SC (17:34)
[2024-04-01] MEDS: SINGULAIR 10 MG PO (20:39)
[2024-04-01] MEDS: NEURONTIN 100 MG PO (20:39)
[2024-04-01] MEDS: XOPENEX 0.63 MG INHALANT SOLUTION INH (20:48)
[2024-04-01] MEDS: ATROVENT NEBULES 0.5 MG INH (20:49)
[2024-04-01 21:43] LABS: Glucose - Point of Care 207 mg/dl (70-99)
[2024-04-01 22:40] VITALS: PULSE 88
[2024-04-01 23:43] VITALS: BP 129/67
[2024-04-02 07:22] LABS: Hematocrit 34.7 % (37.0-47.0); Hemoglobin 11.3 g/dL (12.0-16.0); Mean Corp Hgb Conc. 32.6 g/dL (33.0-37.0); Mean Platelet Volume 9.9 fL (7.4-10.4); Platelet Count 157 10^3/uL (130-400); Red Blood Cell Count 3.77 10^6/uL (4.20-5.40); Red Cell Dist. Width 13.3 % (11.5-14.5); White Blood Cell Count 8.5 10^3/uL (4.8-10.8)
[2024-04-02 07:30] VITALS: BP 130/62
[2024-04-02 07:37] LABS: Blood Urea Nitrogen 22 mg/dl (7-17); Calcium 9.1 mg/dl (8.4-10.2); Carbon Dioxide 27 mmol/L (22-30); Chloride 106 mmol/L (98-107); Estimated Creatinine Clearance 55 ml/min; Glucose 117 mg/dl (70-99); Potassium 3.8 mmol/L (3.5-5.1); Sodium 139 mmol/L (135-145); eGFR > 60.00
[2024-04-02 07:47] LABS: Glucose - Point of Care 109 mg/dl (70-99)
[2024-04-02] MEDS: NOVOLOG FLEXPEN-LOW RESISTANCE SC (08:01)
[2024-04-02] MEDS: CRESTOR 5 MG PO (09:09)
[2024-04-02] MEDS: PROTONIX 40 MG PO (09:09)
[2024-04-02] MEDS: DELTASONE 50 MG PO (09:09)
[2024-04-02] MEDS: PLAVIX 75 MG PO (09:09)
[2024-04-02] MEDS: CARDIZEM CD 120 MG PO (09:09)
[2024-04-02] MEDS: STERILE WATER FOR INJECTION IV (09:11)
--- NOTE | 2024-04-02 09:32 | PN.CDI ---
CDI
- -
CDI:
Physician Documentation Request
Admit Date: 03/30/24 00:41
Dear Doctor Damir,
Patient presented to ED after 'suffering an episode of shaking. Patient reported she fell out of her chair 2 days (prior) onto her knees and was on ground for 20 minutes...'
CT of cervical spine found new endplate fracture of C7. Cervical MRI states subacute superior endplate fracture of C7 and reports Diffuse bone demineralization (suggesting osteoporotic insufficiency fractures).
Please provide further specificity regarding the diagnosis of fracture:
Etiology
Traumatic
Pathologic due to osteoporosis
Due to a combination of trauma and a pathological process
but the trauma alone would not likely have been sufficient
to cause the fracture
Other
Use of terms such as suspected, likely, concern for, or probable (associated with a specific diagnosis that is being evaluated, monitored, or treated as if it exists) are acceptable and can be coded in the inpatient setting, when documented at the
time of discharge.
Thank you,
Violet Ochoa RN, BSN
CDI Specialist
tiger text
Please use your independent medical judgment in providing your response.
--- NOTE | 2024-04-02 10:54 | CM ---
Addendum entered by Mary Gibbs 04/02/24 14:51:
transport scheduled for 4:30 p.m.
Original Note:
CM reviewed chart, discussed with [facility], able to offer patient a bed today after 4:00 p.m. TT to Hospitalist with update, will require Covid test prior to discharge. Call to patients son, spouse Finesse answered phone, discussed 4:00 p.m.
transport time. IMM verbally reviewed with spouse, familiar with form, placed in chart. CM will continue to follow for all discharge planning needs.
Plan; discharge to [facility], 4:00 p.m. ambulance transport
[facility]:
Report: [phone]
[2024-04-02 11:50] VITALS: BP 139/64; PULSE 70; O2SAT 97
[2024-04-02 12:02] VITALS: BP 139/64; PULSE 72; O2SAT 98
[2024-04-02 12:07] LABS: Glucose - Point of Care 262 mg/dl (70-99)
[2024-04-02 13:02] LABS: COVID-19 Antigen Negative (Negative)
[2024-04-02] MEDS: NOVOLOG FLEXPEN-LOW RESISTANCE 3 UNITS SC (13:40)
--- NOTE | 2024-04-02 13:46 | W.DCSUMMARY ---
Discharge Summary
Discharge Data
Date of Admission: 03/30/24
Date of Discharge: 04/02/24
-
Pending Results: No
Hospital Course
89y F with PMH significant for asthma, DM-II, TANI on CPAP and GERD / esophageal stricture
Presented with weakness and shakes. And bladder.. Presented with shaking uncontrollably, lower abdominal pain, that was worse with urination and was also found to have a C7 compression fracture and mild spinal cord compression at level C5-C6,
C6-C7, C1-C2, C2-C3 due to an disc herniation. Evaluated by neurosurgery recommended soft collar. Due to the chronic ambulatory dysfunction MRI thoracic lumbar spine was obtained which again demonstrated findings as report as below. CT did
demonstrate concerning findings for diffuse Valvular thickening with differential diagnosis of myeloproliferative disease. Therefore oncology was consulted blood work was obtained and sent out. Will need outpatient oncology PCP neurosurgery
orthopedic spine surgery follow-up.
Additionally, should be noted that COPD was treated with*during steroids now on tapering dose until 04/15/2024 on which day will start taking chronic home dose 5 mg daily
Concern for aspiration therefore evaluated by speech recommending minced moist diet. Aspiration precautions.
TSpine MRI
IMPRESSION:
There is extensive mild and moderate compression deformities throughout the thoracic spine which appear chronic. There is trace associated retropulsion at the T5 and T12 levels.
There is extensive degenerative changes within the thoracic spine with pronounced at, T5-T6 T8-T9 and T12-L1 there is resultant mild/moderate canal stenosis. There is additional high-grade neuroforaminal narrowing bilaterally at the T9-T11 levels.
LSpine MRI
IMPRESSION:
There is a moderate chronic compression deformity of the L1 vertebral body.
There is a mild compression deformity of the L2 vertebral body with trace edema along the anterior aspect of the superior endplate which is likely degenerative in nature, less likely related to an acute fracture.
There is extensive degenerative changes of the lumbar spine with resultant multifocal spinal canal and neuroforaminal narrowing most pronounced at L4-L5 where there is resultant mild/moderate canal stenosis, moderate right-sided neuroforaminal
narrowing and mild left-sided neuroforaminal narrowing.
On the day of discharge of 04/02/2024
Seen and examined. No new complaints. No acute overnight events.
NAD
Scleral Anicteric
No JVD
CTABL
RRR, S1/S2
Soft, NT, ND, BS+
Warm, Dry
Discharge Plan
-
Patient Disposition: Snf/SNF
Discharge Diagnosis/Procedures: fall
asthma/copd exacerbation
Activity Restrictions/Additional Instructions:
Presented with weakness and shakes. And bladder.. Presented with shaking uncontrollably, lower abdominal pain, that was worse with urination and was also found to have a C7 compression fracture and mild spinal cord compression at level C5-C6,
C6-C7, C1-C2, C2-C3 due to an disc herniation. Evaluated by neurosurgery recommended soft collar. Due to the chronic ambulatory dysfunction MRI thoracic lumbar spine was obtained which again demonstrated findings as report as below. CT did
demonstrate concerning findings for diffuse Valvular thickening with differential diagnosis of myeloproliferative disease. Therefore oncology was consulted blood work was obtained and sent out. Will need outpatient oncology PCP neurosurgery
orthopedic spine surgery follow-up.
Additionally, should be noted that COPD was treated with*during steroids now on tapering dose until 04/15/2024 on which day will start taking chronic home dose 5 mg daily
Concern for aspiration therefore evaluated by speech recommending minced moist diet. Aspiration precautions.
TSpine MRI
IMPRESSION:
There is extensive mild and moderate compression deformities throughout the thoracic spine which appear chronic. There is trace associated retropulsion at the T5 and T12 levels.
There is extensive degenerative changes within the thoracic spine with pronounced at, T5-T6 T8-T9 and T12-L1 there is resultant mild/moderate canal stenosis. There is additional high-grade neuroforaminal narrowing bilaterally at the T9-T11 levels.
LSpine MRI
IMPRESSION:
There is a moderate chronic compression deformity of the L1 vertebral body.
There is a mild compression deformity of the L2 vertebral body with trace edema along the anterior aspect of the superior endplate which is likely degenerative in nature, less likely related to an acute fracture.
There is extensive degenerative changes of the lumbar spine with resultant multifocal spinal canal and neuroforaminal narrowing most pronounced at L4-L5 where there is resultant mild/moderate canal stenosis, moderate right-sided neuroforaminal
narrowing and mild left-sided neuroforaminal narrowing.
Referrals:
UNKNOWN - PT DOES,NOT KNOW [Family Provider] -
Additional Discharge Medication Instructions: Prednisone taper
40 mg daily for 3 days
30 mg daily 3 days
20 mg daily 3 days
10 mg daily 3 days
5 mg indefinitely as this is chronic home dose (to resume on 04/15/2024)
Prescriptions:
New
prednisone 10 mg tablet
See Taper PO DIRECTED Qty: 30 0RF
Taper: Prednisone DC Starting at 40 mg daily
40 mg Daily for 3 Days and 0 Hour
30 mg Daily for 3 Days and 0 Hour
20 mg Daily for 3 Days and 0 Hour
10 mg Daily for 3 Days and 0 Hour
Continued
clopidogrel 75 MG tablet
75 mg PO DAILY 30 Days Qty: 30 0RF
montelukast 10 MG tablet
10 mg PO HS
primidone 50 MG tablet
50 mg PO DAILY
pantoprazole 40 MG tablet,delayed release (DR/EC)
40 mg PO DAILY
rosuvastatin 5 mg Tablet
5 mg PO DAILY
diltiazem HCl 120 mg Capsule,Extended Release 24 Hr
120 mg PO DAILY
gabapentin 100 mg capsule
200 mg PO HS
Refresh Classic (PF) 1.4-0.6 % [place]rette
1 drp LEFT EYE QIDPRN PRN (Reason: DRY EYES)
polyethylene glycol 3350 [Miralax] 17 gram Powder In Packet
17 g PO DAILY
cinnamon bark [Cinnamon] 500 mg Capsule
500 mg PO DAILY
guaifenesin 600 mg Tablet Extended Release 12hr
1,200 mg PO [id number] PRN (Reason: cough) Qty: 30 0RF
potassium chloride 20 mEq Packet
20 meq PO TUFR
lidocaine 5 % Adhesive Patch,Medicated
1 patch TOPICAL DAILYPRN PRN (Reason: back, right shoulder and right hip)
coQ10 (ubiquinol) 100 mg Capsule
100 mg PO DAILY
torsemide 10 mg Tablet
10 mg PO TUFR
mecobalamin (vitamin B12) [B12 Active] 1,000 mcg Tablet,Chewable
1,000 mcg PO DAILY
ipratropium bromide 0.02 % solution
2.5 ml inhalation R Q4HPRN PRN (Reason: sob/wheezing)
cholecalciferol (vitamin D3) [Vitamin D3] 50 mcg (2,000 unit) Tablet
50 mcg PO DAILY
albuterol sulfate 90 mcg/actuation Hfa Aerosol Inhaler
1 puff INHALATION R Q4HPRN PRN (Reason: sob/wheezing)
insulin aspart U-100 [Novolog FlexPen U-100 Insulin] 100 unit/mL (3 mL) insulin pen
0 sliding scale dose SC AC
Held
prednisone 5 mg Tablet
5 mg PO DAILY
Hold Instructions: Resume on 04/15/24.
Discharge Orders:
Discharge Patient (As Directed); Ordered 04/02/24
Ordered By: Chuck Reich
Discharge Date and Time
Print Language: SETSWANA
--- NOTE | 2024-04-02 14:09 | PTCARENOTE ---
attempted to call report to: Report: [phone] number provided by CM. no answer. VM left requesting CB.
[2024-04-02 15:58] VITALS: BP 158/72
[2024-04-02 16:17] VITALS: BP 137/71; BP 153/80; BP 158/72; PULSE 77; PULSE 78; PULSE 86
[2024-04-02 22:24] LABS: Alpha 1 Globulin 0.28 g/dL (0.19-0.46); Alpha 2 Globulin 0.99 g/dL (0.48-1.05); Free Kappa Light Chains,Quant 18.17 mg/L (3.30-19.40); Free Lambda Light Chains,Quant 14.94 mg/L (5.71-26.30); IgA 175 mg/dL (68-408); IgG 647 mg/dL (768-1632); IgM 56 mg/dL (35-263); Immunofixation Electrophoresis IFE Done; Kappa/Lambda Fr Light Ratio 1.22 (0.26-1.65); Total Protein-Electrophoresis 5.9 g/dL (6.3-8.2)
== END 2024-04-02 16:39 | DRG 552 ==
LOC: 4 WEST ACU 00:41
PROVIDERS: Emergency Medicine; Internal Medicine; ADMITTING PHYSICIAN Hospitalist; ATTENDING PHYSICIAN Hospitalist; CONSULT PHYSICIAN Internal Medicine Hematology & Oncology; EMERGENCY PHYSICIAN Emergency Medicine; OTHER PHYSICIAN Neurological Surgery
DX: S12.601A Unspecified nondisplaced fracture of seventh cervical vertebra, initial encounter for closed fracture (principal); D47.1 Chronic myeloproliferative disease; I50.32 Chronic diastolic (congestive) heart failure; J44.1 Chronic obstructive pulmonary disease with (acute) exacerbation; J96.11 Chronic respiratory failure with hypoxia; M50.01 Cervical disc disorder with myelopathy, high cervical region; M50.022 Cervical disc disorder at C5-C6 level with myelopathy; M50.023 Cervical disc disorder at C6-C7 level with myelopathy; J45.901 Unspecified asthma with (acute) exacerbation; K21.9 Gastro-esophageal reflux disease without esophagitis; I11.0 Hypertensive heart disease with heart failure; I25.10 Atherosclerotic heart disease of native coronary artery without angina pectoris; E11.40 Type 2 diabetes mellitus with diabetic neuropathy, unspecified; G47.33 Obstructive sleep apnea (adult) (pediatric); J38.3 Other diseases of vocal cords; F41.9 Anxiety disorder, unspecified; F32.A Depression, unspecified; K22.4 Dyskinesia of esophagus; R26.89 Other abnormalities of gait and mobility; R29.6 Repeated falls; R30.0 Dysuria; R25.1 Tremor, unspecified; M81.0 Age-related osteoporosis without current pathological fracture; E78.00 Pure hypercholesterolemia, unspecified; W07.XXXA Fall from chair, initial encounter; Z88.8 Allergy status to other drugs, medicaments and biological substances; Z95.828 Presence of other vascular implants and grafts; Z88.0 Allergy status to penicillin; Z88.2 Allergy status to sulfonamides; Z79.02 Long term (current) use of antithrombotics/antiplatelets; Z79.4 Long term (current) use of insulin; Z79.52 Long term (current) use of systemic steroids; Z79.899 Other long term (current) drug therapy; Z11.52 Encounter for screening for COVID-19; Z99.81 Dependence on supplemental oxygen
CPT/HCPCS: 70450; 71045; 71046; 72125; 72156; 72157; 72158; 74177; 80048; 80053; 81003; 82784; 82962; 83036; 83521; 83605; 84155; 84165; 84443; 85025; 85027; 86334; 87811; 92526; 92610; 93005; 94640; 94760; 97167; 97530; 99285; A9575; Q9967

== ENCOUNTER 2024-05-20 15:12 | Inpatient (IN) | payer MEDICARE, BC, SELFPAY ==
[2024-05-17 16:08] VITALS: BP 105/54
[2024-05-17 16:09] VITALS: BP 105/54
[2024-05-17 16:10] VITALS: BP 105/54; BMI 26.9
[2024-05-17 17:00] VITALS: BP 124/66
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
[2024-05-17] MEDS: NSS 500 IV (17:22)
[2024-05-17] MEDS: LIDOCAINE 4% PATCH 1 PATCH TOPICAL (17:22)
[2024-05-17 17:42] LABS: Hematocrit 34.6 % (37.0-47.0); Hemoglobin 11.4 g/dL (12.0-16.0); Mean Corp Hgb Conc. 32.9 g/dL (33.0-37.0); Mean Corpuscular Hgb 30.7 pg (27.0-31.0); Mean Corpuscular Volume 93.3 fL (81.0-99.0); Mean Platelet Volume 9.4 fL (7.4-10.4); Platelet Count 197 10^3/uL (130-400); Red Blood Cell Count 3.71 10^6/uL (4.20-5.40); Red Cell Dist. Width 14.1 % (11.5-14.5); White Blood Cell Count 11.2 10^3/uL (4.8-10.8)
[2024-05-17 17:53] LABS: ALT (SGPT) 12 U/L (0-35); AST (SGOT) 21 U/L (14-36); Albumin 3.5 g/dl (3.5-5.0); Alkaline Phosphatase 80 U/L (38-126); Blood Urea Nitrogen 27 mg/dl (7-17); Calcium 9.3 mg/dl (8.4-10.2); Carbon Dioxide 33 mmol/L (22-30); Chloride 101 mmol/L (98-107); Creatine Phosphokinase 118 U/L (30-135); Estimated Creatinine Clearance 56 ml/min; Glucose 115 mg/dl (70-99); Sodium 139 mmol/L (135-145); Total Bilirubin 0.5 mg/dl (0.2-1.3); eGFR > 60.00
[2024-05-17 19:00] VITALS: BP 126/44
[2024-05-17] MEDS: TORADOL 15 MG IV (19:19)
--- NOTE | 2024-05-17 20:09 | HPS.HSE ---
Family Physician
-
Family Physician: Carrie Nuñez
Chief Complaint
-
Back Pain
History of Present Illness
Patient is an 89 y/o female past medical history of COPD on chronic prednisone and home oxygen, ASCVD s/p left carotid stent, diabetes mellitus and osteoporosis with history of multiple fracture who presents with ambulatory dysfunction. Patient
notes she was discharged from [facility] about 2 weeks ago. Since that time she reports a few falls, most recently two night ago. She reports her was helping he get back into her recliner chair when her hand slipped. She reports she
lands hard in the chair and since that time has been having increased low back. She reports pain is much worse with movement. She has been taking Tylenol with only partial relief.
Medical History
Past Medical History
Past Medical History: Reports Other
Additional Past Medical History:
COPD / Asthma
Vocal Cord Spasm
Esophageal Spasm
GERD
Hypertension
DM-II
TANI on CPAP
ASCVD / Carotid Stenosis
Osteoporosis
Chronic Lower Extremity Edema
Past Surgical History: Reports Other
Additional Past Surgical History:
Appendectomy
Left Carotid Stent
JOSE MARTIN
Carpal Tunnel Surgery
Bladder Repair
Lumpectomy (Benign)
Social History
Tobacco: Non-smoker
Alcohol: None
Drug: None
Living: With Family
Family History
Family History: Other (Mother: Asthma / COPD)
Allergies / Home Medications
Allergies reflects when Allergies were last updated in [facility].
Home Medications with original date entered in [facility]
Allergy/Medication List:
Medications on admission are unable to be verified or confirmed at this time.
If medication reconciliation has not been performed, why?: Medication List N/A
Review of Systems
-
A 12 point ROS was completed and negative except as noted: Yes
Constitutional: Denies Fever or Chills
Respiratory: Denies Cough or Trouble Breathing
Cardiac: Denies Chest Pain or Palpitations
Abdomen/GI: Reports Constipated
Physical Exam
Vital Signs
Vital Signs
Temp Pulse Resp BP Pulse Ox
97.6 F 65 17 126/44 98
05/17/24 16:10 05/17/24 19:00 05/17/24 19:00 05/17/24 19:00 05/17/24 19:00
Physical Exam
General: Comfortable and Conversant
HEENT: Anicteric and Moist mucous membranes
Respiratory: Clear and Non Labored Respirations
Cardiac: S1/S2, Regular Rhythm and Murmur (II/ Systolic)
GI: Soft and Non Tender
Rectal: Deferred by Provider
Musculoskeletal: No Clubbing, No Cyanosis and Other (+2 pitting edema bilaterally)
Skin: Warm and Dry
Neuro: Awake, Alert, Oriented and Other (Difficult to perform neurologic evaluation as mobility is limited due to pain)
Psych: Calm
Laboratory Results
-
05/17/24 17:21
05/17/24 17:21
Laboratory Results
Total Bilirubin 0.5 mg/dl (0.2-1.3) 05/17/24 17:21
AST 21 U/L (14-36) 05/17/24 17:21
ALT 12 U/L (0-35) 05/17/24 17:21
Alkaline Phosphatase 80 U/L (38-126) 05/17/24 17:21
Data Reviewed
-
Lab Data: Labs Reviewed by me
Old Records: Reviewed
Impression/Plan
-
Acute Back Pain, likely related to new L4 Compression Fracture
-Add Lidocaine Patch
-Continue Tylenol 1000mg TID
-Continue Toradol 15mg q6h prn
-Continue gabapentin as prior to admission
Ambulatory Dysfunction
-Consult PT/OT
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
-Continue supplemental oxygen
COPD / Asthma, no acute exacerbation
-Continue prednisone
-Continue montelukast
ASCVD / Carotid Stenosis s/p Left Carotid Stent
-Continue Plavix
Hypertension
-Continue diltiazem
DM-II
-Monitor sugars and continue coverage insulin
Chronic Lower Extremity Edema
-Continue Torsemide
GERD
Vocal Cord Spasm
Esophageal Spasm
-Continue Protonix
Obstructive Sleep Apnea
-Continue CPAP
DVT proph: SCDs
Code Status: Full Code
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
[2024-05-17 20:40] LABS: Glucose - Point of Care 122 mg/dl (70-99)
[2024-05-17 22:25] VITALS: BP 105/69
[2024-05-17] MEDS: NEURONTIN 200 MG PO (22:48)
[2024-05-17] MEDS: TYLENOL 1000 MG PO (22:48)
--- NOTE | 2024-05-17 23:00 | PTCARENOTE ---
Received patient from ED. Patient was transferred directly from stretcher to bed. Patient assessed. VSS. WOC consult placed for potential DTI on buttocks. Patient oriented to the unit. Per admission protocol, patient made NPO since she stated she
'needs thickened liquids or she chokes'. Speech consulted. Patient verbalized an understanding to ring for any transfers. Bed alarm placed for safety.
[2024-05-18] VITALS: PULSE 89
[2024-05-18 04:39] VITALS: PULSE 85
[2024-05-18 04:51] VITALS: BMI 26.6
[2024-05-18 07:00] VITALS: BP 133/60
[2024-05-18 07:59] LABS: Blood Urea Nitrogen 25 mg/dl (7-17); Calcium 8.6 mg/dl (8.4-10.2); Carbon Dioxide 31 mmol/L (22-30); Chloride 104 mmol/L (98-107); Estimated Creatinine Clearance 55 ml/min; Glucose 110 mg/dl (70-99); Sodium 140 mmol/L (135-145); eGFR > 60.00
[2024-05-18 08:10] LABS: Glucose - Point of Care 119 mg/dl (70-99)
[2024-05-18] MEDS: LIDOCAINE 4% PATCH 1 PATCH TOPICAL (08:24)
[2024-05-18] MEDS: NOVOLOG FLEXPEN-LOW RESISTANCE SC (08:24)
[2024-05-18] MEDS: CARDIZEM CD 120 MG PO (08:25)
[2024-05-18] MEDS: DELTASONE 5 MG PO (08:25)
[2024-05-18] MEDS: CRESTOR 5 MG PO (08:25)
[2024-05-18] MEDS: PLAVIX 75 MG PO (08:25)
[2024-05-18] MEDS: PROTONIX 40 MG PO (08:25)
[2024-05-18] MEDS: MIRALAX 17 GRAMS PO (08:25)
[2024-05-18] MEDS: MYSOLINE 50 MG PO (08:25)
[2024-05-18] MEDS: TYLENOL 1000 MG PO ×3 (08:25→21:35)
[2024-05-18] MEDS: DEMADEX 10 MG PO (08:26)
--- NOTE | 2024-05-18 09:53 | PTCARENOTE ---
Removed briefs to help prevent UTI, and promote patient comfort. Extra chucks provided, and placed.
[2024-05-18 11:00] VITALS: BP 125/64
[2024-05-18 11:35] LABS: Glucose - Point of Care 159 mg/dl (70-99)
[2024-05-18 12:58] VITALS: BMI 26.6
--- NOTE | 2024-05-18 13:06 | W.PN.HOSP.TC ---
Today's Communication/Plan
-
see outlined plan below
Assessment / Plan
Assessment / Plan
Acute Back Pain, likely related to new L4 Compression Fracture
- obtain MRI L and T spine - can review with IR for any procedures
- pain control continue Tylenol TID, Toradol prn, continue Gabapentin
- add Tramadol
- continue Lido patch
- PT/OT - SNF at discharge
Ambulatory Dysfunction
- PT/OT - SNF at discharge
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
- continue supplemental oxygen
COPD / Asthma, no acute exacerbation
- continue prednisone
- continue montelukast
ASCVD / Carotid Stenosis s/p Left Carotid Stent
- continue Plavix
Hypertension
- continue diltiazem
DM-II
- monitor sugars and continue coverage insulin
Chronic Lower Extremity Edema
- continue Torsemide
GERD
Vocal Cord Spasm
Esophageal Spasm
- continue Protonix
Obstructive Sleep Apnea
- continue CPAP
DVT proph: SCDs
Code Status: Full Code
Anticipated Discharge: > 48 hours
Subjective/Interval History
-
Date of Service: May 18, 2024
reports pain in lower back
Objective Data
-
Labs:
Laboratory Results
05/18/24
06:36
Sodium 140
Potassium 4.0
Chloride 104
Carbon Dioxide 31 H
BUN 25 H
Creatinine 0.6
Glucose 110 H
Calcium 8.6
Vital Signs:
Vital Signs
Temp Pulse Resp BP Pulse Ox
98.2 F 70 16 133/60 94
05/18/24 07:00 05/18/24 07:00 05/18/24 07:00 05/18/24 07:00 05/18/24 07:00
Physical Exam
-
General: No Apparent Distress and Appears Chronically Ill
HEENT: Normocephalic and Atraumatic
Cardiac: Regular Rhythm and S1/S2
GI: Soft
Neuro: AO x 3
Psych: Calm
Data Reviewed
-
Total Time Spent with Patient (in minutes): 42
Labs: Labs Reviewed by me
[2024-05-18] MEDS: NOVOLOG FLEXPEN-LOW RESISTANCE 1 UNITS SC (13:23)
[2024-05-18 15:00] VITALS: BP 130/52
--- NOTE | 2024-05-18 15:37 | PTOTSP ---
Speech therapy
Presentation: Patient's speech and language appeared to be WNL during conversation. Patient denied any communicative defiicts.
Swallowing Hx: Patient expressed she is on thickened liquids at home but is unable to recall the consistency. Patient showed BUSINESS TRANSFORMATION CONSULTANT cup of honey thick liquid from meal tray and stated this is thicker than her drinks at home. Patient recalled using 1
medicine cup of thickener to every drink at home.
05/28/21 VSE: NDD Level 2 and nectar thick liquids
04/01/24 ST: IDDSI 5 and mildly thick liquids
Swallowing Function: BUSINESS TRANSFORMATION CONSULTANT observed patient with several sips of honey thick and nectar thick (cup sips) and bites of puree solids in which patient appeared to tolerate as she did not exhibit any overt clinical s/sx of aspiration. Patient stated she
is not interested in harder solids as she prefers puree solids and is afraid of choking.
Recommendations:
1) IDDSI Level 4; puree and mildly thick (nectar)
2) Aspiration precautions
3) Medications as tolerated
Plan: BUSINESS TRANSFORMATION CONSULTANT will continue to follow to ensure tolerance; pending hospitalization.
--- NOTE | 2024-05-18 16:11 | CM ---
Addendum entered by Jia Crockett 05/19/24 08:08:
Afters hour message from son
Confirming dc from [facility] 04/30/24
Pt has qualifying stay until 05/29/24
Come 05/30/24, no qualifying stay based on prior SNF stay
Original Note:
CM met with pt, spouse and son/POAin a 2SH with 4+4 HEATHER
Pt has astairglides 2x, one to main living area and another to 2nd floor
She typically sleeps in a recline and ambulates with a rollator in the home
She has a transport chair for the community
Pt is current with [facility]
She is on home O2 2L baseline, provider unknown
PCP- Carrie Nuñez
Pt is OBS- BERUMEN verbally reviewed
Pt currently does not meet inpt criteria per Dr Beltran
Remains OBS appropriate
Pt may have qualifying stay as she was recently discharged frome [facility]
Son will prpvide dc date to CM, pt noted she believes was discharged from SNF on 04/30/24
Plan to follow up on SNF dc date
Anticipate need for SNF on dc
Pt is hopeful for [facility]
No funds intact for private payment
If no qualifying stay, will need [facility] SNF
Discharge Disposition- anticipate SNF
[2024-05-18 17:30] LABS: Glucose - Point of Care 251 mg/dl (70-99)
[2024-05-18] MEDS: NOVOLOG FLEXPEN-LOW RESISTANCE 3 UNITS SC (17:39)
[2024-05-18] MEDS: MIRALAX PO (19:56)
[2024-05-18] MEDS: NEURONTIN 200 MG PO (21:38)
[2024-05-18 21:40] LABS: Glucose - Point of Care 160 mg/dl (70-99)
[2024-05-18 22:10] VITALS: PULSE 74
[2024-05-18] MEDS: REFRESH EYE DROPS (PF) 1 DROPS OPHTH (23:22)
[2024-05-19 03:46] VITALS: PULSE 77
[2024-05-19 05:06] LABS: Hematocrit 31.8 % (37.0-47.0); Hemoglobin 10.3 g/dL (12.0-16.0); Mean Corp Hgb Conc. 32.4 g/dL (33.0-37.0); Mean Corpuscular Hgb 30.3 pg (27.0-31.0); Mean Corpuscular Volume 93.5 fL (81.0-99.0); Mean Platelet Volume 9.6 fL (7.4-10.4); Platelet Count 181 10^3/uL (130-400); Red Cell Dist. Width 14.2 % (11.5-14.5); White Blood Cell Count 8.1 10^3/uL (4.8-10.8)
[2024-05-19 05:33] LABS: Blood Urea Nitrogen 25 mg/dl (7-17); Calcium 8.7 mg/dl (8.4-10.2); Carbon Dioxide 32 mmol/L (22-30); Chloride 101 mmol/L (98-107); Estimated Creatinine Clearance 48 ml/min; Glucose 135 mg/dl (70-99); Sodium 139 mmol/L (135-145); eGFR > 60.00
[2024-05-19 06:00] VITALS: BMI 26.1
[2024-05-19 07:00] VITALS: BP 123/50
[2024-05-19] MEDS: TYLENOL 1000 MG PO ×3 (08:41→21:10)
[2024-05-19] MEDS: LIDOCAINE 4% PATCH 1 PATCH TOPICAL (08:41)
[2024-05-19] MEDS: CRESTOR 5 MG PO (08:41)
[2024-05-19] MEDS: MIRALAX 17 GRAMS PO ×2 (08:41→21:10)
[2024-05-19] MEDS: MYSOLINE 50 MG PO (08:42)
[2024-05-19] MEDS: CARDIZEM CD 120 MG PO (08:42)
[2024-05-19] MEDS: PLAVIX 75 MG PO (08:42)
[2024-05-19] MEDS: DELTASONE 5 MG PO (08:42)
[2024-05-19] MEDS: PROTONIX 40 MG PO (08:42)
[2024-05-19 08:47] LABS: Glucose - Point of Care 143 mg/dl (70-99)
[2024-05-19] MEDS: NOVOLOG FLEXPEN-LOW RESISTANCE SC (08:55)
--- NOTE | 2024-05-19 11:44 | W.PN.HOSP.TC ---
Today's Communication/Plan
-
PT/OT
await MRI reads; can d/w IR about any interventions
Assessment / Plan
Assessment / Plan
Acute Back Pain, likely related to new L4 Compression Fracture
- obtain MRI L and T spine - can review with IR for any procedures
- pain control continue Tylenol TID, Toradol prn, continue Gabapentin
- continue Tramadol
- continue Lido patch
- PT/OT - SNF at discharge
Ambulatory Dysfunction
- PT/OT - SNF at discharge
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
- continue supplemental oxygen
COPD / Asthma, no acute exacerbation
- continue prednisone
- continue montelukast
ASCVD / Carotid Stenosis s/p Left Carotid Stent
- continue Plavix
Hypertension
- continue diltiazem
DM-II
- monitor sugars and continue coverage insulin
Chronic Lower Extremity Edema
- continue Torsemide
GERD
Vocal Cord Spasm
Esophageal Spasm
- continue Protonix
Obstructive Sleep Apnea
- continue CPAP
DVT proph: SCDs
Code Status: Full Code
Anticipated Discharge: 24 - 48 hours
Subjective/Interval History
-
Date of Service: May 19, 2024
pain reasonably controlled
working with therapy currently
MRI pending
Objective Data
-
Labs:
Laboratory Results
05/19/24
04:35
WBC 8.1
Hgb 10.3 L
Hct 31.8 L
Plt Count 181
Sodium 139
Potassium 4.0
Chloride 101
Carbon Dioxide 32 H
BUN 25 H
Creatinine 0.7
Glucose 135 H
Calcium 8.7
Vital Signs:
Vital Signs
Temp Pulse Resp BP Pulse Ox
97.6 F 61 16 123/50 94
05/19/24 07:00 05/19/24 07:00 05/19/24 07:00 05/19/24 07:00 05/19/24 07:00
I&O
05/18/24 05/19/24 05/20/24
06:59 06:59 06:59
Intake Total 500 / 500
Balance 500 / 500
Physical Exam
-
General: No Apparent Distress
HEENT: Normocephalic and Atraumatic
Respiratory: Negative Wheezes
Cardiac: Regular Rhythm and S1/S2
GI: Soft
Genito-urinary: No Costovertebral Tender
Neuro: AO x 3
Psych: Calm
Data Reviewed
-
Total Time Spent with Patient (in minutes): 45
Labs: Labs Reviewed by me
[2024-05-19 11:59] LABS: Glucose - Point of Care 219 mg/dl (70-99)
[2024-05-19 12:10] VITALS: BP 140/65
[2024-05-19] MEDS: NOVOLOG FLEXPEN-LOW RESISTANCE 2 UNITS SC (13:32)
[2024-05-19 15:35] VITALS: BP 136/72
[2024-05-19 16:51] LABS: Glucose - Point of Care 175 mg/dl (70-99)
[2024-05-19] MEDS: NOVOLOG FLEXPEN-LOW RESISTANCE 1 UNITS SC (17:31)
[2024-05-19] MEDS: NEURONTIN 200 MG PO (21:10)
[2024-05-19 21:36] LABS: Glucose - Point of Care 216 mg/dl (70-99)
[2024-05-19] MEDS: TORADOL 15 MG IV (23:14)
[2024-05-19] MEDS: REFRESH EYE DROPS (PF) 1 DROPS OPHTH (23:14)
[2024-05-19 23:29] VITALS: BP 136/73
[2024-05-20 06:00] VITALS: BMI 26.5
[2024-05-20 06:26] LABS: Hematocrit 32.8 % (37.0-47.0); Hemoglobin 10.6 g/dL (12.0-16.0); Mean Corp Hgb Conc. 32.3 g/dL (33.0-37.0); Mean Corpuscular Hgb 30.3 pg (27.0-31.0); Mean Corpuscular Volume 93.7 fL (81.0-99.0); Mean Platelet Volume 9.4 fL (7.4-10.4); Platelet Count 190 10^3/uL (130-400); White Blood Cell Count 7.8 10^3/uL (4.8-10.8)
[2024-05-20 07:30] LABS: Blood Urea Nitrogen 18 mg/dl (7-17); Calcium 8.7 mg/dl (8.4-10.2); Carbon Dioxide 27 mmol/L (22-30); Chloride 104 mmol/L (98-107); Estimated Creatinine Clearance 55 ml/min; Glucose 126 mg/dl (70-99); Potassium 4.5 mmol/L (3.5-5.1); Sodium 138 mmol/L (135-145); eGFR > 60.00
[2024-05-20 07:42] VITALS: BP 131/61
[2024-05-20 08:04] LABS: Glucose - Point of Care 114 mg/dl (70-99)
[2024-05-20] MEDS: NOVOLOG FLEXPEN-LOW RESISTANCE SC (08:09)
[2024-05-20] MEDS: TYLENOL 1000 MG PO ×3 (08:29→22:39)
[2024-05-20] MEDS: MIRALAX 17 GRAMS PO ×2 (08:32→22:39)
[2024-05-20] MEDS: CARDIZEM CD 120 MG PO (08:32)
[2024-05-20] MEDS: PROTONIX 40 MG PO (08:32)
[2024-05-20] MEDS: CRESTOR 5 MG PO (08:32)
[2024-05-20] MEDS: LIDOCAINE 4% PATCH 1 PATCH TOPICAL (08:33)
[2024-05-20] MEDS: MYSOLINE 50 MG PO (08:33)
[2024-05-20] MEDS: DELTASONE 5 MG PO (08:34)
[2024-05-20] MEDS: PLAVIX 75 MG PO (08:34)
[2024-05-20] MEDS: REFRESH EYE DROPS (PF) 1 DROPS OPHTH (08:44)
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
[2024-05-20 11:10] VITALS: BP 136/68; PULSE 68; O2SAT 98
[2024-05-20 12:19] LABS: Glucose - Point of Care 198 mg/dl (70-99)
--- NOTE | 2024-05-20 12:41 | W.PN.HOSP.TC ---
Today's Communication/Plan
-
DC
Assessment / Plan
Assessment / Plan
Acute Back Pain, likely related to new t12 Compression Fracture
- MRI L and T spine noted
- pain control continue Tylenol TID, Toradol prn, continue Gabapentin
- ALENA brace
- continue Tramadol
- continue Lido patch
- cw PT/OT - SNF at discharge
- Not using much of pain med. No radiculopathy .There is trace retropulsion which is overall similar appearance to prior. No indication for Kyphoplasty at the current time
- Pt on chronic steroids and has evidence of prior vertebral fx - advised a OA eval and treatment through his PCP
Ambulatory Dysfunction
- PT/OT - SNF at discharge
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
- continue supplemental oxygen
- no exacerbation
COPD / Asthma, no acute exacerbation
- continue prednisone
- continue montelukast
ASCVD / Carotid Stenosis s/p Left Carotid Stent
- continue Plavix
Hypertension
- continue diltiazem
DM-II
- monitor sugars and continue coverage insulin
Chronic Lower Extremity Edema
- continue Torsemide
GERD
Vocal Cord Spasm
Esophageal Spasm
- continue Protonix
Obstructive Sleep Apnea
- continue CPAP
DVT proph: SCDs
Code Status: Full Code
Medically stable for DC to rehab
Anticipated Discharge: Today
Subjective/Interval History
-
Date of Service: May 20, 2024
Persistent mid back pain. No radiculopathy. Did not use much of pain medication so far today. Used Tylenol.
No nausea vomiting.
Objective Data
-
Labs:
Laboratory Results
05/20/24
06:08
WBC 7.8
Hgb 10.6 L
Hct 32.8 L
Plt Count 190
Sodium 138
Potassium 4.5
Chloride 104
Carbon Dioxide 27
BUN 18 H
Creatinine 0.6
Glucose 126 H
Calcium 8.7
Vital Signs:
Vital Signs
Temp Pulse Resp BP Pulse Ox
97.5 F 61 18 131/61 98
05/20/24 07:42 05/20/24 07:42 05/20/24 07:42 05/20/24 08:32 05/20/24 11:34
I&O
05/19/24 05/20/24 05/21/24
06:59 06:59 06:59
Intake Total 500 / 500 780 / 780
Balance 500 / 500 780 / 780
Review of Systems
-
Constitutional: Denies Fever
Respiratory: Denies Trouble Breathing
Cardiac: Denies Chest Pain
Abdomen/GI: Denies Abdominal Pain
Neuro: Denies Dizzy
Physical Exam
-
General: Comfortable
Respiratory: Clear to Auscultation and Non Labored Respirations; Negative Accessory Resp Muscle Use
Cardiac: Regular Rhythm and S1/S2; Negative Tachycardic
GI: Soft
Neuro: AO x 3 and No Motor Deficits
Psych: Calm; Negative Confused
Data Reviewed
-
Labs: Labs Reviewed by me
--- NOTE | 2024-05-20 12:44 | WOUNDNOTE ---
[facility] RN note: Patient admitted with compression fracture. Patient to go to SNF when discharged.
See H&P for complete history.
PMH: chronic LE edema, COPD, on o2, ASCVD, L carotid stent, DM, compression fractures, esophageal spasm, ambulation dysfunction, HTN, TANI (CPAP), appendectomy, JOSE MARTIN, bladder repair.
Wound Location and type/assessment: Patient admitted with: sacral/buttocks discolored dull red skin stage 1 pressure injury (mostly blanchable) with few small dermal openings stage 2 pressure injury vs skin tears.
Appetite: good.
Pressure redistribution devices in place: [employer] Accumax. AP Perez plans to apply a static air overlay. Air chair cushion. Patient stood with walker and assist to assess sacrum.
Plan: Sacral shaped silicone border foam maintained. Heel foams maintained (AP Monreal applied today and stated heels are blanchable red and intact). Patient sitting in chair with an air chair cushion. Instructed patient to take air chair cushion
home.
Will confirm orders with Dr. Rogers.
Care plan to be updated and will follow as needed.
Note to case management of equipment requested for discharge: Air mattress at SNF.
Recommend follow up at wound care center upon discharge if needed.
[2024-05-20] MEDS: NOVOLOG FLEXPEN-LOW RESISTANCE 1 UNITS SC ×2 (12:45→17:41)
[2024-05-20] MEDS: TORADOL 15 MG IV ×2 (13:19→22:39)
[2024-05-20 15:07] VITALS: BP 136/70
--- NOTE | 2024-05-20 15:15 | WOUNDNOTE ---
WOC RN note: Issac Fu re: recommend an air mattress for patient. She has stage 1 and 2 sacral/buttocks pressure injury.
[2024-05-20 16:52] LABS: Glucose - Point of Care 164 mg/dl (70-99)
[2024-05-20 21:20] LABS: Glucose - Point of Care 224 mg/dl (70-99)
[2024-05-20 22:11] VITALS: PULSE 79
[2024-05-20] MEDS: NEURONTIN 200 MG PO (22:38)
[2024-05-20 23:31] VITALS: BP 134/64
[2024-05-21 03:40] VITALS: PULSE 77
[2024-05-21 05:12] VITALS: BMI 27.2
[2024-05-21 07:34] VITALS: BMI 27.2
[2024-05-21 07:55] VITALS: BP 156/67
[2024-05-21 07:59] LABS: Glucose - Point of Care 115 mg/dl (70-99)
[2024-05-21] MEDS: NOVOLOG FLEXPEN-LOW RESISTANCE SC (09:04)
[2024-05-21] MEDS: PROTONIX 40 MG PO (09:11)
[2024-05-21] MEDS: CRESTOR 5 MG PO (09:11)
[2024-05-21] MEDS: TYLENOL 1000 MG PO (09:12)
[2024-05-21] MEDS: MYSOLINE 50 MG PO (09:12)
[2024-05-21] MEDS: DELTASONE 5 MG PO (09:12)
[2024-05-21] MEDS: PLAVIX 75 MG PO (09:12)
[2024-05-21] MEDS: LIDOCAINE 4% PATCH 1 PATCH TOPICAL (09:13)
[2024-05-21] MEDS: CARDIZEM CD 120 MG PO (09:13)
[2024-05-21] MEDS: MIRALAX 17 GRAMS PO (09:14)
--- NOTE | 2024-05-21 10:19 | CM ---
Addendum entered by Michaelle Fu 05/21/24 10:57:
Rcd call from Lindsay at - can accept today after 3PM
Will need covid
Dr Rogers notified via TT
Will need air mattress - Lindsay made aware
Transport forms on chart
kR solorio agrees with plan
Pt given IMM
Plan - [facility] today
R - [phone]
- [phone]
Original Note:
Medically ready for d/c
Called [facility] to check on bed availability - LM on for Lindsay requesting return call
[2024-05-21 12:10] LABS: Glucose - Point of Care 175 mg/dl (70-99)
[2024-05-21] MEDS: NOVOLOG FLEXPEN-LOW RESISTANCE 1 UNITS SC (12:33)
[2024-05-21 12:47] LABS: COVID-19 Antigen Negative (Negative)
--- NOTE | 2024-05-21 13:58 | W.PN.HOSP.TC ---
Addendum entered and electronically signed by Adrien Rogers MD 05/22/24 18:20:
sacral/buttock discolored dull red skin stage 1 pressure injury(mostly blanchable) with few small dermal openings stage 2 pressure injury vs skin tear....She has stage 1 and 2 sacral/buttocks pressure injury
Vertebral fracture suspected sec to osteoporosis
Original Note:
Today's Communication/Plan
-
DC
Assessment / Plan
Assessment / Plan
Acute Back Pain, likely related to new t12 Compression Fracture
- MRI L and T spine noted
- pain control continue Tylenol TID, Toradol prn, continue Gabapentin
- TECHNICAL ENGINEER brace
- continue Tramadol
- continue Lido patch
- cw PT/OT - SNF at discharge
- Not using much of pain med. No radiculopathy .There is trace retropulsion which is overall similar appearance to prior. No indication for Kyphoplasty at the current time
- Pt on chronic steroids and has evidence of prior vertebral fx - advised a OA eval and treatment through his PCP
Ambulatory Dysfunction
- PT/OT - SNF at discharge
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
- continue supplemental oxygen
- no exacerbation
COPD / Asthma, no acute exacerbation
- continue prednisone
- continue montelukast
ASCVD / Carotid Stenosis s/p Left Carotid Stent
- continue Plavix
Hypertension
- continue diltiazem
DM-II
- monitor sugars and continue coverage insulin
Chronic Lower Extremity Edema
- continue Torsemide
GERD
Vocal Cord Spasm
Esophageal Spasm
- continue Protonix
Obstructive Sleep Apnea
- continue CPAP
DVT proph: SCDs
Code Status: Full Code
Medically stable for DC to rehab
Had discussed with son Emigdio yestereday about dx.,tx and follow up plan.
DW CM today -has bed at [facility].
Total time of dc 32 min
Anticipated Discharge: Today
Subjective/Interval History
-
Date of Service: May 21, 2024
Persistent back pain but no worse. No radiculopathy.
No fever chills.
Still having difficulty with ambulation due to pain.
Objective Data
-
Vital Signs:
Vital Signs
Temp Pulse Resp BP Pulse Ox
97.7 F 68 16 156/67 94
05/21/24 07:55 05/21/24 07:55 05/21/24 07:55 05/21/24 07:55 05/21/24 07:55
I&O
05/20/24 05/21/24 05/22/24
06:59 06:59 06:59
Intake Total 780 / 780 1260 / 1260 240 / 240
Balance 780 / 780 1260 / 1260 240 / 240
Review of Systems
-
Constitutional: Denies Fever
Respiratory: Denies Trouble Breathing
Cardiac: Denies Chest Pain
Abdomen/GI: Denies Nausea or Vomiting
Neuro: Denies Dizzy
Physical Exam
-
General: Comfortable
Respiratory: Non Labored Respirations; Negative Accessory Resp Muscle Use
Cardiac: Regular Rhythm and S1/S2; Negative Tachycardic
Neuro: AO x 3 and No Motor Deficits
Psych: Calm
--- NOTE | 2024-05-21 16:12 | PN.CDI ---
CDI
- -
CDI:
Physician Documentation Request
Admit Date: 05/20/24 15:12
Dear Doctor Ken,
Patient presents for back pain. History of falls and osteoporosis. She reports she landed hard in the chair and since that time has been having increased low back.
Patient found to have new T12 compression fracture
Please provide further specificity regarding the diagnosis of fracture:
Etiology
Traumatic
Pathologic due to osteoporosis
Pathologic due to other disease (please specify)
Due to a combination of trauma and a pathological process
but the trauma alone would not likely have been sufficient
to cause the fracture
Use of terms such as suspected, likely, concern for, or probable (associated with a specific diagnosis that is being evaluated, monitored, or treated as if it exists) are acceptable and can be coded in the inpatient setting, when documented at the
time of discharge.
Thank you,
Violet Ochoa RN, BSN
CDI Specialist
tiger text
Please use your independent medical judgment in providing your response.
--- NOTE | 2024-05-21 16:16 | PN.CDI ---
CDI
- -
CDI:
Physician Documentation Request
Admit Date: 05/20/24 15:12
Dear Doctor Ken
05/20 WOCN notes ' Patient admitted with: sacral/buttock discolored dull red skin stage 1 pressure injury(mostly blanchable) with few small dermal openings stage 2 pressure injury vs skin tear....She has stage 1 and 2 sacral/buttocks pressure injury
Physician documentation of the type and location of wounds is required for compliant documentation. Based on the above clinical findings and your assessment, please provide the following in your progress note:
1. Location of the ulcer/wound, including laterality.
2. Type (etiology) of ulcer/wound:
- Diabetic ulcer
- Traumatic wound
- Pressure (decubitus) ulcer
- Other
Use of terms such as suspected, likely, concern for, or probable (associated with a specific diagnosis that is being evaluated, monitored, or treated as if it exists) are acceptable and can be coded in the inpatient setting, when documented at the
time of discharge.
Thank you,
Violet Ochoa RN BSN
CDI Specialist
tiger text
Please use your independent medical judgment in providing your response.
*Source: National Pressure Ulcer Advisory Panel (NPUAP)
--- NOTE | 2024-05-21 17:19 | W.DCSUMMARY ---
Discharge Summary
Discharge Data
Date of Admission: 05/20/24
Date of Discharge: 05/21/24
-
Pending Results: No
Hospital Course
Primary diagnosis:
Acute Back Pain, related to new T12 Compression Fracture
Secondary diagnosis:
Chronic vertebral fractures
Osteoporosis
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
Chronic maintenance steroids for COPD
Atherosclerotic cardiovascular disease
Carotid stenosis status post left carotid stent
Hypertension
Diabetes mellitus type 2 on insulin
Hospital course:
Patient was in a rehab facility was discharged 2 weeks ago. Since that time she had few falls most recently was 2 nights before the admission. Apparently her was helping her get back to her recliner chair where her hand slipped and fell.
She landed hard in the chair and subsequently developed increased low back pain. It was worse with the movement.
Further evaluation including lumbar and thoracic spine MRI showed new acute and chronic T12 compression fracture. There was trace retropulsion which is overall similar appearance to the prior. There was extensive chronic compression deformities
throughout the thoracic spine with multilevel mild to moderate degenerative changes, not significantly changed from prior.There is a moderate compression deformity of the L1 vertebral body with mild compression deformities of the L2 and L4 vertebral
bodies which are unchanged from prior.
No radiculopathy.
She did poorly with physical therapy my recommendation for rehab. Once a bed was available she was discharged to rehab.
Discussed with patient and the son about osteoporosis and vertebral fractures and also risk of increased fractures on chronic steroids for COPD. Advised that she get bone density scan and consider possible treatments as outpatient.
Discharge Plan
-
Patient Disposition: Shelter/SNF
Discharge Diagnosis/Procedures: Acute T12 compression fracture
Diet: Diabetic, Carb Controlled
Activity: As tolerated
Driving Restrictions: No driving
Other Services: PT and OT
Activity Restrictions/Additional Instructions:
Wound Care Instructions
Sacral/buttocks-clean with saline, sacral shaped silicone border foam, change q 3 days and prn loosened dressing.
Air mattress
Pressure redistributing chair cushion (i.e. Air, Roho)
Elevate heels off bed with pillow/s.
Follow up at wound care center if needed, call for an appointment.
Referrals:
Carrie Nuñez, [Family Provider] -
Prescriptions:
New
tramadol 50 mg Tablet
25 mg PO Q6HPRN PRN (Reason: moderate to severe pain) Qty: 12 0RF
Continued
clopidogrel 75 MG tablet
75 mg PO DAILY 30 Days Qty: 30 0RF
montelukast 10 MG tablet
10 mg PO HS
primidone 50 MG tablet
50 mg PO DAILY
pantoprazole 40 MG tablet,delayed release (DR/EC)
40 mg PO DAILY
rosuvastatin 5 mg Tablet
5 mg PO DAILY
diltiazem HCl 120 mg Capsule,Extended Release 24 Hr
120 mg PO DAILY
gabapentin 100 mg capsule
200 mg PO HS
Refresh Classic (PF) 1.4-0.6 % Dropperette
1 drp LEFT EYE QIDPRN PRN (Reason: DRY EYES)
polyethylene glycol 3350 [Miralax] 17 gram Powder In Packet
17 g PO DAILY
cinnamon bark [Cinnamon] 500 mg Capsule
500 mg PO DAILY
guaifenesin 600 mg Tablet Extended Release 12hr
1,200 mg PO [id number] PRN (Reason: cough) Qty: 30 0RF
potassium chloride 20 mEq Packet
20 meq PO TUFR
lidocaine 5 % Adhesive Patch,Medicated
1 patch TOPICAL DAILYPRN PRN (Reason: back, right shoulder and right hip)
coQ10 (ubiquinol) 100 mg Capsule
100 mg PO DAILY
prednisone 5 mg Tablet
5 mg PO DAILY
torsemide 10 mg Tablet
10 mg PO TUFR
mecobalamin (vitamin B12) [B12 Active] 1,000 mcg Tablet,Chewable
1,000 mcg PO DAILY
ipratropium bromide 0.02 % solution
2.5 ml inhalation R Q4HPRN PRN (Reason: sob/wheezing)
cholecalciferol (vitamin D3) [Vitamin D3] 50 mcg (2,000 unit) Tablet
50 mcg PO DAILY
albuterol sulfate 90 mcg/actuation Hfa Aerosol Inhaler
1 puff INHALATION R Q4HPRN PRN (Reason: sob/wheezing)
insulin aspart U-100 [Novolog FlexPen U-100 Insulin] 100 unit/mL (3 mL) insulin pen
0 sliding scale dose SC AC
prednisone 10 mg tablet
See Taper PO DIRECTED Qty: 30 0RF
Taper: Prednisone DC Starting at 40 mg daily
40 mg Daily for 3 Days and 0 Hour
30 mg Daily for 3 Days and 0 Hour
20 mg Daily for 3 Days and 0 Hour
10 mg Daily for 3 Days and 0 Hour
Patient Comments:
she states that she only takes 5 MG dose not more then that
Discharge Orders:
Discharge Patient (As Directed); Ordered 05/21/24
Ordered By: Adrien Rogers
Discharge Date and Time
Discharge Date/Time: 05/21/24 15:25
Print Language: SERBIAN
== END 2024-05-21 15:25 | DRG 543 ==
LOC: 2 NORTH 15:12
PROVIDERS: Internal Medicine; Physician Assistant Medical; ADMITTING PHYSICIAN Internal Medicine; ATTENDING PHYSICIAN Internal Medicine; EMERGENCY PHYSICIAN Emergency Medicine; FAMILY PHYSICIAN Family Medicine
PROC: 5A09357 Assistance with Respiratory Ventilation, Less than 24 Consecutive Hours, Continuous Positive Airway Pressure (ICD-10-PCS; 2024-05-18)
DX: M80.08XA Age-related osteoporosis with current pathological fracture, vertebra(e), initial encounter for fracture (principal); J96.11 Chronic respiratory failure with hypoxia; M47.816 Spondylosis without myelopathy or radiculopathy, lumbar region; J44.9 Chronic obstructive pulmonary disease, unspecified; I25.10 Atherosclerotic heart disease of native coronary artery without angina pectoris; I10 Essential (primary) hypertension; E11.9 Type 2 diabetes mellitus without complications; Z79.4 Long term (current) use of insulin; W01.0XXA Fall on same level from slipping, tripping and stumbling without subsequent striking against object, initial encounter; Z79.52 Long term (current) use of systemic steroids; K21.9 Gastro-esophageal reflux disease without esophagitis; G47.33 Obstructive sleep apnea (adult) (pediatric); E78.00 Pure hypercholesterolemia, unspecified; K59.00 Constipation, unspecified; Z79.02 Long term (current) use of antithrombotics/antiplatelets; F41.9 Anxiety disorder, unspecified; G89.29 Other chronic pain; I48.91 Unspecified atrial fibrillation; M48.04 Spinal stenosis, thoracic region; Z79.899 Other long term (current) drug therapy; Z80.0 Family history of malignant neoplasm of digestive organs; Z80.41 Family history of malignant neoplasm of ovary; Z82.3 Family history of stroke; Z90.710 Acquired absence of both cervix and uterus; Z11.52 Encounter for screening for COVID-19; L89.152 Pressure ulcer of sacral region, stage 2
CPT/HCPCS: 72110; 72146; 72148; 80048; 80053; 82550; 82962; 85027; 87811; 92526; 92610; 94660; 96361; 96374; 97116; 97163; 97167; 97530; 97535; 99284

== ENCOUNTER 2024-06-15 22:16 | Inpatient (IN) | payer MEDICARE, BC, SELFPAY ==
[2024-06-15] VITALS (12 sets, daily range): BP systolic 117–157; BP diastolic 53–103; PULSE 33–115; BMI 30.6
[2024-06-15 10:24] LABS: % Basophils 0.3 % (0-2); % Eosinophils 1.2 % (0-6); % Immature Granulocytes 0.8 % (0-0.5); % Lymphocytes 8.3 % (20.5-51.1); % Neutrophils 77.4 % (42.2-75.2); Absolute Eosinophils 0.1 10^3/uL (0-0.7); Absolute Immature Granulocytes 0.1 10^3/uL (0-0.05); Absolute Lymphocytes 0.8 10^3/uL (1.2-3.4); Absolute Monocytes 1.1 10^3/uL (0.1-0.6); Absolute Neutrophils 7.3 10^3/uL (1.4-6.5); Hematocrit 37.8 % (37.0-47.0); Hemoglobin 12.4 g/dL (12.0-16.0); Mean Corp Hgb Conc. 32.8 g/dL (33.0-37.0); Mean Corpuscular Hgb 31.3 pg (27.0-31.0); Mean Corpuscular Volume 95.5 fL (81.0-99.0); Mean Platelet Volume 9.8 fL (7.4-10.4); Nucleated Red Blood Cells % 0 %; Platelet Count 165 10^3/uL (130-400); Red Blood Cell Count 3.96 10^6/uL (4.20-5.40); Red Cell Dist. Width 14.4 % (11.5-14.5); White Blood Cell Count 9.5 10^3/uL (4.8-10.8)
[2024-06-15 10:45] LABS: COVID-19 Antigen Negative (Negative)
--- NOTE | 2024-06-15 11:00 | ED.GENMED ---
History of Present Illness
<DO Brian Shahid Filed: 06/16/24 08:37>
General
Chief Complaint: Weakness
Source: patient and family (son)
Time Seen by Provider: 06/15/24 10:41
History of Present Illness
History of Present Illness:
89-year-old female presents to the emergency room with her son for generalized weakness, increased shortness of breath and right thorax pain. Patient has a history of COPD as well as evidently having history of laryngeal dyskinesis. She does use 2
L of oxygen on a routine basis. Patient has had several falls recently due to weakness which has resulted in a hip fracture as well as lumbar and cervical vertebral fractures. She is currently in a brace. She is supposed to wear a cervical brace
but does not wear it.
Past History
<DO Brian Shahid Last Filed: 06/16/24 08:37>
Past History
ED Past Medical History: Arrthythmia (Atrial fib), Asthma, COPD, GERD, HTN, Hypercholesterolemia, IDDM, Psychiatric (Anxiety) and Other (Chronic back pain, Diverticulitis, Hiatal hernia,, carotid stenosis,sleep apnea , dysphagia, glaucoma,
cataracts,Vertigo, PNA, esophageal restrictions)
ED Past Surgical History: Appendectomy, Cardiac (Left carotid stent), Gynecological (hysterectomy), Orthopedic (Right carpal tunnel surgery), Urological (Bladder surgery) and Other (Cyst on Pancreas with fluid removed, bladder repair, Breast cyst
removed)
Social History
Tobacco: Non-smoker
Alcohol: None
Drug: None
Personal:
Living: with family
Employment: Retired
Family History
Family History: Other (Brother with a stroke, sister with ovarian cancer, sister with colon cancer)
Phy Exam
<DO Brian Shahid Last Filed: 06/16/24 08:37>
Physical Exam
Physical Exam:
General: Awake, Alert, Oriented X3. Audible wheezing which seems to baseline for her. Mild increased work of breathing
Vitals: Tachycardic, febrile
Head: Atraumatic
Eyes: Pupils equal, EOMI
Throat: Airway intact, no exudates
Neck: Trachea midline
Lungs: Transmitted upper airway sounds along with some true expiratory wheezing
Heart: Regular rate, no murmurs
Abd: Soft, Nontender, No pulsatile mass
Neuro: Nonfocal
Skin: Warm, dry, no rash
Extremities: pulses equal b/l, 1+ edema
Course
<Gus Cintron, DO - Last Filed: 06/16/24 08:37>
Orders/Labs/Results
Orders:
Orders
06/15/24 09:47
EKG [Electrocardiogram (*1)] Urgent
Reason for Study: Shortness of Breath
EKG- Treatment ONCE
06/15/24 10:13
COVID-19 Antigen Urgent
Source: Nasal Swab
Complete Blood Count/With Diff Urgent
Influenza A+B Rapid Molecular Urgent
MIKI Source: Nasal Swab
Specimen Description:
06/15/24 10:55
Comprehensive Metabolic Panel Urgent
06/15/24 10:59
Ipratropium/Albuterol Sulfate [Duoneb] 3 ml INH R NOW ONE
06/15/24 11:03
Venous Blood Gas Urgent
%Oxygen/Room Air: 28
06/15/24 11:11
Straight cath- Treatment ONCE
CR Chest - 2 Views Urgent
Comment:
Reason For Exam: chest pain, fever
06/15/24 11:13
Acetaminophen [Tylenol] 650 mg PO NOW STA
06/15/24 11:39
Lactic Acid Q4H
Comment: CANCEL 2nd LACTIC ACID IF 1st LACTIC ACID IS LESS THAN 2
Blood Culture Q30M
MIKI Source: Blood/Venous
Specimen Description:
Blood Culture Q30M
MIKI Source: Blood/Venous
Specimen Description:
06/15/24 11:42
Urinalysis Reflex To Culture Urgent
Date Specimen was Collected: 06/15/24
Time Specimen was Collected: 11:16
06/15/24 12:40
CT Chest PE Study Urgent
Comment:
Reason For Exam: pleuritic chest pain, sob, fever eval for PE
06/15/24 21:27
Admit/Transfer Patient As Directed
Co-Sign Provider:
Level of Care: Inpatient admission
Assign to:: Telemetry
Physician / Group: hoda clemente
Diagnosis: SIRS unclear, chronic hypercarbia nc dept
Reason for Telemetry: Arrhythmia
Date to Stop Telemetry: 06/18/24
Time to Stop Telemetry: 11:00
Reason for Hospitalization: acute febrile illness unclear, chronic hypercarbia nc dept
Expected length of stay greater than two midnights?: Yes
ELOS- Estimated Length of Stay in days: 4
I certify the patient meets the requirements for IP care: Yes
Code Status As Directed
Resuscitation Status: Full Code
06/15/24 21:31
PRN Pain Medication Management As Directed
May give lesser potent ordered pain med per pt: Yes
preference::
Protocol:: Medication orders for pain may be administered in a
manner that supports deferring to patient preference
when the pt is:
- Requesting an ordered lesser potent pain medication.
Least to most potent pain medications are defined
as: acetaminophen < NSAID < tramadol < opioids
(morphine, oxycodone, hydromorphone).
- Requesting a lesser dose of the same medication IF
ORDERED.
- Requesting a less intrusive route of administration
if both routes are prescribed by the provider (PO <
IV).
06/15/24 21:42
Albuterol [ProAIR HFA INHALER] 1 puff INH R Q4HPRN PRN
Artificial Tears (Pf) [Refresh Eye Drops (Pf)] 1 drops LEFT EYE QIDPRN PRN
Guaifenesin [Mucinex] 1,200 mg PO [id number] PRN
Ipratropium Nebs [Atrovent Nebules] 0.5 mg INH R Q4HPRN PRN
Lidocaine [Lidocaine 4% Patch] 1 patch TOPICAL DAILYPRN PRN
Apply Lidocaine patch(s) to:: back right shouklder or right hip
Tramadol HCl [Ultram] 25 mg PO Q6HPRN PRN
06/15/24 21:44
Dextrose 50%-Water [Dextrose 50% Syringe] 12.5 grams IV [id number] PRN
Glucagon [GlucaGen] 1 mg IM PRN PRN
Bedside Glucose Monitoring As Directed
Frequency: AC&HS
Additional Instructions:: Change to q6h if pt on TPN, tube feeding or not eating
06/15/24 22:00
Gabapentin [Neurontin] 200 mg PO HS
Montelukast Sodium [Singulair] 10 mg PO HS
06/15/24 22:20
Acetaminophen [Tylenol/Feverall] 650 mg RECTAL Q4HPRN PRN
Acetaminophen [Tylenol] 650 mg PO Q4HPRN PRN
06/15/24 22:20
Activity As Directed
Activity Level: With Assistance
Intake/ Output As Directed
Frequency: Per unit guidelines
Vital Signs As Directed
Frequency: Per unit guidelines
Weight As Directed
Frequency: Daily
Cpap [RESP] Routine
Patient to use own unit?: No
Set Pressure (cm H2O): 5
Oxygen Liter Flow: 2
O2 Therapy [RESP] Routine
Nasal Cannula Liter Flow: 2 LPM
Titrate/Wean O2 to maintain O2 sat greater than (%): 92
Pulse Ox/spot Check [RESP] Routine
Quantity: 1
Pt Eval And Treat Routine
Activity Level: With Assistance
Speech Therapy Eval & Treat Routine
DX Deep Vein Thrombosis Video Routine
06/16/24 00:00
Piperacillin/Tazo 3.375 Gram [Zosyn] 3.375 gram in 50 ml IV Q6H
06/16/24 05:28
Complete Blood Count/With Diff IN AM
Comprehensive Metabolic Panel IN AM
06/16/24 07:30
Insulin Aspart Corrective Low [Novolog Flexpen-Low Resistance] See Protocol SC AC
06/16/24 08:00
Cholecalciferol (Vitamin D3) [VITAMIN D3 (cholecalciferol)] 50 mcg PO DAILY
Clopidogrel Bisulfate [Plavix] 75 mg PO DAILY
Diltiazem Extended Release [Cardizem Cd] 120 mg PO DAILY
Heparin 5,000 units SC Q12
Pantoprazole [Protonix] 40 mg PO DAILY
Polyethylene Glycol Powder [Miralax] 17 grams PO DAILY
Primidone [Mysoline] 50 mg PO DAILY
Rosuvastatin Calcium [Crestor] 5 mg PO DAILY
06/17/24 06:00
Complete Blood Count/With Diff IN AM
Comprehensive Metabolic Panel IN AM
06/18/24 06:00
Complete Blood Count/With Diff IN AM
Comprehensive Metabolic Panel IN AM
06/18/24 11:00
DC Protocol for Telemetry ONCE
Abnormal Lab Results
06/15/24 06/15/24 06/15/24
10:13 10:55 11:03
RBC 3.96 L 10^6/uL
(4.20-5.40)
MCH 31.3 H pg
(27.0-31.0)
MCHC 32.8 L g/dL
(33.0-37.0)
Abs Immat Gran (auto) 0.1 H 10^3/uL
(0-0.05)
Absolute Neuts (auto) 7.3 H 10^3/uL
(1.4-6.5)
Absolute Lymphs (auto) 0.8 L 10^3/uL
(1.2-3.4)
Absolute Monos (auto) 1.1 H 10^3/uL
(0.1-0.6)
Immature Gran % 0.8 H %
(0-0.5)
Neutrophils % 77.4 H %
(42.2-75.2)
Lymphocytes % 8.3 L %
(20.5-51.1)
Monocytes % 12.0 H %
(1.7-9.3)
VBG pCO2 54 H mmHg
(35-48)
VBG HCO3 30.5 H mmol/L
(22-27)
Carbon Dioxide 31 H mmol/L
(22-30)
BUN 18 H mg/dl
(7-17)
Glucose 189 H mg/dl
(70-99)
Urine Ketones
06/15/24
11:42
RBC
MCH
MCHC
Abs Immat Gran (auto)
Absolute Neuts (auto)
Absolute Lymphs (auto)
Absolute Monos (auto)
Immature Gran %
Neutrophils %
Lymphocytes %
Monocytes %
VBG pCO2
VBG HCO3
Carbon Dioxide
BUN
Glucose
Urine Ketones 1+ A
(Negative)
06/15/24 10:13
06/15/24 10:55
Vital Signs
Initial and Last Documented VS:
Initial Vital Signs
Temp Pulse Resp BP Pulse Ox
99.5 F 112 16 139/61 99
06/15/24 09:44 06/15/24 09:44 06/15/24 09:44 06/15/24 09:44 06/15/24 09:44
Last Documented Vital Signs
Temp Pulse Resp BP Pulse Ox
98.2 F 107 22 134/78 97
06/16/24 04:00 06/16/24 08:14 06/16/24 08:14 06/16/24 08:00 06/16/24 08:14
<Nicholas Pollard, DO - Last Filed: 06/15/24 22:41>
Orders/Labs/Results
Orders:
Orders
06/15/24 09:47
EKG [Electrocardiogram (*1)] Urgent
Reason for Study: Shortness of Breath
EKG- Treatment ONCE
06/15/24 10:13
COVID-19 Antigen Urgent
Source: Nasal Swab
Complete Blood Count/With Diff Urgent
Influenza A+B Rapid Molecular Urgent
MIKI Source: Nasal Swab
Specimen Description:
06/15/24 10:55
Comprehensive Metabolic Panel Urgent
06/15/24 10:59
Ipratropium/Albuterol Sulfate [Duoneb] 3 ml INH R NOW ONE
06/15/24 11:03
Venous Blood Gas Urgent
%Oxygen/Room Air: 28
06/15/24 11:11
Straight cath- Treatment ONCE
CR Chest - 2 Views Urgent
Comment:
Reason For Exam: chest pain, fever
06/15/24 11:13
Acetaminophen [Tylenol] 650 mg PO NOW STA
06/15/24 11:39
Lactic Acid Q4H
Comment: CANCEL 2nd LACTIC ACID IF 1st LACTIC ACID IS LESS THAN 2
Blood Culture Q30M
MIKI Source: Blood/Venous
Specimen Description:
Blood Culture Q30M
MIKI Source: Blood/Venous
Specimen Description:
06/15/24 11:42
Urinalysis Reflex To Culture Urgent
Date Specimen was Collected: 06/15/24
Time Specimen was Collected: 11:16
06/15/24 12:40
CT Chest PE Study Urgent
Comment:
Reason For Exam: pleuritic chest pain, sob, fever eval for PE
06/15/24 21:27
Admit/Transfer Patient As Directed
Co-Sign Provider:
Level of Care: Inpatient admission
Assign to:: Telemetry
Physician / Group: hoad clemente
Diagnosis: SIRS unclear, chronic hypercarbia nc dept
Reason for Telemetry: Arrhythmia
Date to Stop Telemetry: 06/18/24
Time to Stop Telemetry: 11:00
Reason for Hospitalization: acute febrile illness unclear, chronic hypercarbia nc dept
Expected length of stay greater than two midnights?: Yes
ELOS- Estimated Length of Stay in days: 4
I certify the patient meets the requirements for IP care: Yes
Code Status As Directed
Resuscitation Status: Full Code
06/15/24 21:31
PRN Pain Medication Management As Directed
May give lesser potent ordered pain med per pt: Yes
preference::
Protocol:: Medication orders for pain may be administered in a
manner that supports deferring to patient preference
when the pt is:
- Requesting an ordered lesser potent pain medication.
Least to most potent pain medications are defined
as: acetaminophen < NSAID < tramadol < opioids
(morphine, oxycodone, hydromorphone).
- Requesting a lesser dose of the same medication IF
ORDERED.
- Requesting a less intrusive route of administration
if both routes are prescribed by the provider (PO <
IV).
06/15/24 21:42
Albuterol [ProAIR HFA INHALER] 1 puff INH R Q4HPRN PRN
Artificial Tears (Pf) [Refresh Eye Drops (Pf)] 1 drops LEFT EYE QIDPRN PRN
Guaifenesin [Mucinex] 1,200 mg PO [id number] PRN
Ipratropium Nebs [Atrovent Nebules] 0.5 mg INH R Q4HPRN PRN
Lidocaine [Lidocaine 4% Patch] 1 patch TOPICAL DAILYPRN PRN
Apply Lidocaine patch(s) to:: back right shouklder or right hip
Tramadol HCl [Ultram] 25 mg PO Q6HPRN PRN
06/15/24 21:44
Dextrose 50%-Water [Dextrose 50% Syringe] 12.5 grams IV [id number] PRN
Glucagon [GlucaGen] 1 mg IM PRN PRN
Bedside Glucose Monitoring As Directed
Frequency: AC&HS
Additional Instructions:: Change to q6h if pt on TPN, tube feeding or not eating
06/15/24 22:00
Gabapentin [Neurontin] 200 mg PO HS
Montelukast Sodium [Singulair] 10 mg PO HS
06/15/24 22:20
Acetaminophen [Tylenol/Feverall] 650 mg RECTAL Q4HPRN PRN
Acetaminophen [Tylenol] 650 mg PO Q4HPRN PRN
06/15/24 22:20
Activity As Directed
Activity Level: With Assistance
Intake/ Output As Directed
Frequency: Per unit guidelines
Vital Signs As Directed
Frequency: Per unit guidelines
Weight As Directed
Frequency: Daily
Cpap [RESP] Routine
Patient to use own unit?: No
Set Pressure (cm H2O): 5
Oxygen Liter Flow: 2
O2 Therapy [RESP] Routine
Nasal Cannula Liter Flow: 2 LPM
Titrate/Wean O2 to maintain O2 sat greater than (%): 92
Pulse Ox/spot Check [RESP] Routine
Quantity: 1
Pt Eval And Treat Routine
Activity Level: With Assistance
Speech Therapy Eval & Treat Routine
DX Deep Vein Thrombosis Video Routine
06/16/24 00:00
Piperacillin/Tazo 3.375 Gram [Zosyn] 3.375 gram in 50 ml IV Q6H
06/16/24 05:28
Complete Blood Count/With Diff IN AM
Comprehensive Metabolic Panel IN AM
06/16/24 07:30
Insulin Aspart Corrective Low [Novolog Flexpen-Low Resistance] See Protocol SC AC
06/16/24 08:00
Cholecalciferol (Vitamin D3) [VITAMIN D3 (cholecalciferol)] 50 mcg PO DAILY
Clopidogrel Bisulfate [Plavix] 75 mg PO DAILY
Diltiazem Extended Release [Cardizem Cd] 120 mg PO DAILY
Heparin 5,000 units SC Q12
Pantoprazole [Protonix] 40 mg PO DAILY
Polyethylene Glycol Powder [Miralax] 17 grams PO DAILY
Primidone [Mysoline] 50 mg PO DAILY
Rosuvastatin Calcium [Crestor] 5 mg PO DAILY
06/17/24 06:00
Complete Blood Count/With Diff IN AM
Comprehensive Metabolic Panel IN AM
06/18/24 06:00
Complete Blood Count/With Diff IN AM
Comprehensive Metabolic Panel IN AM
06/18/24 11:00
DC Protocol for Telemetry ONCE
Abnormal Lab Results
06/15/24 06/15/24 06/15/24
10:13 10:55 11:03
RBC 3.96 L 10^6/uL
(4.20-5.40)
MCH 31.3 H pg
(27.0-31.0)
MCHC 32.8 L g/dL
(33.0-37.0)
Abs Immat Gran (auto) 0.1 H 10^3/uL
(0-0.05)
Absolute Neuts (auto) 7.3 H 10^3/uL
(1.4-6.5)
Absolute Lymphs (auto) 0.8 L 10^3/uL
(1.2-3.4)
Absolute Monos (auto) 1.1 H 10^3/uL
(0.1-0.6)
Immature Gran % 0.8 H %
(0-0.5)
Neutrophils % 77.4 H %
(42.2-75.2)
Lymphocytes % 8.3 L %
(20.5-51.1)
Monocytes % 12.0 H %
(1.7-9.3)
VBG pCO2 54 H mmHg
(35-48)
VBG HCO3 30.5 H mmol/L
(22-27)
Carbon Dioxide 31 H mmol/L
(22-30)
BUN 18 H mg/dl
(7-17)
Glucose 189 H mg/dl
(70-99)
Urine Ketones
06/15/24
11:42
RBC
MCH
MCHC
Abs Immat Gran (auto)
Absolute Neuts (auto)
Absolute Lymphs (auto)
Absolute Monos (auto)
Immature Gran %
Neutrophils %
Lymphocytes %
Monocytes %
VBG pCO2
VBG HCO3
Carbon Dioxide
BUN
Glucose
Urine Ketones 1+ A
(Negative)
06/15/24 10:13
06/15/24 10:55
Vital Signs
Initial and Last Documented VS:
Initial Vital Signs
Temp Pulse Resp BP Pulse Ox
99.5 F 112 16 139/61 99
06/15/24 09:44 06/15/24 09:44 06/15/24 09:44 06/15/24 09:44 06/15/24 09:44
Last Documented Vital Signs
Temp Pulse Resp BP Pulse Ox
98.2 F 107 22 134/78 97
06/16/24 04:00 06/16/24 08:14 06/16/24 08:14 06/16/24 08:00 06/16/24 08:14
<Gus Cintron, DO - Last Filed: 06/16/24 08:37>
MDM/Problems Addressed
Differential Diagnosis Includes:
pneumonia, uti, pe,
MDM/Problems Addressed:
Patient presents with weakness at home. She is unable to ambulate. She is found to be febrile here with a rectal temperature of 102. Urinalysis not consistent with UTI. Influenza and COVID test are negative. Chest x-ray did not reveal a source
for fever. Given her recent hospitalizations I was concerned that she may have a pulmonary embolism with her side pain and fever. CT of the chest was obtained. Result was pending at the time of disposition but ultimately appeared to be negative.
Patient was admitted for further evaluation of fever and weakness.
<Gus Cintron, DO - Last Filed: 06/16/24 08:37>
*Radiology
Radiology exam reviewed: radiology read reviewed
*Pulse Oximetry
Patient hypoxic: no
*EKG
Heart Rate: 110
Rate: tachycardiac
Rhythm: PVC's and sinus tachycardia
QRS Pattern: right bundle branch block
Ischemia: non-specific ST changes
*Show Card Writer Interpretation
Rate: tachycardiac
Interpretation: abnormal
Rhythm: sinus tachycardia
<Nicholas Pollard, DO - Last Filed: 06/15/24 22:41>
*Critical Care Note
Total Time (30-74mins, 75-104mins- exclusive of procedures): Not Applicable
<Nicholas Pollard, DO - Last Filed: 06/15/24 22:41>
Update Note
Update Note:
Patient with fevers of unclear etiology. CT chest and chest x-ray no signs of pneumonia. Admit to hospitalist.
ED Attending Note
<Gus Cintron, DO - Last Filed: 06/16/24 08:37>
-
Portions of this chart may have been created with voice recognition software.� Occasional wrong word or��sound alike� substitutions may have occurred due to the inherent limitations of voice recognition software.
Discharge Plan
Departure
Patient Disposition: Admit
Date of Disposition: 06/15/24
Time of Disposition: 17:37
Admit to: Telemetry
Presentation/result/management discussed w/ accepting MD/DO: Hospitalist
Patient with high blood pressure during this ER visit?: Yes
Condition: Fair
Discharge Problem:
Fever, Weakness
Interventions
Interventions:
*Risk Screen - Suicide Last Done: 06/15/24 09:43
*General Assessment Last Done: 06/15/24 09:41
*Neglect/Abuse Screening Last Done: 06/15/24 09:43
*ED- Fall Risk Assessment Last Done: 06/15/24 09:41
*ED COVID-19 Vaccine History Last Done: 06/15/24 09:41
ED- Cardiac Assessment Last Done: 06/15/24 10:16
ED- Neurological Assessment Last Done: 06/15/24 09:43
ED- Pulmonary Assessment Last Done: 06/15/24 10:16
[2024-06-15] MEDS: DUONEB 3 ML INH (11:04)
[2024-06-15 11:16] LABS: ALT (SGPT) 16 U/L (0-35); AST (SGOT) 23 U/L (14-36); Albumin 4.1 g/dl (3.5-5.0); Alkaline Phosphatase 104 U/L (38-126); Blood Urea Nitrogen 18 mg/dl (7-17); Calcium 8.8 mg/dl (8.4-10.2); Carbon Dioxide 31 mmol/L (22-30); Chloride 100 mmol/L (98-107); Estimated Creatinine Clearance 55 ml/min; Glucose 189 mg/dl (70-99); Potassium 4.1 mmol/L (3.5-5.1); Sodium 139 mmol/L (135-145); Total Bilirubin 0.6 mg/dl (0.2-1.3); Total Protein 6.3 g/dl (6.3-8.2); eGFR > 60.00
[2024-06-15 11:27] LABS: Venous Blood Gas B.E. 3.9 mmol/L (-4 to +4); Venous Blood Gas HCO3 30.5 mmol/L (22-27); Venous Blood Gas O2 Sat % 76.6 %; Venous Blood Gas pCO2 54 mmHg (35-48); Venous Blood Gas pH 7.36 (7.32-7.43); Venous Blood Gas pO2 46 mmHg (30-50)
[2024-06-15 11:36] LABS: Venous Blood Gas O2 Therapy 28
[2024-06-15] MEDS: TYLENOL 650 MG PO ×2 (11:40→22:35)
[2024-06-15 12:04] LABS: Urine Albumin Negative (Neg - Trace); Urine Bilirubin Negative (Negative); Urine Character Clear (Clear); Urine Color Yellow; Urine Glucose Negative (Negative); Urine Ketone 1+ (Negative); Urine Leukocyte Negative (Negative); Urine Nitrite Negative (Negative); Urine Occult Blood Negative (Negative); Urine Urobilinogen Negative (Neg - 1+)
[2024-06-15 12:22] LABS: Lactic Acid 1.8 mmol/L (0.7-2.0)
--- NOTE | 2024-06-15 21:44 | HPS.HSE ---
Family Physician
-
Family Physician: Carrie Nuñez
Chief Complaint
-
generalized weakness, increased shortness of breath and right thorax pain
History of Present Illness
HPI
89F HX home O2 dependent COPD, laryngeal dyskinesis sen at ER :
- presented with son
- generalized weakness, increased shortness of breath and right thorax pain.
- Currently wearing brace
- report several falls recently due to weakness which has resulted in a hip fracture as well as lumbar and cervical vertebral fractures.
- supposed to wear a cervical brace but does not wear it.
Medical History
Past Medical History
Past Medical History: Reports Other
Additional Past Medical History:
COPD / Asthma
Vocal Cord Spasm
Esophageal Spasm
GERD
Hypertension
DM-II
TANI on CPAP
ASCVD / Carotid Stenosis
Osteoporosis
Chronic Lower Extremity Edema
Past Surgical History: Reports Other
Additional Past Surgical History:
Appendectomy
Left Carotid Stent
JOSE MARTIN
Carpal Tunnel Surgery
Bladder Repair
Lumpectomy (Benign)
Social History
Tobacco: Non-smoker
Alcohol: None
Drug: None
Living: With Family
Family History
Family History: Other (Mother: Asthma / COPD)
Allergies / Home Medications
Allergies reflects when Allergies were last updated in [facility].
Home Medications with original date entered in [facility]
Allergy/Medication List:
Medications on admission are unable to be verified or confirmed at this time.
If medication reconciliation has not been performed, why?: Other (Pending Rx reconciliation)
Review of Systems
-
Constitutional: Reports See HPI, Fever and Fatigue
EENT: Reports No Symptoms
Cardiac: Reports No Symptoms
Abdomen/GI: Reports No Symptoms
: Reports No Symptoms
Musculoskeletal: Reports No Symptoms
Skin: Reports No Symptoms
Neurological: Reports Weakness
Endocrine: Reports No Symptoms
Hematologic/Lymphatic: Reports No Symptoms
Psych: Reports No Symptoms
Physical Exam
Vital Signs
Vital Signs
Temp Pulse Resp BP Pulse Ox
98.8 F 105 32 121/62 95
06/15/24 15:12 06/15/24 17:00 06/15/24 17:00 06/15/24 16:00 06/15/24 17:00
Physical Exam
General: Well Developed, Well Nourished and No Apparent Distress
HEENT: NormoCephalic, Moist mucous membranes and Atraumatic
Respiratory: Clear
Cardiac: S1/S2 and Regular Rhythm; No Murmur or Rub
GI: Soft, Non Tender, Non Distended and Normal Bowel Sounds; No Organomegaly
Rectal: Deferred by Provider
Musculoskeletal: No Clubbing, No Cyanosis and No Edema
Skin: No Rash
Neuro: Nonfocal/grossly intact
Laboratory Results
-
06/15/24 10:13
06/15/24 10:55
Laboratory Results
Lactic Acid Cancelled 06/15/24 15:15
Total Bilirubin 0.6 mg/dl (0.2-1.3) 06/15/24 10:55
AST 23 U/L (14-36) 06/15/24 10:55
ALT 16 U/L (0-35) 06/15/24 10:55
Alkaline Phosphatase 104 U/L (38-126) 06/15/24 10:55
Impression/Plan
-
VS
06/15/24
09:44 06/15/24
11:45 06/15/24
12:00
Temp 99.5 F 102.1 F H
Temp route: Oral Rectal
Pulse 112 115
Blood pressure 139/61
Lab
05/19/24 06/15/24 06/15/24
04:35 10:13 10:55
WBC 9.5
Hgb 12.4
Plt Count 165
VBG pH
VBG pCO2
VBG pO2
Carbon Dioxide 32 H 31 H
Creatinine 0.6
eGFR > 60.00
Leukocyte Esterase Rfl
SARS-CoV-2 Antigen Negative
06/15/24 06/15/24
11:03 11:42
WBC
Hgb
Plt Count
VBG pH 7.36
VBG pCO2 54 H
VBG pO2 46
Carbon Dioxide
Creatinine
eGFR
Leukocyte Esterase Rfl Negative
SARS-CoV-2 Antigen NEG
NEG Flu A & B
BCx sent
CXR
No acute cardiopulmonary process
CT Chest PE Study
1. No evidence of pulmonary embolism.
2. No significant acute abnormality identified in the chest, as described above.
3. Findings suggesting underlying pulmonary arterial hypertension.
EKG
SINUS TACHYCARDIA WITH FREQUENT PREMATURE VENTRICULAR COMPLEXES
LEFT AXIS DEVIATION
INCOMPLETE RIGHT BUNDLE BRANCH BLOCK
NONSPECIFIC ST ABNORMALITY
ABNORMAL ECG
WHEN COMPARED WITH ECG OF 29-MAR-2024 19:52,
PREMATURE VENTRICULAR COMPLEXES ARE NOW PRESENT
HI INTERVAL HAS DECREASED
INCOMPLETE RIGHT BUNDLE BRANCH BLOCK IS NOW PRESENT
05/19/24 MR Thoracic Spine Without
- new acute on chronic compression fracture of the T12 vertebral body. There is trace retropulsion which is overall similar appearance to prior.
- Extensive chronic compression deformities throughout the thoracic spine with multilevel mild/moderate degenerative changes, not significantly changed in appearance from prior.
- There is multilevel degenerative changes with resultant mild/moderate canal stenosis at the T8-T9 and T12-L1 levels, unchanged from prior.
05/19/24 MR Lumbar Without Contrast
- There is no evidence of acute compression fracture within the lumbar spine.
- There is a moderate compression deformity of the L1 vertebral body with mild compression deformities of the L2 and L4 vertebral bodies which are unchanged from prior. There is trace STIR signal along the anterior aspect of the superior endplate of
L2 which is unchanged from prior and likely degenerative in nature.
- There is stable multilevel degenerative changes most pronounced at L4-L5 where there is resultant mild/moderate canal stenosis with lateral recess narrowing, moderate right-sided neuroforaminal narrowing and mild left-sided neuroforaminal
narrowing.
- Stable 2.7 cm cyst along the pancreatic tail.
Last hospitalist admission: 05/20/24 - 05/21/24
Primary diagnosis:
Acute Back Pain, related to new T12 Compression Fracture
Secondary diagnosis:
Chronic vertebral fractures
Osteoporosis
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
Chronic maintenance steroids for COPD
Atherosclerotic cardiovascular disease
Carotid stenosis status post left carotid stent
Hypertension
Diabetes mellitus type 2 on insulin
ASSESSMENT & PLAN
Pending Rx reconciliation
SIRS( Fever, Tachycardia) picture but uncertain origin
- NEG Covid, NEG Flu A & B. NEG UA, NEG CXR, unremarkable CTC for PE and PNA
- BCx sent
- Trend T curve, WCC
- Empiric Zosyn and Vanco
Back Pain due to subacute on chronic compression Fx. T12 vertebral body.
Ambulatory Dysfunction
- pain control : Tylenol TID, Toradol prn
- continue Gabapentin
- continue Tramadol
- continue Lido patch
- PT/OT
Chronic Hypoxic hypercapnic RF
Home O2 dependent COPD - no acute flare
- POX goal hi 80s to keep hypoxic drive , to prevent furtehr CO2 retension
- continue chr prednisone
- continue montelukast
ASCVD / Carotid Stenosis s/p Left Carotid Stent
- continue Plavix
Hypertension
- continue diltiazem
DMT2
- add ISS
Chronic Lower Extremity Edema
- continue Torsemide
GERD
Vocal Cord Spasm
Esophageal Spasm
- continue Protonix
Obstructive Sleep Apnea
- continue CPAP
DVT Px: SCD
Full code
IP TLM
[2024-06-15] MEDS: SINGULAIR 10 MG PO (22:35)
[2024-06-15] MEDS: NEURONTIN 200 MG PO (22:35)
[2024-06-15] MEDS: ProAIR HFA INHALER 1 PUFF INH (22:49)
[2024-06-15] MEDS: ATROVENT NEBULES 0.5 MG INH (22:53)
[2024-06-15 23:03] LABS: Glucose - Point of Care 160 mg/dl (70-99)
[2024-06-15] MEDS: ZOSYN 50 IV (23:30)
[2024-06-15] MEDS: VANCOCIN 530 MG IV (23:46)
[2024-06-16] VITALS (21 sets, daily range): BP systolic 90–141; BP diastolic 39–99; PULSE 99; BMI 30.6
[2024-06-16] MEDS: ZOSYN 50 IV ×3 (05:23→17:06)
[2024-06-16 05:52] LABS: % Basophils 0.3 % (0-2); % Eosinophils 1.2 % (0-6); % Immature Granulocytes 0.6 % (0-0.5); % Lymphocytes 14.9 % (20.5-51.1); % Monocytes 15.4 % (1.7-9.3); % Neutrophils 67.6 % (42.2-75.2); Absolute Eosinophils 0.1 10^3/uL (0-0.7); Absolute Monocytes 1.1 10^3/uL (0.1-0.6); Absolute Neutrophils 4.6 10^3/uL (1.4-6.5); Hematocrit 34.7 % (37.0-47.0); Hemoglobin 11.3 g/dL (12.0-16.0); Mean Corp Hgb Conc. 32.6 g/dL (33.0-37.0); Mean Corpuscular Hgb 31.5 pg (27.0-31.0); Mean Corpuscular Volume 96.7 fL (81.0-99.0); Mean Platelet Volume 9.7 fL (7.4-10.4); Nucleated Red Blood Cells % 0 %; Platelet Count 146 10^3/uL (130-400); Red Blood Cell Count 3.59 10^6/uL (4.20-5.40); Red Cell Dist. Width 14.7 % (11.5-14.5); White Blood Cell Count 6.8 10^3/uL (4.8-10.8)
[2024-06-16 06:04] LABS: ALT (SGPT) 16 U/L (0-35); AST (SGOT) 38 U/L (14-36); Albumin 3.5 g/dl (3.5-5.0); Alkaline Phosphatase 81 U/L (38-126); Blood Urea Nitrogen 16 mg/dl (7-17); Calcium 8.5 mg/dl (8.4-10.2); Carbon Dioxide 27 mmol/L (22-30); Chloride 104 mmol/L (98-107); Estimated Creatinine Clearance 47 ml/min; Glucose 125 mg/dl (70-99); Potassium 4.3 mmol/L (3.5-5.1); Sodium 140 mmol/L (135-145); Total Bilirubin 0.7 mg/dl (0.2-1.3); Total Protein 5.8 g/dl (6.3-8.2); eGFR > 60.00
[2024-06-16] MEDS: MIRALAX 17 GRAMS PO (07:57)
[2024-06-16] MEDS: CRESTOR 5 MG PO (07:58)
[2024-06-16] MEDS: PROTONIX 40 MG PO (07:58)
[2024-06-16] MEDS: VITAMIN D3 (cholecalciferol) 50 MCG PO (07:58)
[2024-06-16] MEDS: PLAVIX 75 MG PO (07:58)
--- NOTE | 2024-06-16 07:58 | PHA.VAN.IN ---
Assessment
- Assessment
Renal Function: Appears similar to baseline
Maximum Temperature: 102.1 F
AUC Dosing Plan
- Dosing Variables
Dosing Weight (kg): 68
Dosing CrCl (ml/min): 47
Vd coefficient (L/kg): 0.7
- Empiric Dosing
Initial / Loading Dose: VANCO 1500MG X1
Maintenance Regimen: VANCO 1000MG Q24H
Estimated AUC (mcg*h/mL): 494
Estimated Peak (mcg*h/mL): 32.5
Estimated Trough (mcg/ml): 12.0
Estimated Half Life (H): 16
- Monitoring
No levels ordered at this time: CONSIDER LEVEL PRIOR TO 4TH MAINTENANCE DOSE
Pharmacokinetics Vancomycin I
- -
Patient Age: 89
Patient Sex: Female
Vancomycin Day #: 2
Indication: Other
Requesting Provider: DR. SIM
Pertinent Antimicrobial Allergies:
AMOXICILLIN (RASH, TOLERATES CEPHALOSPORINS)
SULFA (EYE SWELLING)
Height / Weight:
Height 4 ft 11 in
Actual Weight 68.7 kg
Pertinent Past Medical History: COPD
- Vital Signs / Lab Results
Temp Pulse Resp BP Pulse Ox
98.2 F 104 25 134/78 99
06/16/24 04:00 06/16/24 07:06 06/16/24 07:06 06/16/24 07:06 06/16/24 07:19
Lab Results - Hematology
06/15/24 06/16/24
10:13 05:28
WBC 9.5 6.8
Lab Results - Chemistry
06/15/24 06/15/24 06/16/24
10:13 10:55 05:28
BUN Cancelled 18 H 16
Creatinine Cancelled 0.6 0.7
Estimated Creat Clear Cancelled 55 47
Albumin Cancelled 4.1 3.5
06/15/24 06/15/24
11:39 15:15
Lactic Acid 1.8 Cancelled
Lab Results - Urine
06/15/24
11:42
Urine Nitrite (Reflex) Negative
Leukocyte Esterase Rfl Negative
Microbiology Results
06/15/24 10:13 Influenza Types A & B (EMELY) - Final
Nasal Swab Negative for Influenza A & B, NAAT
Negative results must be combined with clinical observations
and patient history.
Nucleic Acid Amplification test (NAAT)performed on the
[employer] platform.
[2024-06-16] MEDS: HEPARIN 5000 UNITS SC ×2 (08:00→19:58)
[2024-06-16] MEDS: CARDIZEM CD 120 MG PO (08:00)
[2024-06-16] MEDS: MYSOLINE 50 MG PO (08:03)
[2024-06-16] MEDS: ATROVENT NEBULES 0.5 MG INH (08:13)
[2024-06-16] MEDS: ULTRAM 25 MG PO (08:21)
[2024-06-16] MEDS: REFRESH EYE DROPS (PF) 1 DROPS LEFT EYE (08:22)
[2024-06-16] MEDS: MUCINEX 1200 MG PO ×2 (08:22→19:58)
[2024-06-16] MEDS: LIDOCAINE 4% PATCH 1 PATCH TOPICAL (08:23)
[2024-06-16] MEDS: NOVOLOG FLEXPEN-LOW RESISTANCE SC ×2 (08:44→12:04)
[2024-06-16 08:45] LABS: Glucose - Point of Care 126 mg/dl (70-99)
--- NOTE | 2024-06-16 10:05 | W.PN.HOSP.TC ---
Today's Communication/Plan
-
Assessment / Plan
Assessment / Plan
Sepsis with Strep Bacteremia, Unclear as to source, potentially pulmonary as there is rhonchi and wheezing on exam gabi as she c/o of thick/yellow sputum that is new
- NEG Covid, NEG Flu A & B. NEG UA, NEG CXR, unremarkable CTC for PE and PNA
- BCx + strep, will chech strep pneumo UA
- Repeat cultures
- Cover with Zosyn and Vanco
- 2d echo
- consult ID once sensitivities return to direct in de-escalation/duration of atb coverage
Chronic Hypoxic hypercapnic RF
Home O2 dependent COPD - noted bronchospasm on exam
- goal spo2 88-92%
- start iv steorids
- continue montelukast
- duonebs
- mucolytics
- vest therapy
- incentive ebenezer
- acapella
ASCVD / Carotid Stenosis s/p Left Carotid Stent
- continue Plavix along with crestor and coq10
Hypertension
- continue diltiazem
DMT2
- add ISS
Chronic Lower Extremity Edema
- continue Torsemide
GERD
Vocal Cord Spasm
Esophageal Spasm
- continue Protonix
Obstructive Sleep Apnea
- continue CPAP
Back Pain due to subacute on chronic compression Fx. T12 vertebral body.
Ambulatory Dysfunction
- pain control : Tylenol TID, Toradol prn
- continue Gabapentin
- continue Tramadol
- continue Lido patch
- PT/OT
Anticipated Discharge: > 48 hours
Subjective/Interval History
-
Date of Service: June 16, 2024
seen and examined. no new complaints. no acute overnight events
self suctioning
Objective Data
-
Labs:
Laboratory Results
06/16/24
05:28
WBC 6.8
Hgb 11.3 L
Hct 34.7 L
Plt Count 146
Sodium 140
Potassium 4.3
Chloride 104
Carbon Dioxide 27
BUN 16
Creatinine 0.7
Glucose 125 H
Calcium 8.5
Total Bilirubin 0.7
AST 38 H
ALT 16
Alkaline Phosphatase 81
Vital Signs:
Vital Signs
Temp Pulse Resp BP Pulse Ox
98.2 F 107 22 134/78 97
06/16/24 04:00 06/16/24 08:14 06/16/24 08:14 06/16/24 08:00 06/16/24 08:14
I&O
06/15/24 06/16/24 06/17/24
06:59 06:59 06:59
Intake Total 600 / 600
Balance 600 / 600
Physical Exam
-
General: Respiratory Distress; Negative Pain, Fever, Chills, Sweats or Intubated
HEENT: Normocephalic and Atraumatic; Negative Moist Mucous Membranes
Respiratory: Rhonchi
Cardiac: Regular Rhythm, S1/S2 and Tachycardic
Breast: Deferred by me
GI: Soft, Nontender, Nondistended and Normal Bowel Sounds
Rectal: Deferred by Provider
Genito-urinary: No Costovertebral Tender
Musculoskeletal: No Clubbing, No Cyanosis and No Edema
Skin: Warm and Dry
Neuro: Awake, Alert, Oriented and AO x 3
[2024-06-16] MEDS: SOLU-MEDROL PF 125 MG IV (10:17)
--- NOTE | 2024-06-16 10:54 | PTOTSP ---
Received order for PT from the ED and reviewed chart. Went to ED to s/w RN who requests holding PT at this time. Will follow up tomorrow.
[2024-06-16] MEDS: DUONEB 3 ML INH ×3 (11:03→19:25)
[2024-06-16] MEDS: SODIUM CHLORIDE 3% FOR INHALATION 1 VIAL INH (11:09)
[2024-06-16 12:03] LABS: Glucose - Point of Care 145 mg/dl (70-99)
[2024-06-16] MEDS: VANCOCIN 200 IV (12:37)
[2024-06-16] MEDS: SOLU-MEDROL PF 40 MG IV ×2 (14:13→19:59)
[2024-06-16 17:10] LABS: Glucose - Point of Care 330 mg/dl (70-99)
[2024-06-16] MEDS: NOVOLOG FLEXPEN-LOW RESISTANCE 4 UNITS SC (17:10)
--- NOTE | 2024-06-16 17:34 | PTOTSP ---
ST Acute Care Evaluation
Pt currently presents with clinical signs of pharyngoesophageal dysphagia. Pt reports to [employer] that she came to the hospital due to difficulties swallowing. Pt has a hx of esophageal stenosis s/p dilations, and thus is on a pureed diet at baseline. Pt
also has a hx of pharyngeal dysphagia and thus is on a mildly thick liquids diet at baseline. During this evaluation, pt exhibited clinical signs of airway invasion with mildly thick liquids.
Recommendations:
- NPO; critical meds only with sips of mildly thick liquids.
- No ARHP; not appropriate at this time.
- Aspiration & reflux precautions: HOB upright as often as possible; oral care q4 hours.
- [employer] team to f/u re: re-assessment for candidacy for PO diet vs. determine POC (instrumental swallow study vs comfort feeds).
[2024-06-16 21:48] LABS: Glucose - Point of Care 321 mg/dl (70-99)
[2024-06-16] MEDS: SINGULAIR 10 MG PO (22:03)
[2024-06-16] MEDS: NEURONTIN 200 MG PO (22:03)
--- NOTE | 2024-06-16 23:48 | PTCARENOTE ---
Addendum entered by Darcie Bland RN 06/18/24 01:21:
Blood sugar noted 346. Carolin Mason notified and new orders received; coverage given per order.
Original Note:
Patient arrived from ED via bed accompanied by RN and tech. See walking dragline oiler charted on worklist. Patient is anxious and requires frequent emotional support and encouragement. Afebrile. VSS. SR 90s to ST low 100s with frequent PVCs on CM. Purewick
catheter placed due to patient frequent incontinence and pain with turning. Complete bath given with CHG cloths. Scarring noted on buttocks from old pressure sore. Patient states she has been falling a lot including a fall from wheelchair where she
bruised ribs on the left. Patient yells out with turning. BLE heels elevated off pillows, turn every 2 hours as tolerated. Left AC #20 SL flushes easily, ABx given through site. Marked upper airway expiratory wheezes audible as well as expiratory
wheezes t/o right lung, BBS with coarse rhonchi t/o. Sats 98% on 2L/nc. Respirations tachypneic and positive mild orthopnea. Bed in low and locked position, bed alarm on, call cali within reach. Per note, should be wearing a cervical collar but
patient refuses. TLSO brace at bedside for when patient OOB.
[2024-06-17] VITALS (31 sets, daily range): BP systolic 98–143; BP diastolic 47–89; PULSE 86–103; O2SAT 96–98; BMI 26.9
[2024-06-17] MEDS: DUONEB 3 ML INH ×5 (00:03→19:44)
[2024-06-17] MEDS: ZOSYN 50 IV ×2 (00:06→05:29)
[2024-06-17 00:07] LABS: Glucose - Point of Care 346 mg/dl (70-99)
[2024-06-17] MEDS: TYLENOL 650 MG PO ×3 (00:41→21:12)
[2024-06-17] MEDS: ULTRAM 25 MG PO ×2 (00:42→21:13)
[2024-06-17] MEDS: LIDOCAINE 4% PATCH 1 PATCH TOPICAL ×2 (00:42→09:50)
[2024-06-17] MEDS: NOVOLOG FLEXPEN 5 UNITS SC (00:54)
--- NOTE | 2024-06-17 01:05 | PTCARENOTE ---
Prn Tylenol and Ultram given per order for patient c/o left flank/chest discomfort-meds crushed in applesauce. Lidocaine patch placed left anterior chest below breast since old lidocaine patch was found off. CPAP placed per RT.
[2024-06-17] MEDS: SOLU-MEDROL PF 40 MG IV ×4 (03:20→23:49)
[2024-06-17 05:18] LABS: Hematocrit 32.1 % (37.0-47.0); Hemoglobin 10.5 g/dL (12.0-16.0); Mean Corp Hgb Conc. 32.7 g/dL (33.0-37.0); Mean Corpuscular Hgb 30.6 pg (27.0-31.0); Mean Corpuscular Volume 93.6 fL (81.0-99.0); Mean Platelet Volume 10.1 fL (7.4-10.4); Platelet Count 117 10^3/uL (130-400); Red Blood Cell Count 3.43 10^6/uL (4.20-5.40); Red Cell Dist. Width 13.8 % (11.5-14.5); White Blood Cell Count 6.2 10^3/uL (4.8-10.8)
[2024-06-17 05:20] LABS: ALT (SGPT) 16 U/L (0-35); AST (SGOT) 26 U/L (14-36); Albumin 3.3 g/dl (3.5-5.0); Alkaline Phosphatase 78 U/L (38-126); Blood Urea Nitrogen 29 mg/dl (7-17); Calcium 8.5 mg/dl (8.4-10.2); Carbon Dioxide 24 mmol/L (22-30); Chloride 104 mmol/L (98-107); Estimated Creatinine Clearance 46 ml/min; Glucose 308 mg/dl (70-99); Potassium 3.7 mmol/L (3.5-5.1); Sodium 137 mmol/L (135-145); Total Bilirubin 0.5 mg/dl (0.2-1.3); Total Protein 5.5 g/dl (6.3-8.2); eGFR > 60.00
--- NOTE | 2024-06-17 05:30 | PTCARENOTE ---
Blood sugar noted 308 on morning labs. Carolin Mason APN notified. Orders received for coverage, given, see APR.
[2024-06-17] MEDS: NOVOLOG FLEXPEN 4 UNITS SC (05:40)
[2024-06-17] MEDS: VANCOCIN 200 IV (06:22)
--- NOTE | 2024-06-17 06:29 | W.PN.HOSP.TC ---
Today's Communication/Plan
-
see a/p
Assessment / Plan
Assessment / Plan
Physical Exam
General: no acute distress, appeared relatively comfortable
HEENT: Normocephalic and Atraumatic; Negative Moist Mucous Membranes
Respiratory: Some wheezing noted though appeared to be upper airway
Cardiac: Regular Rhythm, S1/S2 and Tachycardic
GI: Soft, Nontender, Nondistended and Normal Bowel Sounds
Musculoskeletal: No Clubbing, No Cyanosis and No Edema, Left sided rib pain tenderness
Skin: Warm and Dry
Neuro: AOx3 conversant coherent
89F COPD 2L baseline Laryngeal Dyskinesia HTN DM TANI CPAP Chronic Back Pain Compression Fx's here with sepsis strep bacteremia.
Sepsis with Strep Bacteremia, Unclear source, possibly pulmonary
- NEG Covid, NEG Flu A & B. NEG UA, NEG CXR, unremarkable CTC for PE and PNA
- BCx + strep, strep pneumo neg
- Follow repeat blood cultures NGTD
- ECHO appreciated EF 70%, new mild aortic stenosis when compared w/t previous ECHO 05/2021
- consult ID appreciated empiric vanc zosyn de-escalated to Ceftriaxone
Left rib pain
hx falls
-check cr ribs
-pain control
-PT/OT appreciated SNF rehab
Chronic Hypoxic hypercapnic RF
Home O2 dependent COPD - noted bronchospasm on exam
- goal spo2 88-92%
- iv steorids tapered solumedrol from Q6 to Q8
- continue montelukast
- duonebs
- mucolytics
- vest therapy
- incentive ebenezer
- acapella
ASCVD / Carotid Stenosis s/p Left Carotid Stent
- continue Plavix along with crestor and coq10
Hypertension
- continue diltiazem
DMT2
Steroid induced hyperglycemia
- moderate dose sliding scale
- Novolog 3U Lantus 10U
Chronic Lower Extremity Edema
- continue Torsemide
GERD
Vocal Cord Spasm
Esophageal Spasm
- continue Protonix
-Speech eval appreciated cont pureed mildly thick liquid, medications as tolerated puree vs mildly thick liquids
-aspiration precautions, supervision and partial assistance w/ meals
Obstructive Sleep Apnea
- continue CPAP
Back Pain due to subacute on chronic compression Fx. T12 vertebral body.
Ambulatory Dysfunction
- pain control : Tylenol TID, Toradol prn
- continue Gabapentin
- continue Tramadol
- continue Lido patch
- PT/OT appreciated SNF rehab
DVT ppx
Full Code
I spent a total of 50 minutes with the patient or on the floor. More than 50% of this time involved counseling and coordination of care.
Anticipated Discharge: 24 - 48 hours
Subjective/Interval History
-
Date of Service: June 17, 2024
reporting left sided rib pain exacerbated with movement and sob though respiratory status appeared stable on 2L non-labored.
Objective Data
-
Labs:
Laboratory Results
06/17/24
04:21
WBC 6.2
Hgb 10.5 L
Hct 32.1 L
Plt Count 117 L
Sodium 137
Potassium 3.7
Chloride 104
Carbon Dioxide 24
BUN 29 H
Creatinine 0.7
Glucose 308 H
Calcium 8.5
Total Bilirubin 0.5
AST 26
ALT 16
Alkaline Phosphatase 78
Vital Signs:
Vital Signs
Temp Pulse Resp BP Pulse Ox
98.6 F 86 20 98/53 99
06/17/24 04:00 06/17/24 06:00 06/17/24 06:00 06/17/24 06:00 06/17/24 06:00
I&O
06/15/24 06/16/24 06/17/24
06:59 06:59 06:59
Intake Total 600 / 600 1070 / 1070
Output Total 225 / 225
Balance 600 / 600 845 / 845
--- NOTE | 2024-06-17 07:10 | PTCARENOTE ---
Report given verbally to oncoming shift, Willy DE SOUZA. Questions answered.
[2024-06-17 08:16] LABS: % Immature Granulocytes 0.5 % (0-0.5); % Lymphocytes 8.6 % (20.5-51.1); % Monocytes 6.5 % (1.7-9.3); % Neutrophils 84.4 % (42.2-75.2); Absolute Lymphocytes 0.5 10^3/uL (1.2-3.4); Absolute Monocytes 0.4 10^3/uL (0.1-0.6); Absolute Neutrophils 5.2 10^3/uL (1.4-6.5); Nucleated Red Blood Cells % 0 %
[2024-06-17] MEDS: NOVOLOG FLEXPEN-MODERATE RESISTANCE 7 UNITS SC (08:52)
[2024-06-17 09:03] LABS: Glucose - Point of Care 306 mg/dl (70-99)
[2024-06-17] MEDS: CARDIZEM CD 120 MG PO (09:03)
[2024-06-17] MEDS: PROTONIX 40 MG PO (09:04)
[2024-06-17] MEDS: HEPARIN 5000 UNITS SC ×2 (09:04→19:29)
[2024-06-17] MEDS: PLAVIX 75 MG PO (09:04)
[2024-06-17] MEDS: MUCINEX 1200 MG PO ×2 (09:04→19:29)
[2024-06-17] MEDS: MYSOLINE 50 MG PO (09:05)
[2024-06-17] MEDS: VITAMIN D3 (cholecalciferol) 50 MCG PO (09:05)
[2024-06-17] MEDS: CRESTOR 5 MG PO (09:05)
[2024-06-17] MEDS: MIRALAX 17 GRAMS PO (09:05)
--- NOTE | 2024-06-17 09:10 | PTCARENOTE ---
Received pt in contact isolation on 2 liters nasal cannula. Currently getting a neb tx. She is conversant and very pleasant. Left AC#20g protective catheter flushed and patent. Weak pedal pulses, no edema. Lung with insp/exp wheeze throughout.
Tolerating nasal cannula 2 liters nasal cannula.
--- NOTE | 2024-06-17 09:39 | PHA.VAN.FU ---
Vancomycin Assessment / Plan
- Assessment
Renal Function: Stable
WBC's are: WNL
In the past 24 hrs, patient has been: Afebrile
Concomitant Antimicrobials: pip/tazo
- Dosing Plan
Continue: vancomycin 1000 mg q24h - first dose 06/16 after 1500 mg LD 06/15
- Monitoring Plan
Peak Level: 06/18 0900 after 4th dose administered
Trough Level: 06/19 0530
- Follow Up
Pharmacy will continue to follow.
Vancomycin Follow UP
- -
Patient Age: 89
Patient Sex: Female
Vancomycin Day #: 2
Indication: Other
Requesting Provider: DR. SIM
Pertinent Antimicrobial Allergies:
AMOXICILLIN (RASH, TOLERATES CEPHALOSPORINS)
SULFA (EYE SWELLING)
Height / Weight:
Height 5 ft
Actual Weight 62.5 kg
Pertinent Past Medical History: COPD
- Vital Signs / Lab Results
Temp Pulse Resp BP Pulse Ox
97.6 F 92 20 113/63 97
06/17/24 08:00 06/17/24 09:03 06/17/24 07:49 06/17/24 09:03 06/17/24 08:00
Lab Results - Hematology
06/15/24 06/16/24 06/17/24
10:13 05:28 04:21
WBC 9.5 6.8 6.2
Lab Results - Chemistry
06/15/24 06/15/24 06/16/24
10:13 10:55 05:28
BUN Cancelled 18 H 16
Creatinine Cancelled 0.6 0.7
Estimated Creat Clear Cancelled 55 47
Albumin Cancelled 4.1 3.5
06/17/24
04:21
BUN 29 H
Creatinine 0.7
Estimated Creat Clear 46
Albumin 3.3 L
06/15/24 06/15/24
11:39 15:15
Lactic Acid 1.8 Cancelled
Microbiology Results
06/16/24 10:07 Streptococcus pneumoniae Antigen (M - Final
Urine Negative for Streptococcus pneumoniae antigen.
A negative result does not exclude infection with
Streptococcus pneumoniae. Clinical correlation is
recommended.
06/15/24 11:39 Blood Culture - Preliminary
Blood/Venous Streptococcus species
Gram Stain - Preliminary
06/15/24 11:39 Blood Culture - Preliminary
Blood/Venous Positive culture in progress
Gram Stain - Preliminary
06/15/24 10:13 Influenza Types A & B (EMELY) - Final
Nasal Swab Negative for Influenza A & B, NAAT
Negative results must be combined with clinical observations
and patient history.
Nucleic Acid Amplification test (NAAT)performed on the
[employer] platform.
[2024-06-17] MEDS: REFRESH EYE DROPS (PF) 1 DROPS LEFT EYE (09:50)
--- NOTE | 2024-06-17 12:10 | CON.ID ---
Consultation
-
Date/Time Consultation Requested: June 17, 2024 0929
Date/Time Consultation Performed: June 17, 2024 1210
Requesting Provider: Dr. Ebony Morrow
Performing Provider: Dr. Johanna Fuentes
Reason for Consultation: Bacteremia
Chief Complaint / Past History
Chief Complaint
Weakness and fever
History of Present Illness
89-year-old female with history of diabetes mellitus, asthma/COPD on home O2 and chronic low-dose prednisone, osteoporosis , ambulatory dysfunction with multiple falls, recent admissions and found to have cervical and thoracic acute on chronic
vertebral compression fractures who presented to the hospital on June 15 due to weakness in left thorax pain. Patient was recently at [facility] rehab in then discharged to home. She states she tried to get up from the wheelchair but then fell and
hit her left chest against the wheelchair. She developed worsening weakness and shortness of breath. Positive subjective fever. In the ER temperature 102.1. Chest x-ray no acute pneumonia. Chest CT without PE, no infiltrates. UA negative.
She was started on empiric vancomycin and Zosyn. 2 sets of blood cultures in the ER are now positive for strep species. Patient denies headache. No abdominal pain or diarrhea. Positive burning with urination started 2 days ago. No flank pain.
She wears a brace for her vertebral compression fractures. Back pain is not worse. Back pain is positional worse with movement/ambulation. May 19, 2024 MRI of the thoracic and lumbar spine without contrast showed extensive compression
deformities with acute on chronic compression fracture of the T12 vertebral body.
Past History
Additional Past Medical History:
DM2
Neuropathy
HTN
laryngeal dyskinesia
Asthma/COPD on chronic low dose prednisone
Chronic hypoxemic respiratory failure on home O2
TANI on CPAP
Hx H. pylori
Carotid stenosis s/p left carotid stent
Osteoporosis
Vertebral Compression fractures
Chronic LE edema
Appendectomy
Bladder repair
Lumpectomy (benign)
Allergy History:
abacavir sulfate [From Ziagen] Allergy (Verified 05/17/24 16:15)
Unknown
amoxicillin [Amoxicillin] Allergy (Verified 05/17/24 16:15)
Rash, tolerates cephalosporins
aspartame Allergy (Verified 05/17/24 16:15)
asthma attack - artifical sweeteners
banana Allergy (Verified 05/17/24 16:15)
ASTHMA ATTACK
Beta-Adrenergic Agents Allergy (Verified 05/17/24 16:15)
Unknown
bimatoprost Allergy (Verified 05/17/24 16:15)
Palpitations
bupropion Allergy (Verified 05/17/24 16:15)
STOMACH UPSET
cat dander Allergy (Verified 05/17/24 16:15)
CAN'T BREATHE
clavulanic acid Allergy (Verified 05/17/24 16:15)
unknown - beta lactamase inhibitors
colesevelam Allergy (Verified 05/17/24 16:15)
CRAMPS
dog dander Allergy (Verified 05/17/24 16:15)
CAN'T BREATHE
house dust Allergy (Verified 05/17/24 16:15)
Unknown
house dust mite Allergy (Verified 05/17/24 16:15)
Unknown
latanoprost Allergy (Verified 05/17/24 16:15)
Palpitations
metformin HCl [From Glucophage] Allergy (Verified 05/17/24 16:15)
spasms in back/HEART PROBLEM
mold Allergy (Verified 05/17/24 16:15)
Unknown
monosodium glutamate Allergy (Verified 05/17/24 16:15)
DIARRHEA
pollen extracts Allergy (Verified 05/17/24 16:15)
Unknown
quinapril HCl [From Accupril] Allergy (Verified 05/17/24 16:15)
UPSET STOMACH
ramipril Allergy (Verified 05/17/24 16:15)
Upset Stomach
simvastatin [Simvastatin] Allergy (Verified 05/17/24 16:15)
feet swelled/CAN'T WALK
Sulfa (Sulfonamide Antibiotics) Allergy (Verified 05/17/24 16:15)
EYE Swelling
valsartan Allergy (Verified 05/17/24 16:15)
BACKACHE/STOMACHACHE
Medications Reviewed: Yes
Current Antibiotics:
Zosyn
Vancomycin
Social History
Tobacco: Non-Smoker
Alcohol: None
Drug: None
Personal:
Family History
Family History: Not Pertinent
Review of Systems
Review of Systems
General: Fever, Chills and Change in Appetite
HEENT: Negative Sinus Problems or Headache
Cardiovascular: Other
Respiratory: Negative Dyspnea or Cough
Gasteroenterology: Negative Nausea, Vomiting or Diarrhea
Genital / Urological: Dysuria; Negative Flank Pain
Endocrine: Weakness
Musculoskeletal: Other (left anterior thorax pain)
Skin / Hair / Nails: Negative Rash
Neurological: Negative Dizziness
Vital Signs
Temp Pulse Resp BP Pulse Ox
98 F 96 22 113/60 95
06/17/24 11:03 06/17/24 11:31 06/17/24 11:31 06/17/24 11:00 06/17/24 11:31
Physical Exam
Physical Exam
Head: Other (No frontal or maxillary sinus tenderness)
Eyes: No Conjunctival Hemorrhage and Sclera Anicteric
Cardiovascular: Regular Rate and S1/S2
Gastrointestinal: Soft, Non Tender and Non Distended
Genito-Urinary: Negative CVA Tenderness
Extremities: Negative Edema
Musculoskeletal: Negative Spinal Tenderness (lumbar spine)
Neurological: AO x 3
Lab / Diagnostic Study Results
06/17/24 04:21
06/17/24 04:21
Abs Immat Gran (auto) 0.0 10^3/uL (0-0.05) 06/17/24 04:21
Absolute Neuts (auto) 5.2 10^3/uL (1.4-6.5) 06/17/24 04:21
Absolute Lymphs (auto) 0.5 10^3/uL (1.2-3.4) L 06/17/24 04:21
Absolute Monos (auto) 0.4 10^3/uL (0.1-0.6) 06/17/24 04:21
Absolute Basos (auto) 0.0 10^3/uL (0-0.2) 06/17/24 04:21
Immature Gran % 0.5 % (0-0.5) 06/17/24 04:21
Neutrophils % 84.4 % (42.2-75.2) H 06/17/24 04:21
Lymphocytes % 8.6 % (20.5-51.1) L 06/17/24 04:21
Monocytes % 6.5 % (1.7-9.3) 06/17/24 04:21
Eosinophils % 0.0 % (0-6) 06/17/24 04:21
Basophils % 0.0 % (0-2) 06/17/24 04:21
Lactic Acid Cancelled 06/15/24 15:15
Microbiology Results
Micro:
06/16/24 11:47 Blood Culture - Preliminary
Blood/Venous No Growth in 24 hours- Final report to follow
06/15/24 11:39 Blood Culture - Preliminary
Blood/Venous Positive culture in progress
Gram Stain - Preliminary
06/15/24 11:39 Blood Culture - Preliminary
Blood/Venous Streptococcus species
Gram Stain - Preliminary
06/16/24 10:51 Blood Culture - Preliminary
Blood/Venous No Growth in 24 hours- Final report to follow
06/16/24 10:07 Streptococcus pneumoniae Antigen (M - Final
Urine Negative for Streptococcus pneumoniae antigen.
A negative result does not exclude infection with
Streptococcus pneumoniae. Clinical correlation is
recommended.
06/15/24 10:13 Influenza Types A & B (EMELY) - Final
Nasal Swab Negative for Influenza A & B, NAAT
Negative results must be combined with clinical observations
and patient history.
Nucleic Acid Amplification test (NAAT)performed on the
[employer] platform.
06/15/24 Chest CTA No evidence of pulmonary embolism. No significant acute abnormality identified in the chest, as described above. Findings suggesting underlying pulmonary arterial hypertension.
Assessment / Plan
# Streptococcus species bacteremia, 2 sets of blood cultures drawn at the same time
# Fever
# Multiple compression fractures due to falls
-Strep species bacteremia from undefined source.
- await speciation
-repeat bcx's neg to date
- Ordered TTE
- Consider MRI of T/L spine without and with contrast.
- De-escalate Vanco/Zosyn to ceftriaxone.
[2024-06-17] MEDS: NOVOLOG FLEXPEN 3 UNITS SC ×2 (14:22→18:02)
[2024-06-17] MEDS: NOVOLOG FLEXPEN-MODERATE RESISTANCE 5 UNITS SC ×2 (14:22→18:00)
[2024-06-17] MEDS: ZOSYN IV (14:27)
[2024-06-17 14:36] LABS: Glucose - Point of Care 296 mg/dl (70-99)
[2024-06-17] MEDS: STERILE WATER FOR INJECTION 10 ML IV (15:07)
--- NOTE | 2024-06-17 15:17 | CM ---
Reviewed the chart notes and spoke with the patient at the bedside. Patient resides with spouse and son in a bi-level home with one step to enter and stair glide to second level. The patient has a rolling walker, wheelchair, shower chair, shower
rail, hospital bed, and home O2 (provider unknown). The patient reports having [facility] and [facility]. The patient has been to [facility] in the past. The patient confirmed her pharmacy of choice is [facility]. CM continues to be
available to patient/family and is monitoring medical plan for needs at discharge.
Plan: Discharge plans will depend on progress. Patient reports she will not go to a SNF.
[2024-06-17] MEDS: ROCEPHIN 2000 MG IV (15:23)
--- NOTE | 2024-06-17 15:33 | PTCARENOTE ---
Pt remains in the chair. Son at the bedside. She ate a late breakfast and a late lunch. She has a moist cough that she uses a yankauer to suction the back of her throat. Will continue to monitor.
--- NOTE | 2024-06-17 16:02 | PTCARENOTE ---
2 moderate assist back to bed for ECHO. Pericare performed. New purwick placed. C/O severe left lateral rib pain. HOB elevated. ECHO called notifying that pt back in bed.
[2024-06-17] MEDS: LANTUS 0.1 UNITS SC (18:00)
[2024-06-17 18:01] LABS: Glucose - Point of Care 275 mg/dl (70-99)
--- NOTE | 2024-06-17 20:00 | PTCARENOTE ---
Patient received lying in bed, awake and alert, oriented, watching TV. She is very anxious and calling for nurse frequently. Emotional support and encouragement given. Dinner tray at bedside, set up for meal with HOB up 90 degrees, aspiration
precautions. She ate and tolerated 50% of her meal. Taking thickened liquids without issues, no s/sx of aspiration noted. 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 Respirations are tachypneic and mildly labored, worse with increased anxiety.
Instructed to breathe slowly in through nose and out through mouth--respirations calm. Upper airway wheezes audible. Occasional weak, dry NPC. Patient c/o left flank discomfort with cough. Right lung with crackles and wheezes t/o, left lung with UL
clear and base diminished. Sats 95% on 2L/nc. Abdomen soft, passing flatus. Positive pulses x 4 extremities with LE edema 1-2+. Occasional left flank pain, especially with cough and repositioning. SR with 1st degree AVB and frequent PVCs. Labs
reviewed. Bed in low and locked position, bed alarm on, call cali within reach.
[2024-06-17 21:12] LABS: Glucose - Point of Care 261 mg/dl (70-99)
[2024-06-17] MEDS: NEURONTIN 200 MG PO (21:12)
[2024-06-17] MEDS: SINGULAIR 10 MG PO (21:14)
[2024-06-18] VITALS (22 sets, daily range): BP systolic 91–137; BP diastolic 45–77; PULSE 82–106; BMI 27.5
--- NOTE | 2024-06-18 06:00 | PTCARENOTE ---
Am labs drawn. Repositioned. Dry, purewick in place. C/o feeling 'wheezy.' Respiratory treatment requested from RT.
[2024-06-18] MEDS: DUONEB 3 ML INH ×4 (06:23→19:18)
[2024-06-18 06:42] LABS: ALT (SGPT) 16 U/L (0-35); AST (SGOT) 21 U/L (14-36); Albumin 3.4 g/dl (3.5-5.0); Alkaline Phosphatase 71 U/L (38-126); Blood Urea Nitrogen 43 mg/dl (7-17); Calcium 8.7 mg/dl (8.4-10.2); Carbon Dioxide 25 mmol/L (22-30); Chloride 109 mmol/L (98-107); Estimated Creatinine Clearance 46 ml/min; Glucose 244 mg/dl (70-99); Magnesium 2.3 mg/dl (1.6-2.3); Phosphorus 3.8 mg/dl (2.5-4.5); Potassium 3.6 mmol/L (3.5-5.1); Sodium 137 mmol/L (135-145); Total Bilirubin 0.3 mg/dl (0.2-1.3); Total Protein 5.6 g/dl (6.3-8.2); eGFR > 60.00
[2024-06-18 06:47] LABS: % Basophils 0.1 % (0-2); % Immature Granulocytes 0.4 % (0-0.5); % Lymphocytes 4.1 % (20.5-51.1); % Monocytes 4.4 % (1.7-9.3); Absolute Immature Granulocytes 0.1 10^3/uL (0-0.05); Absolute Lymphocytes 0.6 10^3/uL (1.2-3.4); Absolute Monocytes 0.6 10^3/uL (0.1-0.6); Absolute Neutrophils 12.7 10^3/uL (1.4-6.5); Hematocrit 30.2 % (37.0-47.0); Hemoglobin 10.1 g/dL (12.0-16.0); Mean Corp Hgb Conc. 33.4 g/dL (33.0-37.0); Mean Corpuscular Hgb 31.1 pg (27.0-31.0); Mean Corpuscular Volume 92.9 fL (81.0-99.0); Mean Platelet Volume 10.4 fL (7.4-10.4); Nucleated Red Blood Cells % 0 %; Platelet Count 149 10^3/uL (130-400); Red Blood Cell Count 3.25 10^6/uL (4.20-5.40); Red Cell Dist. Width 13.9 % (11.5-14.5)
--- NOTE | 2024-06-18 07:26 | PTCARENOTE ---
Report given verbally to oncoming Edna lloyd RN. Questions answered.
[2024-06-18 08:16] LABS: Glucose - Point of Care 254 mg/dl (70-99)
--- NOTE | 2024-06-18 08:45 | PTCARENOTE ---
Assumed care of pt at 0715 following shift report. Pt awake and resting quietly in bed. Physical assessment completed as documented. Repositioned/hygiene and comfort care provided. Call cali w/in pt reach. No breakfast at this time for planned CT
Abd/pelvis w/ PO/IV contrast. Pt aware.
[2024-06-18] MEDS: PLAVIX 75 MG PO (08:58)
[2024-06-18] MEDS: CRESTOR 5 MG PO (08:58)
[2024-06-18] MEDS: VITAMIN D3 (cholecalciferol) 50 MCG PO (08:58)
[2024-06-18] MEDS: PROTONIX 40 MG PO (08:58)
[2024-06-18] MEDS: CARDIZEM CD 120 MG PO (08:58)
[2024-06-18] MEDS: MYSOLINE 50 MG PO (08:58)
[2024-06-18] MEDS: SOLU-MEDROL PF 40 MG IV ×3 (08:59→22:09)
[2024-06-18] MEDS: NOVOLOG FLEXPEN-MODERATE RESISTANCE 5 UNITS SC (08:59)
[2024-06-18] MEDS: MUCINEX 1200 MG PO (08:59)
[2024-06-18] MEDS: MIRALAX 17 GRAMS PO (09:00)
[2024-06-18] MEDS: LIDOCAINE 4% PATCH 2 PATCH TOPICAL (09:00)
[2024-06-18] MEDS: NOVOLOG FLEXPEN 6 UNITS SC (09:01)
--- NOTE | 2024-06-18 09:37 | W.PN.ID1 ---
Date of Service
Date of Service: June 18, 2024
Today's Communication
CT a/p.
Assessment / Plan
# Streptococcus species and GPR bacteremia, 2 sets of blood cultures drawn at the same time
# Leukocytosis, on Solumedrol
# Fever- resolved
# LUQ pain
# Multiple compression fractures due to falls
-Polymicrobial bacteremia from undefined source.
- Spoke to micro lab - requesting speciation of Strep species and work-up GPR.
-repeat bcx's neg to date
- TTE: no gross vegetation
- Recommend CT a/p with contrast.
- If CT unrevealing, consider MRI of T/L spine without and with contrast.
- Continue ceftriaxione.
- Monitor wbc.
#Additional Past Medical History:
DM2
Neuropathy
HTN
laryngeal dyskinesia
Asthma/COPD on chronic low dose prednisone
Chronic hypoxemic respiratory failure on home O2
TANI on CPAP
Hx H. pylori
Carotid stenosis s/p left carotid stent
Osteoporosis
Vertebral Compression fractures
Chronic LE edema
Appendectomy
Bladder repair
Lumpectomy (benign)
Chief Complaint
-: Bacteremia
Subjective / Review of Systems
Still c/o LUQ abd pain. Back pain controlled with patch.
Vital Signs / Physical Exam
Vital Signs
Vital Signs
Temp Pulse Resp BP Pulse Ox
98.1 F 86 23 124/63 97
06/18/24 08:00 06/18/24 08:58 06/18/24 06:26 06/18/24 08:58 06/18/24 06:26
Physical Exam
Constitutional: Chronically Ill
Cardiovascular: Regular Rate and S1/S2
Pulmonary: Clear and Wheezes (mild)
Gastrointestinal: Soft, Tender (LUQ), Non Distended and Normal Bowel Sounds
Genito-Urinary: Negative CVA Tenderness
Extremities: Negative Edema
Musculoskeletal: Negative Spinal Tenderness
Neurological: AO x 3
Objective Data
Lab Data
Lab Results
06/18/24 06:02
06/18/24 06:02
Estimated Creat Clear 46 ml/min 06/18/24 06:02
Lactic Acid Cancelled 06/15/24 15:15
Total Bilirubin 0.3 mg/dl (0.2-1.3) 06/18/24 06:02
AST 21 U/L (14-36) 06/18/24 06:02
ALT 16 U/L (0-35) 06/18/24 06:02
Alkaline Phosphatase 71 U/L (38-126) 06/18/24 06:02
C-Reactive Protein 55.70 mg/L (0.0-10.00) H 06/17/24 04:21
Most recent labs reviewed.
Micro Results:
06/15/24 11:39 Blood Culture - Preliminary
Blood/Venous Streptococcus species
Gram Stain - Final
06/15/24 11:39 Blood Culture - Preliminary
Blood/Venous Streptococcus species
Additional testing on request
Gram Stain - Preliminary
06/16/24 11:47 Blood Culture - Preliminary
Blood/Venous No Growth in 24 hours- Final report to follow
06/16/24 10:51 Blood Culture - Preliminary
Blood/Venous No Growth in 24 hours- Final report to follow
06/16/24 10:07 Streptococcus pneumoniae Antigen (M - Final
Urine Negative for Streptococcus pneumoniae antigen.
A negative result does not exclude infection with
Streptococcus pneumoniae. Clinical correlation is
recommended.
06/15/24 10:13 Influenza Types A & B (EMELY) - Final
Nasal Swab Negative for Influenza A & B, NAAT
Negative results must be combined with clinical observations
and patient history.
Nucleic Acid Amplification test (NAAT)performed on the
[employer] NOW platform.
06/15/24 Chest CTA No evidence of pulmonary embolism. No significant acute abnormality identified in the chest, as described above. Findings suggesting underlying pulmonary arterial hypertension.
Care Review
Plan reviewed with: Physician (Dr. Morrow)
[2024-06-18] MEDS: NOVOLIN N vial 0.09 UNITS SC (10:11)
[2024-06-18] MEDS: OMNIPAQUE 50 ML PO (10:11)
[2024-06-18] MEDS: NOVOLOG FLEXPEN SC ×3 (10:16→17:48)
--- NOTE | 2024-06-18 11:35 | W.PN.HOSP.TC ---
Today's Communication/Plan
-
see a/p
Assessment / Plan
Assessment / Plan
Physical Exam
General: no acute distress, appears relatively comfortable
HEENT: Normocephalic and Atraumatic; Negative Moist Mucous Membranes
Respiratory: Some wheezing noted though appears to be upper airway
Cardiac: Regular Rhythm, S1/S2 and Tachycardic
GI: Soft, Nontender, Nondistended and Normal Bowel Sounds
Musculoskeletal: No Clubbing, No Cyanosis and No Edema, Left sided rib pain tenderness
Skin: Warm and Dry
Neuro: AOx3 conversant coherent
89F COPD 2L baseline Laryngeal Dyskinesia HTN DM TANI CPAP Chronic Back Pain Compression Fx's here with sepsis strep bacteremia.
Sepsis with Strep Bacteremia, Unclear source, possibly pulmonary
- NEG Covid, NEG Flu A & B. NEG UA, NEG CXR, unremarkable CTC for PE and PNA
- BCx + strep, strep pneumo neg, anaerobic bottle also notes G+ bacilli
- repeat blood cultures NGTD
- ECHO appreciated EF 70%, new mild aortic stenosis when compared w/t previous ECHO 05/2021
- consult ID appreciated empiric vanc zosyn de-escalated to Ceftriaxone
- CT abd/pelvis for further evaluation potential source of infection
Left rib pain
hx falls
suspect rib fx/contusion
-pain control
-PT/OT appreciated SNF rehab
Chronic Hypoxic hypercapnic RF
Home O2 dependent COPD - noted bronchospasm on exam
- goal spo2 88-92%
- iv steorids tapered Solumedrol from Q6 to Q8
- continue montelukast
- duonebs
- mucolytics, vest therapy, acapella
- incentive ebenezer
ASCVD / Carotid Stenosis s/p Left Carotid Stent
- continue Plavix Crestor
Hypertension
- continue diltiazem
DMT2
Steroid induced hyperglycemia
- moderate dose sliding scale
- Novolog 3U increased to 6U Lantus 10U increased to 18U
Chronic Lower Extremity Edema
- continue Torsemide
GERD
Vocal Cord Spasm
Esophageal Spasm
- continue Protonix
-Speech eval appreciated cont pureed mildly thick liquid, medications as tolerated puree vs mildly thick liquids
-aspiration precautions, supervision and partial assistance w/ meals
Obstructive Sleep Apnea
- continue CPAP
Back Pain due to subacute on chronic compression Fx. T12 vertebral body.
Ambulatory Dysfunction
- pain control : Tylenol TID, Toradol prn
- continue Gabapentin
- continue Tramadol
- continue Lido patch
- PT/OT appreciated SNF rehab
DVT ppx
Full Code
discussed with patient and patient's Finesse
I spent a total of 50 minutes with the patient or on the floor. More than 50% of this time involved counseling and coordination of care.
Anticipated Discharge: 24 - 48 hours
Subjective/Interval History
-
Date of Service: June 18, 2024
Reports shortness of breath, left sided pleuritic chest pain. Respiratory status otherwise seems stable on 3L.
Objective Data
-
Labs:
Laboratory Results
06/18/24
06:02
WBC 14.0 H
Hgb 10.1 L
Hct 30.2 L
Plt Count 149 D
Sodium 137
Potassium 3.6
Chloride 109 H
Carbon Dioxide 25
BUN 43 H
Creatinine 0.7
Glucose 244 H
Calcium 8.7
Total Bilirubin 0.3
AST 21
ALT 16
Alkaline Phosphatase 71
Vital Signs:
Vital Signs
Temp Pulse Resp BP Pulse Ox
98.1 F 82 21 124/63 98
06/18/24 08:00 06/18/24 10:57 06/18/24 10:57 06/18/24 08:58 06/18/24 10:57
I&O
06/17/24 06/18/24 06/19/24
06:59 06:59 06:59
Intake Total 1070 / 1070 300 / 300
Output Total 225 / 225 125 / 125
Balance 845 / 845 175 / 175
[2024-06-18] MEDS: REFRESH EYE DROPS (PF) 1 DROPS LEFT EYE (11:47)
[2024-06-18] MEDS: NOVOLOG FLEXPEN-MODERATE RESISTANCE SC (12:19)
[2024-06-18 12:28] LABS: Glucose - Point of Care 106 mg/dl (70-99)
--- NOTE | 2024-06-18 12:45 | PTCARENOTE ---
Pt started drinking PO contrast at 1000- completed by 1130. At 1230 pt transported via stretcher for CT scan. No changes or new complaints received prior to transfer. Pt to return from CT scan to Rm 3350. Transfer report given to Tyrese DE SOUZA. All
pt's personal belongings transported to [facility] 3350.
[2024-06-18] MEDS: STERILE WATER FOR INJECTION 10 ML IV (14:28)
[2024-06-18] MEDS: ROCEPHIN 2000 MG IV (14:28)
--- NOTE | 2024-06-18 15:43 | PTCARENOTE ---
Pt co of sob rsp gave tx tp now on Bipap. Insulin 6 units not given as pt did not eat.
[2024-06-18] MEDS: ULTRAM 25 MG PO ×2 (16:01→22:10)
[2024-06-18 16:42] LABS: Glucose - Point of Care 159 mg/dl (70-99)
[2024-06-18] MEDS: LOVENOX 40 MG SC (17:19)
[2024-06-18] MEDS: NOVOLOG FLEXPEN-MODERATE RESISTANCE 1 UNITS SC (17:47)
[2024-06-18] MEDS: TYLENOL 650 MG PO (20:31)
[2024-06-18] MEDS: MUCINEX PO (21:08)
[2024-06-18] MEDS: LANTUS 0.18 UNITS SC (21:37)
[2024-06-18] MEDS: SINGULAIR 10 MG PO (21:37)
[2024-06-18] MEDS: NEURONTIN 200 MG PO (21:37)
[2024-06-18 21:46] LABS: Glucose - Point of Care 293 mg/dl (70-99)
[2024-06-19] VITALS (15 sets, daily range): BP systolic 109–131; BP diastolic 51–115; PULSE 69–82; BMI 28.7
--- NOTE | 2024-06-19 06:28 | PTCARENOTE ---
Pt had complaints of pain in beginning of shift. Pt given prn and scheduled medications see (apr). Reassessment Pt had positive results from pain medication over nigh. Pt appeared to tolerate CPAP well over night, spo2 95%-97%, respiration even
unlabored. Pt has no other complaints at this time. Call cali within reach bed alarm on.
[2024-06-19 06:33] LABS: Hematocrit 30.5 % (37.0-47.0); Hemoglobin 10.2 g/dL (12.0-16.0); Mean Corp Hgb Conc. 33.4 g/dL (33.0-37.0); Mean Corpuscular Hgb 30.9 pg (27.0-31.0); Mean Corpuscular Volume 92.4 fL (81.0-99.0); Mean Platelet Volume 10.2 fL (7.4-10.4); Platelet Count 173 10^3/uL (130-400); Red Cell Dist. Width 14.1 % (11.5-14.5); White Blood Cell Count 13.5 10^3/uL (4.8-10.8)
[2024-06-19] MEDS: SODIUM CHLORIDE 3% FOR INHALATION 1 VIAL INH (07:20)
[2024-06-19] MEDS: DUONEB 3 ML INH ×4 (07:20→19:36)
[2024-06-19 07:35] LABS: Blood Urea Nitrogen 42 mg/dl (7-17); Calcium 9.2 mg/dl (8.4-10.2); Carbon Dioxide 24 mmol/L (22-30); Chloride 104 mmol/L (98-107); Estimated Creatinine Clearance 47 ml/min; Glucose 236 mg/dl (70-99); Magnesium 2.5 mg/dl (1.6-2.3); Phosphorus 3.6 mg/dl (2.5-4.5); Potassium 3.8 mmol/L (3.5-5.1); Sodium 137 mmol/L (135-145); eGFR > 60.00
[2024-06-19 08:13] LABS: Glucose - Point of Care 241 mg/dl (70-99)
[2024-06-19] MEDS: NOVOLOG FLEXPEN 6 UNITS SC ×3 (08:55→17:08)
[2024-06-19] MEDS: NOVOLOG FLEXPEN-MODERATE RESISTANCE 3 UNITS SC (08:56)
[2024-06-19] MEDS: PLAVIX 75 MG PO (08:57)
[2024-06-19] MEDS: CARDIZEM CD 120 MG PO (08:57)
[2024-06-19] MEDS: VITAMIN D3 (cholecalciferol) 50 MCG PO (08:58)
[2024-06-19] MEDS: CRESTOR 5 MG PO (08:58)
[2024-06-19] MEDS: MYSOLINE 50 MG PO (08:58)
[2024-06-19] MEDS: MIRALAX 17 GRAMS PO (08:59)
[2024-06-19] MEDS: LIDOCAINE 4% PATCH 2 PATCH TOPICAL (08:59)
[2024-06-19] MEDS: PROTONIX 40 MG PO (08:59)
[2024-06-19] MEDS: SOLU-MEDROL PF 40 MG IV ×2 (09:00→15:13)
--- NOTE | 2024-06-19 09:15 | W.PN.HOSP.TC ---
Today's Communication/Plan
-
steroid taper
cont duonebs
Pulm eval
PT/OT
pain control, scheduled Tylenol Q4HWA
glycemic control
Assessment / Plan
Assessment / Plan
Physical Exam
General: no acute distress, appears relatively comfortable
HEENT: Normocephalic and Atraumatic; Negative Moist Mucous Membranes
Respiratory: Some wheezing noted though appears to be upper airway
Cardiac: Regular Rhythm, S1/S2 and Tachycardic
GI: Soft, Nontender, Nondistended and Normal Bowel Sounds
Musculoskeletal: No Clubbing, No Cyanosis and No Edema, Left sided rib pain tenderness
Skin: Warm and Dry
Neuro: AOx3 conversant coherent
89F COPD 2L baseline Laryngeal Dyskinesia HTN DM TANI CPAP Chronic Back Pain Compression Fx's here with sepsis strep bacteremia.
Sepsis with Strep Bacteremia, Unclear source, possibly pulmonary
- NEG Covid, NEG Flu A & B. NEG UA, NEG CXR, unremarkable CTC for PE and PNA
- BCx + strep, strep pneumo neg, anaerobic bottle also notes G+ bacilli
- repeat blood cultures NGTD
- ECHO appreciated EF 70%, new mild aortic stenosis when compared w/t previous ECHO 05/2021
- consult ID appreciated empiric vanc zosyn de-escalated to Ceftriaxone
- CT abd/pelvis for further evaluation potential source of infection
Left rib pain
hx falls
Lt Ribs X-ray appreciated nondisplaced anterior 7th rib fx
-pain control
-PT/OT appreciated SNF rehab
COPD exacerbation
Chronic Hypoxic hypercapnic
Home O2 dependent COPD - noted wheezing but possibly upper airway
- iv steorids tapered Solumedrol from Q6 to Q8 to Q12
- continue montelukast
- duonebs
- mucolytics, vest therapy, acapella
- incentive ebenezer
-Pulm eval requested
ASCVD / Carotid Stenosis s/p Left Carotid Stent
- continue Plavix Crestor
Hypertension
- continue diltiazem
DMT2
Steroid induced hyperglycemia
- moderate dose sliding scale
- Novolog 6U Lantus 18U
Chronic Lower Extremity Edema
- continue Torsemide
GERD
Vocal Cord Spasm
Esophageal Spasm
- continue Protonix
-Speech eval appreciated cont pureed mildly thick liquid, medications as tolerated puree vs mildly thick liquids
-aspiration precautions, supervision and partial assistance w/ meals
Obstructive Sleep Apnea
- continue CPAP
Back Pain due to subacute on chronic compression Fx. T12 vertebral body.
Ambulatory Dysfunction
- Tylenol Q4HWA, prn Tramadol
- continue Gabapentin
- continue Lido patches
- PT/OT appreciated SNF rehab
DVT ppx
Full Code
discussed with patient, patient's Finesse, and patient's son Emigdio
I spent a total of 50 minutes with the patient or on the floor. More than 50% of this time involved counseling and coordination of care.
Anticipated Discharge: 24 - 48 hours
Subjective/Interval History
-
Date of Service: June 19, 2024
Left sided pleuritic chest pain persists. No acute distress at rest however significant pain on movement/exertion
Objective Data
-
Labs:
Laboratory Results
06/19/24 06/19/24
06:21 06:22
WBC 13.5 H
Hgb 10.2 L
Hct 30.5 L
Plt Count 173
Sodium 137
Potassium 3.8
Chloride 104
Carbon Dioxide 24
BUN 42 H
Creatinine 0.7
Glucose 236 H
Calcium 9.2
Vital Signs:
Vital Signs
Temp Pulse Resp BP Pulse Ox
97.7 F 69 15 118/66 98
06/19/24 07:10 06/19/24 07:21 06/19/24 07:21 06/19/24 06:01 06/19/24 07:21
I&O
06/18/24 06/19/24 06/20/24
06:59 06:59 06:59
Intake Total 300 / 300 1200 / 1200
Output Total 125 / 125 850 / 850
Balance 175 / 175 350 / 350
[2024-06-19] MEDS: REFRESH EYE DROPS (PF) 1 DROPS LEFT EYE ×2 (10:10→15:17)
--- NOTE | 2024-06-19 13:03 | W.PN.ID1 ---
Date of Service
Date of Service: June 19, 2024
Today's Communication
DC abx and observe.
Assessment / Plan
# Pseudobacteremia/contaminant
Streptococcus species and Diphtheroid bacteremia, 2 sets of blood cultures drawn at the same time.
Spoke to micro lab: there are 3 types of alpha-strep species suggestive of contaminants.
Repeat blood cx's neg.
CT a/p unremarkable.
DC ceftriaxone.
# Asthma/COPD exacerbation, on steroid
# Leukocytosis, on Solumedrol
# Fever x 2 - resolved. ID workup neg.
# LUQ pain - due to fall and hit agains wheelchair. CT a/p no acute pathology
# Multiple compression fractures due to falls
#Additional Past Medical History:
DM2
Neuropathy
HTN
laryngeal dyskinesia
Asthma/COPD on chronic low dose prednisone
Chronic hypoxemic respiratory failure on home O2
TANI on CPAP
Hx H. pylori
Carotid stenosis s/p left carotid stent
Osteoporosis
Vertebral Compression fractures
Chronic LE edema
Appendectomy
Bladder repair
Lumpectomy (benign)
Chief Complaint
-: Bacteremia
Subjective / Review of Systems
No new complaints today.
Chronic cough/wheezing stable.
Vital Signs / Physical Exam
Vital Signs
Vital Signs
Temp Pulse Resp BP Pulse Ox
97.7 F 86 24 118/66 97
06/19/24 07:10 06/19/24 10:26 06/19/24 10:26 06/19/24 06:01 06/19/24 10:26
Physical Exam
Constitutional: Chronically Ill
Cardiovascular: Regular Rate and S1/S2
Pulmonary: Wheezes and Rhonchi
Gastrointestinal: Soft, Non Tender, Non Distended and Normal Bowel Sounds
Extremities: Negative Edema
Neurological: AO x 3
Objective Data
Lab Data
Lab Results
06/19/24 06:22
06/19/24 06:21
Estimated Creat Clear 47 ml/min 06/19/24 06:21
Lactic Acid Cancelled 06/15/24 15:15
Total Bilirubin 0.3 mg/dl (0.2-1.3) 06/18/24 06:02
AST 21 U/L (14-36) 06/18/24 06:02
ALT 16 U/L (0-35) 06/18/24 06:02
Alkaline Phosphatase 71 U/L (38-126) 06/18/24 06:02
C-Reactive Protein 55.70 mg/L (0.0-10.00) H 06/17/24 04:21
Most recent labs reviewed.
Micro Results:
06/16/24 11:47 Blood Culture - Preliminary
Blood/Venous No Growth in 72 hours- Final report to follow
06/15/24 11:39 Blood Culture - Final
Blood/Venous Streptococcus species
Diptheroids
Gram Stain - Final
06/15/24 11:39 Blood Culture - Preliminary
Blood/Venous Streptococcus species
Diptheroids
Additional testing on request
Gram Stain - Preliminary
06/16/24 10:51 Blood Culture - Preliminary
Blood/Venous No Growth in 72 hours- Final report to follow
06/16/24 10:07 Streptococcus pneumoniae Antigen (M - Final
Urine Negative for Streptococcus pneumoniae antigen.
A negative result does not exclude infection with
Streptococcus pneumoniae. Clinical correlation is
recommended.
06/15/24 10:13 Influenza Types A & B (EMELY) - Final
Nasal Swab Negative for Influenza A & B, NAAT
Negative results must be combined with clinical observations
and patient history.
Nucleic Acid Amplification test (NAAT)performed on the
[employer] platform.
06/15/24 Chest CTA No evidence of pulmonary embolism. No significant acute abnormality identified in the chest, as described above. Findings suggesting underlying pulmonary arterial hypertension.
06/18/24 CT a/p: No acute findings in the abdomen or pelvis.
Care Review
Plan reviewed with: Physician (Dr. Morrow)
[2024-06-19] MEDS: VITAMIN B-12 1000 MCG PO (13:04)
[2024-06-19] MEDS: NOVOLOG FLEXPEN-MODERATE RESISTANCE 5 UNITS SC ×2 (13:06→17:08)
[2024-06-19] MEDS: STERILE WATER FOR INJECTION 10 ML IV (13:07)
[2024-06-19] MEDS: ROCEPHIN 2000 MG IV (13:07)
[2024-06-19 13:08] LABS: Glucose - Point of Care 261 mg/dl (70-99)
--- NOTE | 2024-06-19 15:00 | CM ---
Addendum entered by Charlene Batres RN 06/19/24 15:24:
CXR with ribs. Per nurse; anxious & forgetful. Seen by wound care nurse.
Spoke with patient's son Emigdio;
he confirms that patient was at [facility] twice recently and she did not want to stay there so was taken home. Emigdio agrees with d/c to home and says that he and his father will resume as caregivers. Son agrees to [facility] for SN/PT/OT and asked
for DRILLING FIELD OPERATOR. CM will also add SW for alf planning. Son stated he is overwhelmed and he seemed to be struggling to understand that private caregivers are not a covered benefit under Medicare. Son states family is unable to hire caregiver due to
their finances. Emigdio says hospital bed was delivered about a week ago but he doesn't know name of DME company that provided it- asked him to find out so air mattess can be ordered through the same DME company.
Spoke with [facility]; the patient was previously on service and they are able to resume service with SN/PT/OT/SW & DRILLING FIELD OPERATOR.
Plan follow up with son re; hospital bed company and order air mattress.
Plan home with [facility], with air mattress, with family.
Original Note:
Patient with Dx Pseudobacteremia/contaminant, Asthma/COPD exacerbation, Multiple compression fractures due to falls. O2 2L. BiPAP. PT/OT; assist of 2, not ambulating, recommend skilled rehab.
Phone call to patient's son Emigdio; left message requesting callback to confirm patient's wishes to return home at d/c.
Plan follow up with son re; d/c plans.
[2024-06-19] MEDS: TYLENOL 650 MG PO ×2 (15:11→21:18)
[2024-06-19 16:03] LABS: Vitamin B12 > 1000 pg/ml (239-931)
[2024-06-19 16:40] LABS: Iron 76 ug/dl (37-170)
[2024-06-19 16:49] LABS: Percent Saturation 27 % (20-50); Total Iron Binding Capacity 272 ug/dl (265-497)
[2024-06-19 17:01] LABS: Ferritin 58.2 ng/ml (11.1-264.0)
[2024-06-19] MEDS: ROBITUSSIN 200 MG PO ×2 (17:06→21:19)
[2024-06-19] MEDS: LOVENOX 40 MG SC (17:07)
[2024-06-19] MEDS: LIDOCAINE 4% PATCH 1 PATCH TOPICAL (17:07)
[2024-06-19] MEDS: CLARITIN 10 MG PO (17:07)
[2024-06-19 17:18] LABS: Glucose - Point of Care 284 mg/dl (70-99)
--- NOTE | 2024-06-19 20:00 | PTCARENOTE ---
Assumed care of patient at 1900, nursing assessment completed and as documented. Patient resting in bed, Ox3 anxious at time's, on baseline 2L NC sats 99% lung sounds diminished with rhonchi throughout, inspiratory and expiratory wheezes present.
Admits to moist but non-productive cough, ADRIAN and shallow respirations. SR on monitor with PVC's, TR edema to BLLE, weak but present pedal pulses. Abdomen round and obese, no recent BM but denies abd pain. Incontinent of urine, PW in place, hygiene
care performed and PW changed, latasha urine in canister. Skin intact, protective heel foams in place, turns in bed with x2 assist. C/O pain in ribs and back, noted to have L 7th rib fx and compression fractures. PO medications given crushed in
applesauce, patient tolerated. Educated patient on importance of physical therapy and active participation. L AC PIV patent and in place. VSS, call cali within reach, care ongoing.
[2024-06-19] MEDS: NEURONTIN 200 MG PO (21:19)
[2024-06-19] MEDS: ULTRAM 25 MG PO (21:19)
[2024-06-19] MEDS: LANTUS 0.18 UNITS SC (21:19)
[2024-06-19] MEDS: SINGULAIR 10 MG PO (21:19)
[2024-06-19 21:24] LABS: Glucose - Point of Care 171 mg/dl (70-99)
[2024-06-20] VITALS (15 sets, daily range): BP systolic 109–151; BP diastolic 46–99; PULSE 69–88; O2SAT 100; BMI 28.8
[2024-06-20] MEDS: SOLU-MEDROL PF 40 MG IV ×3 (00:28→21:03)
[2024-06-20] MEDS: TYLENOL PO ×2 (00:28→06:34)
[2024-06-20 06:39] LABS: Hematocrit 30.8 % (37.0-47.0); Hemoglobin 10.3 g/dL (12.0-16.0); Mean Corp Hgb Conc. 33.4 g/dL (33.0-37.0); Mean Corpuscular Hgb 31.2 pg (27.0-31.0); Mean Corpuscular Volume 93.3 fL (81.0-99.0); Mean Platelet Volume 10.2 fL (7.4-10.4); Platelet Count 189 10^3/uL (130-400); Red Cell Dist. Width 14.3 % (11.5-14.5); White Blood Cell Count 12.3 10^3/uL (4.8-10.8)
[2024-06-20 07:09] LABS: Blood Urea Nitrogen 45 mg/dl (7-17); Calcium 9.2 mg/dl (8.4-10.2); Carbon Dioxide 28 mmol/L (22-30); Chloride 104 mmol/L (98-107); Estimated Creatinine Clearance 41 ml/min; Glucose 182 mg/dl (70-99); Magnesium 2.4 mg/dl (1.6-2.3); Phosphorus 3.7 mg/dl (2.5-4.5); Potassium 4.3 mmol/L (3.5-5.1); Sodium 137 mmol/L (135-145); eGFR > 60.00
[2024-06-20] MEDS: DUONEB 3 ML INH ×4 (07:26→18:15)
[2024-06-20 07:52] LABS: Glucose - Point of Care 199 mg/dl (70-99)
--- NOTE | 2024-06-20 08:03 | CON.PUL ---
Consultation
Consultation Request
Date/Time Consultation Requested: 06/20/2024-7:30 AM
Date/Time Consultation Performed: 06/20/2024-2025- 8 AM
Requesting Provider: Hospitalist
Performing Provider: Dr. Verdin
Reason for Consultation: Shortness of breath
Medical History
-
Chief Complaint: Shortness of breath/COPD
History of Present Illness:
89-year-old former smoking female with underlying oxygen dependent COPD, laryngeal dyskinesia, esophageal spasms, hypertension, diabetes, obstructive sleep apnea on CPAP and osteoporosis presented with generalized weakness, shortness of breath and
pulmonary consulted for shortness of breath/BiPAP 06/20/2024. Patient continues to have BiPAP, able to communicate though difficult to hear, no shortness of breath at rest, tolerated BiPAP, no chest pain, chest congestion, productive cough,
abdominal pain, leg swelling or weakness.
Past Medical History
Past Medical History: None (COPD/asthma oxygen dependent. Laryngeal dyskinesia. Esophageal spasm. GERD. Hypertension. Diabetes. TANI/CPAP. Carotid stenosis. Osteoporosis. Chronic LE edema. Appendectomy. Left carotid stent. JOSE MARTIN. Carpal
tunnel. Bladder surgery. Lumpectomy.)
Social History
Tobacco: Non-smoker
Alcohol: None
Drug: None
Personal:
Living: With Family
Occupational Exposures: No known asbestos exposure
Environmental Exposures: no known tuberculosis exposure
Family History
Family History: Reviewed & Not Pertinent (Father-diabetes. Mother-asthma)
Allergies / Home Medications
Allergies
Allergy/AdvReac Type Severity Reaction Status Date / Time
abacavir sulfate Allergy Unknown Verified 05/17/24 16:15
[From Ziagen]
amoxicillin [Amoxicillin] Allergy Rash, Verified 06/17/24 14:41
tolerates
cephalosporins,
Zosyn
aspartame Allergy asthma Verified 05/17/24 16:15
attack -
artifical
sweeteners
banana Allergy ASTHMA Verified 05/17/24 16:15
ATTACK
Beta-Adrenergic Agents Allergy Unknown Verified 05/17/24 16:15
bimatoprost Allergy Palpitation Verified 05/17/24 16:15
s
bupropion Allergy STOMACH Verified 05/17/24 16:15
UPSET
cat dander Allergy CAN'T Verified 05/17/24 16:15
BREATHE
clavulanic acid Allergy unknown - Verified 05/17/24 16:15
beta
lactamase
inhibitors
colesevelam Allergy CRAMPS Verified 05/17/24 16:15
dog dander Allergy CAN'T Verified 05/17/24 16:15
BREATHE
house dust Allergy Unknown Verified 05/17/24 16:15
house dust mite Allergy Unknown Verified 05/17/24 16:15
latanoprost Allergy Palpitation Verified 05/17/24 16:15
s
metformin HCl Allergy spasms in Verified 05/17/24 16:15
[From Glucophage] back/HEART
PROBLEM
mold Allergy Unknown Verified 05/17/24 16:15
monosodium glutamate Allergy DIARRHEA Verified 05/17/24 16:15
pollen extracts Allergy Unknown Verified 05/17/24 16:15
quinapril HCl [From Accupril] Allergy UPSET Verified 05/17/24 16:15
STOMACH
ramipril Allergy Upset Verified 05/17/24 16:15
Stomach
simvastatin [Simvastatin] Allergy feet Verified 05/17/24 16:15
swelled/CAN'T
WALK
Sulfa (Sulfonamide Allergy EYE Verified 05/17/24 16:15
Antibiotics) Swelling
valsartan Allergy BACKACHE/ST Verified 05/17/24 16:15
OMACHACHE
Home Medications
�Medication �Instructions �Recorded �Confirmed �Last Taken �Type
clopidogrel 75 mg tablet 75 mg PO DAILY Blood clot 08/11/20 06/19/24 09/05/23 Rx
prevention/tx 30 days #30 tabs
montelukast 10 mg tablet 10 mg PO HS Allergies 10/26/20 06/19/24 09/04/23 History
primidone 50 mg tablet 50 mg PO DAILY Neurological 02/27/21 06/19/24 09/05/23 History
Condition
pantoprazole 40 mg tablet,delayed 40 mg PO DAILY Gastrointestinal 05/27/21 06/19/24 09/05/23 History
release issue
rosuvastatin 5 mg tablet 5 mg PO DAILY High cholesterol 08/25/21 06/19/24 09/05/23 History
diltiazem HCl 120 mg capsule,24 120 mg PO DAILY Arrhythmia 02/27/22 06/19/24 09/05/23 History
hr,extended release
gabapentin 100 mg capsule 200 mg PO HS Neurological Condition 07/20/22 06/19/24 09/04/23 History
polyvinyl alcohol-povidone (PF) 1 drp LEFT EYE QIDPRN PRN DRY EYES 07/20/22 06/19/24 01/23/23 History
1.4 %-0.6 % eye drops in a
dropperette (Refresh Classic (PF))
cinnamon bark 500 mg capsule 500 mg PO DAILY Supplement 08/08/22 06/19/24 09/05/23 History
(Cinnamon)
polyethylene glycol 3350 17 gram 17 g PO DAILY Gastrointestinal 08/08/22 06/19/24 09/05/23 History
oral powder packet (Miralax) Issue
guaifenesin 600 mg tablet, 1,200 mg (2 x 600 mg) PO [id number] 09/11/22 06/19/24 01/23/23 Rx
extended release 12 hr PRN cough #30 tabs
coQ10 (ubiquinol) 100 mg capsule 100 mg PO DAILY Supplement 10/25/22 06/19/24 09/05/23 History
lidocaine 5 % topical patch 1 patch topical DAILYPRN PRN back, 10/25/22 06/19/24 06/25/23 History
right shoulder and right hip
potassium chloride 20 mEq oral 20 meq PO TUFR Electrolyte 10/25/22 06/19/24 09/05/23 History
packet Repletion
mecobalamin (vitamin B12) 1,000 1,000 mcg PO DAILY Supplement 06/20/23 06/19/24 09/05/23 History
mcg chewable tablet (B12 Active)
prednisone 5 mg tablet 5 mg PO DAILY Anti-Inflammatory 06/20/23 06/19/24 09/05/23 History
torsemide 10 mg tablet 10 mg PO TUFR Fluid 06/20/23 06/19/24 09/05/23 History
Retention/Swelling
cholecalciferol (vitamin D3) 50 50 mcg PO DAILY Supplement 06/26/23 06/19/24 09/05/23 History
mcg (2,000 unit) tablet (Vitamin
D3)
ipratropium bromide 0.02 % 2.5 ml inhalation R Q4HPRN PRN 06/26/23 06/19/24 Unknown History
solution for inhalation sob/wheezing
albuterol sulfate 90 mcg/actuation 1 puff inhalation R Q4HPRN PRN 09/05/23 06/19/24 Unknown History
aerosol inhaler sob/wheezing
insulin aspart U-100 100 unit/mL 0 sliding scale dose SC AC Diabetes 09/05/23 06/19/24 Unknown History
(3 mL) subcutaneous pen (Novolog
FlexPen U-100 Insulin aspart)
tramadol 50 mg tablet 25 mg (1/2 x 50 mg) PO Q6HPRN PRN 05/21/24 06/19/24 Unknown Rx
moderate to severe pain #12 tabs
Review of Systems
-
Unable to Obtain full review of systems at this time due to: Other ( Per HPI)
Vitals / Labs / Diagnostic Testing
Vital Signs
Temp Pulse Resp BP Pulse Ox
96.7 F L 69 16 119/60 98
06/20/24 07:00 06/20/24 07:32 06/20/24 07:32 06/20/24 06:00 06/20/24 07:32
Lab Data
06/20/24 06:29
06/20/24 06:29
Microbiology
06/16/24 11:47 Blood/Venous Blood Culture - Preliminary
No Growth in 72 hours- Final report to follow
06/15/24 11:39 Blood/Venous Blood Culture - Final
Streptococcus species
Diptheroids
06/15/24 11:39 Blood/Venous Gram Stain - Final
06/15/24 11:39 Blood/Venous Blood Culture - Preliminary
Streptococcus species
Diptheroids
Additional testing on request
06/15/24 11:39 Blood/Venous Gram Stain - Preliminary
06/16/24 10:51 Blood/Venous Blood Culture - Preliminary
No Growth in 72 hours- Final report to follow
Diagnostic Testing:
Physical Exam
-
Exam:
well-nourished and well-developed in no apparent distress
HEENT-atraumatic, normocephalic, BiPAP on face
Neck-supple, no JVD, no bruit
Heart regular with systolic murmur
Chest with diminished breath sounds, prolonged expiratory time, no wheezes
Back-no tenderness
Abdomen-soft, nontender, nondistended, no hepatosplenomegaly
Extremities-no cyanosis, clubbing, edema and good peripheral pulses
Integument-intact, no rashes, lesions or ecchymosis
Neurology-alert and oriented, nonfocal motor and sensory exam
Assessment
-
89-year-old former smoking female with underlying oxygen dependent COPD, laryngeal dyskinesia, esophageal spasms, hypertension, diabetes, obstructive sleep apnea on CPAP and osteoporosis presented with generalized weakness, shortness of breath and
pulmonary consulted for shortness of breath/BiPAP 06/20/2024.
Sepsis with strep bacteremia
Left rib fractures
COPD with acute exacerbation with some hypercapnia-VBG 06/15/2024-50/46/7.36
Leukocytosis
Mild normocytic anemia-hemoglobin 10.3
Hyperglycemia
Conditions present prior to admission:
COPD/asthma oxygen dependent.
Laryngeal dyskinesia.
Esophageal spasm.
GERD.
Hypertension.
Diabetes.
TANI/CPAP.
Carotid stenosis.
Osteoporosis.
Chronic LE edema.
Appendectomy. Left carotid stent. JOSE MARTIN. Carpal tunnel. Bladder surgery. Lumpectomy.
Plan
Respiratory decompensation likely in part due to COPD/asthma exacerbation
Supplemental oxygen-assess discharge supplemental oxygen needs prior to discharge
Aspiration precautions
Nebulizers--on DuoNebs
Methylprednisolone 40 mg IV every 12 hours
Robitussin 4 times daily
Continue Singulair and Claritin
Incentive spirometry
Mucus clearing devices
BiPAP as needed-attempt to liberate during the daytime
Cultures reviewed
Blood cultures with Streptococcus species, diphtheroids
Urine streptococcal
Pneumonia antigen negative
Repeat blood cultures negative
Antibiotics per infectious disease-recommended discontinuation and observe off antibiotics on 06/19/2024
DVT prophylaxis-on Lovenox
GI prophylaxis-on pantoprazole
Nutrition
Early mobilization/physical therapy
Patient last saw Dr. Vail 10/04/2023-was to follow-up in April-needs appointment at time of discharge
Diagnostic data:
CXR 06/26/23: bilateral vague interstitial changes, suboptimal inspiration
Chest x-ray 06/15/2024-no acute cardiopulmonary process
Rib x-rays 06/19/2024-suspected nondisplaced fracture anterior left seventh rib
CT chest 06/15/2024-no evidence for pulmonary embolism, no significant acute abnormalities in the chest
CT abdomen and pelvis 06/18/2024-no acute findings in the abdomen or pelvis, stable appearance of cystic lesions along the pancreatic tail, numerous compression fractures
Echo 05/31/21: normal biventricular function, mild mitral regurgitation
Echocardiogram 06/17/2024-EF 70%, mild mitral regurgitation, mild aortic stenosis
PFT 06/10/14: FVC 2.13/97%, FEV1 1.64/101%, ratio 77. There is a 14% improvement in the FEV1 following bronchodilator. TLC 3.66/86%, DLCO 11.67/66%.
[place] 05/30/23: FVC 1.21/63%, FEV1 0.80/57%, ratio 66%, 10% BD response in FEV1. Post BD results
Sleep study from 07/25/10 reveals total index 31.7 with desaturation mateo 71%.
Data Reviewed
-
PFT: Report reviewed by me
EKG: Report reviewed by me
Radiology: Report reviewed by me
CT Scan: Report reviewed by me
Medical Tests (Nuc Med, Echo etc): Report reviewed by me
Labs: Labs reviewed by me
Old Records: Reviewed
Total Time Spent with Patient (in minutes): 75
[2024-06-20] MEDS: MYSOLINE 50 MG PO (08:20)
[2024-06-20] MEDS: ROBITUSSIN 200 MG PO ×4 (08:20→21:03)
[2024-06-20] MEDS: PROTONIX 40 MG PO (08:20)
[2024-06-20] MEDS: CRESTOR 5 MG PO (08:20)
[2024-06-20] MEDS: MIRALAX 17 GRAMS PO (08:20)
[2024-06-20] MEDS: CLARITIN 10 MG PO (08:20)
[2024-06-20] MEDS: TYLENOL 650 MG PO ×4 (08:20→21:03)
[2024-06-20] MEDS: PLAVIX 75 MG PO (08:20)
[2024-06-20] MEDS: VITAMIN D3 (cholecalciferol) 50 MCG PO (08:20)
[2024-06-20] MEDS: CARDIZEM CD 120 MG PO (08:21)
[2024-06-20] MEDS: LIDOCAINE 4% PATCH 2 PATCH TOPICAL (08:22)
[2024-06-20] MEDS: LIDOCAINE 4% PATCH 1 PATCH TOPICAL (08:23)
[2024-06-20] MEDS: NOVOLOG FLEXPEN-MODERATE RESISTANCE 1 UNITS SC (08:24)
[2024-06-20] MEDS: NOVOLOG FLEXPEN 6 UNITS SC ×3 (08:24→17:22)
--- NOTE | 2024-06-20 08:26 | W.PN.HOSP.TC ---
Today's Communication/Plan
-
out of bed to chair
PT/OT
steroid taper
Claritin
monitor off abx
duonebs scheduled and prn
Assessment / Plan
Assessment / Plan
Physical Exam
General: no acute distress, appears relatively comfortable
HEENT: Normocephalic and Atraumatic; Negative Moist Mucous Membranes
Respiratory: Some wheezing noted though appears to be upper airway
Cardiac: Regular Rhythm, S1/S2 and Tachycardic
GI: Soft, Nontender, Nondistended and Normal Bowel Sounds
Musculoskeletal: No Clubbing, No Cyanosis and No Edema, Left sided rib pain tenderness
Skin: Warm and Dry
Neuro: AOx3 conversant coherent
89F COPD 2L baseline Laryngeal Dyskinesia HTN DM TANI CPAP Chronic Back Pain Compression Fx's here with sepsis strep bacteremia.
Sepsis with Strep Bacteremia, Unclear source, possibly pulmonary
- NEG Covid, NEG Flu A & B. NEG UA, NEG CXR, unremarkable CTC for PE and PNA
- BCx + strep, strep pneumo neg, anaerobic bottle also notes G+ bacilli
- repeat blood cultures NGTD
- ECHO appreciated EF 70%, new mild aortic stenosis when compared w/t previous ECHO 05/2021
- CT abd/pelvis appreciated no acute findings noted
- consult ID appreciated empiric vanc zosyn de-escalated to Ceftriaxone, culture results were later determined to be contaminations, abx since discontinued as per ID
Left rib pain
hx falls
Lt Ribs X-ray appreciated nondisplaced anterior 7th rib fx
-pain control
-PT/OT appreciated SNF rehab
COPD exacerbation
Chronic Hypoxic hypercapnic
Home O2 dependent COPD - noted wheezing but likely upper airway
Nasal Congestion post-nasal drip
-Claritin
- iv steorids tapered Solumedrol from Q6 to Q8 to Q12
- continue montelukast
- duonebs
- mucolytics, vest therapy, acapella
- incentive ebenezer
-Pulm eval appreciated
ASCVD / Carotid Stenosis s/p Left Carotid Stent
- continue Plavix Crestor
Hypertension
- continue diltiazem
DMT2
Steroid induced hyperglycemia
- moderate dose sliding scale
- Novolog 8U Lantus 20U
Chronic Lower Extremity Edema
- continue Torsemide
GERD
Vocal Cord Spasm
Esophageal Spasm
- continue Protonix
-Speech eval appreciated cont pureed mildly thick liquid, medications as tolerated puree vs mildly thick liquids
-aspiration precautions, supervision and partial assistance w/ meals
Obstructive Sleep Apnea
- continue CPAP
Back Pain due to subacute on chronic compression Fx. T12 vertebral body.
Ambulatory Dysfunction
- Tylenol Q4HWA, prn Tramadol
- continue Gabapentin
- continue Lido patches
- PT/OT appreciated SNF rehab
DVT ppx
Full Code
discussed with patient and patient's son Emigdio
I spent a total of 50 minutes with the patient or on the floor. More than 50% of this time involved counseling and coordination of care.
Anticipated Discharge: 24 - 48 hours
Subjective/Interval History
-
Date of Service: June 20, 2024
reports nasal congestion post-nasal drip.
Objective Data
-
Labs:
Laboratory Results
06/20/24
06:29
WBC 12.3 H
Hgb 10.3 L
Hct 30.8 L
Plt Count 189
Sodium 137
Potassium 4.3
Chloride 104
Carbon Dioxide 28
BUN 45 H
Creatinine 0.8
Glucose 182 H
Calcium 9.2
Vital Signs:
Vital Signs
Temp Pulse Resp BP Pulse Ox
96.7 F L 69 16 119/60 98
06/20/24 07:00 05/15/25 07:32 06/20/24 07:32 06/20/24 06:00 06/20/24 07:32
I&O
06/19/24 06/20/24 06/21/24
06:59 06:59 06:59
Intake Total 1200 / 1200 410 / 410
Output Total 850 / 850 300 / 300
Balance 350 / 350 110 / 110
[2024-06-20 11:48] LABS: Glucose - Point of Care 209 mg/dl (70-99)
[2024-06-20] MEDS: ROBITUSSIN DM 5 ML PO (12:58)
[2024-06-20] MEDS: NOVOLOG FLEXPEN-MODERATE RESISTANCE 3 UNITS SC ×2 (13:00→17:22)
[2024-06-20] MEDS: REFRESH EYE DROPS (PF) 1 DROPS LEFT EYE ×2 (13:03→22:09)
[2024-06-20 16:45] LABS: Glucose - Point of Care 205 mg/dl (70-99)
[2024-06-20] MEDS: LOVENOX 40 MG SC (17:21)
[2024-06-20] MEDS: DULCOLAX 5 MG PO (17:21)
--- NOTE | 2024-06-20 19:12 | PTCARENOTE ---
OOB in recliner chair all day- pain managed with Tylenol/ Lido patch. Brace intact OOB. Remains on chronic 2l NC- Lungs diminished MNPC- hacking at times- Robitussin scheduled. No BM in days- tried Prune juice x2, miralax, BSC and PO Dulcolax
given this pm without results. Voided 700+ during the day. VSS- Call cali intact. Pt appreciative of care.
--- NOTE | 2024-06-20 20:00 | PTCARENOTE ---
Patient received sitting in the chair with back brace on . Assisted back to bed, x2 heavy assist. NSR on monitor. Lungs coarse, + ADRIAN, + cough, pulse ox 98% on 2L. Abdomen round, complaining of constipation. Purewick placed back on patient.
#20 g in LAC flushed and patent. Call cali within reach
[2024-06-20] MEDS: NEURONTIN 200 MG PO (21:03)
[2024-06-20] MEDS: ULTRAM 25 MG PO (22:00)
[2024-06-20] MEDS: SINGULAIR 10 MG PO (22:00)
[2024-06-20] MEDS: LANTUS 0.18 UNITS SC (22:10)
[2024-06-20 22:15] LABS: Glucose - Point of Care 228 mg/dl (70-99)
[2024-06-21] VITALS (15 sets, daily range): BP systolic 112–158; BP diastolic 59–73; PULSE 72–82; BMI 29.1
[2024-06-21] MEDS: TYLENOL PO ×2 (00:30→05:15)
[2024-06-21 04:45] LABS: Hematocrit 31.3 % (37.0-47.0); Hemoglobin 10.4 g/dL (12.0-16.0); Mean Corp Hgb Conc. 33.2 g/dL (33.0-37.0); Mean Corpuscular Volume 93.4 fL (81.0-99.0); Platelet Count 203 10^3/uL (130-400); Red Blood Cell Count 3.35 10^6/uL (4.20-5.40); Red Cell Dist. Width 14.4 % (11.5-14.5)
[2024-06-21 05:17] LABS: Blood Urea Nitrogen 49 mg/dl (7-17); Calcium 9.1 mg/dl (8.4-10.2); Carbon Dioxide 27 mmol/L (22-30); Chloride 103 mmol/L (98-107); Estimated Creatinine Clearance 42 ml/min; Glucose 211 mg/dl (70-99); Magnesium 2.6 mg/dl (1.6-2.3); Phosphorus 3.4 mg/dl (2.5-4.5); Potassium 4.6 mmol/L (3.5-5.1); Sodium 135 mmol/L (135-145); eGFR > 60.00
[2024-06-21] MEDS: DUONEB 3 ML INH ×4 (07:17→19:55)
--- NOTE | 2024-06-21 07:33 | PTCARENOTE ---
Pt On BIPAP sleeping at this time. Pt is [facility] . PUREWICK IN PLACE. tAKES PILLS CRUSHED IN APPLESAUCE.
--- NOTE | 2024-06-21 08:20 | W.PN.PUL.V3 ---
Today's Communication / Plan
-
Prednisone taper
Nebulizers
BiPAP at night and during the daytime as needed
Outpatient pulmonary follow-up
Pulmonary will sign off-please call with questions
Assessment
-
89-year-old former smoking female with underlying oxygen dependent COPD, laryngeal dyskinesia, esophageal spasms, hypertension, diabetes, obstructive sleep apnea on CPAP and osteoporosis presented with generalized weakness, shortness of breath and
pulmonary consulted for shortness of breath/BiPAP 06/20/2024.
Sepsis with strep bacteremia
Left rib fractures
COPD with acute exacerbation with some hypercapnia-VBG 06/15/2024-50/46/7.36
Leukocytosis
Mild normocytic anemia-hemoglobin 10.3
Hyperglycemia
Conditions present prior to admission:
COPD/asthma oxygen dependent.
Laryngeal dyskinesia.
Esophageal spasm.
GERD.
Hypertension.
Diabetes.
TANI/CPAP.
Carotid stenosis.
Osteoporosis.
Chronic LE edema.
Appendectomy. Left carotid stent. JOSE MARTIN. Carpal tunnel. Bladder surgery. Lumpectomy.
Plan
Respiratory decompensation likely in part due to COPD/asthma exacerbation
Supplemental oxygen-assess discharge supplemental oxygen needs prior to discharge
Aspiration precautions
Nebulizers--on DuoNebs
Methylprednisolone 40 mg IV every 12 hours-converted to prednisone 40 mg with slow taper-reduce by 10 mg every 3 days maintained on 10 mg until seen by pulmonary as an outpatient
Pulmonary will sign off
Robitussin 4 times daily
Continue Singulair and Claritin
Incentive spirometry
Mucus clearing devices
BiPAP as needed-attempt to liberate during the daytime
Cultures reviewed
Blood cultures with Streptococcus species, diphtheroids
Urine streptococcal
Pneumonia antigen negative
Repeat blood cultures negative
Antibiotics per infectious disease-recommended discontinuation and observe off antibiotics on 06/19/2024
DVT prophylaxis-on Lovenox
GI prophylaxis-on pantoprazole
Nutrition
Early mobilization/physical therapy
Pulmonary will sign off-please call with questions
Patient last saw Dr. Vail 10/04/2023-was to follow-up in April-needs appointment at time of discharge
Diagnostic data:
CXR 06/26/23: bilateral vague interstitial changes, suboptimal inspiration
Chest x-ray 06/15/2024-no acute cardiopulmonary process
Rib x-rays 06/19/2024-suspected nondisplaced fracture anterior left seventh rib
CT chest 06/15/2024-no evidence for pulmonary embolism, no significant acute abnormalities in the chest
CT abdomen and pelvis 06/18/2024-no acute findings in the abdomen or pelvis, stable appearance of cystic lesions along the pancreatic tail, numerous compression fractures
Echo 05/31/21: normal biventricular function, mild mitral regurgitation
Echocardiogram 06/17/2024-EF 70%, mild mitral regurgitation, mild aortic stenosis
PFT 06/10/14: FVC 2.13/97%, FEV1 1.64/101%, ratio 77. There is a 14% improvement in the FEV1 following bronchodilator. TLC 3.66/86%, DLCO 11.67/66%.
[place] 05/30/23: FVC 1.21/63%, FEV1 0.80/57%, ratio 66%, 10% BD response in FEV1. Post BD results
Sleep study from 07/25/10 reveals total index 31.7 with desaturation mateo 71%.
Subjective Data
-
Date of Service:
Date of Service: June 21, 2024
Chief Complaint: Pulmonary Follow Up and Dyspnea Follow Up
Subjective:
Still on BiPAP, tolerating well, no respiratory distress, no pain
Review of Systems
General: Other (Per HPI)
Objective Data
Data Reviewed
Vital Signs / I&O:
Vital Signs
Temp Pulse Resp BP Pulse Ox
97.7 F 72 15 145/67 100
06/21/24 07:58 06/21/24 07:20 06/21/24 07:20 06/21/24 06:00 06/21/24 07:20
Intake and Output
06/20/24 06/21/24 06/22/24
06:59 06:59 06:59
Intake Total 410 / 410 1390 / 1390
Output Total 300 / 300 725 / 725
Balance 110 / 110 665 / 665
SaO2: 100
Nasal Cannula flow liters per minute: 3
Physical Exam
General: Respiratory Distress (n) and Comfortable
HEENT: Normocephalic, Anicteric and Moist Mucous Membranes
Cardiovascular: Regular Rhythm and Murmur
Respiratory: Clear (Diminished breath sounds and prolonged expiratory time), Wheeze (n), Non-Labored Respirations, Accessory Resp Muscle Use (n) and Stridor
GI: Soft, Non Distended and Non Tender
Neurology: Awake, Alert and No Motor Deficits
Skin: Warm, Good Color, Cyanosis (n) and Jaundice (n)
Labs/Micro/Reports
Lab Data
06/21/24 04:33
06/21/24 04:33
Microbiology
06/16/24 11:47 Blood/Venous Blood Culture - Preliminary
No Growth in 4 days- Final report to follow
06/16/24 10:51 Blood/Venous Blood Culture - Preliminary
No Growth in 4 days- Final report to follow
06/15/24 11:39 Blood/Venous Blood Culture - Final
Streptococcus species
Diptheroids
Additional testing on request
06/15/24 11:39 Blood/Venous Gram Stain - Final
06/15/24 11:39 Blood/Venous Blood Culture - Final
Streptococcus species
Diptheroids
06/15/24 11:39 Blood/Venous Gram Stain - Final
[2024-06-21 08:45] LABS: Glucose - Point of Care 185 mg/dl (70-99)
--- NOTE | 2024-06-21 08:51 | W.PN.HOSP.TC ---
Today's Communication/Plan
-
Medically stable for downgrade to Tele
out of bed to chair
PT/OT
pain control
Assessment / Plan
Assessment / Plan
Physical Exam
General: no acute distress, appears relatively comfortable
HEENT: Normocephalic and Atraumatic; Negative Moist Mucous Membranes
Respiratory: Some wheezing noted though appears to be upper airway
Cardiac: Regular Rhythm, S1/S2 and Tachycardic
GI: Soft, Nontender, Nondistended and Normal Bowel Sounds
Musculoskeletal: No Clubbing, No Cyanosis and No Edema, Left sided rib pain tenderness
Skin: Warm and Dry
Neuro: AOx3 conversant coherent
89F COPD 2L baseline Laryngeal Dyskinesia HTN DM TANI CPAP Chronic Back Pain Compression Fx's here with sepsis strep bacteremia.
Sepsis with Strep Bacteremia, Unclear source, possibly pulmonary
- NEG Covid, NEG Flu A & B. NEG UA, NEG CXR, unremarkable CTC for PE and PNA
- BCx + strep, strep pneumo neg, anaerobic bottle also notes G+ bacilli
- repeat blood cultures NGTD
- ECHO appreciated EF 70%, new mild aortic stenosis when compared w/t previous ECHO 05/2021
- CT abd/pelvis appreciated no acute findings noted
- consult ID appreciated empiric vanc zosyn de-escalated to Ceftriaxone, culture results were later determined to be contaminations, abx since discontinued as per ID, monitor off
Left rib pain
hx falls
Lt Ribs X-ray appreciated nondisplaced anterior 7th rib fx
-pain control
-PT/OT appreciated SNF rehab
COPD exacerbation
Chronic Hypoxic hypercapnic
Home O2 dependent COPD - noted wheezing but likely upper airway
Nasal Congestion post-nasal drip
-Claritin
- iv steorids tapered gradually to Prednisone 40 mg daily
- continue montelukast
- duonebs
- mucolytics, vest therapy, acapella
- incentive ebenezer
-Pulm eval appreciated
ASCVD / Carotid Stenosis s/p Left Carotid Stent
- continue Plavix Crestor
Hypertension
- continue diltiazem
DMT2
Steroid induced hyperglycemia
- moderate dose sliding scale
- Novolog 8U Lantus 24U
Chronic Lower Extremity Edema
- continue Torsemide
GERD
Vocal Cord Spasm
Esophageal Spasm
- continue Protonix
-Speech eval appreciated cont pureed mildly thick liquid, medications as tolerated puree vs mildly thick liquids
-aspiration precautions, supervision and partial assistance w/ meals
Obstructive Sleep Apnea
- continue CPAP
Back Pain due to subacute on chronic compression Fx. T12 vertebral body.
Ambulatory Dysfunction
- Tylenol Q4HWA, prn Tramadol
- continue Gabapentin
- continue Lido patches
- PT/OT appreciated SNF rehab
DVT ppx
Full Code
Medically stable for downgrade to Tele
discussed with patient and patient's son Emigdio
I spent a total of 45 minutes with the patient or on the floor. More than 50% of this time involved counseling and coordination of care.
Anticipated Discharge: 24 - 48 hours
Subjective/Interval History
-
Date of Service: June 21, 2024
constipation resolved with large bowel movement in morning. Appears relatively comfortable, left ribs pain persists.
Objective Data
-
Labs:
Laboratory Results
06/21/24
04:33
WBC 13.0 H
Hgb 10.4 L
Hct 31.3 L
Plt Count 203
Sodium 135
Potassium 4.6
Chloride 103
Carbon Dioxide 27
BUN 49 H
Creatinine 0.8
Glucose 211 H
Calcium 9.1
Vital Signs:
Vital Signs
Temp Pulse Resp BP Pulse Ox
97.7 F 72 15 145/67 100
06/21/24 07:58 06/21/24 07:20 06/21/24 07:20 06/21/24 06:00 06/21/24 08:20
I&O
06/20/24 06/21/24 06/22/24
06:59 06:59 06:59
Intake Total 410 / 410 1390 / 1390
Output Total 300 / 300 725 / 725
Balance 110 / 110 665 / 665
[2024-06-21] MEDS: ROBITUSSIN 200 MG PO ×4 (09:09→22:06)
[2024-06-21] MEDS: MIRALAX 17 GRAMS PO (09:09)
[2024-06-21] MEDS: CRESTOR 5 MG PO (09:12)
[2024-06-21] MEDS: CLARITIN 10 MG PO (09:13)
[2024-06-21] MEDS: PROTONIX 40 MG PO (09:13)
[2024-06-21] MEDS: CARDIZEM CD 120 MG PO (09:13)
[2024-06-21] MEDS: PLAVIX 75 MG PO (09:15)
[2024-06-21] MEDS: TYLENOL 650 MG PO ×4 (09:15→22:06)
[2024-06-21] MEDS: MYSOLINE 50 MG PO (09:16)
[2024-06-21] MEDS: VITAMIN D3 (cholecalciferol) 50 MCG PO (09:16)
[2024-06-21] MEDS: SOLU-MEDROL PF 40 MG IV (09:17)
[2024-06-21] MEDS: NOVOLOG FLEXPEN-MODERATE RESISTANCE 1 UNITS SC (09:19)
[2024-06-21] MEDS: NOVOLOG FLEXPEN SC ×2 (09:20→12:44)
[2024-06-21] MEDS: LIDOCAINE 4% PATCH 2 PATCH TOPICAL (09:21)
[2024-06-21] MEDS: DULCOLAX 10 MG RECTAL (09:58)
[2024-06-21] MEDS: LIDOCAINE 4% PATCH 1 PATCH TOPICAL (09:58)
--- NOTE | 2024-06-21 10:00 | PTCARENOTE ---
Pt didnot eat breakfast held 8 units, pt had a huge BM supp given . Pt states she feels better.
--- NOTE | 2024-06-21 10:09 | W.PN.ID1 ---
Date of Service
Date of Service: June 21, 2024
Today's Communication
ID will sign off.
Assessment / Plan
# Pseudobacteremia/contaminant
Streptococcus species and Diphtheroid bacteremia, 2 sets of blood cultures drawn at the same time.
Spoke to micro lab: there are 3 types of alpha-strep species suggestive of contaminants.
Repeat blood cx's neg.
Observe off abx.
# Asthma/COPD exacerbation, on steroid
# Leukocytosis, on steroid
# Fever x 2 - resolved. ID workup neg.
# L rib fracture/pain - due to fall and hit against wheelchair
# Multiple compression fractures due to falls
ID will sign off.
#Additional Past Medical History:
DM2
Neuropathy
HTN
laryngeal dyskinesia
Asthma/COPD on chronic low dose prednisone
Chronic hypoxemic respiratory failure on home O2
TANI on CPAP
Hx H. pylori
Carotid stenosis s/p left carotid stent
Osteoporosis
Vertebral Compression fractures
Chronic LE edema
Appendectomy
Bladder repair
Lumpectomy (benign)
Chief Complaint
-: Bacteremia
Subjective / Review of Systems
Trying to cough up mucous.
Vital Signs / Physical Exam
Vital Signs
Vital Signs
Temp Pulse Resp BP Pulse Ox
97.7 F 77 18 139/60 97
06/21/24 07:58 06/21/24 10:00 06/21/24 10:00 06/21/24 10:00 06/21/24 10:00
Physical Exam
Constitutional: Chronically Ill
Cardiovascular: Regular Rate and S1/S2
Pulmonary: Wheezes (mild upper airway)
Gastrointestinal: Soft, Non Tender, Non Distended and Normal Bowel Sounds
Extremities: Negative Edema
Neurological: AO x 3
Objective Data
Lab Data
Lab Results
06/21/24 04:33
06/21/24 04:33
Estimated Creat Clear 42 ml/min 06/21/24 04:33
Lactic Acid Cancelled 06/15/24 15:15
Total Bilirubin 0.3 mg/dl (0.2-1.3) 06/18/24 06:02
AST 21 U/L (14-36) 06/18/24 06:02
ALT 16 U/L (0-35) 06/18/24 06:02
Alkaline Phosphatase 71 U/L (38-126) 06/18/24 06:02
C-Reactive Protein 55.70 mg/L (0.0-10.00) H 06/17/24 04:21
Most recent labs reviewed.
Micro Results:
06/16/24 11:47 Blood Culture - Preliminary
Blood/Venous No Growth in 4 days- Final report to follow
06/16/24 10:51 Blood Culture - Preliminary
Blood/Venous No Growth in 4 days- Final report to follow
06/15/24 11:39 Blood Culture - Final
Blood/Venous Streptococcus species
Diptheroids
Additional testing on request
Gram Stain - Final
06/15/24 11:39 Blood Culture - Final
Blood/Venous Streptococcus species
Diptheroids
Gram Stain - Final
06/16/24 10:07 Streptococcus pneumoniae Antigen (M - Final
Urine Negative for Streptococcus pneumoniae antigen.
A negative result does not exclude infection with
Streptococcus pneumoniae. Clinical correlation is
recommended.
06/15/24 10:13 Influenza Types A & B (EMELY) - Final
Nasal Swab Negative for Influenza A & B, NAAT
Negative results must be combined with clinical observations
and patient history.
Nucleic Acid Amplification test (NAAT)performed on the
Quosis platform.
06/15/24 Chest CTA No evidence of pulmonary embolism. No significant acute abnormality identified in the chest, as described above. Findings suggesting underlying pulmonary arterial hypertension.
06/18/24 CT a/p: No acute findings in the abdomen or pelvis.
[2024-06-21] MEDS: ULTRAM 25 MG PO (10:41)
--- NOTE | 2024-06-21 11:00 | CM ---
Patient with Dx Pseudobacteremia/contaminant, Asthma/COPD exacerbation, Multiple compression fractures due to falls. O2 2L. BiPAP. PT/OT; assist of 2, recommend skilled rehab.
Met with patient and son Emigdio;
offered SNF again for rehab, informing patient that if she is more independent when she returns home it would decrease the caregiver burden for her and son - patient adamantly declines citing nonsensical reason that she did not like [facility] because there were 'fat people there', and that they did not speak as nicely to her as she wanted. Patient repeatedly interrupting conversation when son was speaking.
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 Son expressed that patient is difficult to manage and he has some
caregiver fatigue/burnout that is evident.
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
Provided [employer] brochure with phone # and suggested son contact them re; [facility] and the Waiver program - he says he tried in the past but the refused to provide financial information and SS#.
Emigdio confirms patient doesn't have BiPAP at home (home O2 in place per prior CM notes). Son states patient refused air mattress for hospital bed at home.
Spoke with Dr Verdin; no plan for BiPAP at home.
Spoke with [facility]; no discharge today. Clinical update provided. Discussed son as caregiver with some caregiver burnout and with no ability to hire help at home.
Plan home with [facility], with [employer] information, with family.
[2024-06-21] MEDS: REFRESH EYE DROPS (PF) 1 DROPS LEFT EYE (12:18)
[2024-06-21 12:37] LABS: Glucose - Point of Care 210 mg/dl (70-99)
[2024-06-21] MEDS: NOVOLOG FLEXPEN-MODERATE RESISTANCE 3 UNITS SC (12:43)
--- NOTE | 2024-06-21 15:50 | PTCARENOTE ---
report give to 4th floor.
[2024-06-21] MEDS: NOVOLOG FLEXPEN-MODERATE RESISTANCE 5 UNITS SC (16:34)
[2024-06-21] MEDS: NOVOLOG FLEXPEN 4 UNITS SC (16:37)
[2024-06-21 16:51] LABS: Glucose - Point of Care 273 mg/dl (70-99)
[2024-06-21] MEDS: LOVENOX 40 MG SC (17:18)
--- NOTE | 2024-06-21 17:42 | PTCARENOTE ---
Report to Pat 3rd floor , pt moved on tele and O2
[2024-06-21] MEDS: NEURONTIN 200 MG PO (22:06)
[2024-06-21] MEDS: LANTUS 0.24 UNITS SC (22:06)
[2024-06-21] MEDS: SINGULAIR 10 MG PO (22:06)
[2024-06-21 22:09] LABS: Glucose - Point of Care 280 mg/dl (70-99)
[2024-06-22] MEDS: TYLENOL PO ×4 (01:26→23:24)
[2024-06-22 03:00] VITALS: BP 135/68
[2024-06-22 06:00] VITALS: BMI 28.7
[2024-06-22 07:01] LABS: Hematocrit 29.8 % (37.0-47.0); Hemoglobin 9.9 g/dL (12.0-16.0); Mean Corp Hgb Conc. 33.2 g/dL (33.0-37.0); Mean Corpuscular Volume 93.4 fL (81.0-99.0); Mean Platelet Volume 9.7 fL (7.4-10.4); Platelet Count 222 10^3/uL (130-400); Red Blood Cell Count 3.19 10^6/uL (4.20-5.40); Red Cell Dist. Width 14.4 % (11.5-14.5); White Blood Cell Count 12.7 10^3/uL (4.8-10.8)
[2024-06-22 07:05] VITALS: BP 138/69
[2024-06-22] MEDS: DUONEB 3 ML INH ×4 (07:26→19:34)
[2024-06-22 07:29] LABS: Blood Urea Nitrogen 39 mg/dl (7-17); Carbon Dioxide 32 mmol/L (22-30); Chloride 103 mmol/L (98-107); Estimated Creatinine Clearance 47 ml/min; Glucose 86 mg/dl (70-99); Magnesium 2.4 mg/dl (1.6-2.3); Phosphorus 3.2 mg/dl (2.5-4.5); Potassium 4.6 mmol/L (3.5-5.1); Sodium 136 mmol/L (135-145); eGFR > 60.00
[2024-06-22 07:52] LABS: Glucose - Point of Care 69 mg/dl (70-99)
[2024-06-22] MEDS: NOVOLOG FLEXPEN-MODERATE RESISTANCE SC ×2 (07:53→12:12)
[2024-06-22] MEDS: NOVOLOG FLEXPEN SC (07:54)
[2024-06-22 08:24] LABS: Glucose - Point of Care 119 mg/dl (70-99)
[2024-06-22] MEDS: CLARITIN 10 MG PO (08:56)
[2024-06-22] MEDS: ROBITUSSIN 200 MG PO ×4 (08:56→20:39)
[2024-06-22] MEDS: MIRALAX 17 GRAMS PO (08:57)
[2024-06-22] MEDS: PROTONIX 40 MG PO (08:57)
[2024-06-22] MEDS: DELTASONE 40 MG PO (08:57)
[2024-06-22] MEDS: PLAVIX 75 MG PO (08:57)
[2024-06-22] MEDS: TYLENOL 650 MG PO ×3 (08:57→20:39)
[2024-06-22] MEDS: CRESTOR 5 MG PO (08:57)
[2024-06-22] MEDS: MYSOLINE 50 MG PO (08:57)
[2024-06-22] MEDS: CARDIZEM CD 120 MG PO (08:57)
[2024-06-22] MEDS: VITAMIN D3 (cholecalciferol) 50 MCG PO (08:58)
[2024-06-22] MEDS: LIDOCAINE 4% PATCH 1 PATCH TOPICAL (08:58)
[2024-06-22] MEDS: LIDOCAINE 4% PATCH 2 PATCH TOPICAL (08:58)
[2024-06-22 10:38] LABS: Glucose - Point of Care 125 mg/dl (70-99)
[2024-06-22 11:05] VITALS: BP 111/57
[2024-06-22 12:09] LABS: Glucose - Point of Care 143 mg/dl (70-99)
[2024-06-22 12:36] LABS: Procalcitonin < 0.05 ng/ml (0.0-0.25)
[2024-06-22] MEDS: NOVOLOG FLEXPEN 6 UNITS SC ×2 (13:10→17:44)
--- NOTE | 2024-06-22 14:13 | W.PN.HOSP.TC ---
Today's Communication/Plan
-
neg procal
cont monitoring off abx
supportive care cough, encourage incentive spirometer acapella use
out of bed to chair
PT/OT
Discharge planning
Assessment / Plan
Assessment / Plan
Physical Exam
General: no acute distress, appears relatively comfortable
HEENT: Normocephalic and Atraumatic; Negative Moist Mucous Membranes
Respiratory: Some wheezing noted though appears to be upper airway
Cardiac: Regular Rhythm, S1/S2 and Tachycardic
GI: Soft, Nontender, Nondistended and Normal Bowel Sounds
Musculoskeletal: No Clubbing, No Cyanosis and No Edema, Left sided rib pain tenderness
Skin: Warm and Dry
Neuro: AOx3 conversant coherent
89F COPD 2L baseline Laryngeal Dyskinesia HTN DM ATNI CPAP Chronic Back Pain Compression Fx's here with sepsis strep bacteremia.
Sepsis with Strep Bacteremia, Unclear source, possibly pulmonary
- NEG Covid, NEG Flu A & B. NEG UA, NEG CXR, unremarkable CTC for PE and PNA
- BCx + strep, strep pneumo neg, anaerobic bottle also notes G+ bacilli
- repeat blood cultures NGTD
- ECHO appreciated EF 70%, new mild aortic stenosis when compared w/t previous ECHO 05/2021
- CT abd/pelvis appreciated no acute findings noted
- consult ID appreciated empiric vanc zosyn de-escalated to Ceftriaxone, culture results were later determined to be contaminations, abx since discontinued as per ID, monitor off
-procal neg
Left rib pain
hx falls
Lt Ribs X-ray appreciated nondisplaced anterior 7th rib fx
-pain control
-PT/OT appreciated SNF rehab
COPD exacerbation
Chronic Hypoxic hypercapnic
Home O2 dependent COPD - noted wheezing but likely upper airway
Nasal Congestion post-nasal drip
-Claritin
- iv steorids tapered gradually to Prednisone 40 mg daily
- continue montelukast
- duonebs
- mucolytics, vest therapy, acapella
- incentive ebenezer
-Pulm eval appreciated
ASCVD / Carotid Stenosis s/p Left Carotid Stent
- continue Plavix Crestor
Hypertension
- continue diltiazem
DMT2
Steroid induced hyperglycemia
- moderate dose sliding scale
- Novolog 8U Lantus 24U
Chronic Lower Extremity Edema
- continue Torsemide
GERD
Vocal Cord Spasm
Esophageal Spasm
- continue Protonix
-Speech eval appreciated cont pureed mildly thick liquid, medications as tolerated puree vs mildly thick liquids
-aspiration precautions, supervision and partial assistance w/ meals
Obstructive Sleep Apnea
- continue CPAP
Back Pain due to subacute on chronic compression Fx. T12 vertebral body.
Ambulatory Dysfunction
- Tylenol Q4HWA, prn Tramadol
- continue Gabapentin
- continue Lido patches
- PT/OT appreciated SNF rehab
DVT ppx
Full Code
Medically stable for downgrade to Tele
discussed with patient and patient's son Emigdio
I spent a total of 45 minutes with the patient or on the floor. More than 50% of this time involved counseling and coordination of care.
Anticipated Discharge: 24 - 48 hours
Subjective/Interval History
-
Date of Service: June 22, 2024
no acute distress. reports coughing difficulty bringing up sputum.
Objective Data
-
Labs:
Laboratory Results
06/22/24
06:39
WBC 12.7 H
Hgb 9.9 L
Hct 29.8 L
Plt Count 222
Sodium 136
Potassium 4.6
Chloride 103
Carbon Dioxide 32 H
BUN 39 H
Creatinine 0.7
Glucose 86
Calcium 9.0
Vital Signs:
Vital Signs
Temp Pulse Resp BP Pulse Ox
98.2 F 84 18 111/57 96
06/22/24 11:05 06/22/24 11:19 06/22/24 11:19 06/22/24 11:05 06/22/24 11:30
I&O
06/21/24 06/22/24 06/23/24
06:59 06:59 06:59
Intake Total 1390 / 1390
Output Total 725 / 725 450 / 450 0 / 0
Balance 665 / 665 -450 / -450 0 / 0
[2024-06-22 14:55] VITALS: BP 141/71
[2024-06-22 17:05] LABS: Glucose - Point of Care 288 mg/dl (70-99)
[2024-06-22] MEDS: NOVOLOG FLEXPEN-MODERATE RESISTANCE 5 UNITS SC (17:43)
[2024-06-22] MEDS: LOVENOX 40 MG SC (17:43)
[2024-06-22 19:00] VITALS: BP 144/73
[2024-06-22] MEDS: NEURONTIN 200 MG PO (20:39)
[2024-06-22] MEDS: SINGULAIR 10 MG PO (20:42)
[2024-06-22 20:48] LABS: Glucose - Point of Care 179 mg/dl (70-99)
[2024-06-22] MEDS: LANTUS 0.18 UNITS SC (20:48)
[2024-06-22 23:00] VITALS: BP 133/70; PULSE 81
[2024-06-23 03:00] VITALS: BP 113/55
[2024-06-23] MEDS: TYLENOL PO (04:10)
[2024-06-23 05:30] LABS: Hematocrit 30.8 % (37.0-47.0); Hemoglobin 9.9 g/dL (12.0-16.0); Mean Corp Hgb Conc. 32.1 g/dL (33.0-37.0); Mean Corpuscular Hgb 30.4 pg (27.0-31.0); Mean Corpuscular Volume 94.5 fL (81.0-99.0); Mean Platelet Volume 9.8 fL (7.4-10.4); Platelet Count 229 10^3/uL (130-400); Red Blood Cell Count 3.26 10^6/uL (4.20-5.40); Red Cell Dist. Width 14.3 % (11.5-14.5); White Blood Cell Count 11.7 10^3/uL (4.8-10.8)
[2024-06-23 05:59] LABS: Blood Urea Nitrogen 27 mg/dl (7-17); Calcium 8.8 mg/dl (8.4-10.2); Carbon Dioxide 31 mmol/L (22-30); Chloride 103 mmol/L (98-107); Estimated Creatinine Clearance 47 ml/min; Glucose 82 mg/dl (70-99); Magnesium 2.3 mg/dl (1.6-2.3); Phosphorus 3.2 mg/dl (2.5-4.5); Potassium 4.7 mmol/L (3.5-5.1); Sodium 136 mmol/L (135-145); eGFR > 60.00
[2024-06-23 06:00] VITALS: BMI 29.1
[2024-06-23 07:00] VITALS: BP 128/62
--- NOTE | 2024-06-23 07:31 | W.PN.HOSP.TC ---
Today's Communication/Plan
-
steroid taper
increased mucinex
glycemic control
PT/OT
Discharge planning
Assessment / Plan
Assessment / Plan
Physical Exam
General: no acute distress, appears relatively comfortable
HEENT: Normocephalic and Atraumatic; Negative Moist Mucous Membranes
Respiratory: Some wheezing noted though appears to be upper airway
Cardiac: Regular Rhythm, S1/S2 and Tachycardic
GI: Soft, Nontender, Nondistended and Normal Bowel Sounds
Musculoskeletal: No Clubbing, No Cyanosis and No Edema, Left sided rib pain tenderness
Skin: Warm and Dry
Neuro: AOx3 conversant coherent
89F COPD 2L baseline Laryngeal Dyskinesia HTN DM TANI CPAP Chronic Back Pain Compression Fx's here with sepsis strep bacteremia.
Sepsis with Strep Bacteremia, Unclear source, possibly pulmonary
- NEG Covid, NEG Flu A & B. NEG UA, NEG CXR, unremarkable CTC for PE and PNA
- BCx + strep, strep pneumo neg, anaerobic bottle also notes G+ bacilli
- repeat blood cultures NGTD
- ECHO appreciated EF 70%, new mild aortic stenosis when compared w/t previous ECHO 05/2021
- CT abd/pelvis appreciated no acute findings noted
- consult ID appreciated empiric vanc zosyn de-escalated to Ceftriaxone, culture results were later determined to be contaminations, abx since discontinued as per ID, monitor off
-procal neg, cont monitoring off abx
Left rib pain
hx falls
Lt Ribs X-ray appreciated nondisplaced anterior 7th rib fx
-pain control
-PT/OT appreciated SNF rehab
COPD exacerbation
Chronic Hypoxic hypercapnic
Home O2 dependent COPD - noted wheezing but likely upper airway
Nasal Congestion post-nasal drip
Cough difficulty bringing up sputum
-Claritin
- iv steorids tapered gradually to Prednisone 40 mg daily, further tapered to 30 mg daily
- continue montelukast
- duonebs
- mucolytics (mucinex 200 mg QID increased to 400 mg QID), acapella
-Unable to tolerate VEST therapy d/t rib fracture pain.
- incentive ebenezer
-Pulm eval appreciated
ASCVD / Carotid Stenosis s/p Left Carotid Stent
- continue Plavix Crestor
Hypertension
- continue diltiazem
DMT2
Steroid induced hyperglycemia improving with taper of steroids
- moderate dose sliding scale
- Novolog 8U Lantus 24U reduced to 3U and 10U respectively
-monitor and titrate insulin regimen as necessary
Chronic Lower Extremity Edema
- continue Torsemide
GERD
Vocal Cord Spasm
Esophageal Spasm
- continue Protonix
-Speech eval appreciated cont pureed mildly thick liquid, medications as tolerated puree vs mildly thick liquids
-aspiration precautions, supervision and partial assistance w/ meals
Obstructive Sleep Apnea
- continue CPAP
Back Pain due to subacute on chronic compression Fx. T12 vertebral body.
Ambulatory Dysfunction
- Tylenol Q4HWA, prn Tramadol
- continue Gabapentin
- continue Lido patches
PT/OT appreciated SNF rehab patient however refusing, wants to go home, son Emigdio understandably concern patient will fall at home favors rehab
DVT ppx
Full Code
discussed with patient and patient's son Emigdio 06/22/24
attempted to call Emigdio 06/23/24, no answer received, message left with brief update and call back number.
I spent a total of 45 minutes with the patient or on the floor. More than 50% of this time involved counseling and coordination of care.
Anticipated Discharge: 24 - 48 hours
Subjective/Interval History
-
Date of Service: June 23, 2024
No acute distress resting comfortably in bed. Reports some improvement in sputum production, difficulty bringing up sputum remains persistent however. Concerned regarding having pneumonia, reassured unlikely at this time given recent neg procal.
Objective Data
-
Labs:
Laboratory Results
06/23/24
04:40
WBC 11.7 H
Hgb 9.9 L
Hct 30.8 L
Plt Count 229
Sodium 136
Potassium 4.7
Chloride 103
Carbon Dioxide 31 H
BUN 27 H
Creatinine 0.7
Glucose 82
Calcium 8.8
Vital Signs:
Vital Signs
Temp Pulse Resp BP Pulse Ox
98.4 F 72 16 113/55 99
06/23/24 03:00 06/23/24 03:00 06/23/24 03:00 06/23/24 03:00 06/23/24 03:00
I&O
06/22/24 06/23/24 06/24/24
06:59 06:59 06:59
Intake Total 720 / 720
Output Total 450 / 450 400 / 400
Balance -450 / -450 320 / 320
[2024-06-23 08:15] LABS: Glucose - Point of Care 70 mg/dl (70-99)
[2024-06-23] MEDS: DUONEB 3 ML INH ×4 (08:15→19:49)
[2024-06-23 08:54] LABS: Glucose - Point of Care 89 mg/dl (70-99)
[2024-06-23] MEDS: TYLENOL 650 MG PO ×4 (09:01→21:01)
[2024-06-23] MEDS: PLAVIX 75 MG PO (09:01)
[2024-06-23] MEDS: CRESTOR 5 MG PO (09:01)
[2024-06-23] MEDS: CLARITIN 10 MG PO (09:01)
[2024-06-23] MEDS: PROTONIX 40 MG PO (09:01)
[2024-06-23] MEDS: DELTASONE 40 MG PO (09:01)
[2024-06-23] MEDS: MYSOLINE 50 MG PO (09:01)
[2024-06-23] MEDS: VITAMIN D3 (cholecalciferol) 50 MCG PO (09:02)
[2024-06-23] MEDS: CARDIZEM CD 120 MG PO (09:02)
[2024-06-23] MEDS: LIDOCAINE 4% PATCH 1 PATCH TOPICAL (09:03)
[2024-06-23] MEDS: LIDOCAINE 4% PATCH 2 PATCH TOPICAL (09:03)
[2024-06-23] MEDS: ROBITUSSIN 200 MG PO (09:03)
[2024-06-23] MEDS: MIRALAX 17 GRAMS PO (09:04)
[2024-06-23] MEDS: NOVOLOG FLEXPEN-MODERATE RESISTANCE SC (09:36)
[2024-06-23] MEDS: NOVOLOG FLEXPEN SC ×2 (09:36→14:21)
[2024-06-23 11:00] VITALS: BP 120/64
[2024-06-23 12:23] LABS: Glucose - Point of Care 164 mg/dl (70-99)
[2024-06-23] MEDS: ROBITUSSIN 400 MG PO ×3 (12:36→21:01)
[2024-06-23] MEDS: NOVOLOG FLEXPEN-MODERATE RESISTANCE 1 UNITS SC (14:12)
[2024-06-23 15:00] VITALS: BP 115/61
--- NOTE | 2024-06-23 15:58 | CHAP ---
Uzma Ernst welcomed a hand mixer visit, and asked for prayer. Emotional and spiritual support provided, along with assurance of our on-going availability.
[2024-06-23 16:37] LABS: Glucose - Point of Care 362 mg/dl (70-99)
[2024-06-23] MEDS: LOVENOX 40 MG SC (17:16)
[2024-06-23] MEDS: NOVOLOG FLEXPEN-MODERATE RESISTANCE 9 UNITS SC (17:36)
[2024-06-23] MEDS: NOVOLOG FLEXPEN 3 UNITS SC (17:36)
[2024-06-23 20:02] VITALS: BP 131/66
[2024-06-23] MEDS: NEURONTIN 200 MG PO (21:01)
[2024-06-23] MEDS: SINGULAIR 10 MG PO (21:01)
[2024-06-23 21:27] LABS: Glucose - Point of Care 223 mg/dl (70-99)
[2024-06-23] MEDS: LANTUS 0.1 UNITS SC (21:41)
[2024-06-23 23:47] VITALS: BP 119/68
[2024-06-24] VITALS (8 sets, daily range): BP systolic 119–134; BP diastolic 51–72; PULSE 85–97; O2SAT 97; BMI 29.6
[2024-06-24] MEDS: TYLENOL PO ×2 (00:08→04:33)
[2024-06-24 05:50] LABS: Hematocrit 30.4 % (37.0-47.0); Hemoglobin 9.8 g/dL (12.0-16.0); Mean Corp Hgb Conc. 32.2 g/dL (33.0-37.0); Mean Corpuscular Hgb 30.4 pg (27.0-31.0); Mean Corpuscular Volume 94.4 fL (81.0-99.0); Mean Platelet Volume 9.4 fL (7.4-10.4); Platelet Count 244 10^3/uL (130-400); Red Blood Cell Count 3.22 10^6/uL (4.20-5.40); Red Cell Dist. Width 14.4 % (11.5-14.5); White Blood Cell Count 10.4 10^3/uL (4.8-10.8)
[2024-06-24 06:47] LABS: Blood Urea Nitrogen 24 mg/dl (7-17); Calcium 8.6 mg/dl (8.4-10.2); Carbon Dioxide 32 mmol/L (22-30); Chloride 102 mmol/L (98-107); Estimated Creatinine Clearance 56 ml/min; Glucose 102 mg/dl (70-99); Magnesium 2.4 mg/dl (1.6-2.3); Phosphorus 3.6 mg/dl (2.5-4.5); Potassium 4.6 mmol/L (3.5-5.1); Sodium 136 mmol/L (135-145); eGFR > 60.00
[2024-06-24] MEDS: DUONEB 3 ML INH ×4 (07:30→20:57)
[2024-06-24] MEDS: SODIUM CHLORIDE 3% FOR INHALATION 1 VIAL INH ×2 (07:33→11:35)
[2024-06-24 07:57] LABS: Glucose - Point of Care 81 mg/dl (70-99)
[2024-06-24] MEDS: NOVOLOG FLEXPEN SC (08:59)
[2024-06-24] MEDS: NOVOLOG FLEXPEN-MODERATE RESISTANCE SC ×2 (08:59→12:05)
[2024-06-24] MEDS: MIRALAX 17 GRAMS PO (09:19)
[2024-06-24] MEDS: CLARITIN 10 MG PO (09:19)
[2024-06-24] MEDS: PROTONIX 40 MG PO (09:20)
[2024-06-24] MEDS: DELTASONE 30 MG PO (09:20)
[2024-06-24] MEDS: CARDIZEM CD 120 MG PO (09:20)
[2024-06-24] MEDS: PLAVIX 75 MG PO (09:21)
[2024-06-24] MEDS: ROBITUSSIN 400 MG PO ×4 (09:21→21:35)
[2024-06-24] MEDS: TYLENOL 650 MG PO ×4 (09:23→20:12)
[2024-06-24] MEDS: CRESTOR 5 MG PO (09:23)
[2024-06-24] MEDS: MYSOLINE 50 MG PO (09:23)
[2024-06-24] MEDS: LIDOCAINE 4% PATCH 1 PATCH TOPICAL (09:25)
[2024-06-24] MEDS: VITAMIN D3 (cholecalciferol) 50 MCG PO (09:25)
[2024-06-24] MEDS: LIDOCAINE 4% PATCH 2 PATCH TOPICAL (09:26)
[2024-06-24 11:58] LABS: Glucose - Point of Care 149 mg/dl (70-99)
[2024-06-24] MEDS: NOVOLOG FLEXPEN 3 UNITS SC ×2 (12:41→16:26)
--- NOTE | 2024-06-24 14:47 | W.PN.HOSP.TC ---
Today's Communication/Plan
-
Relatively stable respiratory status while on oral steroids taper and off antibiotics
Significantly deconditioned.
Discussed with patient and later discussed with son.
Patient agree with rehab/SNF
Discussed with case management with plan for rehab/SNF discharge once bed is available.
Continue slow prednisone taper
Attempt to wean off oxygen as tolerates
Supportive care
Assessment / Plan
Assessment / Plan
89F COPD 2L baseline Laryngeal Dyskinesia HTN DM TANI CPAP Chronic Back Pain Compression Fx's here with sepsis strep bacteremia.
Sepsis with Strep Bacteremia, Unclear source, possibly pulmonary
- NEG Covid, NEG Flu A & B. NEG UA, NEG CXR, unremarkable CTC for PE and PNA
- BCx + strep, strep pneumo neg, anaerobic bottle also notes G+ bacilli
- repeat blood cultures NGTD
- ECHO appreciated EF 70%, new mild aortic stenosis when compared w/t previous ECHO 05/2021
- CT abd/pelvis appreciated no acute findings noted
- consult ID appreciated empiric vanc zosyn de-escalated to Ceftriaxone, culture results were later determined to be contaminations, abx since discontinued as per ID, monitor off
-procal neg, cont monitoring off abx
Left rib pain
hx falls
Lt Ribs X-ray appreciated nondisplaced anterior 7th rib fx
-pain control
-PT/OT appreciated SNF rehab
COPD exacerbation
Chronic Hypoxic hypercapnic
Home O2 dependent COPD - noted wheezing but likely upper airway
Nasal Congestion post-nasal drip
Cough difficulty bringing up sputum
-Claritin
- iv steorids tapered gradually to Prednisone 40 mg daily, further tapered to 30 mg daily
- continue montelukast
- duonebs
- mucolytics (mucinex 200 mg QID increased to 400 mg QID), acapella
-Unable to tolerate VEST therapy d/t rib fracture pain.
- incentive ebenezer
-Pulm eval appreciated
ASCVD / Carotid Stenosis s/p Left Carotid Stent
- continue Plavix Crestor
Hypertension
- continue diltiazem
DMT2
Steroid induced hyperglycemia improving with taper of steroids
- moderate dose sliding scale
- Novolog 8U Lantus 24U reduced to 3U and 10U respectively
-monitor and titrate insulin regimen as necessary
Chronic Lower Extremity Edema
- continue Torsemide
GERD
Vocal Cord Spasm
Esophageal Spasm
- continue Protonix
-Speech eval appreciated cont pureed mildly thick liquid, medications as tolerated puree vs mildly thick liquids
-aspiration precautions, supervision and partial assistance w/ meals
Obstructive Sleep Apnea
- continue CPAP
Back Pain due to subacute on chronic compression Fx. T12 vertebral body.
Ambulatory Dysfunction
- Tylenol Q4HWA, prn Tramadol
- continue Gabapentin
- continue Lido patches
PT/OT appreciated SNF rehab patient however refusing, wants to go home, son Emigdio understandably concern patient will fall at home favors rehab
DVT ppx
Full Code
Anticipated Discharge: Within 24 hours
Subjective/Interval History
-
Date of Service: June 24, 2024
Objective Data
-
Labs:
Laboratory Results
06/24/24
05:32
WBC 10.4
Hgb 9.8 L
Hct 30.4 L
Plt Count 244
Sodium 136
Potassium 4.6
Chloride 102
Carbon Dioxide 32 H
BUN 24 H
Creatinine 0.6
Glucose 102 H
Calcium 8.6
Vital Signs:
Vital Signs
Temp Pulse Resp BP Pulse Ox
99.2 F 72 18 119/58 97
06/24/24 11:35 06/24/24 11:40 06/24/24 11:40 06/24/24 11:35 06/24/24 11:40
I&O
06/23/24 06/24/24 06/25/24
06:59 06:59 06:59
Intake Total 720 / 720 1620 / 1620
Output Total 400 / 400 1350 / 1350 400 / 400
Balance 320 / 320 270 / 270 -400 / -400
Physical Exam
-
General: Respiratory Distress; Negative Pain, Fever, Chills, Sweats or Intubated
HEENT: Normocephalic and Atraumatic; Negative Moist Mucous Membranes
Respiratory: Wheezes and Rhonchi
Cardiac: Regular Rhythm, S1/S2 and Tachycardic
Breast: Deferred by me
GI: Soft, Nontender, Nondistended and Normal Bowel Sounds
Rectal: Deferred by Provider
Genito-urinary: No Costovertebral Tender
Musculoskeletal: No Clubbing, No Cyanosis and No Edema
Skin: Warm and Dry
Neuro: Awake, Alert, Oriented and AO x 3
[2024-06-24 16:27] LABS: Glucose - Point of Care 321 mg/dl (70-99)
[2024-06-24] MEDS: NOVOLOG FLEXPEN-MODERATE RESISTANCE 7 UNITS SC (16:27)
--- NOTE | 2024-06-24 16:53 | CM ---
Pt and family now agreeable to SNF. Referrals sent to [facility] (no beds available), [facility] (Vanesa responded that she was reviewing the referral; after review she declined the admission, stating she is too medically complicated), and
[facility]. CM was not able to reach pt's son via telephone to discuss SNF transfer.
[2024-06-24] MEDS: LOVENOX 40 MG SC (17:05)
[2024-06-24] MEDS: SINGULAIR 10 MG PO (21:35)
[2024-06-24] MEDS: NEURONTIN 200 MG PO (21:35)
[2024-06-24] MEDS: LANTUS 0.1 UNITS SC (21:38)
[2024-06-24 21:48] LABS: Glucose - Point of Care 174 mg/dl (70-99)
[2024-06-25] MEDS: TYLENOL PO ×2 (04:05)
[2024-06-25 06:00] VITALS: BMI 28.1
[2024-06-25 06:25] LABS: Hematocrit 30.6 % (37.0-47.0); Mean Corp Hgb Conc. 32.7 g/dL (33.0-37.0); Mean Corpuscular Hgb 30.9 pg (27.0-31.0); Mean Corpuscular Volume 94.4 fL (81.0-99.0); Mean Platelet Volume 9.4 fL (7.4-10.4); Platelet Count 256 10^3/uL (130-400); Red Blood Cell Count 3.24 10^6/uL (4.20-5.40); Red Cell Dist. Width 14.3 % (11.5-14.5); White Blood Cell Count 10.3 10^3/uL (4.8-10.8)
[2024-06-25 06:43] LABS: Blood Urea Nitrogen 21 mg/dl (7-17); Calcium 8.5 mg/dl (8.4-10.2); Carbon Dioxide 31 mmol/L (22-30); Chloride 105 mmol/L (98-107); Estimated Creatinine Clearance 56 ml/min; Glucose 74 mg/dl (70-99); Magnesium 2.4 mg/dl (1.6-2.3); Phosphorus 3.5 mg/dl (2.5-4.5); Potassium 4.3 mmol/L (3.5-5.1); Sodium 137 mmol/L (135-145); eGFR > 60.00
[2024-06-25 07:30] VITALS: BP 133/66
[2024-06-25 08:32] LABS: Glucose - Point of Care 68 mg/dl (70-99)
[2024-06-25] MEDS: NOVOLOG FLEXPEN SC (08:33)
[2024-06-25] MEDS: CARDIZEM CD 120 MG PO (08:34)
[2024-06-25] MEDS: CRESTOR 5 MG PO (08:34)
[2024-06-25] MEDS: NOVOLOG FLEXPEN-MODERATE RESISTANCE SC (08:34)
[2024-06-25] MEDS: DELTASONE 30 MG PO (08:35)
[2024-06-25] MEDS: ROBITUSSIN 400 MG PO ×2 (08:35→13:20)
[2024-06-25] MEDS: MYSOLINE 50 MG PO (08:35)
[2024-06-25] MEDS: MIRALAX 17 GRAMS PO (08:35)
[2024-06-25] MEDS: TYLENOL 650 MG PO ×3 (08:35→17:15)
[2024-06-25] MEDS: CLARITIN 10 MG PO (08:35)
[2024-06-25] MEDS: VITAMIN D3 (cholecalciferol) 50 MCG PO (08:36)
[2024-06-25] MEDS: PLAVIX 75 MG PO (08:36)
[2024-06-25] MEDS: LIDOCAINE 4% PATCH 2 PATCH TOPICAL (08:36)
[2024-06-25] MEDS: LIDOCAINE 4% PATCH 1 PATCH TOPICAL (08:36)
[2024-06-25] MEDS: PROTONIX 40 MG PO (08:36)
[2024-06-25] MEDS: REFRESH EYE DROPS (PF) 1 DROPS LEFT EYE (08:38)
[2024-06-25 09:04] LABS: Glucose - Point of Care 120 mg/dl (70-99)
[2024-06-25] MEDS: DUONEB 3 ML INH ×2 (11:18→15:28)
--- NOTE | 2024-06-25 12:00 | CM ---
Addendum entered by Rani Calvert 06/25/24 16:46:
Ambulance machine operator picker scheduled for 1700; son notified via phone
IMM benefit explained via phone to sonEmigdio; form dated/timed @ 1605
Addendum entered by Rani Calvert 06/25/24 13:31:
SonEmigdio called to inform case management that patient's is now agreeable to discharge to [facility]
Bed is available at [facility] today and can accept patient @ 1600; ambulance requested
Plan: Discharge to [facility] via ambulance
Report # [phone]

Per request CPAP information faxed to Karina @ [facility] (fax # [phone])
Original Note:
CM spoke with patient's son, Emigdio, multiple times this morning.
Informed son that his mother was accepted at [facility] and [facility]; son reported that his father is not agreeable with discharge to SNF; plans to take patient home with Home Health/VN. Referral sent to [facility]
Plan: Discharge to home with home health services; family will transport home
[2024-06-25 12:35] LABS: Glucose - Point of Care 214 mg/dl (70-99)
[2024-06-25] MEDS: NOVOLOG FLEXPEN-MODERATE RESISTANCE 3 UNITS SC (13:19)
[2024-06-25] MEDS: NOVOLOG FLEXPEN 3 UNITS SC (13:20)
--- NOTE | 2024-06-25 14:26 | W.DS.TRANS ---
DC Summary - [employer]
-
Discharge Instructions:
Discharge Diagnosis/Procedures COPD exacerbation
Diet Other diet,Diabetic, Carb Controlled
Additional Diets Pur�ed with nectar thick liquids
Instructions:
Stand-Alone Forms:
Changes to Home Medications: No
Discharge Medications:
DC Medications w/original date entered in [facility]
clopidogrel 75 mg tablet 75 mg PO DAILY Blood clot prevention/tx 30 days #30 tabs 08/11/20
montelukast 10 mg tablet 10 mg PO HS Allergies 10/26/20
primidone 50 mg tablet 50 mg PO DAILY Neurological Condition 02/27/21
pantoprazole 40 mg tablet,delayed release 40 mg PO DAILY Gastrointestinal issue 05/27/21
rosuvastatin 5 mg tablet 5 mg PO DAILY High cholesterol 08/25/21
diltiazem HCl 120 mg capsule,24 hr,extended release 120 mg PO DAILY Arrhythmia 02/27/22
gabapentin 100 mg capsule 200 mg PO HS Neurological Condition 07/20/22
polyvinyl alcohol-povidone (PF) 1.4 %-0.6 % eye drops in a dropperette (Refresh Classic (PF)) 1 drp LEFT EYE QIDPRN PRN DRY EYES 07/20/22
cinnamon bark 500 mg capsule (Cinnamon) 500 mg PO DAILY Supplement 08/08/22
polyethylene glycol 3350 17 gram oral powder packet (Miralax) 17 g PO DAILY Gastrointestinal Issue 08/08/22
guaifenesin 600 mg tablet, extended release 12 hr 1,200 mg (2 x 600 mg) PO [id number] PRN cough #30 tabs 09/11/22
coQ10 (ubiquinol) 100 mg capsule 100 mg PO DAILY Supplement 10/25/22
lidocaine 5 % topical patch 1 patch topical DAILYPRN PRN back, right shoulder and right hip 10/25/22
potassium chloride 20 mEq oral packet 20 meq PO TUFR Electrolyte Repletion 10/25/22
mecobalamin (vitamin B12) 1,000 mcg chewable tablet (B12 Active) 1,000 mcg PO DAILY Supplement 06/20/23
torsemide 10 mg tablet 10 mg PO TUFR Fluid Retention/Swelling 06/20/23
cholecalciferol (vitamin D3) 50 mcg (2,000 unit) tablet (Vitamin D3) 50 mcg PO DAILY Supplement 06/26/23
ipratropium bromide 0.02 % solution for inhalation 2.5 ml inhalation R Q4HPRN PRN sob/wheezing 06/26/23
albuterol sulfate 90 mcg/actuation aerosol inhaler 1 puff inhalation R Q4HPRN PRN sob/wheezing 09/05/23
insulin aspart U-100 100 unit/mL (3 mL) subcutaneous pen (Novolog FlexPen U-100 Insulin aspart) 0 sliding scale dose SC AC Diabetes 09/05/23
prednisone 10 mg tablet 10 mg PO DIRECTED #18 tabs 06/25/24
tramadol 50 mg tablet 25 mg (1/2 x 50 mg) PO Q6HPRN PRN moderate to severe pain #12 tabs 06/25/24
Home Medication Changes
Pending Results: No
[2024-06-25 15:40] VITALS: BP 123/60
== END 2024-06-25 17:50 | DRG 872 ==
LOC: 3 WEST ACU 22:16
PROVIDERS: Clinical Nurse Specialist Family Health; Internal Medicine; ADMITTING PHYSICIAN Internal Medicine; ATTENDING PHYSICIAN Internal Medicine; CONSULT PHYSICIAN Internal Medicine Critical Care Medicine; EMERGENCY PHYSICIAN Emergency Medicine; FAMILY PHYSICIAN Family Medicine; OTHER PHYSICIAN Internal Medicine Infectious Disease
PROC: 5A09357 Assistance with Respiratory Ventilation, Less than 24 Consecutive Hours, Continuous Positive Airway Pressure (ICD-10-PCS; 2024-06-18)
DX: A40.9 Streptococcal sepsis, unspecified (principal); J44.1 Chronic obstructive pulmonary disease with (acute) exacerbation; S22.42XA Multiple fractures of ribs, left side, initial encounter for closed fracture; J96.11 Chronic respiratory failure with hypoxia; J96.12 Chronic respiratory failure with hypercapnia; I25.10 Atherosclerotic heart disease of native coronary artery without angina pectoris; I65.29 Occlusion and stenosis of unspecified carotid artery; I10 Essential (primary) hypertension; E11.65 Type 2 diabetes mellitus with hyperglycemia; E11.40 Type 2 diabetes mellitus with diabetic neuropathy, unspecified; K21.9 Gastro-esophageal reflux disease without esophagitis; G47.33 Obstructive sleep apnea (adult) (pediatric); Z99.81 Dependence on supplemental oxygen; E78.00 Pure hypercholesterolemia, unspecified; M81.0 Age-related osteoporosis without current pathological fracture; Z88.8 Allergy status to other drugs, medicaments and biological substances; G89.29 Other chronic pain; T38.0X5A Adverse effect of glucocorticoids and synthetic analogues, initial encounter; K22.4 Dyskinesia of esophagus; D64.9 Anemia, unspecified; F41.9 Anxiety disorder, unspecified; I48.91 Unspecified atrial fibrillation; Z79.4 Long term (current) use of insulin; Z79.52 Long term (current) use of systemic steroids; Z79.899 Other long term (current) drug therapy; Z80.0 Family history of malignant neoplasm of digestive organs; Z80.41 Family history of malignant neoplasm of ovary; Z82.3 Family history of stroke; Z82.5 Family history of asthma and other chronic lower respiratory diseases; Z87.891 Personal history of nicotine dependence; Z88.2 Allergy status to sulfonamides; Z90.710 Acquired absence of both cervix and uterus; Z11.52 Encounter for screening for COVID-19
CPT/HCPCS: 51701; 71046; 71101; 71275; 74177; 80048; 80053; 81003; 82607; 82728; 82805; 82962; 83540; 83550; 83605; 83735; 84100; 84145; 85025; 85027; 86140; 87040; 87154; 87205; 87502; 87811; 87899; 92526; 92610; 93005; 93306; 94640; 94660; 94669; 97116; 97163; 97167; 97530; 97535; 99285; Q9967

== ENCOUNTER 2024-08-14 18:23 | Emergency (ER) | payer MEDICARE, BC, SELFPAY ==
[2024-08-14 18:24] VITALS: BP 109/65
[2024-08-14 18:45] LABS: Hematocrit 35.8 % (37.0-47.0); Hemoglobin 11.7 g/dL (12.0-16.0); Mean Corp Hgb Conc. 32.7 g/dL (33.0-37.0); Mean Corpuscular Volume 92.7 fL (81.0-99.0); Nucleated Red Blood Cells % 0 %; Platelet Count 251 10^3/uL (130-400); Red Cell Dist. Width 12.6 % (11.5-14.5)
[2024-08-14 19:01] LABS: ALT (SGPT) < 10 U/L (0-35); AST (SGOT) 17 U/L (14-36); Albumin 3.7 g/dl (3.5-5.0); Alkaline Phosphatase 104 U/L (38-126); Blood Urea Nitrogen 23 mg/dl (7-17); Calcium 9.1 mg/dl (8.4-10.2); Carbon Dioxide 22 mmol/L (22-30); Chloride 108 mmol/L (98-107); Glucose 177 mg/dl (70-99); Potassium 4.4 mmol/L (3.5-5.1); Sodium 138 mmol/L (135-145); Total Protein 6.3 g/dl (6.3-8.2); eGFR > 60.00
[2024-08-14 19:12] LABS: Troponin I < 0.012 ng/ml
[2024-08-14 21:26] VITALS: BMI 26.6
[2024-08-14] MEDS: DELTASONE 5 MG PO (23:10)
[2024-08-14] MEDS: ULTRAM 25 MG PO (23:11)
[2024-08-14] MEDS: LIDOCAINE 4% PATCH 1 PATCH TOPICAL (23:12)
--- NOTE | 2024-08-14 23:43 | ED.GENMED ---
History of Present Illness
General
Chief Complaint: Fall
Source: patient, family (Son who is at bedside) and previous hospital records (Hospitalization May of this year for acute on chronic back pain as well as hospitalization June of this year for fever, exacerbation of COPD, exacerbation of chronic
back pain.)
Exam Limitations: none
Time Seen by Provider: 08/14/24 22:02
Nursing documentation reviewed up to this point in time: agreed with
History of Present Illness
History of Present Illness:
This is an 89-year-old woman who resides at home with her . She has history of COPD, O2 dependent, chronic prednisone. History of severe osteoporosis, frequent falls, history of multiple thoracic vertebral compression fractures as well as
cervical and lumbar vertebral fractures, history of hip fracture and rib fractures. Was hospitalized most recently May of this year due to fall, acute on chronic back pain and found to have acute on chronic T12 compression fracture without spinal
cord compression. He was treated with tramadol, lidocaine patch and discharged for brief SNF stay.
She was again hospitalized June 15 to June 25 for treatment of fever, exacerbation of COPD, chronic ambulatory dysfunction. Was again discharged to a SNF where she remained for approximately 2 weeks but then discharged to home due to limited
improvement in overall mobility and strength.
Since discharge home early July patient has been receiving home health care including home health nursing care, home physical and Occupational Therapy as well as home health aide once weekly to help with bathing.
She did suffer 1 fall shortly after discharge home over a month ago, did not seek care at that time, and since then has had no further falls. She continues with chronic generalized weakness, wheelchair-bound and requires assistance from or
her son for transfers.
She also complains of significant mid thoracic back pain, chronic in nature, intermittent spasms of pain that have been ongoing over the past month and a half.
During hospitalization she had been treated with tramadol and provided with short prescription upon discharge but has not followed up with PCP nor sought pain management evaluation.
She does note mild but stable shortness of breath. No cough, no fevers or chills.
She has chronic urinary frequency, chronic urinary incontinence but denies dysuria nor urgency. No abdominal nor flank pain. She denies neck nor lower back pain. No numbness. No focal weakness.
Son has placed a call to the PCP, twice this week, thus far no return call.
Past History
Past History
ED Past Medical History: Arrthythmia (Atrial fib), Asthma, COPD, GERD, HTN, Hypercholesterolemia, IDDM, Psychiatric (Anxiety) and Other (Chronic back pain, Diverticulitis, Hiatal hernia,, carotid stenosis,sleep apnea , dysphagia, glaucoma,
cataracts,Vertigo, PNA, esophageal restrictions)
ED Past Surgical History: Appendectomy, Cardiac (Left carotid stent), Gynecological (hysterectomy), Orthopedic (Right carpal tunnel surgery), Urological (Bladder surgery) and Other (Cyst on Pancreas with fluid removed, bladder repair, Breast cyst
removed)
Social History
Tobacco: Non-smoker
Alcohol: None
Drug: None
Personal:
Living: with family
Employment: Retired
Family History
Family History: Other (Brother with a stroke, sister with ovarian cancer, sister with colon cancer)
Phy Exam
Physical Exam
Physical Exam:
GENERAL: 89-year-old female appears somewhat chronically debilitated but is bright and alert, pleasant, easily communicative and appears in no acute distress. Son is accompanying.
EYE: pupils equal and reactive. anicteric. The head is normocephalic, atraumatic.
NECK: Supple, nontender, no meningismus, no significant adenopathy.
ENT: posterior pharynx is clear, oral mucosa is moist. TM clear b/l, nares patent.
CARDIAC: Regular rate and rhythm. 2/6 holosystolic murmur.
LUNGS: no acute respiratory distress, mildly decreased breath sounds at bases otherwise clear to auscultation.
ABDOMEN: Soft, nondistended, without focal tenderness, no r/g, no cvat. normoactive BS.
BACK: Mild tenderness mid thoracic vertebral region. No crepitus nor step-off deformity. No soft tissue swelling. No palpable bony pelvic tenderness. No tenderness to the lumbar region. Straight leg raising is negative bilaterally.
NEUROLOGICAL: Alert and oriented x3, no focal neuro deficits. Motor strength is 5/5 bilateral upper extremities, 4/5 bilateral lower extremities. Sensation grossly intact bilaterally.
SKIN: Warm and dry, normal color, skin intact. No rash.
MUSCULOSKELETAL: No C/C/E. peripheral pulses are full and equal b/l. No palpable tenderness.
PSYCH: Normal and appropriate interaction.
Course
Orders/Labs/Results
Orders:
Orders
08/14/24 18:28
Electrocardiogram (*1) Urgent
Reason for Study: Chest Pain
EKG- Treatment ONCE
CR Chest - 2 Views Urgent
Comment:
Reason For Exam: chest pain
08/14/24 18:39
Complete Blood Count/With Diff Urgent
Comprehensive Metabolic Panel Urgent
Troponin I Urgent
08/14/24 22:55
Lidocaine [Lidocaine 4% Patch] 1 patch TOPICAL NOW STA
Apply Lidocaine patch(s) to:: mid thoracic back
Prednisone [Deltasone] 5 mg PO NOW STA
Tramadol HCl [Ultram] 25 mg PO NOW STA
08/14/24 23:00
Prednisone [Deltasone] 5 mg PO NOW STA
Abnormal Lab Results
08/14/24
18:39
RBC 3.86 L 10^6/uL
(4.20-5.40)
Hgb 11.7 L g/dL
(12.0-16.0)
Hct 35.8 L %
(37.0-47.0)
MCHC 32.7 L g/dL
(33.0-37.0)
Absolute Monos (auto) 1.2 H 10^3/uL
(0.1-0.6)
Absolute Eos (auto) 0.8 H 10^3/uL
(0-0.7)
Monocytes % 12.2 H %
(1.7-9.3)
Eosinophils % 8.8 H %
(0-6)
Chloride 108 H mmol/L
(98-107)
BUN 23 H mg/dl
(7-17)
Glucose 177 H mg/dl
(70-99)
08/14/24 18:39
08/14/24 18:39
Vital Signs
Initial and Last Documented VS:
Initial Vital Signs
Temp Pulse Resp BP Pulse Ox
98.1 F 89 20 109/65 97
08/14/24 18:24 08/14/24 18:24 08/14/24 18:24 08/14/24 18:24 08/14/24 18:24
Last Documented Vital Signs
Temp Pulse Resp BP Pulse Ox
98.1 F 83 23 109/65 96
08/14/24 18:24 08/15/24 00:30 08/15/24 00:30 08/14/24 18:24 08/15/24 01:00
MDM/Problems Addressed
Differential Diagnosis Includes:
Concern for acute on chronic back pain, other consideration is exacerbation of COPD, pneumonia, ACS.
Overall comfortable in appearance but son notes the patient has had sporadic episodes of severe back pain with occasional radiation to her chest, sporadic in nature and ongoing over the past month and a half perhaps longer.
Thus far workup is reassuring.
EKG is unremarkable and unchanged from previous.
Labs are unremarkable including negative troponin.
Chest x-ray shows stable, old compression fractures thoracic spine; old healed rib fractures as well as old right proximal humerus fracture. Low lung volumes. No focal consolidation nor pleural effusion nor pneumothorax.
Reassuring the patient has had no recent falls and appears she has adequate assistance at home including [facility] home care.
I suspect ongoing musculoskeletal back pain related to multiple thoracic compression fractures.
Appears patient did well with low-dose tramadol and will give a dose now along with lidocaine patch.
Going forward, I can certainly write a prescription for a short course of tramadol but have urged the son to reach out to PCP for ongoing pain control/narcotic prescriptions.
Chronic conditions affecting care: COPD, Neurological disorder and Other (Chronic back pain, multiple compression fractures)
Acute Exacerbation and/or Progression of Chronic Illness: Other (Exacerbation of chronic back pain)
*Pulse Oximetry
SaO2: 98
Nasal Cannula flow liters per minute: 2
Patient hypoxic: no
*EKG
Interpreted by ED Provider?: Yes
Comparison EKG: changes noted (Incomplete right bundle branch block noted June 2024 has now resolved.)
Rate: normal
Rhythm: sinus
[place]: left axis deviation
Interval: normal interval
QRS Pattern: normal QRS and poor R-wave progression
Ischemia: no ischemia
*Intern Architect Interpretation
Rate: normal
Interpretation: normal
Rhythm: sinus
*Critical Care Note
Total Time (30-74mins, 75-104mins- exclusive of procedures): Not Applicable
Update Note
Update Note:
Patient feeling improved, no further back pain, continues to deny chest pain. Remains hemodynamically stable.
Chronic back pain, COPD, chronic ambulatory dysfunction all appear chronic and stable�ongoing issues.
She is eager to be discharged to home.
Will prescribe short course of tramadol 25 mg to be taken 3 times daily as needed for back pain. Continue Lidoderm patch to back 12 hours on/12 hours off per day.
Will also resume daily maintenance prednisone 5 mg daily.
Continue with home health nursing, PT/OT.
As patient is for the most part homebound, family has been having marked difficulty transporting patient out of the house to doctors visits; recommend discussing with home care nurse referral to physician who makes home visits.
ED Attending Note
-
Portions of this chart may have been created with voice recognition software.� Occasional wrong word or��sound alike� substitutions may have occurred due to the inherent limitations of voice recognition software.
Discharge Plan
Departure
Patient Disposition: Home (Routine Discharge)
Date of Disposition: 08/15/24
Time of Disposition: 00:12
Patient with high blood pressure during this ER visit?: No
Condition: Good
Discharge Problem:
acute exacerbation of chronic back pain, Compression fracture of thoracic vertebra, Chronic ambulatory dysfunction, Chronic hypoxic respiratory failure
Instructions: Chronic pain, Vertebral Compression Fracture ED
Prescriptions:
New
tramadol 25 mg tablet
25 mg PO TIDPRN PRN (Reason: back pain) Qty: 24 0RF
prednisone 5 mg tablet
5 mg PO DAILY Qty: 30 0RF
No Action
clopidogrel 75 MG tablet
75 mg PO DAILY 30 Days Qty: 30 0RF
montelukast 10 MG tablet
10 mg PO HS
primidone 50 MG tablet
50 mg PO DAILY
pantoprazole 40 MG tablet,delayed release (DR/EC)
40 mg PO DAILY
rosuvastatin 5 mg Tablet
5 mg PO DAILY
diltiazem HCl 120 mg Capsule,Extended Release 24 Hr
120 mg PO DAILY
gabapentin 100 mg capsule
200 mg PO HS
Refresh Classic (PF) 1.4-0.6 % Dropperette
1 drp LEFT EYE QIDPRN PRN (Reason: DRY EYES)
polyethylene glycol 3350 [Miralax] 17 gram Powder In Packet
17 g PO DAILY
cinnamon bark [Cinnamon] 500 mg Capsule
500 mg PO DAILY
guaifenesin 600 mg Tablet Extended Release 12hr
1,200 mg PO [id number] PRN (Reason: cough) Qty: 30 0RF
potassium chloride 20 mEq Packet
20 meq PO TUFR
lidocaine 5 % Adhesive Patch,Medicated
1 patch TOPICAL DAILYPRN PRN (Reason: back, right shoulder and right hip)
coQ10 (ubiquinol) 100 mg Capsule
100 mg PO DAILY
torsemide 10 mg Tablet
10 mg PO TUFR
mecobalamin (vitamin B12) [B12 Active] 1,000 mcg Tablet,Chewable
1,000 mcg PO DAILY
ipratropium bromide 0.02 % solution
2.5 ml inhalation R Q4HPRN PRN (Reason: sob/wheezing)
cholecalciferol (vitamin D3) [Vitamin D3] 50 mcg (2,000 unit) Tablet
50 mcg PO DAILY
albuterol sulfate 90 mcg/actuation Hfa Aerosol Inhaler
1 puff INHALATION R Q4HPRN PRN (Reason: sob/wheezing)
insulin aspart U-100 [Novolog FlexPen U-100 Insulin] 100 unit/mL (3 mL) insulin pen
0 sliding scale dose SC AC
prednisone 10 mg tablet
10 mg PO DIRECTED Qty: 18 0RF
Rx Instructions:
Start with 30 mg daily and taper by 10 mg on every 4th day.
tramadol 50 mg Tablet
25 mg PO Q6HPRN PRN (Reason: moderate to severe pain) Qty: 12 0RF
Referrals:
Carrie Nuñez DO [Family Provider, Family Practice] - Call in 1-3 days for appt
Interventions
Interventions:
*Risk Screen - Suicide Last Done: 08/14/24 18:24
*General Assessment Last Done: 08/14/24 18:24
*Neglect/Abuse Screening Last Done: 08/14/24 18:24
*ED- Fall Risk Assessment Last Done: 08/14/24 21:41
*ED COVID-19 Vaccine History Last Done: 08/14/24 21:41
*Nursing Disposition Last Done: 08/15/24 01:00
ED-Musculoskeletal Assessment Last Done: 08/14/24 21:38
ED- Neurological Assessment Last Done: 08/14/24 21:27
ED-Skin Assessment Last Done: 08/14/24 21:38
Discharge Date and Time
Discharge Date/Time: 08/15/24 01:00
Print Language: ALBANIAN
== END 2024-08-15 01:00 | disposition home or self-care (01) ==
LOC: EMR 18:23
PROVIDERS: Emergency Medicine; EMERGENCY PHYSICIAN Emergency Medicine; FAMILY PHYSICIAN Family Medicine
DX: J96.11 Chronic respiratory failure with hypoxia (principal); M54.9 Dorsalgia, unspecified; M48.54XA Collapsed vertebra, not elsewhere classified, thoracic region, initial encounter for fracture; M48.52XA Collapsed vertebra, not elsewhere classified, cervical region, initial encounter for fracture; M48.56XA Collapsed vertebra, not elsewhere classified, lumbar region, initial encounter for fracture; R26.2 Difficulty in walking, not elsewhere classified; R07.89 Other chest pain; J44.89 Other specified chronic obstructive pulmonary disease; M80.08XA Age-related osteoporosis with current pathological fracture, vertebra(e), initial encounter for fracture; G89.29 Other chronic pain; R53.1 Weakness; M62.838 Other muscle spasm; R35.0 Frequency of micturition; R32 Unspecified urinary incontinence; I48.91 Unspecified atrial fibrillation; K21.9 Gastro-esophageal reflux disease without esophagitis; I10 Essential (primary) hypertension; E78.00 Pure hypercholesterolemia, unspecified; E11.9 Type 2 diabetes mellitus without complications; F41.9 Anxiety disorder, unspecified; K57.92 Diverticulitis of intestine, part unspecified, without perforation or abscess without bleeding; K44.9 Diaphragmatic hernia without obstruction or gangrene; R13.10 Dysphagia, unspecified; H40.9 Unspecified glaucoma; I45.19 Other right bundle-branch block; G47.30 Sleep apnea, unspecified; M19.90 Unspecified osteoarthritis, unspecified site; M81.0 Age-related osteoporosis without current pathological fracture; B02.9 Zoster without complications; D64.9 Anemia, unspecified; Z79.52 Long term (current) use of systemic steroids; Z99.3 Dependence on wheelchair; Z99.81 Dependence on supplemental oxygen; R29.6 Repeated falls; Z87.01 Personal history of pneumonia (recurrent); Z88.1 Allergy status to other antibiotic agents; Z88.2 Allergy status to sulfonamides; Z88.8 Allergy status to other drugs, medicaments and biological substances; Z91.018 Allergy to other foods; Z91.048 Other nonmedicinal substance allergy status
CPT/HCPCS: 99285; 71046; 80053; 84484; 85025; 93005

== ENCOUNTER 2024-09-22 20:17 | Observation (INO) | payer MEDICARE, BC, SELFPAY ==
[2024-09-22] VITALS (8 sets, daily range): BP systolic 113–144; BP diastolic 52–81; PULSE 70; BMI 26.3
[2024-09-22 18:48] LABS: Hematocrit 35.4 % (37.0-47.0); Hemoglobin 11.4 g/dL (12.0-16.0); Mean Corp Hgb Conc. 32.2 g/dL (33.0-37.0); Mean Corpuscular Volume 90.5 fL (81.0-99.0); Nucleated Red Blood Cells % 0 %; Platelet Count 263 10^3/uL (130-400); Red Cell Dist. Width 13.2 % (11.5-14.5)
--- NOTE | 2024-09-22 19:01 | ED.GENMED ---
History of Present Illness
General
Chief Complaint: Swelling
Source: patient
Time Seen by Provider: 09/22/24 18:04
History of Present Illness
History of Present Illness:
89-year-old female with extensive chronic past medical history including COPD on chronic 2 L nasal cannula, atrial fibrillation (anticoagulated on Plavix), hypertension, hyperlipidemia, valvular disease, bna-bqbnrvr-qopwqpncj diabetes who presents
to the emergency department via EMS for nontraumatic pain, erythema and edema of the left wrist with diminished range of motion since yesterday. Patient states that she is overall unsure as to what happened, believes she may have slept on her left
wrist wrong which is what contributed to the symptoms today. She states the area is not weak or numb. She denies any fevers, chills, rigors. No history of similar. No known tick bites.
Past History
Past History
ED Past Medical History: Arrthythmia (Atrial fib), Asthma, COPD, GERD, HTN, Hypercholesterolemia, IDDM, Psychiatric (Anxiety) and Other (Chronic back pain, Diverticulitis, Hiatal hernia,, carotid stenosis,sleep apnea , dysphagia, glaucoma,
cataracts,Vertigo, PNA, esophageal restrictions)
ED Past Surgical History: Appendectomy, Cardiac (Left carotid stent), Gynecological (hysterectomy), Orthopedic (Right carpal tunnel surgery), Urological (Bladder surgery) and Other (Cyst on Pancreas with fluid removed, bladder repair, Breast cyst
removed)
Social History
Tobacco: Non-smoker
Alcohol: None
Drug: None
Personal:
Living: with family
Employment: Retired
Family History
Family History: Other (Brother with a stroke, sister with ovarian cancer, sister with colon cancer)
Review of Systems
Review of Systems
All Other Systems: ROS reviewed and negative except as documented in HPI and ROS
Phy Exam
Physical Exam
Physical Exam:
GENERAL: Alert , in no apparent distress
EYE: conjunctiva clear
NECK: Supple, no significant adenopathy.
ENT: o/p clr, mmm.
CARDIAC: Regular rate and rhythm
LUNGS: Clear breath sounds bilaterally, no acute respiratory distress, no wheezes/rales/rhonchi
NEUROLOGICAL: Alert and oriented
SKIN: Warm and dry, skin intact. Dorsal aspect of the left wrist has moderate erythema and increased warmth when compared to the right
MUSCULOSKELETAL: well perfused. Easily palpable radial pulse. Cap refill less than 2 seconds and sensation is grossly intact light touch. Patient does not allow for wrist flexion or extension or pronation and supination due to the pain.
PSYCH: Normal and appropriate interaction.
Scores
Heart Failure Risk
Heart Failure Risk Score: Not Applicable
Heart Score for Chest Pain Patients
STEMI patient?: Not applicable
Withdrawal Assessment of Alcohol
Withdrawal Assessment Completed?: Not applicable
Course
Orders/Labs/Results
Orders:
Orders
09/22/24 Dinner
IDDSI 4 - Pureed
At Your Request: Limited, Palletizer Required
Does patient need a safe tray?: No
Reason for opting out of Accreditation Manager order writing: Provider Decision
09/22/24 15:11
Electrocardiogram (*1) Urgent
Reason for Study: Atrial Fibrillation
CR Hand - Left Min 3 Views Urgent
Comment:
Reason For Exam: swelling
CR Wrist - Left Min 3 Views Urgent
Comment:
Reason For Exam: swelling
09/22/24 15:12
EKG- Treatment ONCE
09/22/24 18:14
Oxycodone/Acetaminophen [Percocet 5/325] 1 tablet PO NOW STA
09/22/24 18:39
Basic Metabolic Panel Urgent
CRP [C-Reactive Protein] Urgent
Complete Blood Count/With Diff Urgent
ESR [Erythrocyte Sed Rate] Urgent
Lyme Progressive Urgent
09/22/24 19:24
Consult Interventional Radiology [IRAD CONSULT] Routine
Consulting Provider: Lewis Burris
Was physician already notified: Yes
Procedure being ordered, including laterality if applicable: left wrist
Acknowledgement that appropriate orders are entered: Yes
09/22/24 19:50
Admit/Transfer Patient As Directed
Co-Sign Provider:
Level of Care: Observation services
Assign to:: Medical/Surgical
Physician / Group: Brigitte
Diagnosis: acute monoarticular arthritis
09/22/24 19:51
PRN Pain Medication Management As Directed
May give lesser potent ordered pain med per pt: Yes
preference::
Protocol:: Medication orders for pain may be administered in a
manner that supports deferring to patient preference
when the pt is:
- Requesting an ordered lesser potent pain medication.
Least to most potent pain medications are defined
as: acetaminophen < NSAID < tramadol < opioids
(morphine, oxycodone, hydromorphone).
- Requesting a lesser dose of the same medication IF
ORDERED.
- Requesting a less intrusive route of administration
if both routes are prescribed by the provider (PO <
IV).
09/22/24 19:53
Code Status As Directed
Resuscitation Status: Full Code
09/22/24 20:50
Acetaminophen [Tylenol] 650 mg PO Q4HPRN PRN
Albuterol [ProAIR HFA INHALER] 1 puff INH R Q4HPRN PRN sob/wheezing
Artificial Tears (Pf) [Refresh Eye Drops (Pf)] 1 drops LEFT EYE QIDPRN PRN DRY EYES
Bisacodyl [Dulcolax] 10 mg RECTAL [id number] PRN
Docusate W/Senna [Senokot-S] 1 tablet PO BIDPRN PRN
Guaifenesin [Mucinex] 1,200 mg PO [id number] PRN cough
HYDROmorphone [Dilaudid] 0.5 mg IV Q4HPRN PRN
Ipratropium Nebs [Atrovent Nebules] 0.5 mg INH R Q4HPRN PRN sob/wheezing
Polyethylene Glycol Powder [Miralax] 17 grams PO DAILYPRN PRN
Tramadol HCl [Ultram] 50 mg PO Q6HPRN PRN
09/22/24 20:50
WOUND/OSTOMY CONSULT Routine
Reason for Consult: sacral decubitus
Activity As Directed
Activity Level: With Assistance
Bedside Glucose Monitoring As Directed
Frequency: AC&HS
Vital Signs As Directed
Frequency: Per unit guidelines
O2 Therapy [RESP] Routine
Nasal Cannula Liter Flow: 2 LPM
Titrate/Wean O2 to maintain O2 sat greater than (%): 93
Special Instructions: Do not wean
DX Deep Vein Thrombosis Video Routine
09/22/24 22:00
Gabapentin [Neurontin] 200 mg PO HS
Montelukast Sodium [Singulair] 10 mg PO HS
Cpap [RESP] HS
Patient to use own unit?: No
Set Pressure (cm H2O): 5
Oxygen Liter Flow: 2
09/23/24 06:00
Basic Metabolic Panel IN AM
Complete Blood Count/No Diff IN AM
09/23/24 07:30
Insulin Aspart Corrective Low [Novolog Flexpen-Low Resistance] See Protocol SC AC
09/23/24 08:00
Clopidogrel Bisulfate [Plavix] 75 mg PO DAILY
Diltiazem Extended Release [Cardizem Cd] 120 mg PO DAILY
Pantoprazole [Protonix] 40 mg PO DAILY
Polyethylene Glycol Powder [Miralax] 17 grams PO DAILY
Primidone [Mysoline] 50 mg PO DAILY
Rosuvastatin Calcium [Crestor] 5 mg PO DAILY
09/23/24 18:00
Enoxaparin Sodium [Lovenox] 40 mg SC QPM
09/24/24 08:00
Potassium Chloride Powder [Klor-Con] 20 meq PO TUFR
Torsemide [Demadex] 10 mg PO TUFR
Abnormal Lab Results
09/22/24
18:39
RBC 3.91 L 10^6/uL
(4.20-5.40)
Hgb 11.4 L g/dL
(12.0-16.0)
Hct 35.4 L %
(37.0-47.0)
MCHC 32.2 L g/dL
(33.0-37.0)
Absolute Monos (auto) 1.4 H 10^3/uL
(0.1-0.6)
Lymphocytes % 20.1 L %
(20.5-51.1)
Monocytes % 15.9 H %
(1.7-9.3)
ESR 68 H mm/hour
(0-20)
BUN 25 H mg/dl
(7-17)
Glucose 123 H mg/dl
(70-99)
C-Reactive Protein 43.50 H mg/L
(0.0-10.00)
09/22/24 18:39
09/22/24 18:39
Vital Signs
Initial and Last Documented VS:
Initial Vital Signs
Temp Pulse Resp BP Pulse Ox
99.0 F 80 18 130/69 94
09/22/24 15:04 09/22/24 15:04 09/22/24 15:04 09/22/24 15:04 09/22/24 15:04
Last Documented Vital Signs
Temp Pulse Resp BP Pulse Ox
99.0 F 63 15 122/65 98
09/22/24 15:04 09/22/24 23:00 09/22/24 23:00 09/22/24 23:00 09/22/24 21:00
MDM/Problems Addressed
Differential Diagnosis Includes:
Septic arthritis
gout
Cellulitis
abscess
Osteoarthritis
rheumatoid arthritis
Phlebitis
DVT
MDM/Problems Addressed:
89-year-old female presenting to the ER for evaluation of left wrist pain, erythema and edema, nontraumatic since yesterday. Based off exam my clinical suspicion is highest for either septic joint or gout. X-rays were ordered from triage which do
not show any acute fracture. Degenerative changes were noted. Labs ordered including ESR/CRP and Lyme titer. Given her very limited range of motion, pain and increased warmth planning to admit for orthopedics evaluation, possible joint aspiration
and if confirmed infection may need to OR for washout.
*Radiology
Radiology exam reviewed: preliminary read by ED provider (No fracture, degenerative changes seen.)
*Pulse Oximetry
SaO2: 97
Oxygen Mode of Delivery: Room air
Patient hypoxic: no
*Critical Care Note
Total Time (30-74mins, 75-104mins- exclusive of procedures): Not Applicable
Data Reviewed
Review of Other/Old Records Reveals: Labs and Records
Patient Management
Discussion with other providers: Hospitalist and Horticultural Therapist
Escalation/DeEscalation of care consider admission/obs:
I discussed the case with orthopedics who stated a aspiration of the joint would be helpful in making the diagnosis. I did notify the orthopedist that this is a procedure that I personally do not feel comfortable doing within the emergency
department, they state that usually they have the interventional radiology team perform this and that this can be done tomorrow. They would hold off on ordering antibiotics presently until the aspiration is done. I notified the hospitalist team
who accepted for admission. I did notify interventional radiology as well so that this can be done in the morning.
ED Attending Note
-
Portions of this chart may have been created with voice recognition software.� Occasional wrong word or��sound alike� substitutions may have occurred due to the inherent limitations of voice recognition software.
Discharge Plan
Departure
Patient Disposition: Admit
Date of Disposition: 09/22/24
Time of Disposition: 19:24
Presentation/result/management discussed w/ accepting MD/DO: Hospitalist
Discharge Problem:
Acute pain of left wrist
Interventions
Interventions:
*Risk Screen - Suicide Last Done: 09/22/24 15:04
*General Assessment Last Done: 09/22/24 15:04
*Neglect/Abuse Screening Last Done: 09/22/24 15:04
*ED COVID-19 Vaccine History Last Done: 09/22/24 15:04
ED- Cardiac Assessment Last Done: 09/22/24 18:45
ED- Pulmonary Assessment Last Done: 09/22/24 18:45
ED-Skin Assessment Last Done: 09/22/24 18:45
[2024-09-22 19:12] LABS: Blood Urea Nitrogen 25 mg/dl (7-17); Calcium 9.1 mg/dl (8.4-10.2); Carbon Dioxide 28 mmol/L (22-30); Chloride 103 mmol/L (98-107); Estimated Creatinine Clearance 40 ml/min; Glucose 123 mg/dl (70-99); Potassium 4.3 mmol/L (3.5-5.1); Sodium 136 mmol/L (135-145); eGFR > 60.00
[2024-09-22 19:15] LABS: C-Reactive Protein 43.50 mg/L (0.0-10.00)
[2024-09-22] MEDS: PERCOCET 5/325 1 TABLET PO (19:28)
--- NOTE | 2024-09-22 19:31 | HPS.HSE ---
Family Physician
-
Family Physician: Carrie Nuñez
Chief Complaint
-
Hand swelling
History of Present Illness
This is a 89-year-old female with past medical history including COPD on chronic 2 L nasal cannula, atrial fibrillation (anticoagulated on Plavix), hypertension, hyperlipidemia, valvular disease, uyl-botxjzi-cniohbmba diabetes who presents to the
emergency department painful swelling of the left wrist.
Symptoms began yesterday and she reports diminished range of motion since. Patient states that she is overall unsure as to what happened, believes she may have slept on her left wrist wrong which is what contributed to the symptoms today. She
states the area is not weak or numb. She denies any fevers, chills, rigors. No history of similar. No known tick bites.
Emergency Department she was afebrile, blood pressure was at 120/80 with a pulse of 85 and she was satting 99% on room air. Temperature was 99.
CBC was unremarkable. Electrolytes BUN and creatinine were normal. She has elevated inflammatory markers with ESR of 68 and CRP of 43. Her x-ray shows soft tissue swelling. Arthritic changes most pronounced at the first carpal metacarpal joint
and triscaphe joint. Generalized interphalangeal and metacarpophalangeal joint space narrowing without significant hypertrophic productive changes. No acute fracture or dislocation. No erosion.
Medical History
Past Medical History
Past Medical History: Reports Other
Additional Past Medical History:
COPD / Asthma
Vocal Cord Spasm
Esophageal Spasm
GERD
Hypertension
DM-II
TANI on CPAP
ASCVD / Carotid Stenosis
Osteoporosis
Chronic Lower Extremity Edema
Past Surgical History: Reports Other
Additional Past Surgical History:
Appendectomy
Left Carotid Stent
JOSE MARTIN
Carpal Tunnel Surgery
Bladder Repair
Lumpectomy (Benign)
Social History
Tobacco: Non-smoker
Alcohol: None
Drug: None
Living: With Family
Family History
Family History: Other (Mother: Asthma / COPD)
Allergies / Home Medications
Allergies reflects when Allergies were last updated in [facility].
Home Medications with original date entered in [facility]
Allergy/Medication List:
Medications on admission are unable to be verified or confirmed at this time.
If medication reconciliation has not been performed, why?: Other (Pending Rx reconciliation)
Review of Systems
-
Constitutional: Reports No Symptoms
EENT: Reports No Symptoms
Cardiac: Reports No Symptoms
Abdomen/GI: Reports No Symptoms
: Reports No Symptoms
Musculoskeletal: Reports Joint Pain and Joint Swelling
Skin: Reports No Symptoms
Neurological: Reports No Symptoms
Endocrine: Reports No Symptoms
Hematologic/Lymphatic: Reports No Symptoms
Psych: Reports No Symptoms
Physical Exam
Vital Signs
Vital Signs
Temp Pulse Resp BP Pulse Ox
99.0 F 85 15 119/81 97
09/22/24 15:04 09/22/24 18:45 09/22/24 18:45 09/22/24 18:00 09/22/24 19:04
Physical Exam
General: Well Developed, Well Nourished and No Apparent Distress
HEENT: NormoCephalic, Moist mucous membranes and Atraumatic
Respiratory: Clear
Cardiac: S1/S2 and Regular Rhythm; No Murmur or Rub
GI: Soft, Non Tender, Non Distended and Normal Bowel Sounds; No Organomegaly
Rectal: Deferred by Provider
Musculoskeletal: No Clubbing, No Cyanosis and No Edema
Skin: No Rash
Neuro: AO x 3 and Nonfocal/grossly intact
Laboratory Results
-
09/22/24 18:39
09/22/24 18:39
Data Reviewed
-
Diagnostic Radiology: Report Reviewed by me
Lab Data: Labs Reviewed by me
Old Records: Reviewed
Impression/Plan
-
IMPRESSION:
89-year-old female presenting with painful swelling of the left wrist with reduced range of motion concerning for infected joint. She is afebrile. She is hemodynamically stable and shows no signs of systemic infection. However she does have
elevated inflammatory markers. Will decrease dose of prednisone partially swelling with reduced range of motion. He is mildly tender to palpation. There is erythema. Less angry than suspected for acute infectious arthritis.
PLAN:
1. Joint swelling concerning for septic vs inflammatory arthritis given acute onset
- admit to med/surg
- case d/w ortho, ED unable to achieve joint drainage
- start empiric abx if febrile (Vanc+Ceftriaxone)
- IR consult for arthrocentesis
- pain control
- per d/w with Dr. Aly, ortho consult if infectious on arthrocentesis, otherwise no indication for consult
2. DM II
- sliding scale insulin
3. TANI
- cpap hs
4. COPD - chronic hypoxic respiratory failure
- 2 L O2
5. ASCVD / Carotid Stenosis s/p Left Carotid Stent
- continue Plavix
6. Hypertension
- continue diltiazem
7. Chronic Lower Extremity Edema
- continue Torsemide
8. GERD, Vocal Cord Spasm and Esophageal Spasm
- continue Protonix
- pureed diet
- regular liquids
DVT PPX - heparin sq
Code status - Full code
[2024-09-22 22:08] LABS: Glucose - Point of Care 141 mg/dl (70-99)
[2024-09-22] MEDS: NEURONTIN 200 MG PO (22:19)
[2024-09-22] MEDS: SINGULAIR 10 MG PO (22:20)
[2024-09-23] VITALS (19 sets, daily range): BP systolic 74–127; BP diastolic 46–77; PULSE 61–75; BMI 25.2
[2024-09-23 06:59] LABS: Hematocrit 34.1 % (37.0-47.0); Hemoglobin 10.7 g/dL (12.0-16.0); Mean Corp Hgb Conc. 31.4 g/dL (33.0-37.0); Mean Corpuscular Volume 91.2 fL (81.0-99.0); Platelet Count 263 10^3/uL (130-400); Red Cell Dist. Width 13.1 % (11.5-14.5)
[2024-09-23 07:10] LABS: Blood Urea Nitrogen 23 mg/dl (7-17); Calcium 9.1 mg/dl (8.4-10.2); Carbon Dioxide 28 mmol/L (22-30); Chloride 103 mmol/L (98-107); Estimated Creatinine Clearance 40 ml/min; Glucose 124 mg/dl (70-99); Potassium 4.4 mmol/L (3.5-5.1); Sodium 135 mmol/L (135-145); Uric Acid 5.5 mg/dl (2.5-6.2); eGFR > 60.00
--- NOTE | 2024-09-23 07:41 | CON.ORTHO ---
Consultation
-
Date/Time Consultation Requested: 09/22/24
Date/Time Consultation Performed: 09/23/24 @0730
Requesting Provider: Veronica
Performing Provider: Debbie Da Silva PA-C / Sin Aly MD
Reason for Consultation: left wrist pain
Consultation - Orthopedics
History
HPI: 89yo female admitted to for her left wrist. She states that she has had pain for 2 days. She denies any injury. She states that she woke up with pain and redness to her wrist with decreased range of motion. She presented to the ER for
further evaluation. She denies fever, chills. She is not on any blood thinners. She denies a history of gout. Orthopedics has been consulted for further recommendations
PAST MEDICAL HISTORY: COPD / Asthma, Vocal Cord Spasm, Esophageal Spasm, GERD, Hypertension, DM-II, TANI on CPAP, ASCVD / Carotid Stenosis, Osteoporosis, Chronic Lower Extremity Edema
PAST SURGICAL HISTORY: Appendectomy, Left Carotid Stent, JOSE MARTIN, Carpal Tunnel Surgery, Bladder Repair, Lumpectomy (Benign)
SOCIAL HISTORY: denies tobacco, alcohol
FAMILY HISTORY: Non contributory
REVIEW OF SYSTEMS: 12 point review of systems obtained and negative except those mentioned in the HPI
Allergies / Home Medications
Allergy/AdvReac Type Severity Reaction Status Date / Time
abacavir sulfate (From Allergy Unknown Verified 09/22/24 15:10
Ziagen)
amoxicillin (Amoxicillin) Allergy Rash, Verified 09/22/24 15:10
tolerates
cephalosporins,
Zosyn
aspartame Allergy asthma Verified 09/22/24 15:10
attack -
artifical
sweeteners
banana Allergy ASTHMA Verified 09/22/24 15:10
ATTACK
Beta-Adrenergic Agents Allergy Unknown Verified 09/22/24 15:10
bimatoprost Allergy Palpitation Verified 09/22/24 15:10
s
bupropion Allergy STOMACH Verified 09/22/24 15:10
UPSET
cat dander Allergy CAN'T Verified 09/22/24 15:10
BREATHE
clavulanic acid Allergy unknown - Verified 09/22/24 15:10
beta
lactamase
inhibitors
colesevelam Allergy CRAMPS Verified 09/22/24 15:10
dog dander Allergy CAN'T Verified 09/22/24 15:10
BREATHE
house dust Allergy Unknown Verified 09/22/24 15:10
house dust mite Allergy Unknown Verified 09/22/24 15:10
latanoprost Allergy Palpitation Verified 09/22/24 15:10
s
metformin HCl (From Allergy spasms in Verified 09/22/24 15:10
Glucophage) back/HEART
PROBLEM
mold Allergy Unknown Verified 09/22/24 15:10
monosodium glutamate Allergy DIARRHEA Verified 09/22/24 15:10
pollen extracts Allergy Unknown Verified 09/22/24 15:10
quinapril HCl (From Accupril) Allergy UPSET Verified 09/22/24 15:10
STOMACH
ramipril Allergy Upset Verified 09/22/24 15:10
Stomach
simvastatin (Simvastatin) Allergy feet Verified 09/22/24 15:10
swelled/CAN'T
WALK
Sulfa (Sulfonamide Allergy EYE Verified 09/22/24 15:10
Antibiotics) Swelling
valsartan Allergy BACKACHE/ST Verified 09/22/24 15:10
OMACHACHE
�Medication �Instructions �Recorded
clopidogrel 75 mg tablet 75 mg PO DAILY Blood clot 08/11/20
prevention/tx 30 days #30 tabs
montelukast 10 mg tablet 10 mg PO HS Allergies 10/26/20
primidone 50 mg tablet 50 mg PO DAILY Neurological 02/27/21
Condition
pantoprazole 40 mg tablet,delayed 40 mg PO DAILY Gastrointestinal 05/27/21
release issue
rosuvastatin 5 mg tablet 5 mg PO DAILY High cholesterol 08/25/21
diltiazem HCl 120 mg capsule,24 120 mg PO DAILY Arrhythmia 02/27/22
hr,extended release
gabapentin 100 mg capsule 200 mg PO HS Neurological Condition 07/20/22
polyvinyl alcohol-povidone (PF) 1 drp LEFT EYE QIDPRN PRN DRY EYES 07/20/22
1.4 %-0.6 % eye drops in a
dropperette (Refresh Classic (PF))
cinnamon bark 500 mg capsule 500 mg PO DAILY Supplement 08/08/22
(Cinnamon)
polyethylene glycol 3350 17 gram 17 g PO DAILY Gastrointestinal 08/08/22
oral powder packet (Miralax) Issue
guaifenesin 600 mg tablet, 1,200 mg (2 x 600 mg) PO [id number] 09/11/22
extended release 12 hr PRN cough #30 tabs
coQ10 (ubiquinol) 100 mg capsule 100 mg PO DAILY Supplement 10/25/22
lidocaine 5 % topical patch 1 patch topical DAILYPRN PRN back, 10/25/22
right shoulder and right hip
potassium chloride 20 mEq oral 20 meq PO TUFR Electrolyte 10/25/22
packet Repletion
mecobalamin (vitamin B12) 1,000 1,000 mcg PO DAILY Supplement 06/20/23
mcg chewable tablet (B12 Active)
torsemide 10 mg tablet 10 mg PO TUFR Fluid 06/20/23
Retention/Swelling
cholecalciferol (vitamin D3) 50 50 mcg PO DAILY Supplement 06/26/23
mcg (2,000 unit) tablet (Vitamin
D3)
ipratropium bromide 0.02 % 2.5 ml inhalation R Q4HPRN PRN 06/26/23
solution for inhalation sob/wheezing
albuterol sulfate 90 mcg/actuation 1 puff inhalation R Q4HPRN PRN 09/05/23
aerosol inhaler sob/wheezing
insulin aspart U-100 100 unit/mL 0 sliding scale dose SC AC Diabetes 09/05/23
(3 mL) subcutaneous pen (Novolog
FlexPen U-100 Insulin aspart)
prednisone 10 mg tablet 10 mg PO DIRECTED #18 tabs 06/25/24
tramadol 50 mg tablet 25 mg (1/2 x 50 mg) PO Q6HPRN PRN 06/25/24
moderate to severe pain #12 tabs
prednisone 5 mg tablet 5 mg PO DAILY #30 tabs 08/15/24
tramadol 25 mg tablet 25 mg PO TIDPRN PRN back pain #24 08/15/24
tabs
Vital Signs / Lab Results
Temp Pulse Resp BP Pulse Ox
99.0 F 62 19 118/59 100
09/22/24 15:04 09/23/24 07:00 09/23/24 07:00 09/23/24 07:00 09/23/24 06:00
09/23/24 06:22
09/23/24 06:22
RAIOGRAPHIC FINDINGS:
Xrays left hand and wrist show soft tissue swelling. Arthritic changes most pronounced at the first carpal metacarpal joint and triscaphe joint. Generalized interphalangeal and metacarpophalangeal joint space narrowing without significant
hypertrophic productive changes. No acute fracture or dislocation. No erosion.
PHYSICAL EXAM:
General: no acute distress
HEENT: NCAT, normal hearing, sclera anicteric
Heart: No JVD
Lungs: Normal work of breathing on room air
MSK: Directed exam of left wrist. Skin intact. There is a slight erythematous hue to the dorsal wrist. No significant warmth. Mild tenderness to palpation generally about the wrist. Nontender over hand. Patient is able to perform gentle active range
of motion with some discomfort. I am able to passively range the wrist to near full range of motion with mild pain. sensation intact to light touch. cap refill <2secs
Assessment / Plan
ASSESSMENT/PLAN:
Left wrist pain
--Inflammatory arthropathy vs septic arthritis
--Recommend IR aspiration of left wrist for further evaluation. This has been ordered
--Continue with pain management
--Encourage gentle range of motion of the wrist
--Further recommendations pending aspiration results
[2024-09-23] MEDS: PLAVIX 75 MG PO (08:35)
[2024-09-23] MEDS: CARDIZEM CD 120 MG PO (08:35)
[2024-09-23] MEDS: CRESTOR 5 MG PO (08:35)
[2024-09-23] MEDS: MYSOLINE 50 MG PO (08:35)
[2024-09-23] MEDS: PROTONIX 40 MG PO (08:35)
[2024-09-23] MEDS: TYLENOL 1000 MG PO ×3 (08:36→21:21)
[2024-09-23 08:37] LABS: Glucose - Point of Care 108 mg/dl (70-99)
[2024-09-23] MEDS: MIRALAX PO (08:46)
[2024-09-23] MEDS: NOVOLOG FLEXPEN-LOW RESISTANCE SC ×2 (08:48→17:52)
--- NOTE | 2024-09-23 09:39 | CM ---
CM reviewed chart, attempted to meet with pt in ED but she was sleeping, spoke to her son Emigdio over the phone.
BERUMEN reviewed and all questions answered.
Pt lives with her and son in bilevel home. 8 HEATHER from from front but pt uses laundry room area to enter home, 1 HEATHER.
Home has 2 stair glides. Pt ambulates with RW. Son provides assistance with ADLs.
Pt also has WC, hospital bed, shower chair and shower rails, CPAP and home O2. Son unsure of O2 provider. Son also said they just got a [employer] but have not used it yet.
Current with [facility] for OT and [facility], also hx with [facility]
Has been to [facility] and [facility] in the past.
PCP: Carrie Nuñez
Pharmacy: [facility] [address] [place]
CM will continue to follow for any discharge planning needs.
--- NOTE | 2024-09-23 10:12 | W.PN.HOSP.TC ---
Today's Communication/Plan
-
Blood culture
wrist splint
Tylenol TID
Assessment / Plan
Assessment / Plan
Physical Exam
General: Obese, No Apparent Distress
HEENT: NormoCephalic, Moist mucous membranes and Atraumatic
Respiratory: limited
Cardiac: S1/S2 and Regular Rhythm; No Murmur or Rub
GI: Soft, Non Tender, Non Distended and Normal Bowel Sounds;
Musculoskeletal: No Clubbing, No Cyanosis and No Edema. Left wrist mild swelling, not much redness.
Skin: No Rash
Neuro: AO to surroundings, followed simple commands
Psych: calm
9-year-old female presenting with painful swelling of the left wrist with reduced range of motion concerning for infected joint. She is afebrile. She is hemodynamically stable and shows no signs of systemic infection. However she does have
elevated inflammatory markers. Will decrease dose of prednisone partially swelling with reduced range of motion. He is mildly tender to palpation. There is erythema. Less angry than suspected for acute infectious arthritis.
PLAN:
1. Joint swelling concerning
seems c/w OA flare up
Doubt septic
- case d/w ortho, ED unable to achieve joint drainage
off ABx, but swelling seems to come down
Order wrist splint
No fever, no leukocytosis
- IR consult for arthrocentesis
- pain control with Tylenol
Ortho consult
Blood culture
2. DM II
- sliding scale insulin
3. TANI
- cpap hs
4. COPD - chronic hypoxic respiratory failure
- 2 L O2
5. ASCVD / Carotid Stenosis s/p Left Carotid Stent
- continue Plavix
6. Hypertension
- continue diltiazem
7. Chronic Lower Extremity Edema
- continue Torsemide
8. GERD, Vocal Cord Spasm and Esophageal Spasm
- continue Protonix
- pureed diet
- regular liquids
DVT PPX - Lovenox sq
Code status - Full code
Total time spent to see the patient, examine the patient, review data and lab result, discuss treatment plan with patient, nursing staff around 55 minutes
Anticipated Discharge: > 48 hours
Subjective/Interval History
-
Date of Service: September 23, 2024
Objective Data
-
Labs:
Laboratory Results
09/23/24
06:22
WBC 10.6
Hgb 10.7 L
Hct 34.1 L
Plt Count 263
Sodium 135
Potassium 4.4
Chloride 103
Carbon Dioxide 28
BUN 23 H
Creatinine 0.8
Glucose 124 H
Calcium 9.1
Vital Signs:
Vital Signs
Temp Pulse Resp BP Pulse Ox
99.0 F 77 19 126/58 100
09/22/24 15:04 09/23/24 08:35 09/23/24 08:00 09/23/24 08:35 09/23/24 08:00
[2024-09-23 12:06] LABS: Glucose - Point of Care 163 mg/dl (70-99)
[2024-09-23] MEDS: NOVOLOG FLEXPEN-LOW RESISTANCE 1 UNITS SC (12:54)
[2024-09-23] MEDS: REFRESH EYE DROPS (PF) 1 DROPS LEFT EYE (13:04)
[2024-09-23 13:13] LABS: Lyme Antibody Screen, EIA Negative (Negative)
--- NOTE | 2024-09-23 15:20 | WOUNDNOTE ---
[facility] RN note: Patient admitted with acute pain of L wrist.
See H&P for complete history.
PMH: chronic LE edema, COPD, on o2, ASCVD, L carotid stent, DM, compression fractures, esophageal spasm, ambulation dysfunction, HTN, TANI (CPAP), appendectomy, JOSE MARTIN, bladder repair.
Wound Location and type/assessment: Patient known to wound service, last seen 05/20/24. Now admitted with: same sacral/buttocks non blanchable red skin, stage 1 PI and few scattered old scars visible. Heels blanchable red, patient states a little
sore. Nurse Renetta assisted with turning. Patient reports her at home takes care of her, has a hospital bed.
Appetite: good. Needs help eating due to wrist pain.
Pressure redistribution devices in place: Called Bed tech for Versa care Air bed. AP Jackson made aware. Air chair cushion in use under sacrum currently.
Plan: Sacral shaped silicone border foam applied. Called SPD for Heel foams, nurse to apply when arrives.
Will confirm orders with hospitalist.
Care plan to be updated and will follow as needed.
Note to case management of equipment requested for discharge: Air mattress if SNF.
[2024-09-23 17:05] LABS: Glucose - Point of Care 220 mg/dl (70-99)
[2024-09-23] MEDS: LOVENOX 40 MG SC (17:52)
--- NOTE | 2024-09-23 18:53 | W.PN.UPDATE ---
Update Note
Progress Note Update
US showed no significant left wrist joint effusion. Attempted aspiration yielded no fluid.
[2024-09-23] MEDS: NOVOLOG FLEXPEN-LOW RESISTANCE 300 UNITS SC (19:15)
[2024-09-23] MEDS: ZOFRAN 4 MG IV (20:04)
[2024-09-23 21:06] LABS: Glucose - Point of Care 249 mg/dl (70-99)
[2024-09-23] MEDS: SINGULAIR 10 MG PO (21:21)
[2024-09-23] MEDS: NEURONTIN PO (21:21)
[2024-09-24 07:15] VITALS: BP 118/58
[2024-09-24 07:26] LABS: Glucose - Point of Care 122 mg/dl (70-99)
[2024-09-24] MEDS: NOVOLOG FLEXPEN-LOW RESISTANCE SC ×2 (07:31→12:30)
[2024-09-24] MEDS: CRESTOR 5 MG PO (08:12)
[2024-09-24] MEDS: MYSOLINE 50 MG PO (08:12)
[2024-09-24] MEDS: TYLENOL 1000 MG PO ×3 (08:12→21:21)
[2024-09-24] MEDS: MIRALAX 17 GRAMS PO (08:12)
[2024-09-24] MEDS: PLAVIX 75 MG PO (08:12)
[2024-09-24] MEDS: PROTONIX 40 MG PO (08:12)
[2024-09-24] MEDS: CARDIZEM CD 120 MG PO (08:12)
[2024-09-24] MEDS: KLOR-CON 20 MEQ PO (08:17)
[2024-09-24] MEDS: DEMADEX 10 MG PO (08:17)
--- NOTE | 2024-09-24 08:53 | W.PN.UPDATE ---
Update Note
Progress Note Update
Left wrist brace immobilized this morning. Subjectively patient reports of feeling a little better. IR aspiration attempt without yield yesterday. Appreciate Dr. Hall. WBC WNL. Afeb. DNVI LYLA. Spoke with Dr. Hinton. at this point essentially
zero concern for septic wrist. If medically appropriate may be treated with some steroids and PT/OT. Continue treatment until reasonable to discharge. May follow-up outpatient if symptoms persist. Ortho to sign off
[2024-09-24] MEDS: DULCOLAX 10 MG RECTAL (10:07)
--- NOTE | 2024-09-24 10:10 | W.PN.HOSP.TC ---
Today's Communication/Plan
-
pain control
Likely dc in am if blood culture is clean
Assessment / Plan
Assessment / Plan
Physical Exam
General: Obese, No Apparent Distress
HEENT: NormoCephalic, Moist mucous membranes and Atraumatic
Respiratory: limited
Cardiac: S1/S2 and Regular Rhythm; No Murmur or Rub
GI: Soft, Non Tender, Non Distended and Normal Bowel Sounds;
Musculoskeletal: No Clubbing, No Cyanosis and No Edema. Left wrist brace, no swelling, no redness.
Skin: No Rash
Neuro: AO to surroundings, followed simple commands
Psych: calm
9-year-old female presenting with painful swelling of the left wrist with reduced range of motion concerning for infected joint. She is afebrile. She is hemodynamically stable and shows no signs of systemic infection. However she does have
elevated inflammatory markers. Will decrease dose of prednisone partially swelling with reduced range of motion. He is mildly tender to palpation. There is erythema. Less angry than suspected for acute infectious arthritis.
PLAN:
# left wrist swelling c/w OA flare -up
ling concerning
seems c/w OA flare up
Doubt septic
- case d/w ortho, ED unable to achieve joint drainage
off ABx, but swelling seems to come down
Order wrist splint
No fever, no leukocytosis
- IR consult for arthrocentesis but no fluid. I d/w ortho, signs c/w OA flare up, recommend Brace and pain control.
- pain control with Tylenol
Blood culture NGTD
2. DM II
- sliding scale insulin
3. TANI
- cpap hs
4. COPD - chronic hypoxic respiratory failure
- 2 L O2
5. ASCVD / Carotid Stenosis s/p Left Carotid Stent
- continue Plavix
6. Hypertension
- continue diltiazem
7. Chronic Lower Extremity Edema
- continue Torsemide
8. GERD, Vocal Cord Spasm and Esophageal Spasm
- continue Protonix
- pureed diet
- regular liquids
7. Intertrigo in groins, under breasts, topical Tx is given
DVT PPX - Lovenox sq
Code status - Full code
Total time spent to see the patient, examine the patient, review data and lab result, discuss treatment plan with patient, son, nursing staff around 55 minutes
Anticipated Discharge: Within 24 hours
Subjective/Interval History
-
Date of Service: September 24, 2024
less left wrist pain
No fever
Objective Data
-
Vital Signs:
Vital Signs
Temp Pulse Resp BP Pulse Ox
97.4 F 73 18 118/58 100
09/24/24 07:15 09/24/24 07:15 09/24/24 07:15 09/24/24 07:15 09/24/24 07:15
I&O
09/23/24 09/24/24 09/25/24
06:59 06:59 06:59
Intake Total 240 / 240
Balance 240 / 240
[2024-09-24] MEDS: DESENEX/MITRAZOL/ZEASORB 1 APPLIC TOPICAL ×2 (10:35→20:09)
[2024-09-24 12:24] LABS: Glucose - Point of Care 128 mg/dl (70-99)
[2024-09-24 15:15] VITALS: BP 115/61
[2024-09-24 16:41] LABS: Glucose - Point of Care 164 mg/dl (70-99)
[2024-09-24] MEDS: NOVOLOG FLEXPEN-LOW RESISTANCE 1 UNITS SC (17:01)
[2024-09-24] MEDS: LOVENOX 40 MG SC (17:03)
[2024-09-24] MEDS: SINGULAIR 10 MG PO (21:21)
[2024-09-24] MEDS: NEURONTIN PO (21:22)
[2024-09-24 21:26] LABS: Glucose - Point of Care 118 mg/dl (70-99)
[2024-09-24 23:15] VITALS: BP 113/55
--- NOTE | 2024-09-25 03:01 | DOWNTIME ---
There was a [employer] Downtime on 09/25/2024 from 0100 to 09/25/2024 at 0235. Downtime documentation of patient's care, including medication administrations, has been reconciled in the electronic record per guidelines. Refer to the
patient's paper chart under the miscellaneous tab to see printed paper medication records and downtime forms.
[2024-09-25 07:50] LABS: Glucose - Point of Care 112 mg/dl (70-99)
[2024-09-25 07:51] VITALS: BP 121/61
[2024-09-25] MEDS: NOVOLOG FLEXPEN-LOW RESISTANCE SC (08:36)
[2024-09-25] MEDS: PLAVIX 75 MG PO (08:36)
[2024-09-25] MEDS: CRESTOR 5 MG PO (08:36)
[2024-09-25] MEDS: MYSOLINE 50 MG PO (08:36)
[2024-09-25] MEDS: CARDIZEM CD 120 MG PO (08:36)
[2024-09-25] MEDS: PROTONIX 40 MG PO (08:36)
[2024-09-25] MEDS: MIRALAX PO (08:37)
[2024-09-25] MEDS: TYLENOL 1000 MG PO (08:37)
[2024-09-25] MEDS: DESENEX/MITRAZOL/ZEASORB 1 APPLIC TOPICAL (08:40)
[2024-09-25 10:21] VITALS: BMI 25.1
--- NOTE | 2024-09-25 10:23 | CM ---
CM following re: discharge planning.
Reviewed pt's chart, met with pt and spoke to pt's over the phone to update on discharge plan progress.
Discharge order noted. Both pt and her are aware, expressed their agreement and pt's stated that he and his son will transport pt home. Pt still OBS status.
PT and OT evaluations noted - home PT/OT recommended. Pt is aware and she requested [facility]. A referral to [facility] made.
[facility] discharge instructions fax: [phone]
D/C plan: home with [facility], resumptions of private duty caregiver services and family support. and son to transport after 12:00 p.m.
--- NOTE | 2024-09-25 10:36 | CM ---
CM following re: discharge planning.
Reviewed pt's chart, met with pt and spoke to pt's over the phone to update on discharge plan progress.
Discharge order noted. Both pt and her are aware, expressed their agreement and pt's stated that he and his son will transport pt home. Pt still OBS status.
PT and OT evaluations noted - home PT/OT recommended. Pt is aware and she stated she is current with [facility]. A referral to [facility] made.
[facility] instructions fax: [phone]
D/C plan: home with resumptions of [facility], resumptions of private duty caregiver services and family support. and son to transport after 12:00 p.m.
--- NOTE | 2024-09-25 10:45 | WOUNDNOTE ---
[facility] 3RD MTH
--- NOTE | 2024-09-25 10:45 | WOUNDNOTE ---
[facility] RN Note: Patient seen during pressure injury prevention rounds with perennial house manager Shawna Angel and RN educator Renny Hernandez. Patient for discharged today with [facility]. Dry red stage 2 areas in previous picture open. Suspect L sacral/buttocks
dermal opening an adhesive skin tear more so than pressure injury. Patient can turn slowly in bed. Skin on heels intact. Silicone border foam changed on sacrum. Protective foam dressing changed on heels. Heels off bed with pillow. Patient reports a
good appetite. Patient lives with her and son and has caregivers. Patient has 2 air chair cushions and was given a static air overlay. t/c SPD and requested a manual static air overlay inflator. Discussed with AP Murray who will give to
patient. Rand texted ERAS[employer] Kee re: patient would benefit from an parrish mattress or gel overlay on her hospital bed at home. A static air overlay was given for patient to take home. Chuck confirmed patient is current with [facility].
[2024-09-25 11:10] VITALS: BP 119/66; PULSE 76; O2SAT 97
--- NOTE | 2024-09-25 11:29 | W.PN.HOSP.TC ---
Today's Communication/Plan
-
dc
Assessment / Plan
Assessment / Plan
Physical Exam
General: Obese, No Apparent Distress
HEENT: NormoCephalic, Moist mucous membranes and Atraumatic
Respiratory: limited
Cardiac: S1/S2 and Regular Rhythm; No Murmur or Rub
GI: Soft, Non Tender, Non Distended and Normal Bowel Sounds;
Musculoskeletal: No Clubbing, No Cyanosis and No Edema. Left wrist brace, no swelling, no redness.
Skin: No Rash
Neuro: AO to surroundings, followed simple commands
Psych: calm
9-year-old female presenting with painful swelling of the left wrist with reduced range of motion concerning for infected joint. She is afebrile. She is hemodynamically stable and shows no signs of systemic infection. However she does have
elevated inflammatory markers. Will decrease dose of prednisone partially swelling with reduced range of motion. He is mildly tender to palpation. There is erythema. Less angry than suspected for acute infectious arthritis.
PLAN:
# left wrist swelling c/w OA flare -up
seems c/w OA flare up
Doubt septic
off ABx, but swelling came down, non tender or red anymore, able to move it without much discomfort.
Ordered wrist brace.
No fever, no leukocytosis
- IR consult for arthrocentesis but no fluid. I d/w ortho, signs c/w OA flare up, recommend Brace and pain control.
- pain control with Tylenol
Blood culture NGTD
I spoke with son 09/24 , use Tylenol for pain, he requested pain medicine as needed, will send script for low dose Tramadol.
2. DM II
- sliding scale insulin
3. TANI
- cpap hs
4. COPD - chronic hypoxic respiratory failure
- 2 L O2
5. ASCVD / Carotid Stenosis s/p Left Carotid Stent
- continue Plavix
6. Hypertension
- continue diltiazem
7. Chronic Lower Extremity Edema
- continue Torsemide
8. GERD, Vocal Cord Spasm and Esophageal Spasm
- continue Protonix
- pureed diet
- regular liquids
7. Intertrigo in groins, under breasts, topical Tx is given
DVT PPX - Lovenox sq
Code status - Full code
Total discharge time spent to see the patient, examine the patient, review data and lab result, discuss discharge plan with patient, nursing staff around 65 minutes
Anticipated Discharge: Today
Subjective/Interval History
-
Date of Service: September 25, 2024
No pain in left wrist, no swelling
Objective Data
-
Vital Signs:
Vital Signs
Temp Pulse Resp BP Pulse Ox
97.2 F 80 16 121/61 95
09/25/24 07:51 09/25/24 08:36 09/25/24 07:51 09/25/24 08:36 09/25/24 07:51
I&O
09/24/24 09/25/24 09/26/24
06:59 06:59 06:59
Intake Total 240 / 240 720 / 720
Balance 240 / 240 720 / 720
[2024-09-25 12:25] VITALS: BP 115/58
[2024-09-25 13:01] LABS: Glucose - Point of Care 171 mg/dl (70-99)
[2024-09-25] MEDS: NOVOLOG FLEXPEN-LOW RESISTANCE 1 UNITS SC (13:02)
--- NOTE | 2024-09-25 13:12 | W.DCSUMMARY ---
Discharge Summary
Discharge Data
Date of Admission: 09/22/24
Date of Discharge: 09/25/24
-
Pending Results: No
Hospital Course
89 years old female presented to the emergency room with left wrist swelling and tenderness associated with limited range of movement. She did not have fever or leukocytosis. Imaging study showed soft tissue swelling with arthritic changes.
Attempt to do joint aspiration in the ER was not successful. Patient was admitted to the hospital. Interventional radiologist tried with ultrasound guidance to do aspiration but there was no fluid. Blood culture did not show any growth. Patient
was given left wrist to brace and subsequently swelling and tenderness subsided. She was evaluated by orthopedic doctor recommended pain control and joint brace. Patient was evaluated by physical therapy. district claims manager was involved in discharge
planning. Patient did not need narcotic pain medications in the hospital but family requested prescription for pain medicine if Tylenol would not help. Patient was given a prescription for low-dose tramadol. Patient remained hemodynamically
stable. She was discharged home with home health services in a stable condition.
Discharge Plan
-
Patient Disposition: Home with Home Care
Discharge Diagnosis/Procedures: Left wrist pain/ swelling
You were seen by orthopedic doctor, recommended left brace to be used as tolerated.
Diet: As tolerated
Activity Restrictions/Additional Instructions:
Wound Care Instructions
sacrum/buttocks: clean with soap and water, sacral silicone foam change q 3 days and prn soilage
Evaluate for Air mattress overlay or gel mattress overlay on hospital bed.
Air cushion when sitting, can take upon discharge
frequent shifting of position when in bed or chair
Elevate heels off bed with pillow/s.
increase protein in diet
Referrals:
Sin Aly MD [Active, Orthopedics]
Referral Note: As needed
Carrie Nuñez DO [Family Provider, Family Practice]
Prescriptions:
New
tramadol 50 mg Tablet
25 mg PO BIDPRN PRN (Reason: moderate to severe pain) Qty: 10 0RF
acetaminophen [Tylenol Extra Strength] 500 mg Tablet
1,000 mg PO TIDPRN PRN (Reason: mild to moderate pain) Qty: 10 0RF
rosuvastatin 5 mg Tablet
5 mg PO DAILY Qty: 30 0RF
Rx Instructions:
home medicine
Continued
clopidogrel 75 MG tablet
75 mg PO DAILY 30 Days Qty: 30 0RF
montelukast 10 MG tablet
10 mg PO HS
primidone 50 MG tablet
50 mg PO DAILY
pantoprazole 40 MG tablet,delayed release (DR/EC)
40 mg PO DAILY
gabapentin 100 mg capsule
200 mg PO HS
Refresh Classic (PF) 1.4-0.6 % Dropperette
1 drp LEFT EYE QIDPRN PRN (Reason: DRY EYES)
polyethylene glycol 3350 [Miralax] 17 gram Powder In Packet
17 g PO DAILYPRN PRN (Reason: constipation)
cinnamon bark [Cinnamon] 500 mg Capsule
500 mg PO DAILY
potassium chloride 20 mEq Packet
10 meq PO SUTUFR
torsemide 10 mg Tablet
10 mg PO TUFR
ipratropium bromide 0.02 % solution
2.5 ml inhalation R Q4HPRN PRN (Reason: sob/wheezing)
cholecalciferol (vitamin D3) [Vitamin D3] 50 mcg (2,000 unit) Tablet
50 mcg PO DAILY
albuterol sulfate 90 mcg/actuation Hfa Aerosol Inhaler
1 puff INHALATION R Q4HPRN PRN (Reason: sob/wheezing)
lidocaine 4 % Adhesive Patch,Medicated
1 patch TOPICAL DAILYPRN PRN (Reason: right hip and right shoulder)
atorvastatin [Lipitor] 10 mg Tablet
10 mg PO DAILY
diltiazem HCl 120 mg Capsule,Extended Release 24 Hr
120 mg PO DAILY
Discharge Orders:
Discharge Patient (As Directed); Ordered 09/25/24
Ordered By: Joaquin Hinton
Discharge Date and Time
Discharge Date/Time: 09/25/24 15:16
Print Language: TURKISH
--- NOTE | 2024-09-25 13:16 | WOUNDNOTE ---
[facility] RN note: t/c Spoke with patient's Finesse and reviewed pressure relief measures, take the air chair cushions and take air overlay mattress with manual pump. stated she has a foam overlay on her current hospital bed mattress.
Instructed to ask the [facility] nurse to look at the foam overlay and decide if foam is sufficient vs trying the air overlay mattress instead. verbalized understanding.
== END 2024-09-25 15:16 | disposition home health service (06) ==
LOC: 2 NORTH 20:17
PROVIDERS: Physician Assistant Medical; ADMITTING PHYSICIAN Internal Medicine; ATTENDING PHYSICIAN Internal Medicine; CONSULT PHYSICIAN Specialist; EMERGENCY PHYSICIAN Student in an Organized Health Care Education/Training Program; FAMILY PHYSICIAN Family Medicine
DX: M25.532 Pain in left wrist (principal); M25.432 Effusion, left wrist; E11.9 Type 2 diabetes mellitus without complications; G47.33 Obstructive sleep apnea (adult) (pediatric); J96.11 Chronic respiratory failure with hypoxia; J44.89 Other specified chronic obstructive pulmonary disease; I25.10 Atherosclerotic heart disease of native coronary artery without angina pectoris; I10 Essential (primary) hypertension; R60.0 Localized edema; K21.9 Gastro-esophageal reflux disease without esophagitis; L30.4 Erythema intertrigo; Z79.899 Other long term (current) drug therapy; Z79.02 Long term (current) use of antithrombotics/antiplatelets
CPT/HCPCS: 20606; 73110; 73130; 77002; 80048; 82962; 84550; 85025; 85027; 85652; 86140; 86618; 87040; 93005; 94660; 97163; 97167; 99285; G0378

== ENCOUNTER 2024-12-10 17:34 | Observation (INO) | payer MEDICARE, BC, SELFPAY ==
[2024-12-10] VITALS (9 sets, daily range): BP systolic 100–153; BP diastolic 55–96; PULSE 88; BMI 23.3
--- NOTE | 2024-12-10 13:14 | ED.GENMED ---
History of Present Illness
General
Chief Complaint: Fall
Source: patient and family
Exam Limitations: none
Time Seen by Provider: 12/10/24 12:54
Nursing documentation reviewed up to this point in time: agreed with
History of Present Illness
History of Present Illness:
89-year-old female with a past medical history of as noted significant for COPD with chronic respiratory failure on 2 L of oxygen and history of CAD on Plavix who presents to the emergency department with her son for evaluation of multiple
complaints after a fall yesterday. Patient is wheelchair-bound and nonambulatory at baseline. Son was taking her to an appointment yesterday with the eye doctor and rolling up a ramp. Apparently there were bumps in the ramp for traction and when
the wheelchair hit one of these bumps she fell forward out of the wheelchair. She landed on her left side and has been complaining of left sided pain since then including pain in the left side of her forehead near a small laceration, left-sided rib
pain, left hip pain, left knee pain. She also complains of pain in the mid and low back. No reported loss of consciousness. She is on Plavix no other blood thinners.
Past History
Past History
ED Past Medical History: Arrthythmia (Atrial fib), Asthma, COPD, GERD, HTN, Hypercholesterolemia, IDDM, Psychiatric (Anxiety) and Other (Chronic back pain, Diverticulitis, Hiatal hernia,, carotid stenosis,sleep apnea , dysphagia, glaucoma,
cataracts,Vertigo, PNA, esophageal restrictions)
ED Past Surgical History: Appendectomy, Cardiac (Left carotid stent), Gynecological (hysterectomy), Orthopedic (Right carpal tunnel surgery), Urological (Bladder surgery) and Other (Cyst on Pancreas with fluid removed, bladder repair, Breast cyst
removed)
Social History
Tobacco: Non-smoker
Alcohol: None
Drug: None
Personal:
Living: with family
Employment: Retired
Family History
Family History: Other (Brother with a stroke, sister with ovarian cancer, sister with colon cancer)
Review of Systems
Review of Systems
All Other Systems: ROS reviewed and negative except as documented in HPI and ROS
Constitutional: Denies fever
Respiratory: Denies trouble breathing
Cardiac: Reports chest pain (Rib pain)
ABD/GI: Denies abdominal pain, nausea or vomiting
Musculoskeletal: Reports joint pain, neck pain and back pain
Neurological: Reports headache; Denies dizzy
Phy Exam
Physical Exam
Physical Exam:
General: Awake, alert; no acute distress
Head: Normocephalic, minor 1 cm laceration to the left forehead
Eyes: Patient has pterygium in the left eye which is known
Throat: Airway intact, handling secretions
Neck: Trachea midline, no midline cervical spine tenderness
Back: No bruising or abrasions to the back or flank but patient does have tenderness in the mid thoracic as well as upper lumbar spine
Lungs: Breathing comfortable with no tachypnea or hypoxia
Heart: Regular rate; mild tenderness in the left anterior lateral lower lower ribs but no bruising or crepitus appreciated
Abd: Soft, non distended, nontender
Skin: Left forehead laceration as noted
Extremities: Patient has edema in the legs bilaterally; she has minor bruise to the left knee; she has minor tenderness of the left patella and pain on range of motion of the knee but she does allow for full range of motion of the left knee;
similarly she has some mild left hip pain with flexion but allows for full range of motion; right lower extremity is atraumatic and she allows for full range of motion of the hip and knee with no pain; no signs of trauma to the upper extremities and
she moves both upper extremities freely without pain; she has good pulses throughout
Scores
Heart Failure Risk
Heart Failure Risk Score: Not Applicable
Heart Score for Chest Pain Patients
STEMI patient?: Not applicable
Withdrawal Assessment of Alcohol
Withdrawal Assessment Completed?: Not applicable
Course
Orders/Labs/Results
Orders:
Orders
12/10/24 11:55
CT Head W/o Iv Contrast Urgent
Comment:
Reason For Exam: fall on plavix
12/10/24 11:56
Cervical Spine wo Contrast CT [CT Cervical Spine W/o Iv Contr] Urgent
Comment:
Reason For Exam: fall on plavix
12/10/24 11:57
Knee, Left 4 or More Views [CR Knee - Left 4 Or More View*] Urgent
Comment:
Reason For Exam: fall
12/10/24 13:13
CT Chest/abd/pel Wo Iv Cont Urgent
Comment:
Reason For Exam: left sided rib pain s/p fall, low back pain
12/10/24 14:00
Complete Blood Count/With Diff Urgent
12/10/24 14:46
Comprehensive Metabolic Panel Urgent
12/10/24 14:55
Case Management Consult ONCE
Case Management Consult: Half-Way Placement
Acetaminophen 1000MG/100Ml [Ofirmev] 1,000 mg in 100 ml IV ONCE
Acetaminophen IV Indication:: ED Narcotic Naive Pt-ONCE
OT Consult [Ot Eval And Treat] Urgent
Pt Eval And Treat Urgent
Activity Level: With Assistance
Abnormal Lab Results
12/10/24
14:00
WBC 13.3 H 10^3/uL
(4.8-10.8)
MCHC 31.8 L g/dL
(33.0-37.0)
Abs Immat Gran (auto) 0.1 H 10^3/uL
(0-0.05)
Absolute Neuts (auto) 10.7 H 10^3/uL
(1.4-6.5)
Absolute Monos (auto) 1.2 H 10^3/uL
(0.1-0.6)
Immature Gran % 0.7 H %
(0-0.5)
Neutrophils % 80.4 H %
(42.2-75.2)
Lymphocytes % 9.2 L %
(20.5-51.1)
12/10/24 14:00
Vital Signs
Initial and Last Documented VS:
Initial Vital Signs
Temp Pulse BP Pulse Ox
36.6 C 121 139/86 92
12/10/24 11:47 12/10/24 11:47 12/10/24 11:47 12/10/24 11:47
Last Documented Vital Signs
Temp Pulse Resp BP Pulse Ox
36.6 C 105 16 139/86 98
12/10/24 11:47 12/10/24 14:00 12/10/24 14:00 12/10/24 11:47 12/10/24 14:00
MDM/Problems Addressed
Differential Diagnosis Includes:
Head injury: Brain bleed, forehead contusion, concussion
Rib pain: Bruised ribs, rib fracture, pneumothorax or hemothorax
Hip pain: Contusion, dislocation, fracture
Knee: Contusion, dislocation, fracture
Back pain: vertebral fracture, muscular strain, hematoma
MDM/Problems Addressed:
89-year-old female presents with multiple complaints after a fall out of her wheelchair yesterday. She is on Plavix. Vitals and exam as above. Will check basic labs. Check CT of the head, cervical spine, chest/abdomen/pelvis. X-ray of the left
knee. Reassess after the above.
CT of the head and cervical spine showed no acute posttraumatic injuries. X-ray of the knee reviewed by me shows arthritis but no acute fractures. CT of the chest/abdomen/pelvis shows old rib fractures but no evidence for acute fractures. New T4
compression deformity. Multiple other incidental findings. I had a long discussion with the patient and her son. Son does not feel comfortable with her current functional status with pain in multiple areas. She has done rehab at [facility] in
the past but she is resistant to going there again. She does not feel up to going home. Discussed with case management for consultation. Consult in the PT/OT. Will admit pending placement. Discussed with hospitalist.
Chronic conditions affecting care:
Heart disease on Plavix complicates fall
*Radiology
Radiology exam reviewed: radiology read reviewed
*Pulse Oximetry
SaO2: 92
Oxygen Mode of Delivery: Room air
Patient hypoxic: no (92%)
*Critical Care Note
Total Time (30-74mins, 75-104mins- exclusive of procedures): Not Applicable
Data Reviewed
Source: patient and family
Patient Management
Discussion with other providers: Hospitalist (Discussed with hospitalist) and Other (Discussed with shoe caser)
Escalation/DeEscalation of care consider admission/obs:
Admission indicated
ED Attending Note
-
Portions of this chart may have been created with voice recognition software.� Occasional wrong word or��sound alike� substitutions may have occurred due to the inherent limitations of voice recognition software.
Discharge Plan
Departure
Patient Disposition: Admit
Date of Disposition: 12/10/24
Time of Disposition: 14:59
Admit to doctor: Cass
Presentation/result/management discussed w/ accepting MD/DO: Hospitalist
Discharge Problem:
Compression fracture of T4 vertebra, Contusion of knee, Bruised ribs
Prescriptions:
No Action
clopidogrel 75 MG tablet
75 mg PO DAILY 30 Days Qty: 30 0RF
montelukast 10 MG tablet
10 mg PO HS
primidone 50 MG tablet
50 mg PO DAILY
pantoprazole 40 MG tablet,delayed release (DR/EC)
40 mg PO DAILY
gabapentin 100 mg capsule
200 mg PO HS
Refresh Classic (PF) 1.4-0.6 % Dropperette
1 drp LEFT EYE QIDPRN PRN (Reason: DRY EYES)
polyethylene glycol 3350 [Miralax] 17 gram Powder In Packet
17 g PO DAILYPRN PRN (Reason: constipation)
cinnamon bark [Cinnamon] 500 mg Capsule
500 mg PO DAILY
potassium chloride 20 mEq Packet
10 meq PO SUTUFR
torsemide 10 mg Tablet
10 mg PO TUFR
ipratropium bromide 0.02 % solution
2.5 ml inhalation R Q4HPRN PRN (Reason: sob/wheezing)
cholecalciferol (vitamin D3) [Vitamin D3] 50 mcg (2,000 unit) Tablet
50 mcg PO DAILY
albuterol sulfate 90 mcg/actuation Hfa Aerosol Inhaler
1 puff INHALATION R Q4HPRN PRN (Reason: sob/wheezing)
lidocaine 4 % Adhesive Patch,Medicated
1 patch TOPICAL DAILYPRN PRN (Reason: right hip and right shoulder)
atorvastatin [Lipitor] 10 mg Tablet
10 mg PO DAILY
diltiazem HCl 120 mg Capsule,Extended Release 24 Hr
120 mg PO DAILY
tramadol 50 mg Tablet
25 mg PO BIDPRN PRN (Reason: moderate to severe pain) Qty: 10 0RF
acetaminophen [Tylenol Extra Strength] 500 mg Tablet
1,000 mg PO TIDPRN PRN (Reason: mild to moderate pain) Qty: 10 0RF
rosuvastatin 5 mg Tablet
5 mg PO DAILY Qty: 30 0RF
Rx Instructions:
home medicine
Referrals:
UNKNOWN - PT DOES,NOT KNOW [Family Provider]
Interventions
Interventions:
*Risk Screen - Suicide Last Done: 12/10/24 11:50
*General Assessment Last Done: 12/10/24 14:04
*Neglect/Abuse Screening Last Done: 12/10/24 11:50
ED-Musculoskeletal Assessment Last Done: 12/10/24 14:03
ED- Neurological Assessment Last Done: 12/10/24 14:03
ED-Skin Assessment Last Done: 12/10/24 14:03
Discharge Date and Time
Print Language: KINYARWANDA
[2024-12-10 14:10] LABS: Hematocrit 38.7 % (37.0-47.0); Hemoglobin 12.3 g/dL (12.0-16.0); Mean Corp Hgb Conc. 31.8 g/dL (33.0-37.0); Mean Corpuscular Volume 87.4 fL (81.0-99.0); Nucleated Red Blood Cells % 0 %; Platelet Count 181 10^3/uL (130-400); Red Cell Dist. Width 14.2 % (11.5-14.5)
[2024-12-10 15:08] LABS: ALT (SGPT) 24 U/L (0-35); AST (SGOT) 23 U/L (14-36); Albumin 3.6 g/dl (3.5-5.0); Alkaline Phosphatase 91 U/L (38-126); Blood Urea Nitrogen 28 mg/dl (7-17); Calcium 9.1 mg/dl (8.4-10.2); Carbon Dioxide 31 mmol/L (22-30); Chloride 101 mmol/L (98-107); Glucose 270 mg/dl (70-99); Potassium 4.2 mmol/L (3.5-5.1); Sodium 135 mmol/L (135-145); Total Protein 6.3 g/dl (6.3-8.2); eGFR > 60.00
[2024-12-10] MEDS: OFIRMEV 100 IV (15:09)
--- NOTE | 2024-12-10 15:36 | PHANOTE ---
med rec note- waiting for son to get home to call back and go over medication
--- NOTE | 2024-12-10 15:56 | EDCM ---
CM received consult, reviewed chart and met with pt bedside in ED. Pt lives with her and son in bilevel home. 8 HEATHER front door, 1 HEATHER from laundry room, pt has 2 stair glides in home. She is not ambulatory at baseline, wheelchair bound.
She has a hospital bed, WC, Shower chair and rails, CPAP, Home O2 wears 2L NC and [place].
This is pt's 5th admission this year, most recent 09/22 to 09/25.
Pt has had [facility] and [facility] in past. Has been to [facility] and [facility] in past.
Pt aware she needs to be seen by PT/OT for recommendations, per Dr Lopez, son does not feel comfortable bringing her home.
PCP: Carrie Nuñez
Pharmacy: [facility].
Awaiting PT recommendations, CM will continue to follow.
--- NOTE | 2024-12-10 16:11 | HPS.HSE ---
Addendum entered and electronically signed by Ammy Odell MD 12/10/24 17:19:
This is an addendum to H&P written by Rena Reddy on 12/10/24. �Patient seen and examined independently with [facility].
89-year-old female past medical history of COPD on 2 L baseline, obstructive sleep apnea, atrial fibrillation, hypertension, hyperlipidemia, diabetes, GERD, depression anxiety, vocal cord spasms, esophageal spasms, chronic lower extremity edema,
osteoporosis, chronic back pain, carotid artery stenosis status post left carotid stent, presenting with fall yesterday after wheelchair injury and pain over the left knee, hip and ribs.
Family not comfortable taking her home.
Vital signs show heart rate up to 120.
Labs show leukocytosis of 13. �Blood sugar 270.
CT head shows no acute intracranial normality. �CT cervical spine shows mild chronic C7 superior endplate compression fracture. �Knee x-ray shows no evidence of acute fracture or dislocation. �CT chest abdomen pelvis shows likely old rib fractures.
�Numerous compression deformities of thoracic and lumbar spine notable which is a T4 compression deformity which is new.
Tylenol for pain, PT OT ,case management for placement.
Original Note:
Family Physician
-
Family Physician: NOT KNOW UNKNOWN - PT DOES
Chief Complaint
-
left sided pain s/p fall
History of Present Illness
Patient is a 89-year-old female with past medical history significant for hypertension, hyperlipidemia, paroxysmal atrial fibrillation, type 2 diabetes, COPD/asthma, GERD, chronic lower extremity edema and depression/anxiety who presented to [facility] ED
for evaluation of left sided pain s/p fall. Patient with c/o of left rib pain, left hip pain, and left knee pain. Patient explains that yesterday she fell from wheelchair to concrete when wheelchair got stuck going over a bump. Small laceration to
left eyebrow. Patient continued to complain of discomfort on left side so brought to ED for evaluation. Patient currently complaining of discomfort to left ribs only. Denies any recent illness, fever, chills, cough, shortness of breath, nausea,
vomiting, consitpation, diarrhea or urinary symptoms.
Medical History
Past Medical History
Past Medical History: Reports Other
Additional Past Medical History:
COPD / Asthma
Vocal Cord Spasm
Esophageal Spasm
GERD
Paroxysmal Atrial Fibrillation
Hypertension
DM-II
TANI on CPAP
ASCVD / Carotid Stenosis
Depression/Anxiety
Osteoporosis
Chronic Lower Extremity Edema
Past Surgical History: Reports Other
Additional Past Surgical History:
Appendectomy
Left Carotid Stent
JOSE MARTIN
Carpal Tunnel Surgery
Bladder Repair
Lumpectomy (Benign)
Social History
Tobacco: Non-smoker
Alcohol: None
Drug: None
Living: With Family
Family History
Family History: Other (Mother: Asthma / COPD)
Allergies / Home Medications
Allergies reflects when Allergies were last updated in [facility].
Home Medications with original date entered in [facility]
Allergy/Medication List:
Allergies
Allergy/AdvReac Type Severity Reaction Status Date / Time
abacavir sulfate (From Allergy Unknown Verified 12/10/24 11:50
Ziagen)
amoxicillin (Amoxicillin) Allergy Rash, Verified 12/10/24 11:50
tolerates
cephalosporins,
Zosyn
aspartame Allergy asthma Verified 12/10/24 11:50
attack -
artifical
sweeteners
banana Allergy ASTHMA Verified 12/10/24 11:50
ATTACK
Beta-Adrenergic Agents Allergy Unknown Verified 12/10/24 11:50
bimatoprost Allergy Palpitation Verified 12/10/24 11:50
s
bupropion Allergy STOMACH Verified 12/10/24 11:50
UPSET
cat dander Allergy CAN'T Verified 12/10/24 11:50
BREATHE
clavulanic acid Allergy unknown - Verified 12/10/24 11:50
beta
lactamase
inhibitors
colesevelam Allergy CRAMPS Verified 12/10/24 11:50
dog dander Allergy CAN'T Verified 12/10/24 11:50
BREATHE
house dust Allergy Unknown Verified 12/10/24 11:50
house dust mite Allergy Unknown Verified 12/10/24 11:50
latanoprost Allergy Palpitation Verified 12/10/24 11:50
s
metformin HCl (From Allergy spasms in Verified 12/10/24 11:50
Glucophage) back/HEART
PROBLEM
mold Allergy Unknown Verified 12/10/24 11:50
monosodium glutamate Allergy DIARRHEA Verified 12/10/24 11:50
pollen extracts Allergy Unknown Verified 12/10/24 11:50
quinapril HCl (From Accupril) Allergy UPSET Verified 12/10/24 11:50
STOMACH
ramipril Allergy Upset Verified 12/10/24 11:50
Stomach
simvastatin (Simvastatin) Allergy feet Verified 12/10/24 11:50
swelled/CAN'T
WALK
Sulfa (Sulfonamide Allergy EYE Verified 12/10/24 11:50
Antibiotics) Swelling
valsartan Allergy BACKACHE/ST Verified 12/10/24 11:50
OMACHACHE
Home Medications
clopidogrel 75 mg tablet 75 mg PO DAILY Blood clot prevention/tx 30 days #30 tabs 08/11/20
montelukast 10 mg tablet 10 mg PO HS Allergies 10/26/20
primidone 50 mg tablet 50 mg PO DAILY Neurological Condition 02/27/21
pantoprazole 40 mg tablet,delayed release 40 mg PO DAILY Gastrointestinal issue 05/27/21
gabapentin 100 mg capsule 200 mg PO HS Neurological Condition 07/20/22
polyvinyl alcohol-povidone (PF) 1.4 %-0.6 % eye drops in a dropperette (Refresh Classic (PF)) 1 drp BOTH EYES QIDPRN PRN DRY EYES 07/20/22
cinnamon bark 500 mg capsule (Cinnamon) 500 mg PO DAILY Supplement 08/08/22
polyethylene glycol 3350 17 gram oral powder packet (Miralax) 17 g PO DAILYPRN PRN constipation 08/08/22
cholecalciferol (vitamin D3) 50 mcg (2,000 unit) tablet (Vitamin D3) 50 mcg PO DAILY Supplement 06/26/23
ipratropium bromide 0.02 % solution for inhalation 2.5 ml inhalation R Q4HPRN PRN sob/wheezing 06/26/23
albuterol sulfate 90 mcg/actuation aerosol inhaler 1 puff inhalation R Q4HPRN PRN sob/wheezing 09/05/23
diltiazem HCl 120 mg capsule,24 hr,extended release 120 mg PO DAILY Heart Disease/Condition 09/23/24
lidocaine 4 % topical patch 1 patch topical DAILYPRN PRN right hip and right shoulder 09/23/24
tramadol 50 mg tablet 25 mg (1/2 x 50 mg) PO BIDPRN PRN moderate to severe pain #10 tabs 09/25/24
citalopram 20 mg tablet (Celexa) 10 mg PO DAILY Mental Health/Anxiety 12/10/24
furosemide 20 mg tablet (Lasix) 20 mg PO SUTUFR Fluid Retention/Swelling 12/10/24
potassium chloride 20 mEq tablet,extended release 20 meq PO SUTUFR 12/10/24
prednisone 20 mg tablet 20 mg PO DAILY 12/10/24
rosuvastatin 5 mg tablet 5 mg PO DAILY High Cholesterol 12/10/24
Review of Systems
-
History Source: Patient
Constitutional: Denies Fever or Chills
EENT: Denies Sore Throat
Respiratory: Denies Cough or Trouble Breathing
Cardiac: Denies Chest Pain, Diaphoresis, Palpitations or Syncope
Abdomen/GI: Denies Abdominal Pain, Nausea, Vomiting or Diarrhea
: Denies Dysuria, Frequency or Urgency
Musculoskeletal: Reports Other (left rib, hip and knee pain s/p fall )
Skin: Reports Other (left eyebrow laceration )
Neurological: Reports Weakness; Denies Dizzy, Headache or Numbness
Physical Exam
Vital Signs
Vital Signs
Temp Pulse Resp BP Pulse Ox
97.9 F 105 16 139/86 98
12/10/24 11:47 12/10/24 14:00 12/10/24 14:00 12/10/24 11:47 12/10/24 14:00
Physical Exam
General: Well Developed, Well Nourished, No Apparent Distress, Comfortable, Conversant and Appears Chronically Ill
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
Respiratory: Clear, Non Labored Respirations, Decreased Breath Sounds and Other (chronic 2L O2 )
Cardiac: S1/S2, Regular Rhythm and Peripheral Edema; No Murmur
GI: Soft, Non Tender, Non Distended and Normal Bowel Sounds
Musculoskeletal: No Clubbing, No Cyanosis and Other (tenderness to left rib, left knee bruising, discomfort reported with ROM to left knee and left hip)
Skin: Warm and IV/Catheter Site
Neuro: Awake and AO x 3
Psych: Calm
Laboratory Results
-
12/10/24 14:00
12/10/24 14:46
Laboratory Results
Total Bilirubin 0.8 mg/dl (0.2-1.3) 12/10/24 14:46
AST 23 U/L (14-36) 12/10/24 14:46
ALT 24 U/L (0-35) 12/10/24 14:46
Alkaline Phosphatase 91 U/L (38-126) 12/10/24 14:46
Data Reviewed
-
Diagnostic Radiology: Report Reviewed by me (see reports )
CT Scan: Report Reviewed by me (See reports )
Lab Data: Labs Reviewed by me (WBC 13.3, neut 80.4, )
Impression/Plan
-
IMPRESSION/PLAN:
#Bruised ribs, compression fracture of T4 vertebra, contusion of knee s/p fall
WBC 13.3, neut 80.4
C-Spine x-ray: Mild CHRONIC C7 superior endplate compression fracture, unchanged.
Degenerative changes.
No findings to suggest recent cervical spine fracture.
Lt Knee x-ray: No evidence of acute fracture or dislocation.
If there are persistent clinical symptoms and further imaging evaluation is desired, consider MRI.
Head CT: No acute intracranial abnormalities.
Findings again seen compatible with diffuse cortical atrophy with nonspecific white matter changes as described above.
Chest/Abd/Pel CT: There is no evidence for pneumothorax or hemothorax.
Deformity of multiple left-sided ribs, most likely representing old fractures, with no evidence for displaced rib fracture.
Numerous compression deformities of the thoracic and lumbar spine. Compared to CT angiography of the chest from June 15, [address] of the abdomen and pelvis from 09/18/2024,
compression deformity at T4 is new, and has sclerosis. Slight retropulsion of the posterior superior margin of the T4 vertebral body. The rest of the compression deformities in the thoracic
and lumbar spine appear stable.
Dense coronary artery calcifications. Please correlate with symptoms of and risk factors for coronary artery disease, with further workup as clinically appropriate.
Calcification in the region of the aortic valve. Please correlate with any clinical signs or symptoms that would suggest significant aortic stenosis.
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
Colonic diverticula with no CT evidence to suggest diverticulitis.
- Admit to med/surg
- consult PT/OT
- consult case management
#COPD / Asthma
- continue albuterol PRN, ipratropium bromide, montelukast and prednisone
#GERD
- continue pantoprazole
#ASCVD / Carotid Stenosis
- continue clopidogrel and rosuvastatin
#Chronic Lower Extremity Edema
- continue furosemide
#Paroxysmal Atrial Fibrillation
- continue diltiazem
#Depression/Anxiety
- continue citalopram
#essential tremor
- continue gabapentin and primidone
#TANI on CPAP
#Hypertension
#DM-II
Code status: full code
DVT prophylaxis: heparin sq
[2024-12-10] MEDS: LASIX 20 MG PO (20:35)
[2024-12-10] MEDS: KCL 20 MEQ PO (20:35)
[2024-12-10] MEDS: REFRESH EYE DROPS (PF) 1 DROPS BOTH EYES (20:36)
[2024-12-10] MEDS: NEURONTIN 200 MG PO (22:58)
[2024-12-10] MEDS: SINGULAIR 10 MG PO (22:58)
[2024-12-10] MEDS: TYLENOL 650 MG PO (23:01)
[2024-12-10] MEDS: HEPARIN 5000 UNITS SC (23:03)
[2024-12-11] MEDS: ULTRAM 25 MG PO ×2 (00:50→21:45)
--- NOTE | 2024-12-11 03:12 | PTCARENOTE ---
Pt arrived to unit via stretcher. Pt transferred from stretcher to bed. Pt oriented to room. Bed alarm placed under Pt due to a history of falls. Pt AAOx3, VSS. Call cali within reach, plan of care on going.
[2024-12-11 07:15] VITALS: BP 140/67
--- NOTE | 2024-12-11 07:34 | W.PN.HOSP.TC ---
Today's Communication/Plan
-
See plan
Assessment / Plan
Assessment / Plan
Physical Exam
General: Well Developed, Well Nourished, No Apparent Distress, Comfortable, Conversant and Appears Chronically Ill
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
Respiratory: Clear, Non Labored Respirations, Decreased Breath Sounds and Other (chronic 2L O2 )
Cardiac: S1/S2, Regular Rhythm and Peripheral Edema; No Murmur
GI: Soft, Non Tender, Non Distended and Normal Bowel Sounds
Musculoskeletal: No Clubbing, No Cyanosis and Other (tenderness to left rib, left knee bruising, discomfort reported with ROM to left knee and left hip)
Skin: Warm and IV/Catheter Site
Neuro: Awake and AO x 3
Psych: Calm
Assessment/Plan
89-year-old female past medical history of COPD on 2 L baseline, obstructive sleep apnea, paroxysmal atrial fibrillation, hypertension, hyperlipidemia, diabetes mellitus, GERD, depression anxiety, vocal cord spasms, esophageal spasms, chronic lower
extremity edema, osteoporosis, chronic back pain, carotid artery stenosis status post left carotid stent and chronic lower extremity edema, presented with fall 12/09/24 after wheelchair injury (fell from wheelchair to concrete, after wheelchair got
stuck going over a bump) and pain over the left knee, hip and ribs. There was a small laceration to the left eyebrow. Family was not comfortable taking her home. Initial vital signs showed heart rate up to 120 bpm. Labs showed leukocytosis of 13.
Blood sugar 270. CT head shows no acute intracranial normality. CT cervical spine shows mild chronic C7 superior endplate compression fracture. Knee x-ray shows no evidence of acute fracture or dislocation. CT chest abdomen pelvis shows likely
old rib fractures. Numerous compression deformities of thoracic and lumbar spine notable which is a T4 compression deformity which is new. Tylenol for pain, PT OT ,case management for placement.
#Bruised ribs, compression fracture of T4 vertebra, contusion of knee s/p fall
#Small Laceration at the left eyebrow
- C-Spine x-ray with no new fracture, left knee x-ray with no acute fracture, CT Head without any bleed, CT Chest/Abdomen/Pelvis suggesting old left sided rib fractures, multiple compression fractures of the thoracic spine, but new T4 compression
fracture
- Given that patient is on Plavix, I communicated with Dr. Best via [place] Text at 7:41 AM on 12/11/24, there is no need to repeat CT Head
- consult PT/OT
- consult case management
#COPD / Asthma
- continue albuterol PRN, ipratropium bromide, montelukast and prednisone
#GERD
- continue pantoprazole
#ASCVD / Carotid Stenosis
#Dense Coronary Artery Calcifications on CT Imaging
- continue clopidogrel and rosuvastatin
#Chronic Lower Extremity Edema
- continue furosemide
#Paroxysmal Atrial Fibrillation
- continue diltiazem
#Depression/Anxiety
- continue citalopram
#essential tremor
- continue gabapentin and primidone
#Diabetes Mellitus
-A1c is 9.2%
-Accuchecks
-Appreciate Diabetes TUBULAR RIVETER
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
#TANI on CPAP
#Hypertension
#DM-II
#Diverticula
Speech: Based on video swallow in 2021 she would be ok for thin liquids but patient requested mildly thick liquids. Continue regular solids and mildly thick liquids at patient request.
Code status: full code
DVT prophylaxis: heparin sq
Anticipated Discharge: 24 - 48 hours
Subjective/Interval History
-
Date of Service: December 11, 2024
Patient was seen and examined. No new significant symptoms or complaints.
Objective Data
-
Vital Signs:
Vital Signs
Temp Pulse Resp BP Pulse Ox
97.7 F 92 18 143/85 99
12/10/24 23:18 12/10/24 23:18 12/10/24 23:18 12/10/24 23:18 12/10/24 23:18
I&O
12/10/24 12/11/24 12/12/24
06:59 06:59 06:59
Intake Total 120 / 120
Balance 120 / 120
[2024-12-11] MEDS: PLAVIX 75 MG PO (09:10)
[2024-12-11] MEDS: PROTONIX 40 MG PO (09:10)
[2024-12-11] MEDS: DELTASONE 20 MG PO (09:10)
[2024-12-11] MEDS: CELEXA 10 MG PO (09:11)
[2024-12-11] MEDS: CARDIZEM CD 120 MG PO (09:11)
[2024-12-11] MEDS: CRESTOR 5 MG PO (09:11)
[2024-12-11] MEDS: VITAMIN D3 (cholecalciferol) 50 MCG PO (09:11)
[2024-12-11] MEDS: HEPARIN 5000 UNITS SC ×2 (09:12→16:18)
[2024-12-11] MEDS: MYSOLINE 50 MG PO (09:33)
[2024-12-11 10:00] VITALS: BP 130/73; PULSE 89; O2SAT 98
[2024-12-11 10:38] LABS: Glycohemoglobin (HgbA1c) 9.2 % (4.0-5.9)
[2024-12-11 10:48] VITALS: BP 130/73; PULSE 91; O2SAT 98
[2024-12-11 12:13] LABS: Glucose - Point of Care 270 mg/dl (70-99)
[2024-12-11] MEDS: JANUVIA 100 MG PO (12:42)
--- NOTE | 2024-12-11 12:52 | PN.DE.MGMTRT ---
Insulin Management
- -
12/11/2024: Diabetes Management Consult
89 year old female with PMH: HTN, HLD, PAF, Carotid artery stenosis s/p left carotid stent, COPD/Asthma/TANI on 2 L baseline, GERD, chronic LLE edema, vocal cord spasms, esophageal spasms, Osteoporosis, chronic back pain,T2DM and depression/anxiety.
Patient presented to [facility] ED for evaluation of left sided pain that involved the left knee, hip and ribs s/p fall from wheelchair to concrete when wheelchair got stuck going over a bump. She sustained a small laceration to left eyebrow. Patient
continued to complain of discomfort on left side so brought to ED for evaluation. Patient currently complaining of discomfort to left ribs only.
Pt is wake, alert, sitting up in chair, offers no complaints, able to provide some details about her diabetes hx
Patient is noted for blood glucose of 270 via BMP obtained yesterday, prompting a Diabetes Management consult. A1C 9.2%, Cr 0.8, eGFR >60
States she is not on any diabetes medications at home and that she is allergic to Metformin. However, in speaking to pt's -Finesse, pt has been diabetic for a long time, she was seeing Endo in [place]- thinks it might be Dr. Reddy, but has
not been to the office in over 1 year. According to the pt is taking NovoLog 2 units before meals as needed if glucose is > 175. States he tries to test her blood sugar every other day and her numbers are usually 135 to 150.
Her POC glucose that was just obtained was 270, received 3 units of corrective insulin.
Discussed with Pt's options for diabetes management and he was in agreement with Januvia and Lantus
Will start Januvia 100 mg daily, 1st dose now. Start low corrective insulin with meals.
Will start Lantus tomorrow morning based on glucose trend if necessary
Patient is ordered a low cholesterol diet, will modify diet to [address].
Discussed with Nurse. Will cont to follow
Contacted pt's son- Emigdio and left asking for call back.
Diabetes History
- -
Type of Diabetes: 2
Pre-Admission Diabetes Regimen
12/10/24 12/10/24
14:00 14:46
Creatinine Cancelled 0.8
Lab Results
Hemoglobin A1c Cancelled 12/11/24 06:00
Insulin Pump Settings
IP Diabetes Regimen
12/10/24 12/10/24 12/11/24
14:00 14:46 12:12
Glucose Cancelled 270 H
POC Glucose 270 H
Patient Education
[2024-12-11] MEDS: NOVOLOG FLEXPEN-LOW RESISTANCE 3 UNITS SC ×2 (13:03→17:38)
[2024-12-11 15:45] VITALS: BP 137/70
[2024-12-11 16:31] LABS: Glucose - Point of Care 273 mg/dl (70-99)
--- NOTE | 2024-12-11 16:43 | PTOTSP ---
Dysphagia Evaluation
Patient with chronic dysphagia risk factors (i.e., COPD/asthma, GERD, esophageal spasms, vocal cord dysfunction) and currently presenting with signs concerning for esophageal dysphagia. No current signs present concerning for pulmonary
complications from aspiration. Patient is appropriate to advance to thin liquids but requested to continue mildly thick liquids per her preference.
Recommend:
1. Regular, Mildly Thick Liquids
2. Medications as best tolerated (consider crushed in puree)
3. Strategies: upright to 90 degrees, intersperse liquids, reflux precautions
4. Will f/u for further education and to determine if liquid advancement appropriate
--- NOTE | 2024-12-11 16:57 | CM ---
Pt lives with her and son in bilevel home. 8 HEATHER front door, 1 HEATHER from laundry room, pt has 2 stair glides in home. She is not ambulatory at baseline, wheelchair bound.
She has a hospital bed, WC, Shower chair and rails, CPAP, Home O2 wears 2L NC and [place].
This is pt's 5th admission this year, most recent 09/22 to 09/25.
Pt has had [facility] and [facility] in past. Has been to [facility] and [facility] in past.
CM to follow for all discharge planning needs.
[2024-12-11] MEDS: SINGULAIR 10 MG PO (21:29)
[2024-12-11] MEDS: NEURONTIN 200 MG PO (21:33)
[2024-12-11 21:34] LABS: Glucose - Point of Care 212 mg/dl (70-99)
[2024-12-11] MEDS: REFRESH EYE DROPS (PF) 1 DROPS BOTH EYES (21:47)
[2024-12-11 22:45] VITALS: PULSE 87
[2024-12-11 23:00] VITALS: BP 121/72
[2024-12-12] MEDS: HEPARIN 5000 UNITS SC ×3 (01:10→15:44)
[2024-12-12 05:16] LABS: Hematocrit 31.9 % (37.0-47.0); Hemoglobin 10.4 g/dL (12.0-16.0); Mean Corp Hgb Conc. 32.6 g/dL (33.0-37.0); Mean Corpuscular Volume 87.6 fL (81.0-99.0); Platelet Count 155 10^3/uL (130-400); Red Cell Dist. Width 14.0 % (11.5-14.5)
[2024-12-12 05:50] LABS: Blood Urea Nitrogen 28 mg/dl (7-17); Calcium 8.5 mg/dl (8.4-10.2); Carbon Dioxide 28 mmol/L (22-30); Chloride 102 mmol/L (98-107); Estimated Creatinine Clearance 40 ml/min; Glucose 148 mg/dl (70-99); Potassium 3.7 mmol/L (3.5-5.1); Sodium 132 mmol/L (135-145); eGFR > 60.00
[2024-12-12 06:00] VITALS: BMI 23.5
[2024-12-12 07:22] LABS: Glucose - Point of Care 136 mg/dl (70-99)
--- NOTE | 2024-12-12 07:37 | PN.DE.MGMTRT ---
Insulin Management
- -
12/12/2024: Diabetes Management Consult Follow up
89 year old female admitted with c/o left sided pain that involved the left knee, hip and ribs s/p fall from wheelchair to concrete when wheelchair got stuck going over a bump. She sustained a small laceration to left eyebrow. Patient continued to
complain of discomfort on left side so brought to ED for evaluation. Patient currently complaining of discomfort to left ribs only. PMH: HTN, HLD, PAF, Carotid artery stenosis s/p left carotid stent, COPD/Asthma/TANI on 2 L baseline, GERD, chronic
LLE edema, vocal cord spasms, esophageal spasms, Osteoporosis, chronic back pain,T2DM and depression/anxiety. According to the pt is taking NovoLog 2 units before meals as needed if glucose is > 175. A1C 9.2%, Cr 0.8, eGFR >60
Pt is wake, alert, sitting up in chair, offers no complaints, able to provide some details about her diabetes hx
Patient is noted for blood glucose of 270 via BMP obtained 12/10, prompting a Diabetes Management consult 12/11.
12/11 Spoke to pt's -Finesse, pt has been diabetic for a long time, she was seeing [facility] in [place]- thinks it might be Dr. Reddy, but has not been to the office in over 1 year. . States he tries to test her blood sugar every other day and her
numbers are usually 135 to 150.
Discussed with Pt's options for diabetes management and he was in agreement with Januvia and Lantus
Patient received Januvia 100 mg daily, with low corrective insulin with meals. Glucose range 270 to 273.
12/12 Fasting glucose 148. Will add lantus 10 units daily in AM continue Januvia and low corrective insulin AC.
Diabetes Nurse Educator to see patient with family present (will reach out to family to set time) for monitor, if needed, and insulin instruction.
Discussed with Nurse. Will cont to follow
Diabetes History
- -
Type of Diabetes: 2 requiring insulin
Pre-Admission Diabetes Regimen
12/12/24
04:54
Creatinine 0.7
Lab Results
Hemoglobin A1c Cancelled 12/11/24 06:00
Insulin Pump Settings
IP Diabetes Regimen
12/11/24 12/11/24 12/11/24
12:12 16:29 21:33
Glucose
POC Glucose 270 H 273 H 212 H
12/12/24 12/12/24
04:54 07:21
Glucose 148 H
POC Glucose 136 H
Patient Education
[2024-12-12 07:59] VITALS: BP 120/67
[2024-12-12] MEDS: NOVOLOG FLEXPEN-LOW RESISTANCE SC (08:54)
[2024-12-12] MEDS: LANTUS 0.1 UNITS SC (08:54)
[2024-12-12] MEDS: CRESTOR 5 MG PO (08:54)
[2024-12-12] MEDS: JANUVIA 100 MG PO (08:55)
[2024-12-12] MEDS: CARDIZEM CD 120 MG PO (08:55)
[2024-12-12] MEDS: MYSOLINE 50 MG PO (08:55)
[2024-12-12] MEDS: PROTONIX 40 MG PO (08:55)
[2024-12-12] MEDS: VITAMIN D3 (cholecalciferol) 50 MCG PO (08:55)
[2024-12-12] MEDS: DELTASONE 20 MG PO (08:55)
[2024-12-12] MEDS: CELEXA 10 MG PO (08:55)
[2024-12-12] MEDS: PLAVIX 75 MG PO (08:55)
--- NOTE | 2024-12-12 09:15 | W.PN.HOSP.TC ---
Today's Communication/Plan
-
See plan
Assessment / Plan
Assessment / Plan
Physical Exam
General: Well Developed, Well Nourished, No Apparent Distress, Comfortable, Conversant and Appears Chronically Ill
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
Respiratory: Clear, Non Labored Respirations, Decreased Breath Sounds and Other (chronic 2L O2 )
Cardiac: S1/S2, Regular Rhythm and Peripheral Edema; No Murmur
GI: Soft, Non Tender, Non Distended and Normal Bowel Sounds
Musculoskeletal: No Clubbing, No Cyanosis and Other (tenderness to left rib, left knee bruising, discomfort reported with ROM to left knee and left hip)
Skin: Warm and IV/Catheter Site
Neuro: Awake and AO x 3
Psych: Calm
Assessment/Plan
89-year-old female past medical history of COPD on 2 L baseline, obstructive sleep apnea, paroxysmal atrial fibrillation, hypertension, hyperlipidemia, diabetes mellitus, GERD, depression anxiety, vocal cord spasms, esophageal spasms, chronic lower
extremity edema, osteoporosis, chronic back pain, carotid artery stenosis status post left carotid stent and chronic lower extremity edema, presented with fall 12/09/24 after wheelchair injury (fell from wheelchair to concrete, after wheelchair got
stuck going over a bump) and pain over the left knee, hip and ribs. There was a small laceration to the left eyebrow. Family was not comfortable taking her home. Initial vital signs showed heart rate up to 120 bpm. Labs showed leukocytosis of 13.
Blood sugar 270. CT head shows no acute intracranial normality. CT cervical spine shows mild chronic C7 superior endplate compression fracture. Knee x-ray shows no evidence of acute fracture or dislocation. CT chest abdomen pelvis shows likely
old rib fractures. Numerous compression deformities of thoracic and lumbar spine notable which is a T4 compression deformity which is new. Tylenol for pain, PT OT ,case management for placement.
#Bruised ribs, compression fracture of T4 vertebra, contusion of knee s/p fall
#Small Laceration at the left eyebrow
- C-Spine x-ray with no new fracture, left knee x-ray with no acute fracture, CT Head without any bleed, CT Chest/Abdomen/Pelvis suggesting old left sided rib fractures, multiple compression fractures of the thoracic spine, but new T4 compression
fracture
- Given that patient is on Plavix, I communicated with Dr. Best via [place] Text at 7:41 AM on 12/11/24, there is no need to repeat CT Head
- consult PT/OT
- consult case management
#COPD / Asthma
- continue albuterol PRN, ipratropium bromide, montelukast and prednisone
#GERD
- continue pantoprazole
#ASCVD / Carotid Stenosis
#Dense Coronary Artery Calcifications on CT Imaging
- continue clopidogrel and rosuvastatin
#Chronic Lower Extremity Edema
- continue furosemide
#Paroxysmal Atrial Fibrillation
- continue diltiazem
#Constipation
- ordered Miralax
#Depression/Anxiety
- continue citalopram
#essential tremor
- continue gabapentin and primidone
#Diabetes Mellitus
-A1c is 9.2%
-Accuchecks
-Appreciate Diabetes [employer]
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
#TANI on CPAP
#Hypertension
#DM-II
#Diverticula
Speech: Based on video swallow in 2021 she would be ok for thin liquids but patient requested mildly thick liquids. Continue regular solids and mildly thick liquids at patient request.
Code status: full code
DVT prophylaxis: heparin sq
Anticipated Discharge: 24 - 48 hours
Subjective/Interval History
-
Date of Service: December 12, 2024
Patient was seen and examined. She denied any new symptoms or complaints, reported constipation.
Objective Data
-
Labs:
Laboratory Results
12/12/24
04:54
WBC 9.5
Hgb 10.4 L
Hct 31.9 L
Plt Count 155
Sodium 132 L
Potassium 3.7
Chloride 102
Carbon Dioxide 28
BUN 28 H
Creatinine 0.7
Glucose 148 H
Calcium 8.5
Vital Signs:
Vital Signs
Temp Pulse Resp BP Pulse Ox
97.8 F 71 15 120/67 94
12/12/24 07:59 12/12/24 07:59 12/12/24 07:59 12/12/24 07:59 12/12/24 07:59
I&O
12/11/24 12/12/24 12/13/24
06:59 06:59 06:59
Intake Total 120 / 120 480 / 480
Balance 120 / 120 480 / 480
[2024-12-12] MEDS: MIRALAX 17 GRAMS PO (10:33)
[2024-12-12] MEDS: REFRESH EYE DROPS (PF) 1 DROPS BOTH EYES (10:37)
[2024-12-12 13:06] LABS: Glucose - Point of Care 204 mg/dl (70-99)
[2024-12-12] MEDS: NOVOLOG FLEXPEN-LOW RESISTANCE 2 UNITS SC (13:12)
[2024-12-12 15:53] VITALS: BP 115/62
--- NOTE | 2024-12-12 16:27 | CM ---
CM met with Lesly and her son today to discuss discharge plans. Pt adamantly refuses to go to SNF, son is a disabled police chief deputy, so is her underwriter at home. Home Care services suggested and they are agreeable to this, however state that
every time things start going well, the insurance stops covering the homecare services.
Plan: Referral to [facility] and [facility] for nursing.
[2024-12-12 16:44] LABS: Glucose - Point of Care 252 mg/dl (70-99)
[2024-12-12] MEDS: NOVOLOG FLEXPEN-LOW RESISTANCE 3 UNITS SC (16:48)
[2024-12-12] MEDS: TYLENOL 650 MG PO (20:14)
[2024-12-12 21:19] LABS: Glucose - Point of Care 158 mg/dl (70-99)
[2024-12-12] MEDS: NEURONTIN 200 MG PO (21:42)
[2024-12-12] MEDS: SINGULAIR 10 MG PO (21:42)
[2024-12-12 22:15] VITALS: PULSE 81
[2024-12-12 23:00] VITALS: BP 137/77
[2024-12-13] MEDS: HEPARIN 5000 UNITS SC ×3 (00:36→14:59)
[2024-12-13 03:15] VITALS: PULSE 85
[2024-12-13 04:40] VITALS: BMI 24.2
[2024-12-13 06:18] LABS: Hematocrit 30.3 % (37.0-47.0); Hemoglobin 9.8 g/dL (12.0-16.0); Mean Corp Hgb Conc. 32.3 g/dL (33.0-37.0); Mean Corpuscular Volume 86.6 fL (81.0-99.0); Platelet Count 168 10^3/uL (130-400); Red Cell Dist. Width 13.9 % (11.5-14.5)
[2024-12-13 06:44] LABS: Blood Urea Nitrogen 31 mg/dl (7-17); Calcium 8.3 mg/dl (8.4-10.2); Carbon Dioxide 28 mmol/L (22-30); Chloride 103 mmol/L (98-107); Estimated Creatinine Clearance 40 ml/min; Glucose 98 mg/dl (70-99); Potassium 4.3 mmol/L (3.5-5.1); Sodium 134 mmol/L (135-145); eGFR > 60.00
--- NOTE | 2024-12-13 07:42 | PN.DE.MGMTRT ---
Insulin Management
- -
12/13/2024: Diabetes Management Follow up
89 year old female admitted with c/o left sided pain that involved the left knee, hip and ribs s/p fall from wheelchair to concrete when wheelchair got stuck going over a bump. She sustained a small laceration to left eyebrow. Patient continued to
complain of discomfort on left side so brought to ED for evaluation. Patient currently complaining of discomfort to left ribs only. PMH: HTN, HLD, PAF, Carotid artery stenosis s/p left carotid stent, COPD/Asthma/TANI on 2 L baseline, GERD, chronic
LLE edema, vocal cord spasms, esophageal spasms, Osteoporosis, chronic back pain,T2DM and depression/anxiety. According to the pt is taking NovoLog 2 units before meals as needed if glucose is > 175. A1C 9.2%, Cr 0.8, eGFR >60
Patient is noted for blood glucose of 270 via BMP obtained 12/10, prompting a Diabetes Management consult 12/11.
Pt's -Finesse, reports that pt has been diabetic for a long time, she was seeing Endo in [place]- thinks it might be Dr. Reddy, but has not been to the office in over 1 year. States he tries to test her blood sugar every other day and her
numbers are usually 135 to 150.
Discussed with Pt's options for diabetes management and he was in agreement with Januvia and Lantus
Pt is wake, alert, sitting up in bed, very pleasant, offers no complaints, able to discuss diabetes care plan
Receiving Januvia 100 mg daily, Lantus 10 units daily in AM with low corrective insulin with meals.
12/12 premeal Glucose range was 136 to 252. Fasting 98 V today.
Will make no changes to current regimen. Cont Lantus 10 units daily in AM, Januvia and low corrective insulin AC.
Diabetes Nurse Educator to see patient with family present (will reach out to family to set time) for monitor, if needed, and insulin instruction.
Discussed with Nurse. Will cont to follow
Diabetes History
- -
Type of Diabetes: 2 requiring insulin
Pre-Admission Diabetes Regimen
12/13/24
05:54
Creatinine 0.7
Lab Results
Hemoglobin A1c Cancelled 12/11/24 06:00
Insulin Pump Settings
IP Diabetes Regimen
12/12/24 12/12/24 12/12/24
13:05 16:42 21:17
Glucose
POC Glucose 204 H 252 H 158 H
12/13/24
05:54
Glucose 98
POC Glucose
Meal type: Dinner
Meal type: Lunch
Meal type: Breakfast
Amount consumed: 90%
Amount consumed: 100%
Amount consumed: 95%
Patient Education
--- NOTE | 2024-12-13 07:52 | W.PN.HOSP.TC ---
Addendum entered and electronically signed by Jed Mccartney MD 12/13/24 16:06:
I just spoke over the phone to patient's son Emigdio, and according to Emigdio, patient has Insulin at home and knows how much to take when -- and patient has been doing this prior to coming to the hospital -- patient can continue that on discharge, and
follow-up with her PCP next week for further Diabetes Mellitus management. No new Diabetes Mellitus medications on discharge, and Emigdio is in agreement.
Original Note:
Today's Communication/Plan
-
Discharge today
Assessment / Plan
Assessment / Plan
Physical Exam
General: Well Developed, Well Nourished, No Apparent Distress, Comfortable, Conversant and Appears Chronically Ill
HEENT: Normocephalic, Moist mucous membranes (small 1mm laceration to left eyebrow is HEALING)
Respiratory: Clear to Auscultation Bilaterally (chronic 2 L O2)
Cardiac: S1/S2, Regular Rhythm and Peripheral Edema
GI: Soft, Non Tender, Non Distended and Normal Bowel Sounds
Musculoskeletal: No Cyanosis and Other (tenderness to left rib, left knee bruising, discomfort reported with ROM to left knee and left hip -- IMPROVING)
Skin: Warm. Dry.
Neuro: Awake and AO x 3
Psych: Calm
Assessment/Plan
89-year-old female past medical history of COPD on 2 L baseline, obstructive sleep apnea, paroxysmal atrial fibrillation, hypertension, hyperlipidemia, diabetes mellitus, GERD, depression anxiety, vocal cord spasms, esophageal spasms, chronic lower
extremity edema, osteoporosis, chronic back pain, carotid artery stenosis status post left carotid stent and chronic lower extremity edema, presented with fall 12/09/24 after wheelchair injury (fell from wheelchair to concrete, after wheelchair got
stuck going over a bump) and pain over the left knee, hip and ribs. There was a small laceration to the left eyebrow. Family was not comfortable taking her home. Initial vital signs showed heart rate up to 120 bpm. Labs showed leukocytosis of 13.
Blood sugar 270. CT head shows no acute intracranial normality. CT cervical spine shows mild chronic C7 superior endplate compression fracture. Knee x-ray shows no evidence of acute fracture or dislocation. CT chest abdomen pelvis shows likely
old rib fractures. Numerous compression deformities of thoracic and lumbar spine notable which is a T4 compression deformity which is new. Tylenol for pain, PT OT ,case management for placement.
#Bruised ribs, compression fracture of T4 vertebra, contusion of knee s/p fall
#Small Laceration at the left eyebrow
- C-Spine x-ray with no new fracture, left knee x-ray with no acute fracture, CT Head without any bleed, CT Chest/Abdomen/Pelvis suggesting old left sided rib fractures, multiple compression fractures of the thoracic spine, but new T4 compression
fracture
- Given that patient is on Plavix, I communicated with Dr. Best via [place] Text at 7:41 AM on 12/11/24, there is no need to repeat CT Head
- consult PT/OT
- consult case management
- Patient declined SNF/acute rehab, patient would like to go home today
#COPD / Asthma
- continue albuterol PRN, ipratropium bromide, montelukast and prednisone
#GERD
- continue pantoprazole
#ASCVD / Carotid Stenosis
#Dense Coronary Artery Calcifications on CT Imaging
- continue clopidogrel and rosuvastatin
#Chronic Lower Extremity Edema
- continue furosemide
#Paroxysmal Atrial Fibrillation
- continue diltiazem
#Constipation
- ordered Miralax
#Depression/Anxiety
- continue citalopram
#essential tremor
- continue gabapentin and primidone
#Diabetes Mellitus
-A1c is 9.2%
-Accuchecks
-Appreciate Diabetes IP LITIGATION PARALEGAL
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
#TANI on CPAP
#Hypertension
#DM-II
#Diverticula
Speech: Based on video swallow in 2021 she would be ok for thin liquids but patient requested mildly thick liquids. Continue regular solids and mildly thick liquids at patient request.
Code status: full code
DVT prophylaxis: heparin sq
More than 30 minutes spent in discharge including
Final examination of the patient
Summarizing hospital stay
Instructions for continuing care to all relevant caregivers
Preparation of discharge records, prescriptions, and referral forms
Total time spent (in minutes): 39
Anticipated Discharge: Today
Subjective/Interval History
-
Date of Service: December 13, 2024
Patient was seen and examined. She denied any new symptoms or complaints.
Objective Data
-
Labs:
Laboratory Results
12/13/24
05:54
WBC 9.0
Hgb 9.8 L
Hct 30.3 L
Plt Count 168
Sodium 134 L
Potassium 4.3
Chloride 103
Carbon Dioxide 28
BUN 31 H
Creatinine 0.7
Glucose 98
Calcium 8.3 L
Vital Signs:
Vital Signs
Temp Pulse Resp BP Pulse Ox
97.5 F 67 18 137/77 98
12/12/24 23:00 12/12/24 23:00 12/12/24 23:00 12/12/24 23:00 12/12/24 23:00
I&O
12/12/24 12/13/24 12/14/24
06:59 06:59 06:59
Intake Total 480 / 480 660 / 660
Balance 480 / 480 660 / 660
[2024-12-13 07:58] VITALS: BP 122/52
[2024-12-13 08:16] LABS: Glucose - Point of Care 98 mg/dl (70-99)
[2024-12-13] MEDS: NOVOLOG FLEXPEN-LOW RESISTANCE SC ×2 (08:21→12:03)
[2024-12-13] MEDS: LANTUS 0.1 UNITS SC (08:22)
[2024-12-13] MEDS: MIRALAX 17 GRAMS PO (08:22)
[2024-12-13] MEDS: MYSOLINE 50 MG PO (08:23)
[2024-12-13] MEDS: CELEXA 10 MG PO (08:23)
[2024-12-13] MEDS: CARDIZEM CD 120 MG PO (08:23)
[2024-12-13] MEDS: DELTASONE 20 MG PO (08:23)
[2024-12-13] MEDS: PROTONIX 40 MG PO (08:23)
[2024-12-13] MEDS: JANUVIA 100 MG PO (08:23)
[2024-12-13] MEDS: CRESTOR 5 MG PO (08:23)
[2024-12-13] MEDS: PLAVIX 75 MG PO (08:24)
[2024-12-13] MEDS: VITAMIN D3 (cholecalciferol) 50 MCG PO (08:24)
[2024-12-13] MEDS: LASIX 20 MG PO (08:26)
[2024-12-13] MEDS: KCL 20 MEQ PO (08:34)
[2024-12-13 11:38] LABS: Glucose - Point of Care 140 mg/dl (70-99)
--- NOTE | 2024-12-13 14:53 | PTCARENOTE ---
12/13/2024 DIABETES EDUCATION CONSULT
I met with patient to review diabetes management. She is bed bound, has a home visiting MD: Dr. Mookie Lacy. She lives with her son and .
At home she is taking 2 units Novolog every other day if BS is > 175 mg/dL, checks her BS eery other day and it ranges 135-150 mg/dL. Emphasized the importance of of checking before all meals.
I educated and demonstrated on insulin injection technique, timing, and storage. Discussed short acting insulin; onset/peak/duration, and encouraged her to administer self injections with RN supervision while admitted. Discussed normal target
glucose ranges and a monitoring schedule 15 minutes before each meal when prescribed Novolog, and before bedtime. She was able to successfully complete a return demonstration.
I spoke to her son, Emigdio Dukes who states that he is caring for both parents and that Lesly does check her glucose without problem and that his father also checks his BS and can support her if needed. Discussed the possibility of a CGM,
Lesly feels this would be too much of a change for her and she does not have a smart phone. Discussed CGM with Emigdio, he agrees with his mother that a CGM would be too much and he would have to monitor the reader which he feels is too stressful
given that he is online program coordinator to both parents.
Encouraged patient to follow up with PCP for post d/c home appointment and to monitor medication and blood glucose levels.
[2024-12-13] MEDS: FLUZONE HIGH-DOSE 2025-26 0.5 ML IM (16:00)
[2024-12-13 16:09] VITALS: BP 126/53
--- NOTE | 2024-12-16 14:54 | W.DCSUMMARY ---
Discharge Summary
Discharge Data
Date of Admission: 12/10/24
Date of Discharge: 12/13/24
Total time spent discharging patient (in min): 39
-
Pending Results: No
Hospital Course
89 year-old female with past medical history of COPD on 2 L baseline oxygen, obstructive sleep apnea, atrial fibrillation, hypertension, hyperlipidemia, diabetes mellitus, GERD, depression anxiety, vocal cord spasms, esophageal spasms, chronic lower
extremity edema, osteoporosis, chronic back pain and carotid artery stenosis status post left carotid stent, presented with fall after wheelchair injury and pain over the left knee, hip and ribs. Family was not comfortable taking her home. Diabetes
Nurse Practitioner was consulted for assistance with Diabetes management, new oral medication was started, but at the time if discharge hospitalist spoke with patient's son who said patient has Insulin at home as needed for a long time and knows how
much to take when, and how to avoid hypoglycemia -- patient would follow-up with her PCP soon outpatient for follow-up on this. CT Head showed no acute changes, CT Cervical Spine showed mild chronic C7 superior endplate compression fracture,
unchanged from before, as well as degenerative changes, but no findings to suggest any recent cervical spine fractures. Left knee x-ray showed no acute fracture or dislocation. CT Chest/Abdomen/Pelvis without intravenous contrast showed as per
radiologist's report, no evidence for pneumothorax or hemothorax, deformity of multiple left-sided ribs, most likely representing old fractures, with no evidence for displaced rib fracture, numerous compression deformities of the thoracic and lumbar
spine, compared to CT angiography of the chest from June 15, [address] of the abdomen and pelvis from 09/18/2024, compression deformity at T4 was new, there was sclerosis, slight retropulsion of the posterior superior margin of the T4 vertebral
body, the rest of the compression deformities in the thoracic and lumbar spine appear stable; dense coronary artery calcifications; calcification in the region of the aortic valve; cystic mass arising from the distal tail the pancreas, stable from
CT scan in 2022, reassuring that this is a benign cystic pancreatic mass and colonic diverticula with no CT evidence to suggest diverticulitis. Patient initially had some leukocytosis which soon resolved. Although patient was recommended to go to
SNF, patient declined and stated that she wanted to go home. Patient was discharged to home with home care. Hospitalist spoke over the phone to patient's son Emigdio, and according to Emigdio, patient has Insulin at home and knows how much to take when --
and patient has been doing this prior to coming to the hospital -- it was discussed that patient could continue that on discharge, and follow-up with her PCP the following week for further Diabetes Mellitus management -- Emigdio was in agreement after
shared decision-making.
Discharge Plan
-
Patient Disposition: Home with Home Care
Discharge Diagnosis/Procedures: #Bruised ribs, compression fracture of T4 vertebra, contusion of knee after fall
#Small Laceration at the left eyebrow
#COPD / Asthma
#GERD
#ASCVD/Carotid Stenosis
#Dense Coronary Artery Calcifications on CT Imaging
#Chronic Lower Extremity Edema
#Paroxysmal Atrial Fibrillation
#Constipation
#Depression/Anxiety
#Essential tremor
#Diabetes Mellitus
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
#TANI on CPAP
#Hypertension
#Type 2 Diabetes Mellitus
#Diverticula
#Mild CHRONIC C7 superior endplate compression fracture, unchanged -- on CT imaging (as per radiologist's report)
#Degenerative changes of the cervical spine -- on CT imaging (as per radiologist's report)

CT Abdomen/Pelvis (as per radiologist's report):
'IMPRESSION: There is no evidence for pneumothorax or hemothorax.
Deformity of multiple left-sided ribs, most likely representing old fractures, with no evidence for displaced rib fracture.
Numerous compression deformities of the thoracic and lumbar spine. Compared to CT angiography of the chest from June 15, [address] of the abdomen and pelvis from 09/18/2024, compression deformity at T4 is new, and has sclerosis. Slight retropulsion
of the posterior superior margin of the T4 vertebral body. The rest of the compression deformities in the thoracic and lumbar spine appear stable.
Dense coronary artery calcifications. Please correlate with symptoms of and risk factors for coronary artery disease, with further workup as clinically appropriate.
Calcification in the region of the aortic valve. Please correlate with any clinical signs or symptoms that would suggest significant aortic stenosis.
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
Colonic diverticula with no CT evidence to suggest diverticulitis.'
Condition: Fair
Diet: Low Fat, Low Cholesterol, Low Sodium, 2 Gram Sodium, Diabetic, Carb Controlled and Restrict fluids to 48 oz
Additional Diets: Patient requested that any liquids be mildly thick liquids
Activity: With assistance
Driving Restrictions: No driving
Other Services: VN
Activity Restrictions/Additional Instructions:
For all oral intake: take Medications as best tolerated (consider crushed in puree); also follow the following strategies: upright to 90 degrees, intersperse liquids, reflux precautions -- follow Aspiration Precautions
Instructions: Low blood sugar in people with diabetes, Preventing falls in adults
Referrals:
UNKNOWN - PT DOES,NOT KNOW [Family Provider]
Prescriptions:
Continued
clopidogrel 75 MG tablet
75 mg PO DAILY 30 Days Qty: 30 0RF
montelukast 10 MG tablet
10 mg PO HS
primidone 50 MG tablet
50 mg PO DAILY
pantoprazole 40 MG tablet,delayed release (DR/EC)
40 mg PO DAILY
gabapentin 100 mg capsule
200 mg PO HS
Refresh Classic (PF) 1.4-0.6 % Dropperette
1 drp BOTH EYES QIDPRN PRN (Reason: DRY EYES)
polyethylene glycol 3350 [Miralax] 17 gram Powder In Packet
17 g PO DAILYPRN PRN (Reason: constipation)
cinnamon bark [Cinnamon] 500 mg Capsule
500 mg PO DAILY
ipratropium bromide 0.02 % solution
2.5 ml inhalation R Q4HPRN PRN (Reason: sob/wheezing)
cholecalciferol (vitamin D3) [Vitamin D3] 50 mcg (2,000 unit) Tablet
50 mcg PO DAILY
albuterol sulfate 90 mcg/actuation Hfa Aerosol Inhaler
1 puff INHALATION R Q4HPRN PRN (Reason: sob/wheezing)
lidocaine 4 % Adhesive Patch,Medicated
1 patch TOPICAL DAILYPRN PRN (Reason: right hip and right shoulder)
diltiazem HCl 120 mg Capsule,Extended Release 24 Hr
120 mg PO DAILY
tramadol 50 mg Tablet
25 mg PO BIDPRN PRN (Reason: moderate to severe pain) Qty: 10 0RF
prednisone 20 mg Tablet
20 mg PO DAILY
citalopram [Celexa] 20 mg Tablet
10 mg PO DAILY
furosemide [Lasix] 20 mg Tablet
20 mg PO SUTUFR
potassium chloride 20 mEq Tablet Extended Release
20 meq PO SUTUFR
rosuvastatin 5 mg tablet
5 mg PO DAILY
Rx Instructions:
home medicine
Discharge Orders:
Discharge Patient (As Directed); Ordered 12/13/24
Ordered By: Jed Mccartney
Discharge Date and Time
Discharge Date/Time: 12/13/24 18:25
Print Language: AZERI
== END 2024-12-13 18:25 | disposition home health service (06) ==
LOC: 3 WEST ACU 17:34
PROVIDERS: ADMITTING PHYSICIAN Hospitalist; ATTENDING PHYSICIAN Hospitalist; EMERGENCY PHYSICIAN Emergency Medicine
DX: S20.20XA Contusion of thorax, unspecified, initial encounter (principal); M25.552 Pain in left hip; R07.89 Other chest pain; M80.08XA Age-related osteoporosis with current pathological fracture, vertebra(e), initial encounter for fracture; S80.02XA Contusion of left knee, initial encounter; M25.562 Pain in left knee; I25.10 Atherosclerotic heart disease of native coronary artery without angina pectoris; J44.9 Chronic obstructive pulmonary disease, unspecified; J96.10 Chronic respiratory failure, unspecified whether with hypoxia or hypercapnia; G47.33 Obstructive sleep apnea (adult) (pediatric); E78.00 Pure hypercholesterolemia, unspecified; I11.9 Hypertensive heart disease without heart failure; E11.9 Type 2 diabetes mellitus without complications; H40.9 Unspecified glaucoma; I48.0 Paroxysmal atrial fibrillation; G89.29 Other chronic pain; K21.9 Gastro-esophageal reflux disease without esophagitis; M95.4 Acquired deformity of chest and rib; G25.0 Essential tremor; F41.9 Anxiety disorder, unspecified; D72.829 Elevated white blood cell count, unspecified; K59.00 Constipation, unspecified; K57.30 Diverticulosis of large intestine without perforation or abscess without bleeding; M17.12 Unilateral primary osteoarthritis, left knee; K86.89 Other specified diseases of pancreas; F32.A Depression, unspecified; G31.9 Degenerative disease of nervous system, unspecified; M47.812 Spondylosis without myelopathy or radiculopathy, cervical region; R60.0 Localized edema; J45.909 Unspecified asthma, uncomplicated; S01.112A Laceration without foreign body of left eyelid and periocular area, initial encounter; W05.0XXA Fall from non-moving wheelchair, initial encounter; Y93.89 Activity, other specified; Y92.9 Unspecified place or not applicable; Z23 Encounter for immunization; Z99.3 Dependence on wheelchair; Z99.81 Dependence on supplemental oxygen; Z79.02 Long term (current) use of antithrombotics/antiplatelets; Z87.01 Personal history of pneumonia (recurrent); Z87.19 Personal history of other diseases of the digestive system; Z90.710 Acquired absence of both cervix and uterus; Z90.49 Acquired absence of other specified parts of digestive tract; Z82.3 Family history of stroke; Z80.0 Family history of malignant neoplasm of digestive organs; Z80.41 Family history of malignant neoplasm of ovary; Z88.1 Allergy status to other antibiotic agents; Z88.3 Allergy status to other anti-infective agents; Z88.2 Allergy status to sulfonamides; Z88.8 Allergy status to other drugs, medicaments and biological substances; Z91.018 Allergy to other foods; Z79.899 Other long term (current) drug therapy; Z95.828 Presence of other vascular implants and grafts; Z88.0 Allergy status to penicillin; Z82.5 Family history of asthma and other chronic lower respiratory diseases; Z79.52 Long term (current) use of systemic steroids
CPT/HCPCS: 70450; 71250; 72125; 73564; 74176; 80048; 80053; 82962; 83036; 85025; 85027; 90662; 92526; 92610; 94660; 96374; 97163; 97167; 99285; G0008; G0378